=== PATIENT | female | born 1935 | race Caucasian/White ===

== ENCOUNTER → 2018-01-05 14:45 | Outpatient (CLI) | payer MEDICARE, BC, SELFPAY ==
--- NOTE | 2018-01-05 | DI.MG.S_ITS ---
BILATERAL DIGITAL SCREENING MAMMOGRAM 3D/2D WITH CAD: 01/05/2018 CLINICAL: Routine screening. Comparison is made to exams dated: 11/16/2016 mammogram, 11/12/2015 mammogram, and 11/05/2014 mammogram - [facility]. The tissue of both breasts is heterogeneously dense. This may lower the sensitivity of mammography. Current study was also evaluated with a Computer Aided Detection (CAD) system. There are benign vascular calcifications in both breasts. No significant masses, calcifications, or other findings are seen in either breast. There has been no significant interval change. IMPRESSION: There is no mammographic evidence of malignancy. A 1 year screening mammogram is recommended. This exam was interpreted at Station ID: [id number]. NOTE: For mammograms, a report in lay terms will be sent to the patient. Approximately 15% of breast malignancies will not be visualized mammographically. In the management of a palpable breast mass, a negative mammogram must not discourage biopsy of a clinically suspicious lesion. Electronically Signed By: Isha guerra/maggy:01/05/2018 15:34:53 letter sent: Normal Exam ACR BI-RADS Category 2: Benign Finding(s) 3342F
== END ==
PROVIDERS: PCP Family Medicine; Visit Provider Family Medicine
DX: Z12.31 Encounter for screening mammogram for malignant neoplasm of breast (principal)
CPT/HCPCS: 77063; 77067

== ENCOUNTER → 2018-04-05 09:32 | Outpatient (CLI) | payer MEDICARE, BC, SELFPAY ==
[2018-04-05 10:16] LABS: Add Manual Diff / Slide Review NO; Basophils Absolute Auto 100 /uL (0-100); Eosinophils Absolute Auto 200 /uL (0-450); Hematocrit 43.5 % (36-46); Hemoglobin 14.1 g/dL (12.0-16.0); Lymphocytes Absolute Auto 1100 /uL (1100-4500); Lymphocytes Percent Auto 20.4 % (25-40); Mean Corpuscular HGB Conc 32.5 % (30-36); Mean Corpuscular Hemoglobin 30.4 PG (26-34); Mean Corpuscular Volume 93.8 fL (80-100); Monocytes Absolute Auto 400 /uL (0-900); Monocytes Percent Auto 7.6 % (3-14); Neutrophils Absolute Auto 3700 /uL (1500-7000); Platelet Count 137 X10^3/uL (150-400); Red Blood Cell Count 4.64 X10^6/uL (4.0-5.2); Red Cell Distribution Width 14.1 % (11.6-14.8); White Blood Cell Count 5.4 X10^3/uL (4.5-11.0)
[2018-04-05 11:11] LABS: Alanine Aminotransferase 33 IU/L (9-52); Albumin 4.2 g/dL (3.5-5.0); Albumin Globulin Ratio 1.4 (1.0-2.8); Alkaline Phosphatase 73 U/L (38-126); Aspartate Aminotransferase 35 IU/L (14-36); Bilirubin Total 0.7 mg/dL (0.2-1.3); Blood Urea Nitrogen 25 mg/dL (7-17); Calcium 10.1 mg/dL (8.4-10.2); Carbon Dioxide 30 mmol/L (22-32); Chloride 102 mmol/L (98-107); Cholesterol 187 mg/dL (140-199); Estimated Glomerular Filt Rate 53.1 mL/min (>60); Glucose 90 mg/dL (80-110); HDL Cholesterol 87 mg/dL (40-60); HEMOLYSIS < 15 (0-50); LDL Cholesterol Calculated 90 mg/dL (<100); Potassium 4.3 mmol/L (3.4-5.1); Sodium 141 mmol/L (137-145); Total Protein 7.2 g/dL (6.3-8.2); Triglycerides 51 mg/dL (35-150)
[2018-04-05 11:40] LABS: Thyroid Stimulating Hormone 2.24 uIU/mL (0.47-4.68)
== END ==
PROVIDERS: PCP Family Medicine; Visit Provider Family Medicine
DX: E78.2 Mixed hyperlipidemia (principal); I10 Essential (primary) hypertension
CPT/HCPCS: 36415; 80053; 80061; 84443; 85025

== ENCOUNTER → 2018-08-27 14:27 | Outpatient (CLI) | payer MEDICARE, BC, SELFPAY ==
--- NOTE | 2018-09-14 15:53 | P.HOLT.S_ITS ---
[employer] Report Referral & Results Date Patient Seen: 08/27/18 Requesting provider: Geo Calzada Indication: Syncope Duration of monitoring (days): 14 Diary information: There were 2 patient diary entries associated with sinus rhythm There were 2 patient triggered events also associated with sinus rhythm Data: Minimum heart rate was 46 beats per minute at 05:42 on 09/04/2018 Maximum sinus heart rate was 84 beats per minute at 10:55 on 09/10/2018 Patient's maximum overall heart rate was 120 beats per minute during a 5 beat run of accelerated supraventricular rhythm at 13:05 on 09/06/2018 Patient had another run of accelerated supraventricular rhythm that was 7 beats in duration with a rate of 118 beats per minute the computer identified as ventricular tachycardia but appears to be supraventricular in origin Less than 1% of identified beats rather ventricular supraventricular in origin Overall heart rate is relatively bradycardic with maximum sinus heart rate being only in the 80s as above Impression: No clear etiology for syncope identified on this study Somewhat bradycardic Patient's reported symptoms not correlated with any specific dysrhythmia Clinical correlation suggested
== END ==
PROVIDERS: PCP Family Medicine; Visit Provider Family Medicine
DX: R55 Syncope and collapse (principal)
CPT/HCPCS: 0296T; 0298T

== ENCOUNTER → 2018-09-25 15:46 | Outpatient (CLI) | payer MEDICARE, BC, SELFPAY ==
[2018-09-25 16:26] LABS: Add Manual Diff / Slide Review NO; Basophils Absolute Auto 100 /uL (0-100); Basophils Percent Auto 0.9 % (0-2); Eosinophils Absolute Auto 300 /uL (0-450); Eosinophils Percent Auto 4.3 % (2-4); Hematocrit 44.2 % (36-46); Hemoglobin 14.6 g/dL (12.0-16.0); Lymphocytes Absolute Auto 1400 /uL (1100-4500); Lymphocytes Percent Auto 21.6 % (25-40); Mean Corpuscular Hemoglobin 30.7 PG (26-34); Mean Corpuscular Volume 93.1 fL (80-100); Monocytes Absolute Auto 500 /uL (0-900); Monocytes Percent Auto 7.1 % (3-14); Neutrophils Absolute Auto 4300 /uL (1500-7000); Neutrophils Percent Auto 66.1 % (50-75); Platelet Count 151 X10^3/uL (150-400); Red Blood Cell Count 4.75 X10^6/uL (4.0-5.2); Red Cell Distribution Width 13.9 % (11.6-14.8); White Blood Cell Count 6.5 X10^3/uL (4.5-11.0)
[2018-09-25 17:29] LABS: Alanine Aminotransferase 20 IU/L (9-52); Albumin 4.4 g/dL (3.5-5.0); Albumin Globulin Ratio 1.5 (1.0-2.8); Alkaline Phosphatase 75 U/L (38-126); Aspartate Aminotransferase 38 IU/L (14-36); BUN Creatinine Ratio 27.5 (6-22); Bilirubin Total 0.6 mg/dL (0.2-1.3); Blood Urea Nitrogen 22 mg/dL (7-17); Calcium 10.8 mg/dL (8.4-10.2); Carbon Dioxide 30 mmol/L (22-32); Chloride 99 mmol/L (98-107); Estimated Glomerular Filt Rate > 60.0 mL/min (>60); Globulin 2.9 g/dL (1.7-4.1); Glucose 127 mg/dL (80-110); HEMOLYSIS 28 (0-50); Potassium 3.8 mmol/L (3.4-5.1); Sodium 138 mmol/L (137-145); Total Protein 7.3 g/dL (6.3-8.2)
[2018-09-25 17:43] LABS: Vitamin D 25 Hydroxy (D3) 55.1 ng/mL (30.0-100.0)
== END ==
PROVIDERS: PCP Family Medicine; Visit Provider Family Medicine
DX: I10 Essential (primary) hypertension (principal)
CPT/HCPCS: 36415; 80053; 82306; 85025

== ENCOUNTER → 2018-10-25 10:02 | Outpatient (CLI) | payer MEDICARE, BC, SELFPAY ==
--- NOTE | 2018-10-25 10:10 | DI.US.S_ITS ---
PROCEDURE: US RENAL COMPLETE INDICATIONS: UPJ OBSTRUCTION TECHNIQUE: Real-time scanning was performed of the kidneys and bladder, with image documentation. COMPARISON: [facility], CT, IVP (ABD & PEL WWO CONTRAST), 05/05/2017, 15:30. FINDINGS: Kidneys: Kidneys are normal in size. Right kidney measures 9.9 cm long; left kidney measures 9.7 cm long. Right renal cortical thickness is 0.9 cm; left renal cortical thickness is 1.7 cm. Renal cortical echotexture is increased bilaterally. There is moderate right hydronephrosis and significant dilatation of the right renal pelvis which appears decreased compared to prior CT scan now measuring up to 6.1 cm compared to 9.[address] scan. Right ureter is not well-visualized. No hydronephrosis of the left kidney. Bladder: Pre-void bladder volume is 117 mL. Post-void residual is 31 mL. Pre-void images demonstrate no intraluminal masses or stones. On pre-void images, both of the ureteral jets are noted with color Doppler interrogation. (Of note, ureteral jets may not be detectable in up to 25% of cases due to insufficient differences in specific gravity between ureteral and bladder urine). Miscellaneous: No free pelvic fluid. IMPRESSION: 1. Moderate right hydronephrosis and significant dilatation of the right renal pelvis which has decreased in size compared to prior CT scan in this patient with history of right UPJ obstruction/stenosis. 2. Slight increase in echogenicity of the renal cortices bilaterally and right renal cortical thinning consistent with medical renal disease. Dictated by: Murali Guevara [facility] Interpreted: Anthony Lockhart MD on 10/25/2018 at 11:06 Approved by: Anthony Lockhart M.D. on 10/25/2018 at 14:53
== END ==
PROVIDERS: PCP Family Medicine; Visit Provider Family Medicine
DX: N13.0 Hydronephrosis with ureteropelvic junction obstruction (principal); N13.5 Crossing vessel and stricture of ureter without hydronephrosis; N13.30 Unspecified hydronephrosis; N28.9 Disorder of kidney and ureter, unspecified
CPT/HCPCS: 76770

== ENCOUNTER → 2019-02-07 11:06 | Outpatient (CLI) | payer MEDICARE, BC, SELFPAY ==
--- NOTE | 2019-02-07 | DI.MG.S_ITS ---
BILATERAL DIGITAL SCREENING MAMMOGRAM 3D/2D WITH CAD: 02/07/2019 CLINICAL: Routine screening. Comparison is made to exams dated: 01/05/2018 mammogram, 11/16/2016 mammogram, 11/12/2015 mammogram, 11/05/2014 mammogram, and 08/20/2013 mammogram - [facility]. The tissue of both breasts is heterogeneously dense. This may lower the sensitivity of mammography. Current study was also evaluated with a Computer Aided Detection (CAD) system. There are benign vascular calcifications in both breasts. No significant masses, calcifications, or other findings are seen in either breast. There has been no significant interval change. IMPRESSION: There is no mammographic evidence of malignancy. A 1 year screening mammogram is recommended. This exam was interpreted at Station ID: [id number]. NOTE: For mammograms, a report in lay terms will be sent to the patient. Approximately 15% of breast malignancies will not be visualized mammographically. In the management of a palpable breast mass, a negative mammogram must not discourage biopsy of a clinically suspicious lesion. Electronically Signed By: Manish rosa/maggy:02/07/2019 16:52:20 letter sent: Normal Exam ACR BI-RADS Category 2: Benign Finding(s) 3342F
== END ==
PROVIDERS: PCP Family Medicine; Visit Provider Family Medicine
DX: Z12.31 Encounter for screening mammogram for malignant neoplasm of breast (principal)
CPT/HCPCS: 77063; 77067

== ENCOUNTER → 2019-05-22 09:54 | Outpatient (CLI) | payer MEDICARE, BC, SELFPAY ==
[2019-05-22 10:47] LABS: Add Manual Diff / Slide Review NO; Basophils Absolute Auto 0 /uL (0-100); Basophils Percent Auto 0.7 % (0-2); Eosinophils Absolute Auto 200 /uL (0-450); Hematocrit 41.3 % (36-46); Hemoglobin 14.1 g/dL (12.0-16.0); Lymphocytes Absolute Auto 1300 /uL (1100-4500); Lymphocytes Percent Auto 26.4 % (25-40); Mean Corpuscular HGB Conc 34.2 % (30-36); Mean Corpuscular Hemoglobin 31.5 PG (26-34); Mean Corpuscular Volume 92.1 fL (80-100); Monocytes Absolute Auto 400 /uL (0-900); Monocytes Percent Auto 7.8 % (3-14); Neutrophils Absolute Auto 3100 /uL (1500-7000); Neutrophils Percent Auto 62.1 % (50-75); Platelet Count 142 X10^3/uL (150-400); Red Blood Cell Count 4.49 X10^6/uL (4.0-5.2); Red Cell Distribution Width 13.7 % (11.6-14.8); White Blood Cell Count 5.1 X10^3/uL (4.5-11.0)
[2019-05-22 11:25] LABS: Alanine Aminotransferase 23 IU/L (<35); Albumin 4.4 g/dL (3.5-5.0); Albumin Globulin Ratio 1.5 (1.0-2.8); Alkaline Phosphatase 61 U/L (38-126); Aspartate Aminotransferase 39 IU/L (14-36); BUN Creatinine Ratio 25.6 (6-22); Bilirubin Total 0.8 mg/dL (0.2-1.3); Blood Urea Nitrogen 23 mg/dL (7-17); Calcium 10.8 mg/dL (8.4-10.2); Carbon Dioxide 34 mmol/L (22-32); Chloride 97 mmol/L (98-107); Cholesterol 193 mg/dL (140-199); Estimated Glomerular Filt Rate 59.8 mL/min (>60); Globulin 2.9 g/dL (1.7-4.1); Glucose 93 mg/dL (80-110); HDL Cholesterol 80 mg/dL (40-60); HEMOLYSIS < 15 (0-50); LDL Cholesterol Calculated 102 mg/dL (<100); Potassium 4.1 mmol/L (3.4-5.1); Sodium 138 mmol/L (137-145); Total Protein 7.3 g/dL (6.3-8.2); Triglycerides 55 mg/dL (35-150)
[2019-05-22 11:48] LABS: Thyroid Stimulating Hormone 1.81 uIU/mL (0.47-4.68)
== END ==
PROVIDERS: PCP Family Medicine; Referring Provider Family Medicine; Visit Provider Family Medicine
DX: E78.5 Hyperlipidemia, unspecified (principal); E78.2 Mixed hyperlipidemia; I10 Essential (primary) hypertension
CPT/HCPCS: 36415; 80053; 80061; 84443; 85025

== ENCOUNTER → 2020-04-09 09:39 | Outpatient (CLI) | payer MEDICARE, BC, SELFPAY ==
[2020-04-09 10:26] LABS: Add Manual Diff / Slide Review NO; Basophils Absolute Auto 100 /uL (0-100); Basophils Percent Auto 0.9 % (0-2); Eosinophils Absolute Auto 200 /uL (0-450); Eosinophils Percent Auto 3.2 % (2-4); Hematocrit 37.1 % (36-46); Hemoglobin 12.3 g/dL (12.0-16.0); Lymphocytes Absolute Auto 1300 /uL (1100-4500); Lymphocytes Percent Auto 20.4 % (25-40); Mean Corpuscular HGB Conc 33.3 % (30-36); Mean Corpuscular Hemoglobin 31.9 PG (26-34); Mean Corpuscular Volume 95.9 fL (80-100); Monocytes Absolute Auto 500 /uL (0-900); Neutrophils Absolute Auto 4500 /uL (1500-7000); Neutrophils Percent Auto 68.5 % (50-75); Platelet Count 189 X10^3/uL (150-400); Red Blood Cell Count 3.87 X10^6/uL (4.0-5.2); Red Cell Distribution Width 14.9 % (11.6-14.8); White Blood Cell Count 6.6 X10^3/uL (4.5-11.0)
[2020-04-09 10:35] LABS: Hemoglobin A1C% w Est Avg Glu 5.1 % (4.0-6.0)
[2020-04-09 10:39] LABS: Alanine Aminotransferase 19 IU/L (<35); Albumin 4.6 g/dL (3.5-5.0); Albumin Globulin Ratio 1.6 (1.0-2.8); Alkaline Phosphatase 68 U/L (38-126); Aspartate Aminotransferase 43 IU/L (14-36); BUN Creatinine Ratio 26.3 (6-22); Blood Urea Nitrogen 20 mg/dL (7-17); Calcium 10.2 mg/dL (8.4-10.2); Carbon Dioxide 33 mmol/L (22-32); Chloride 96 mmol/L (98-107); Cholesterol 194 mg/dL (140-199); Estimated Glomerular Filt Rate > 60.0 mL/min (>60); Globulin 2.8 g/dL (1.7-4.1); Glucose 105 mg/dL (80-110); HDL Cholesterol 81 mg/dL (40-60); HEMOLYSIS < 15 (0-50); LDL Cholesterol Calculated 100 mg/dL (<100); Potassium 3.6 mmol/L (3.4-5.1); Sodium 134 mmol/L (137-145); Total Protein 7.4 g/dL (6.3-8.2); Triglycerides 63 mg/dL (35-150)
== END ==
PROVIDERS: PCP Family Medicine; Referring Provider Family Medicine; Visit Provider Family Medicine
DX: E78.2 Mixed hyperlipidemia (principal); R73.01 Impaired fasting glucose; I10 Essential (primary) hypertension; N13.30 Unspecified hydronephrosis
CPT/HCPCS: 36415; 80053; 80061; 83036; 85025

== ENCOUNTER → 2020-06-24 10:22 | Outpatient (CLI) | payer MEDICARE, BC, SELFPAY ==
--- NOTE | 2020-06-24 10:24 | DI.MG.S_ITS ---
BILATERAL DIGITAL SCREENING MAMMOGRAM 3D/2D WITH CAD: 06/24/2020 CLINICAL: Routine screening. Comparison is made to exams dated: 02/07/2019 mammogram, 01/05/2018 mammogram, and 11/16/2016 mammogram - [facility]. The tissue of both breasts is heterogeneously dense. This may lower the sensitivity of mammography. Current study was also evaluated with a Computer Aided Detection (CAD) system. There are benign vascular calcifications in both breasts. No significant masses, calcifications, or other findings are seen in either breast. There has been no significant interval change. IMPRESSION: BENIGN There is no mammographic evidence of malignancy. A 1 year screening mammogram is recommended. This exam was interpreted at Station ID: [id number]. NOTE: For mammograms, a report in lay terms will be sent to the patient. Approximately 15% of breast malignancies will not be visualized mammographically. In the management of a palpable breast mass, a negative mammogram must not discourage biopsy of a clinically suspicious lesion. Electronically Signed By: Jv summers/maggy:06/24/2020 12:05:05 letter sent: Normal Exam ACR BI-RADS Category 2: Benign Finding(s) 3342F
== END ==
PROVIDERS: PCP Family Medicine; Referring Provider Family Medicine; Visit Provider Family Medicine
DX: Z12.31 Encounter for screening mammogram for malignant neoplasm of breast (principal)
CPT/HCPCS: 77063; 77067

== ENCOUNTER → 2020-07-16 09:42 | Outpatient (CLI) | payer MEDICARE, BC, SELFPAY ==
--- NOTE | 2020-07-16 | DI.NM.S_ITS ---
PROCEDURE: NM RENAL FUNCTION W LASIX RADIOPHARMACEUTICAL: 9.6 mCi Tc-99m MAG3 IV and 40 mg furosemide IV. INDICATIONS: Crossing Vessel and stricture of ureter TECHNIQUE: The patient was hydrated orally before the examination was begun. After intravenous administration of Tc-99m MAG3, posterior abdominal radionuclide angiogram and sequential (1 minute each frame) renal images were obtained. A time-activity curve for each kidney was generated and analyzed. To evaluate for obstruction, the patient was given 40 mg furosemide via slow intravenous injection after the start of the examination. Sequential images were obtained for up to an additional 20 minutes. COMPARISON: [facility], CT, IVP (ABD & PEL WWO CONTRAST), 05/05/2017, 15:30. [facility], CT, CT HEAD WITHOUT CONTRAST, 06/30/2020, 14:46. [facility], CT, ABDOMEN/PELVIS WITH CONTRAST, 11/18/2007, 12:17. [facility], CT, ABDOMEN/PELVIS WITHOUT CONTRAST, 11/11/2007, 16:01. [place], [place], RENAL IMAGING WITH LASIX, 05/17/2017, 10:02. [facility], US RENAL COMPLETE, 10/25/2018, 10:22. FINDINGS: Perfusion: There is normal vascular flow to both kidneys. Morphology: Left kidney is inferiorly ptotic and decreased in size compared to the left kidney. Both kidneys are normal in size and shape. There is markedly dilated right renal collecting system. The left ureter and bladder fill with tracer, and appear normal. The right ureter is poorly visualized. Function: Both kidneys demonstrate normal cortical tracer uptake, with pjtu-lu-oida activity ranging from 3 to 5 minutes. The right kidney contributes 37.7 % of total renal function. The left kidney contributes 62.3% of total renal function (previously, right kidney 33.8% and left kidney 66.2% on 05/17/2017). Lasix stimulation: After diuretic administration, there is prompt clearance of tracer activity from the renal collecting systems in both kidneys. The half-time of emptying of tracer activity from the right pelvicaliceal system is 11.2 minutes. The half-time of emptying from the left pelvicaliceal system is 8.9 minutes. Normal emptying half-times are less than 10 minutes; borderline ranges are from 10 to 20 minutes. IMPRESSION: 1. Right kidney is decreased in size and function. The left renal pelvis is markedly dilated. The T1/2 for the right kidney is borderline increased consistent with a degree of right UPJ obstruction. 2. Normal left renal function. 3. The right kidney contributes 37.7% of total renal function; the left the contributed 62.3% of total renal function. Split renal function is stable since 2018. Dictated by: Kulwant Dominguez M.D. on 07/16/2020 at 13:12 Approved by: Kulwant Dominguez M.D. on 07/16/2020 at 13:26
== END ==
PROVIDERS: PCP Family Medicine; Referring Provider Physician Assistant Medical; Visit Provider Physician Assistant Medical
DX: N13.5 Crossing vessel and stricture of ureter without hydronephrosis (principal)
CPT/HCPCS: 78708; A9562

== ENCOUNTER → 2020-08-27 15:50 | Outpatient (CLI) | payer MEDICARE, BC, SELFPAY ==
--- NOTE | 2020-08-27 15:53 | DI.MRI.S_ITS ---
PROCEDURE: MR THORACIC SPINE WO CON INDICATIONS: extensive scoliosis and stenosis CTL spine and chronic pain TECHNIQUE: Noncontrast sagittal T1 spine echo and T2 fast spin echo, sagittal STIR, axial T1 and T2 fast spin echo through the thoracic spine. COMPARISON: [facility], MR, MR LUMBAR SPINE WO CON, 08/27/2020, 17:35. [facility], MR, MR CERVICAL SPINE WO CON, 08/27/2020, 16:47. FINDINGS: Image quality: Excellent. Alignment and Curvature: Accentuated thoracic kyphosis is seen. Qyum-bn-zdlhljeu dextroconvex thoracic scoliotic curvature is seen. Bone Marrow: Marrow is of normal overall signal. No acute vertebral body compression fractures. There is a remote appearing T10 anterior wedge deformity, with approximately 30% loss of height anteriorly. Spinal Cord: Visualized spinal cord is normal in size and signal. Paraspinous Soft Tissues: No paravertebral masses. Miscellaneous: At T7-T8, there is a broad-based disc bulge seen. Macrocytic ont At T9-T10, there is mild generalized disc bulge seen, with hypertrophy of the posterior elements. Mild central canal narrowing is seen, as on series 8, image 9. Moderate bilateral neural foraminal narrowing is seen. At T10-T11, there is mild generalized disc bulge seen, with a protrude few of the posterior elements. Minimal to mild central canal narrowing is seen. There is moderate left-sided and no significant right-sided neural foraminal narrowing seen. At T11-T12, there is moderate loss of disc height seen. At least moderate disc bulge is seen. Moderate facet hypertrophy is seen. Minimal to mild central canal narrowing is seen. There is at least moderate right-sided and no significant left-sided neural foraminal narrowing seen. IMPRESSION: Accentuated thoracic kyphosis and welp-jk-ouxpeaus dextroconvex thoracic scoliosis is seen. Remote T10 anterior wedge deformity. Age-appropriate lower thoracic spine degenerative changes are seen. Dictated by: Miah Vasquez M.D. on 08/28/2020 at 11:28 Approved by: Miah Vasquez M.D. on 08/28/2020 at 11:32
--- NOTE | 2020-08-27 15:53 | DI.MRI.S_ITS ---
PROCEDURE: MR CERVICAL SPINE WO CON INDICATIONS: extensive scoliosis and stenosis CTL spine and chronic pain TECHNIQUE: Noncontrast sagittal T1 spin echo and T2 fast spin echo, sagittal STIR, foraminal oblique sagittal T2 fast spin echo, and axial gradient echo or T2 fast spin echo through the cervical spine. COMPARISON: [facility], MR, C-SPINE WITHOUT CONTRAST, 03/28/2007, 10:24. [facility], MR, MR THORACIC SPINE WO CON, 08/27/2020, 17:09. [facility], MR, MR LUMBAR SPINE WO CON, 08/27/2020, 17:35. [facility], MR, C-SPINE WITHOUT CONTRAST, 02/07/2011, 14:10. FINDINGS: Image quality: Diagnostic, with note made of motion artifact. Alignment and Curvature: Mild anterolisthesis is seen at the C3-C4 level. Minimal retrolisthesis is seen at C4-C5 and C5-C6. Bone Marrow: Marrow demonstrates normal overall signal. Spinal Cord: Visualized spinal cord has normal size and signal. No cerebellar tonsillar herniation. Paraspinous Soft Tissues: No paravertebral masses. Prevertebral soft tissues are normal in thickness. C2-C3: Normal appearance. C3-C4: Moderate loss of disc height is seen. Loss of disc signal is seen. Mild to moderate disc osteophyte complex is seen. There is at least moderate facet hypertrophy is seen. Moderate bilateral neural foraminal narrowing is seen. Mild to moderate central canal narrowing is seen. These imaging findings have progressed compared to the prior study. C4-C5: At least moderate loss of disc height and disc signal can be seen. Moderate generalized disc osteophyte complex is seen. There is moderate right-sided and moderate to prominent left-sided facet hypertrophy seen. There is moderate to severe left-sided and moderate right-sided neural foraminal narrowing seen. Mild to moderate central canal narrowing is seen at this level. When comparison is made with the prior images, these findings are similar. C5-C6: At least moderate loss of disc height and disc signal can be seen. Mild to moderate disc osteophyte complex is seen. There is at least moderate facet hypertrophy seen. There is moderate to severe left-sided and moderate right-sided neural foraminal narrowing seen. Moderate central canal narrowing is seen. There is associated mass effect upon the ventral spinal cord. There is slight progression compared to 2011. C6-C7: Moderate loss of disc height is seen. Loss of disc signal is seen. Moderate generalized disc osteophyte complex is seen. There is zjuk-dl-bsozdgvw right-sided and at least moderate left-sided facet hypertrophy seen. There is mzee-jb-cexgxild bilateral neural foraminal narrowing seen. Mild central canal narrowing is seen. When comparison is made with the prior images, these findings are similar. C7-T1: No significant abnormality is seen. IMPRESSION: Multiple levels of cervical spine degenerative change are seen, which are overall mildly progressed compared to 2011. Dictated by: Miah Vasquez M.D. on 08/28/2020 at 11:21 Approved by: Miah Vasquez M.D. on 08/28/2020 at 11:27
--- NOTE | 2020-08-27 15:53 | DI.MRI.S_ITS ---
PROCEDURE: MR PELVIS WO CON INDICATIONS: extensive scoliosos and stenosis CTL spine and chronic pain TECHNIQUE: Noncontrast axial and coronal T1 spin echo and STIR through the lumbosacral plexus region. Optional contrast may be given, followed by axial and coronal T1 spin echo with fat saturation through the sacral plexus. COMPARISON: [facility], CT, IVP (ABD & PEL WWO CONTRAST), 05/05/2017, 15:30. FINDINGS: Image quality: Significantly reduced by patient motion and metal artifact related to left total hip arthroplasty.. Lumbosacral plexus: Quality of visualization is limited by patient motion and metal artifact on the left. Within the constraints of this superior to the piriformis muscles, the pre-plexal structures appear normal, including the lumbosacral trunk and S1 root. Just anterior to the piriformis muscles, the sacral plexus proper demonstrates normal morphology (lumbosacral trunk, S1 to S3 nerve roots). Inferior to the piriformis muscle on the right, the sciatic nerves appear normal. Soft tissues: The piriformis muscle on the right appears normal but is poorly seen on the left due to extensive metal artifact.. No presacral masses. Rectum appears normal in caliber and wall thickness where well seen. Pessary is in place at the midline No pathologic free pelvic fluid. No visualized adenopathy by size criteria. Bones: Marrow is normal in overall signal. IMPRESSION: Source of chronic pain is not found. Please note that there is patient motion artifact which reduces quality of the examination overall and extensive metal artifact on the left from a total hip arthroplasty which further degrades quality of visualization predominantly on the left. Overall it may be warranted to obtain contrast-enhanced CT scanning for further assessment of chronic pain in this patient with relatively poor quality visualization through MR scanning. Dictated by: Hernando Patiño M.D. on 08/28/2020 at 10:00 Approved by: Hernando Patiño M.D. on 08/28/2020 at 10:05
--- NOTE | 2020-08-27 15:53 | DI.MRI.S_ITS ---
PROCEDURE: MR LUMBAR SPINE WO CON INDICATIONS: extensive scoliosos and stenosis CTL spine and chronic pain TECHNIQUE: Noncontrast sagittal T1 spin echo and T2 fast echo, sagittal STIR, axial T1 and T2 fast spin echo through the lumbar spine. In cases with scoliosis, additional coronal T2 fast spin echo may be performed. COMPARISON: [facility], MR, MR THORACIC SPINE WO CON, 08/27/2020, 17:09. [facility], CT, IVP (ABD & PEL WWO CONTRAST), 05/05/2017, 15:30. [facility], MR, L-SPINE WITHOUT CONTRAST, 12/20/2016, 14:13. [facility], CR, SPINE LUMB 6+VW, 12/12/2016, 12:10. FINDINGS: Image quality: Excellent. Alignment and Curvature: 5 lumbar type vertebral bodies are present by plain film. There is moderate leftward is present, as before. Mild grade 1 retrolisthesis T11 on T12, T12 on L1, and L1 on L2 is present. Bone Marrow: Marrow is of normal overall signal. Left L4-L5 and L5-S1 pars interarticularis defects. There is moderate reactive signal within the endplates adjacent to the 2 T11-T12, L4-L5, and L5-S1 intervertebral discs. Mild reactive signal within the endplates adjacent to the T12-L1, L1-L2, L2-L3, and L3-L4 intervertebral discs. There is mild wedging of the T10 vertebral body, which demonstrates linear low T1/T2 signal intensity within its superior endplate, as well as mild surrounding ill-defined STIR signal. Spinal Cord: Conus medullaris terminates at the L2 level. Visualized cord demonstrates normal signal and size. Paraspinous Soft Tissues: No paravertebral masses. Right renal cyst is present, as before, incompletely visualized. There is severe right hydronephrosis and renal pelvic dilatation, as before. T12-L1: Moderate disc desiccation. Mild diffuse disc bulge. Mild facet and ligamentum flavum hypertrophy. Mild canal stenosis. No foraminal stenosis. No significant change. L1-L2: Moderate disc height loss and desiccation. Mild diffuse disc bulge. Mild facet and ligamentum flavum hypertrophy. Mild canal stenosis. Mild right greater than left foraminal stenosis. No significant change. L2-L3: Moderate disc desiccation. Mild diffuse disc bulge. Mild facet and ligamentum flavum hypertrophy. Mild canal stenosis. Mild bilateral foraminal stenosis. No significant change. L3-L4: Moderate disc height loss and desiccation. Mild diffuse disc bulge. Mild facet and uncovertebral hypertrophy. Moderate canal stenosis. Mild right greater than left foraminal stenosis. No significant change. L4-L5: Severe disc height loss and desiccation. Mild diffuse disc bulge. Moderate facet and ligamentum flavum hypertrophy. Increased, severe canal stenosis. No change in moderate right and severe left foraminal stenosis. Left L4 nerve root compression. No significant change. L5-S1: Severe disc height loss and desiccation. Mild diffuse disc bulge. Mild facet and ligamentum flavum hypertrophy. Moderate canal stenosis. Severe left greater than right foraminal stenosis. Left greater than right L5 nerve root compression. No significant change. IMPRESSION: 1. Multilevel degenerative disc and facet disease, as well as ligamentum flavum hypertrophy and epidural lipomatosis. 2. Multilevel canal stenoses, worst at L4-L5 where there is increased, severe canal stenosis. 3. Mild subacute T10 compression fracture. 4. Grade I isthmic spondylolisthesis at L4-L5 and L5-S1. 5. Multilevel foraminal stenoses, worst at L4-L5 and L5-S1 where there is associated intraforaminal nerve root compression. Recommend correlation with clinical symptoms to ascertain relevance of this finding. 6. No significant change in severe right hydronephrosis. Dictated by: Tyrone Lal M.D. on 08/28/2020 at 8:54 Approved by: Tyrone Lal M.D. on 08/28/2020 at 9:10
[2020-08-28 13:40] LABS: Fecal Immunochemical Test Negative (Negative)
== END ==
PROVIDERS: PCP Family Medicine; Referring Provider Family Medicine; Visit Provider Family Medicine
DX: M41.9 Scoliosis, unspecified (principal); M41.84 Other forms of scoliosis, thoracic region; M48.061 Spinal stenosis, lumbar region without neurogenic claudication; M48.07 Spinal stenosis, lumbosacral region; M51.36 Other intervertebral disc degeneration, lumbar region; M48.54XA Collapsed vertebra, not elsewhere classified, thoracic region, initial encounter for fracture; M48.04 Spinal stenosis, thoracic region; M47.814 Spondylosis without myelopathy or radiculopathy, thoracic region; M48.02 Spinal stenosis, cervical region; M47.812 Spondylosis without myelopathy or radiculopathy, cervical region; M43.16 Spondylolisthesis, lumbar region; M43.17 Spondylolisthesis, lumbosacral region; M19.91 Primary osteoarthritis, unspecified site; M25.552 Pain in left hip; M54.5 Low back pain; G89.29 Other chronic pain; Z12.11 Encounter for screening for malignant neoplasm of colon; Z96.642 Presence of left artificial hip joint
CPT/HCPCS: 72141; 72146; 72148; 72195; 82274

== ENCOUNTER → 2020-10-12 15:19 | Outpatient (CLI) | payer MEDICARE, BC, SELFPAY ==
--- NOTE | 2020-10-12 15:22 | DI.RAD.S_ITS ---
PROCEDURE: XR LUMBAR SPINE 2-3V INDICATIONS: Pain TECHNIQUE: 3 views of the lumbar spine were acquired. COMPARISON: [facility], MR, MR LUMBAR SPINE WO CON, 08/27/2020, 17:35. FINDINGS: Bones: 5 uiq-gkh-qhyangw vertebrae are present. Mild levocurvature centered at the L3 level. Grade 1 spondylolisthesis L4-L5 and L5-S1. Multilevel disc degeneration, severe at the L4-L5 and L5-S1 levels where there is moderate facet joint arthropathy. Left hip arthroplasty incompletely visualized.. No acute vertebral body compression fractures. No suspicious bony lesions. Bones are osteopenic. Soft tissues: Overlying bowel gas pattern is normal. No suspicious soft tissue calcifications. Vascular calcifications indicate atherosclerosis. IMPRESSION: Multilevel spondylosis. Dictated by: Murali LUND Interpreted: Guy Perkins MD on 10/12/2020 at 16:06 Transcribed by: KYLER on 10/12/2020 at 16:07 Approved by: Guy Perkins M.D. on 10/12/2020 at 16:54
--- NOTE | 2020-10-12 15:22 | DI.RAD.S_ITS ---
PROCEDURE: XR THORACIC SPINE 2V INDICATIONS: Pain TECHNIQUE: 3 views of the thoracic spine were acquired. COMPARISON: [facility], MR, MR THORACIC SPINE WO CON, 08/27/2020, 17:09. FINDINGS: Bones: No acute fractures or dislocations. No change in remote T10 anterior wedge deformity. No suspicious bony lesions. 12 pairs of ribs are noted, and appear intact where visualized. Mild S-shaped scoliosis. Moderate multilevel mid and lower thoracic spine disc degeneration. Soft tissues: No paravertebral stripe thickening. Vascular calcifications indicate atherosclerosis. IMPRESSION: 1. Chronic T10 compression fracture no acute compression fracture seen. 2. Multilevel spondylosis. Dictated by: Murali ROBLES Interpreted: Guy Perkins MD on 10/12/2020 at 16:08 Transcribed by: KYLER on 10/12/2020 at 16:09 Approved by: Guy Perkins M.D. on 10/12/2020 at 16:55
--- NOTE | 2020-10-12 15:22 | DI.RAD.S_ITS ---
PROCEDURE: XR HIP W PEL IF DONE LT MIN 4V INDICATIONS: Pain TECHNIQUE: AP pelvis and lateral view of the bilateral hip acquired. COMPARISON: [facility], CR, ABDOMEN ACUTE SERIES, 11/18/2007, 8:00. [facility], CR, XR LUMBAR SPINE WITH OLBIQUES PLUS FLEXION EXTENSION, 10/16/2018, 13:53. FINDINGS: Bones: Patient is status post left hip arthroplasty, with hardware components in expected positions. The hip joint appears congruent. The visualized bony structures appear intact. Mild right hip joint narrowing with periarticular osteophyte formation. Soft tissues: Overlying postoperative changes are noted. No suspicious soft tissue densities. IMPRESSION: Stable appearance of left hip arthroplasty. Mild right hip joint degeneration. Dictated by: Murali Guevara [facility] Interpreted: Guy Perkins MD on 10/12/2020 at 16:05 Transcribed by: KYLER on 10/12/2020 at 16:06 Approved by: Guy Perkins M.D. on 10/12/2020 at 16:53
== END ==
PROVIDERS: PCP Family Medicine; Referring Provider Family Medicine; Visit Provider Family Medicine
DX: M25.552 Pain in left hip (principal); M54.6 Pain in thoracic spine; M16.11 Unilateral primary osteoarthritis, right hip; M54.5 Low back pain; G89.29 Other chronic pain; M47.814 Spondylosis without myelopathy or radiculopathy, thoracic region; M47.816 Spondylosis without myelopathy or radiculopathy, lumbar region; M47.817 Spondylosis without myelopathy or radiculopathy, lumbosacral region; M48.54XS Collapsed vertebra, not elsewhere classified, thoracic region, sequela of fracture; Z96.642 Presence of left artificial hip joint
CPT/HCPCS: 72070; 72100; 73522

== ENCOUNTER → 2020-12-19 08:30 | Outpatient (CLI) | payer MEDICARE, BC, SELFPAY ==
[2020-12-19 09:17] LABS: Add Manual Diff / Slide Review NO; Basophils Absolute Auto 0 /uL (0-100); Basophils Percent Auto 0.7 % (0-2); Eosinophils Absolute Auto 200 /uL (0-450); Eosinophils Percent Auto 2.9 % (2-4); Hematocrit 44.4 % (36-46); Hemoglobin 14.7 g/dL (12.0-16.0); Lymphocytes Absolute Auto 1400 /uL (1100-4500); Lymphocytes Percent Auto 20.4 % (25-40); Mean Corpuscular HGB Conc 33.2 % (30-36); Mean Corpuscular Volume 93.4 fL (80-100); Monocytes Absolute Auto 600 /uL (0-900); Monocytes Percent Auto 9.3 % (3-14); Neutrophils Absolute Auto 4500 /uL (1500-7000); Neutrophils Percent Auto 66.7 % (50-75); Platelet Count 150 X10^3/uL (150-400); Red Blood Cell Count 4.75 X10^6/uL (4.0-5.2); Red Cell Distribution Width 13.8 % (11.6-14.8); White Blood Cell Count 6.7 X10^3/uL (4.5-11.0)
[2020-12-19 09:37] LABS: Alanine Aminotransferase 30 IU/L (<35); Albumin 4.4 g/dL (3.5-5.0); Albumin Globulin Ratio 1.6 (1.0-2.8); Alkaline Phosphatase 72 U/L (38-126); Aspartate Aminotransferase 40 IU/L (14-36); BUN Creatinine Ratio 24.7 (6-22); Bilirubin Total 0.7 mg/dL (0.2-1.3); Blood Urea Nitrogen 19 mg/dL (7-17); Calcium 10.5 mg/dL (8.4-10.2); Carbon Dioxide 34 mmol/L (22-32); Chloride 96 mmol/L (98-107); Cholesterol 209 mg/dL (140-199); Estimated Glomerular Filt Rate > 60.0 mL/min (>60); Globulin 2.8 g/dL (1.7-4.1); Glucose 99 mg/dL (80-110); HDL Cholesterol 94 mg/dL (40-60); HEMOLYSIS < 15 (0-50); LDL Cholesterol Calculated 101 mg/dL (<100); Potassium 3.9 mmol/L (3.4-5.1); Sodium 137 mmol/L (137-145); Total Protein 7.2 g/dL (6.3-8.2); Triglycerides 69 mg/dL (35-150)
== END ==
PROVIDERS: PCP Family Medicine; Referring Provider Family Medicine; Visit Provider Family Medicine
DX: E78.2 Mixed hyperlipidemia (principal); R42 Dizziness and giddiness; N13.30 Unspecified hydronephrosis
CPT/HCPCS: 36415; 80053; 80061; 85025

== ENCOUNTER 2021-06-24 15:15 | Outpatient (RCR) | payer MEDICARE, BC, SELFPAY ==
--- NOTE | 2021-05-11 17:20 | PT.OIE ---
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) Pain in thoracic spine (05/11/21) Unsteadiness on feet (05/11/21) Past Medical History (Last Updated 04/22/21 @ 08:59 by Tremaine Banuelos DO) Acute pain of right knee Anemia (2007) Anxiety as acute reaction to exceptional stress Atrial fibrillation (2007) BCC (basal cell carcinoma of skin) (2003) Harrison's palsy (2007) Cataract (2001) Cervical spine disease Change in stool Chicken pox (~1939) Chronic thoracic back pain Closed T10 fracture Colon polyps (1997) Constipation by outlet dysfunction Elevated fasting blood sugar Fecal incontinence (1997) Feeling of incomplete bladder emptying GERD (gastroesophageal reflux disease) (1989) Hearing loss (2012) Hemorrhoids (1989) Herpes (2009) History of basal cell carcinoma excision (~2003) History of resection of rectum (1997) Hypertension (~1979) Kidney disease (2007) Lower extremity edema Lumbar spine pain (2003) Measles (1942) Mumps (1946) Nocturia Obstruction of right ureteropelvic junction (UPJ) Osteoarthritis (~1999) Plantar warts (~1970) Psoriasis (2011) Rubella (194) Spondylolisthesis at L4-L5 level Spondylolisthesis at L5-S1 level Status post blepharoplasty of both eyes (2013) Tinnitus (2005) Urinary hesitancy Urinary incontinence (2010) Villous adenoma of colon Past Surgical History (Last Reviewed 02/23/21 @ 14:58 by Tiago Jordan MD) Anesthesia History of basal cell carcinoma excision (~2003) History of cataract removal with insertion of prosthetic lens (2010) History of hip replacement (03/2008) History of resection of rectum (1997) Status post blepharoplasty of both eyes (2013) Status post dilation and curettage (1981) Status post tonsillectomy and adenoidectomy (1941) Visit Care Team Role Provider Type Tremaine Banuelos DO Attending Provider Physician Family Provider Primary Care Provider Referring Provider Specialty: Family Practice Address: [address] [place] [address], [id number] Email: Physical Therapy Initial Evaluation PT-OP-A Visit Information Start: 05/07/21 16:43 Freq: Status: Active Protocol: Document 05/11/21 13:50 LRN (Rec: 05/11/21 17:15 LRN [id number]) Out-Patient Physical Therapy Visit Information Visit Information Visit Type Initial Evaluation Visit Start Time 13:50 Visit Stop Time 14:36 Total Visit Minutes 46 Visit Number 1 Evaluation Information Evaluation Date 05/11/21 Precautions Precautions Scoliosis, L [id number], shoe insert in R shoe, Blood clots in spleen in 2007, depression controlled by meds, A. Fib, hydronephritis, neck pain, L leg neuropathy, 1997 rectal resection PT-OP-B Current Condition Start: 05/07/21 16:43 Freq: Status: Active Protocol: Document 05/11/21 13:50 LRN (Rec: 05/11/21 17:15 LRN [id number]) Current Condition History of Current Condition Onset Date Thoracic back pain 6 months ago, R knee pain 09/20/20. Current Complaints R knee, neck, mid thoracic, and low back pain. History of Current Condition R knee pain 09/20/20 was having to go up/down stairs several times a day, then started to develop R knee pain. Started as twinge in the medial knee ( medial fat pad), sometimes (> 4 blocks) it acts like it isn' t going to hold her up. No pain unless after doing lots of walking or walking inclines , or stairs. Low back pain in 2003, from lifting a weight on a wgt machine. Pain in mid thoracic (~T7) 6 months ago of insidious onset. Llow back ~T12-L1 level and in neck C7-T1 level. Neck pain onset 1 yr ago of insdious onset. Prior Treatments and Tests X-rays. PT for L leg 2018. Developmental History Developmental History In 2018, the L leg went out, therefore any walking was with a walker or cane. Treatment Goals Patient/Caregiver Goals Pt goals: - Learning what she can do to prevent worsening of condition . - Learn ex's to help prevent thoracic back pain. Prior Functional Status Baseline Function- ADL's Independent Baseline Function- Mobility Independent Baseline Function- Gait Walked in grocery store with a cart. L leg has 1/2 sensation. Baseline Function- Recreation/Hobbies Was not doing stairs ambulation (hasn't ambulated stairs since 2007). Current Functional Impairments (Reported) Functional Limitations- ADL's No pain with walking, doing inclines, or stairs prior to . Occasionally get up on stool to reach bowls. Uses a counter in front, wall on an end. Hasn't vacuumed in 2 yrs and has started vacuuming 1x every 2 weeks for 45'. Functional Limitations- Mobility/Gait Ambs with SPC with pain in R knee and weakness in L knee. Personal Factors Other Personal Factors That May Effect Lives home alone. Therapy/Recovery L leg weakness and neuropathy. PT-OP-C Subjective Start: 05/07/21 16:43 Freq: Status: Active Protocol: Document 05/11/21 13:50 LRN (Rec: 05/11/21 17:15 LRN [id number]) OP-PT Subjective Patient Comments Patient Comments Decreased sensation of the L leg from lower thigh to ankle anterior, medial and lateral leg. Patient Questionnaires Lower Extremity Functional Scale LEFS Score 28 LEFS Impairment 60 to 79% Impaired (Score 17- 31) Oswestry Low Back Index Oswestry Score 42 Oswestry Impairment 40 to 59% Impaired (Score 40- 59) OP-PT Pain Assessment Pain Assessment Grid Paper Pain Assessment Grid Completed Yes Location Thoracic region Pain Location Details Mid back pain Intensity 5 Scale Used Numeric (0 - 10) Frequency Intermittent Pain Aggravating Factors Walking R knee Pain Location Details R medial knee pain (medial fat pad) Intensity 3 Scale Used Numeric (0 - 10) Frequency Intermittent PT-OP-G Mobility & Gait Start: 05/07/21 16:43 Freq: Status: Active Protocol: Document 05/11/21 13:50 LRN (Rec: 05/11/21 17:15 LRN [id number]) OP Gait Assessment Gait Gait Assistance Required: Independent Distance (Feet) 100 Able to Maintain Weight Bearing Status Yes During Gait Assistive Devices Assistive Device Straight Cane Gait Deviations General Gait Pattern Ataxic,Lateral Trunk Lean Factors Limiting Gait Function Factors Limiting Gait Function Decreased Strength, Incoordination,Pain Comments Gait Comments Pt using SPC on same side as pain due to weakness of LLE. PT-OP-H Neuro Start: 05/07/21 16:43 Freq: Status: Active Protocol: Document 05/11/21 13:50 LRN (Rec: 05/11/21 17:15 LRN [id number]) Sensation Evaluation Comments Summary Comments Decreased sensation to soft touch in the L anterior, lateral and medial lower thigh and lower leg. PT-OP-J Posture/Palpation/Skin Start: 05/07/21 16:43 Freq: Status: Active Protocol: Document 05/11/21 13:50 LRN (Rec: 05/11/21 17:15 LRN [id number]) Posture Evaluation Position Standing Head/C-Spine Posture Forward Head T-Spine Posture Rotation Right,Increased Kyphosis L-Spine Posture Flattened,Shifted Left Shoulder Posture Neutral Scapula Posture (R) Depressed Weight Distribution Weight Shifted Left Comments Posture Comments Scoliosis curvature: [place] on R in upper T/S and on L in lower T/s and lumbar spine. Palpation Assessment Location Thoracic region Palpation Location T6-T7 spinous and transverse process. Palpation Details Tender on L Transverse process of T6-T7 (where switch in curvature begins). R knee Palpation Location Around R knee joint Palpation Details No pain on palpation PT-OP-L Special Tests Start: 05/07/21 16:43 Freq: Status: Active Protocol: Document 05/11/21 13:50 LRN (Rec: 05/11/21 17:15 LRN [id number]) Special Tests Knee Special Tests Radha's Test Results R knee negative Anterior Draw Test Results R knee negative Valgus- 25 Degrees Test Results R knee negative Varus- 25 Degrees Test Results R knee positive Comments Pain with Varus stress. PT-OP-M Strength Start: 05/07/21 16:43 Freq: Status: Active Protocol: Document 05/11/21 13:50 LRN (Rec: 05/11/21 17:15 LRN [id number]) Knee Strength Knee Manual Muscle Testing Right Flexion (S2) 4+ Good+ Extension (L3) 5 Normal Left Flexion (S2) 4- Good- Extension (L3) 5 Normal PT-OP-Q Treatments Start: 05/07/21 16:43 Freq: Status: Active Protocol: Document 05/11/21 13:50 LRN (Rec: 05/11/21 17:15 LRN [id number]) Self-Care/Home Management Treatment Education Caregiver Education Discussed results of evaluation, goals, and plan of care (POC). Pt agreeable to goals and POC. Other Education I/S pt to improve sit posture with extension of the upper back in sitting. PT-OP-T Assessment and Plan Start: 02/18/22 16:43 Freq: Status: Active Protocol: Document 05/11/21 13:50 LRN (Rec: 05/11/21 17:15 LRN [id number]) Physical Therapy Assessment Rehab Potential Rehabilitation Potential Good Evaluation Complexity Number of Personal Factors/Comorbidities 1-2 Number of Body Systems Impaired 4 or More Clinical Presentation at Evaluation Evolving Impairments Impairments Activity Tolerance,Edema,Gait, Pain,Posture,ROM,Soft Tissue Mobility,Strength Goals Two Impairment R knee pain rated 3/10 Short Term Goal (STG) Pt will be educated in self care edema and pain management (RICE). STG Duration 05/18/21 Nursing Home Goal (LTG) Decrease R knee pain to 0/10 with modification of gait as needed (use of walker to deweight R knee for pain relief). LTG Duration 08/09/21 One Impairment Pt lacks appropriate self care HEP. Short Term Goal (STG) Pt will be educated in self care thoracic extension and scolios strengthening (apex on R) and mobility exercises to help prevent thoracic back pain. STG Duration 05/25/21 Surveillance Technician Goal (LTG) Pt will be educated and demonstrate knowledge of a self care HEP of R>L knee strengthening to prevent worsening of her R knee condition. LTG Duration 06/01/21 Assessment Summary Assessment Pt presents with mechanical ( arthritis, varus at the R knee , gait compensation for R knee pain) and soft tissue dysfunction due to the mechanical varus stress at the R knee. She doesn't at this time appear to have internal derangement of the R knee. Her thoracic pain appears mechanical in nature due to her scoliosis and poor posturing. The pt ambulates into physical therapy with a SPC held on her R side, opposite of what she should with R knee pain, but uses it on the right due to weakness of the L LE. The pt notes she uses a walker at home and has been asked to use her walker in/out of therapy for safety since she reports her R leg feels sometimes like giving out. She does not show signs of internal derangement of the R knee. The pt primarily wants a home exercise program to prevent worsening of her pain, but is agreeable to therapy to reduce her R knee pain to her prior level of function (pain rated 0/10). The pt will benefit from skilled physical therapy to achieve the above stated goals . Physical Therapy Plan Frequency and Duration Frequency of Treatment 2x/Week Plan of Care Start Date 05/11/21 Plan of Care End Date 08/09/21 Therapeutic Interventions Therapeutic Interventions Aquatic Therapy,Home Exercise Program,Manual Therapy, Neuromuscular Re-education, Patient/Caregiver Education, Self-Care/Home Management,Soft Tissue Mobilization, Therapeutic Activities, Therapeutic Exercises Modalities Cold Pack/Ice Massage,Hot Packs,Ultrasound Next Visit Focus/Plan Next Note Type Treatment Note Next Visit Plan Assess R knee meniscus and ankle strength. Educate pt on self care for edema management (RICE). Body mechanics training ( vacuuming) Gait training with walker to deweight R knee for pain relief. HEP and treatment: R knee ROM and strengthening (ROM measurement) HEP: Scoliosis strengthening and mobility ex's. End modalities: US
--- NOTE | 2021-05-11 17:21 | PT.OPPOC ---
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) Pain in thoracic spine (05/11/21) Unsteadiness on feet (05/11/21) Visit Care Team Role Provider Type Tremaine Banuelos DO Attending Provider Physician Family Provider Primary Care Provider Referring Provider Specialty: Family Practice Address: [address] [place] [address], [facility] Email: Plan Of Care PT-OP-T Assessment and Plan Start: 05/07/21 16:43 Freq: Status: Active Protocol: Document 05/11/21 13:50 LRN (Rec: 05/11/21 17:15 LRN [id number]) Physical Therapy Assessment Rehab Potential Rehabilitation Potential Good Evaluation Complexity Number of Personal Factors/Comorbidities 1-2 Number of Body Systems Impaired 4 or More Clinical Presentation at Evaluation Evolving Impairments Impairments Activity Tolerance,Edema,Gait, Pain,Posture,ROM,Soft Tissue Mobility,Strength Goals Two Impairment R knee pain rated 3/10 Short Term Goal (STG) Pt will be educated in self care edema and pain management (RICE). STG Duration 05/18/21 Usp Goal (LTG) Decrease R knee pain to 0/10 with modification of gait as needed (use of walker to deweight R knee for pain relief). LTG Duration 08/09/21 One Impairment Pt lacks appropriate self care HEP. Short Term Goal (STG) Pt will be educated in self care thoracic extension and scolios strengthening (apex on R) and mobility exercises to help prevent thoracic back pain. STG Duration 05/25/21 Boots And Shoes Supervisor Goal (LTG) Pt will be educated and demonstrate knowledge of a self care HEP of R>L knee strengthening to prevent worsening of her R knee condition. LTG Duration 06/01/21 Assessment Summary Assessment Pt presents with mechanical ( arthritis, varus at the R knee , gait compensation for R knee pain) and soft tissue dysfunction due to the mechanical varus stress at the R knee. She doesn't at this time appear to have internal derangement of the R knee. Her thoracic pain appears mechanical in nature due to her scoliosis and poor posturing. The pt ambulates into physical therapy with a SPC held on her R side, opposite of what she should with R knee pain, but uses it on the right due to weakness of the L LE. The pt notes she uses a walker at home and has been asked to use her walker in/out of therapy for safety since she reports her R leg feels sometimes like giving out. She does not show signs of internal derangement of the R knee. The pt primarily wants a home exercise program to prevent worsening of her pain, but is agreeable to therapy to reduce her R knee pain to her prior level of function (pain rated 0/10). The pt will benefit from skilled physical therapy to achieve the above stated goals . Physical Therapy Plan Frequency and Duration Frequency of Treatment 2x/Week Plan of Care Start Date 05/11/21 Plan of Care End Date 08/09/21 Therapeutic Interventions Therapeutic Interventions Aquatic Therapy,Home Exercise Program,Manual Therapy, Neuromuscular Re-education, Patient/Caregiver Education, Self-Care/Home Management,Soft Tissue Mobilization, Therapeutic Activities, Therapeutic Exercises Modalities Cold Pack/Ice Massage,Hot Packs,Ultrasound Next Visit Focus/Plan Next Note Type Treatment Note Next Visit Plan Assess R knee meniscus and ankle strength. Educate pt on self care for edema management (RICE). Body mechanics training ( vacuuming) Gait training with walker to deweight R knee for pain relief. HEP and treatment: R knee ROM and strengthening (ROM measurement) HEP: Scoliosis strengthening and mobility ex's. End modalities: US Plan of Care Dates Plan of Care Start Date 05/11/21 Plan of Care End Date 08/09/21 Electronically Signed by: Isha Thomson, PT 05/11/21 [id number] Please Sign and Return: I have reviewed this Plan of Care and certify that the skilled therapy services above are required to meet the patient?s needs. Physician Signature Date Printed Name and Credentials Clinical Instructor Signature Printed Name and Credentials
--- NOTE | 2021-05-14 14:00 | PT.OIE ---
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) Pain in thoracic spine (05/14/21) Unsteadiness on feet (05/14/21) Past Medical History (Last Updated 04/22/21 @ 08:59 by Tremaine Banuelos DO) Acute pain of right knee Anemia (2007) Anxiety as acute reaction to exceptional stress Atrial fibrillation (2007) BCC (basal cell carcinoma of skin) (2003) Harrison's palsy (2007) Cataract (2001) Cervical spine disease Change in stool Chicken pox (~1939) Chronic thoracic back pain Closed T10 fracture Colon polyps (1997) Constipation by outlet dysfunction Elevated fasting blood sugar Fecal incontinence (1997) Feeling of incomplete bladder emptying GERD (gastroesophageal reflux disease) (1989) Hearing loss (2012) Hemorrhoids (1989) Herpes (2009) History of basal cell carcinoma excision (~2003) History of resection of rectum (1997) Hypertension (~1979) Kidney disease (2007) Lower extremity edema Lumbar spine pain (2003) Measles (1942) Mumps (1946) Nocturia Obstruction of right ureteropelvic junction (UPJ) Osteoarthritis (~1999) Plantar warts (~1970) Psoriasis (2011) Rubella (194) Spondylolisthesis at L4-L5 level Spondylolisthesis at L5-S1 level Status post blepharoplasty of both eyes (2013) Tinnitus (2005) Urinary hesitancy Urinary incontinence (2010) Villous adenoma of colon Past Surgical History (Last Reviewed 02/23/21 @ 14:58 by Tiago Jordan MD) Anesthesia History of basal cell carcinoma excision (~2003) History of cataract removal with insertion of prosthetic lens (2010) History of hip replacement (03/2008) History of resection of rectum (1997) Status post blepharoplasty of both eyes (2013) Status post dilation and curettage (1981) Status post tonsillectomy and adenoidectomy (1941) Visit Care Team Role Provider Type Tremaine Banuelos DO Attending Provider Physician Family Provider Primary Care Provider Referring Provider Specialty: Family Practice Address: [address] [place] [address], [id number] Email: Physical Therapy Initial Evaluation PT-OP-A Visit Information Start: 05/07/21 16:43 Freq: Status: Active Protocol: Document 05/14/21 13:01 LRN (Rec: 05/14/21 13:59 LRN [id number]) Out-Patient Physical Therapy Visit Information Visit Information Visit Type Treatment Note Visit Start Time 13:01 Visit Stop Time 13:48 Total Visit Minutes 47 Visit Number 2 Evaluation Information Evaluation Date 05/11/21 Precautions Precautions Scoliosis, L TOMASZ-2008, shoe insert in R shoe, Blood clots in spleen in 2007, depression controlled by meds, A. Fib, hydronephritis, neck pain, L leg neuropathy, 1997 rectal resection PT-OP-B Current Condition Start: 05/07/21 16:43 Freq: Status: Active Protocol: Document 05/11/21 13:50 LRN (Rec: 05/11/21 17:15 LRN [id number]) Current Condition History of Current Condition Onset Date Thoracic back pain 6 months ago, R knee pain 09/20/20. Current Complaints R knee, neck, mid thoracic, and low back pain. History of Current Condition R knee pain 09/20/20 was having to go up/down stairs several times a day, then started to develop R knee pain. Started as twinge in the medial knee ( medial fat pad), sometimes (> 4 blocks) it acts like it isn' t going to hold her up. No pain unless after doing lots of walking or walking inclines , or stairs. Low back pain in 2003, from lifting a weight on a wgt machine. Pain in mid thoracic (~T7) 6 months ago of insidious onset. Llow back ~T12-L1 level and in neck C7-T1 level. Neck pain onset 1 yr ago of insdious onset. Prior Treatments and Tests X-rays. PT for L leg 2018. Developmental History Developmental History In 2018, the L leg went out, therefore any walking was with a walker or cane. Treatment Goals Patient/Caregiver Goals Pt goals: - Learning what she can do to prevent worsening of condition . - Learn ex's to help prevent thoracic back pain. Prior Functional Status Baseline Function- ADL's Independent Baseline Function- Mobility Independent Baseline Function- Gait Walked in grocery store with a cart. L leg has 1/2 sensation. Baseline Function- Recreation/Hobbies Was not doing stairs ambulation (hasn't ambulated stairs since 2007). Current Functional Impairments (Reported) Functional Limitations- ADL's No pain with walking, doing inclines, or stairs prior to . Occasionally get up on stool to reach bowls. Uses a counter in front, wall on an end. Hasn't vacuumed in 2 yrs and has started vacuuming 1x every 2 weeks for 45'. Functional Limitations- Mobility/Gait Ambs with SPC with pain in R knee and weakness in L knee. Personal Factors Other Personal Factors That May Effect Lives home alone. Therapy/Recovery L leg weakness and neuropathy. PT-OP-C Subjective Start: 05/07/21 16:43 Freq: Status: Active Protocol: Document 05/14/21 13:01 LRN (Rec: 05/14/21 13:59 LRN [id number]) OP-PT Subjective Patient Comments Patient Comments No change. Hasn't been walking. Using SPC to come in /out clinic because no room in car for walker. Pain in R knee to start was 2/10, after US was 0/10 when walking. PT-OP-G Mobility & Gait Start: 05/07/21 16:43 Freq: Status: Active Protocol: Document 05/11/21 13:50 LRN (Rec: 05/11/21 17:15 LRN [id number]) OP Gait Assessment Gait Gait Assistance Required: Independent Distance (Feet) 100 Able to Maintain Weight Bearing Status Yes During Gait Assistive Devices Assistive Device Straight Cane Gait Deviations General Gait Pattern Ataxic,Lateral Trunk Lean Factors Limiting Gait Function Factors Limiting Gait Function Decreased Strength, Incoordination,Pain Comments Gait Comments Pt using SPC on same side as pain due to weakness of LLE. PT-OP-H Neuro Start: 05/07/21 16:43 Freq: Status: Active Protocol: Document 05/11/21 13:50 LRN (Rec: 05/11/21 17:15 LRN [id number]) Sensation Evaluation Comments Summary Comments Decreased sensation to soft touch in the L anterior, lateral and medial lower thigh and lower leg. PT-OP-J Posture/Palpation/Skin Start: 05/07/21 16:43 Freq: Status: Active Protocol: Document 05/11/21 13:50 LRN (Rec: 05/11/21 17:15 LRN [id number]) Posture Evaluation Position Standing Head/C-Spine Posture Forward Head T-Spine Posture Rotation Right,Increased Kyphosis L-Spine Posture Flattened,Shifted Left Shoulder Posture Neutral Scapula Posture (R) Depressed Weight Distribution Weight Shifted Left Comments Posture Comments Scoliosis curvature: Grand Chain on R in upper T/S and on L in lower T/s and lumbar spine. Palpation Assessment Location Thoracic region Palpation Location T6-T7 spinous and transverse process. Palpation Details Tender on L Transverse process of T6-T7 (where switch in curvature begins). R knee Palpation Location Around R knee joint Palpation Details No pain on palpation PT-OP-L Special Tests Start: 05/07/21 16:43 Freq: Status: Active Protocol: Document 05/14/21 13:01 LRN (Rec: 05/14/21 13:59 LRN [id number]) Special Tests Knee Special Tests Jason Test Test Results R knee negative Comments Meniscus test PT-OP-M Strength Start: 05/07/21 16:43 Freq: Status: Active Protocol: Document 05/11/21 13:50 LRN (Rec: 05/11/21 17:15 LRN [id number]) Knee Strength Knee Manual Muscle Testing Right Flexion (S2) 4+ Good+ Extension (L3) 5 Normal Left Flexion (S2) 4- Good- Extension (L3) 5 Normal PT-OP-Q Treatments Start: 05/07/21 16:43 Freq: Status: Active Protocol: Document 05/14/21 13:01 LRN (Rec: 05/14/21 13:59 LRN [id number]) Therapeutic Exercises Supine Exercises Heel slides Supine Exercise Name Heel slide w/table and shoe as resistance Side right Reps/Minutes 10x SAQ Supine Exercise Name SAQ Side right Reps/Minutes 5 H x 10 SLR Supine Exercise Name SLR Side right Reps/Minutes 10x QS Supine Exercise Name QS Side right Reps/Minutes 2' for 10 holds with rests Ankle EV/IV Supine Exercise Name Ankle IV/EV Side bilateral Reps/Minutes 30x Comments MMT taken Ankle pumps Supine Exercise Name PF/DF Side bilateral Reps/Minutes 30x Comments MMT taken Self-Care/Home Management Treatment Education Patient Education Home Exercise Program Other Education Educated pt RICE for edema management. Activities Self-Care/Home Management Activities Issued & reviewed HEP: Heel slide, QS, SLR, SAQ, LAQ. Issued & reviewed self care for edema management. PT-OP-T Assessment and Plan Start: 05/07/21 16:43 Freq: Status: Active Protocol: Document 05/14/21 13:01 LRN (Rec: 05/14/21 13:59 LRN [id number]) Physical Therapy Assessment Goals Two Impairment R knee pain rated 3/10 Short Term Goal (STG) Pt will be educated in self care edema and pain management (RICE). STG Duration 05/18/21 (05/14/21: MET GOAL) Correction Goal (LTG) Decrease R knee pain to 0/10 with modification of gait as needed (use of walker to deweight R knee for pain relief). LTG Duration 08/09/21 One Impairment Pt lacks appropriate self care HEP. Short Term Goal (STG) Pt will be educated in self care thoracic extension and scolios strengthening (apex on R) and mobility exercises to help prevent thoracic back pain. STG Duration 05/25/21 Insole Beveler Goal (LTG) Pt will be educated and demonstrate knowledge of a self care HEP of R>L knee strengthening to prevent worsening of her R knee condition. (05/14/21: HEP: QS, SLR, SAQ, LAQ, heel slides). LTG Duration 06/01/21 (05/14/21: Progressed) Progress Towards Goals Progress Comments Progressed HEP. Education of edema management. Assessment Summary Assessment Pavan ankle strength is good. Jason test was negative at R knee; therefore no sign of menicus involvement. + response to US with pain reduction with gait from 2/10 to 0/10. Pt used SPC into therapy, but plans on bringing walker next visit for safety with gait. Physical Therapy Plan Frequency and Duration Frequency of Treatment 2x/Week Plan of Care Start Date 05/11/21 Plan of Care End Date 08/09/21 Next Visit Focus/Plan Next Note Type Treatment Note Next Visit Plan Asess TUG. Assess response to self care for edema management (RICE) and train on knee wrapping if pt brings in her RAMILA wrap. Body mechanics training ( vacuuming) Gait training with walker to deweight R knee for pain relief. Review: R knee ROM and strengthening (ROM measurement ) HEP: Scoliosis strengthening and mobility ex's. Modalities: US
--- NOTE | 2021-05-18 14:30 | PT.OTN ---
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 Fib, hydronephritis, neck pain, L leg neuropathy, 1997 rectal resection PT-OP-B Current Condition Start: 05/07/21 16:43 Freq: Status: Active Protocol: Document 05/11/21 13:50 LRN (Rec: 05/11/21 17:15 LRN [id number]) Current Condition History of Current Condition Onset Date Thoracic back pain 6 months ago, R knee pain 09/20/20. Current Complaints R knee, neck, mid thoracic, and low back pain. History of Current Condition R knee pain 09/20/20 was having to go up/down stairs several times a day, then started to develop R knee pain. Started as twinge in the medial knee ( medial fat pad), sometimes (> 4 blocks) it acts like it isn' t going to hold her up. No pain unless after doing lots of walking or walking inclines , or stairs. Low back pain in 2004, from lifting a weight on a wgt machine. Pain in mid thoracic (~T7) 6 months ago of insidious onset. Llow back ~T12-L1 level and in neck C7-T1 level. Neck pain onset 1 yr ago of insdious onset. Prior Treatments and Tests X-rays. PT for L leg 2018. Developmental History Developmental History In 2018, the L leg went out, therefore any walking was with a walker or cane. Treatment Goals Patient/Caregiver Goals Pt goals: - Learning what she can do to prevent worsening of condition . - Learn ex's to help prevent thoracic back pain. Prior Functional Status Baseline Function- ADL's Independent Baseline Function- Mobility Independent Baseline Function- Gait Walked in grocery store with a cart. L leg has 1/2 sensation. Baseline Function- Recreation/Hobbies Was not doing stairs ambulation (hasn't ambulated stairs since 2007). Current Functional Impairments (Reported) Functional Limitations- ADL's No pain with walking, doing inclines, or stairs prior to . Occasionally get up on stool to reach bowls. Uses a counter in front, wall on an end. Hasn't vacuumed in 2 yrs and has started vacuuming 1x every 2 weeks for 45'. Functional Limitations- Mobility/Gait Ambs with SPC with pain in R knee and weakness in L knee. Personal Factors Other Personal Factors That May Effect Lives home alone. Therapy/Recovery L leg weakness and neuropathy. PT-OP-C Subjective Start: 05/07/21 16:43 Freq: Status: Active Protocol: Document 05/18/21 13:52 SP (Rec: 05/18/21 14:32 SP [id number]) OP-PT Subjective Patient Comments Patient Comments Pt stated feeling good. Sore after last tx but pretty good since then, no adverse affects to HEP at home. Feel the exercises started with last tx are helpful. Pt stated the RICE has been helpful and using cold pack for inflammation with good feedback results. PT-OP-G Mobility & Gait Start: 05/07/21 16:43 Freq: Status: Active Protocol: Document 05/11/21 13:50 LRN (Rec: 05/11/21 17:15 LRN [id number]) OP Gait Assessment Gait Gait Assistance Required: Independent Distance (Feet) 100 Able to Maintain Weight Bearing Status Yes During Gait Assistive Devices Assistive Device Straight Cane Gait Deviations General Gait Pattern Ataxic,Lateral Trunk Lean Factors Limiting Gait Function Factors Limiting Gait Function Decreased Strength, Incoordination,Pain Comments Gait Comments Pt using SPC on same side as pain due to weakness of LLE. PT-OP-H Neuro Start: 05/07/21 16:43 Freq: Status: Active Protocol: Document 05/11/21 13:50 LRN (Rec: 05/11/21 17:15 LRN [id number]) Sensation Evaluation Comments Summary Comments Decreased sensation to soft touch in the L anterior, lateral and medial lower thigh and lower leg. PT-OP-J Posture/Palpation/Skin Start: 05/07/21 16:43 Freq: Status: Active Protocol: Document 05/11/21 13:50 LRN (Rec: 05/11/21 17:15 LRN [id number]) Posture Evaluation Position Standing Head/C-Spine Posture Forward Head T-Spine Posture Rotation Right,Increased Kyphosis L-Spine Posture Flattened,Shifted Left Shoulder Posture Neutral Scapula Posture (R) Depressed Weight Distribution Weight Shifted Left Comments Posture Comments Scoliosis curvature: Ivel on R in upper T/S and on L in lower T/s and lumbar spine. Palpation Assessment Location Thoracic region Palpation Location T6-T7 spinous and transverse process. Palpation Details Tender on L Transverse process of T6-T7 (where switch in curvature begins). R knee Palpation Location Around R knee joint Palpation Details No pain on palpation PT-OP-L Special Tests Start: 05/07/21 16:43 Freq: Status: Active Protocol: Document 05/14/21 13:01 LRN (Rec: 05/14/21 13:59 LRN [id number]) Special Tests Knee Special Tests Jason Test Test Results R knee negative Comments Meniscus test PT-OP-M Strength Start: 05/07/21 16:43 Freq: Status: Active Protocol: Document 05/11/21 13:50 LRN (Rec: 05/11/21 17:15 LRN [id number]) Knee Strength Knee Manual Muscle Testing Right Flexion (S2) 4+ Good+ Extension (L3) 5 Normal Left Flexion (S2) 4- Good- Extension (L3) 5 Normal PT-OP-Q Treatments Start: 05/07/21 16:43 Freq: Status: Active Protocol: Document 05/18/21 13:52 SP (Rec: 05/18/21 14:32 SP [id number]) Therapeutic Exercises Supine Exercises Heel slides Supine Exercise Name Heel slide w/table and shoe as resistance- reviewed HEP Side right Reps/Minutes 10x Comments good form, painfree SAQ Supine Exercise Name SAQ-reviewed HEP Side right Equipment Used blue foam roll (suggested roll paper towels and towel) Reps/Minutes 5 H x 10 Comments good form, painfree SLR Supine Exercise Name SLR Side right Reps/Minutes 10x Comments cued TA and lift no higher than opposite bent knee QS Supine Exercise Name QS- reviewed HEP Side right Reps/Minutes 2' for 10 holds with rests Comments good form Sitting Exercises LAQ Sitting Exercise Name reviewed HEP Side right Resistance AROM Reps/Minutes 5 s hold x10 Comments good form, painfree Neuro Re-Education Treatment Balance Activities TUG Details 23s no AD CGA, 15s x2 w/ SPC Surface firm Equipment no AD- CGA Reps/Duration uses R UE to stand, slow descent to sit Comments cued wider JANNET no AD unsteady. Stable w/ SPC. Cued back up fully BLE with slow descent. PT-OP-T Assessment and Plan Start: 05/07/21 16:43 Freq: Status: Active Protocol: Document 05/18/21 13:52 SP (Rec: 05/18/21 14:32 SP [id number]) Physical Therapy Assessment Goals Two Impairment R knee pain rated 3/10 Short Term Goal (STG) Pt will be educated in self care edema and pain management (RICE). STG Duration 05/18/21 (05/14/21: MET GOAL) Residential Goal (LTG) Decrease R knee pain to 0/10 with modification of gait as needed (use of walker to deweight R knee for pain relief). LTG Duration 08/09/21 One Impairment Pt lacks appropriate self care HEP. Short Term Goal (STG) Pt will be educated in self care thoracic extension and scolios strengthening (apex on R) and mobility exercises to help prevent thoracic back pain. STG Duration 05/25/21 Sales/Marketing Goal (LTG) Pt will be educated and demonstrate knowledge of a self care HEP of R>L knee strengthening to prevent worsening of her R knee condition. (05/14/21: HEP: QS, SLR, SAQ, LAQ, heel slides). LTG Duration 06/01/21 (05/14/21: Progressed) Assessment Summary Assessment Pt responded well to HEP review, painfree and good muscle tiring. Stated to perform BLE at home for equal strengthening. Physical Therapy Plan Frequency and Duration Frequency of Treatment 2x/Week Plan of Care Start Date 05/11/21 Plan of Care End Date 08/09/21 Therapeutic Interventions Therapeutic Interventions Aquatic Therapy,Home Exercise Program,Manual Therapy, Neuromuscular Re-education, Patient/Caregiver Education, Self-Care/Home Management,Soft Tissue Mobilization, Therapeutic Activities, Therapeutic Exercises Modalities Cold Pack/Ice Massage,Hot Packs,Ultrasound Next Visit Focus/Plan Next Note Type Treatment Note Next Visit Plan Next tx Body mechanics training ( vacuuming), add posture and TS ext. POC: Gait training with walker to deweight R knee for pain relief. Review: R knee ROM and strengthening (ROM measurement ) HEP: Scoliosis strengthening and mobility ex's. Modalities: US
--- NOTE | 2021-05-21 17:13 | PT.OTN ---
Current Diagnoses Other chronic pain (05/21/21) Pain in right knee (05/21/21) Postural kyphosis, thoracic region (05/21/21) Pain in thoracic spine (05/21/21) Unsteadiness on feet (05/21/21) Physical Therapy Treatment Note PT-OP-A Visit Information Start: 05/07/21 16:43 Freq: Status: Active Protocol: Document 05/21/21 13:37 MA (Rec: 05/21/21 14:33 MA [id number]) Out-Patient Physical Therapy Visit Information Visit Information Visit Type Treatment Note Visit Start Time 13:45 Visit Stop Time 14:25 Total Visit Minutes 40 Visit Number 4 Number of [employer]ENT Visits 2 Precautions Precautions Scoliosis, L TOMASZ-2008, shoe insert in R shoe, Blood clots in spleen in 2007, depression controlled by meds, A. Fib, hydronephritis, neck pain, L leg neuropathy, 1997 rectal resection PT-OP-B Current Condition Start: 05/07/21 16:43 Freq: Status: Active Protocol: Document 05/11/21 13:50 LRN (Rec: 05/11/21 17:15 LRN [id number]) Current Condition History of Current Condition Onset Date Thoracic back pain 6 months ago, R knee pain 09/20/20. Current Complaints R knee, neck, mid thoracic, and low back pain. History of Current Condition R knee pain 09/20/20 was having to go up/down stairs several times a day, then started to develop R knee pain. Started as twinge in the medial knee ( medial fat pad), sometimes (> 4 blocks) it acts like it isn' t going to hold her up. No pain unless after doing lots of walking or walking inclines , or stairs. Low back pain in 2004, from lifting a weight on a wgt machine. Pain in mid thoracic (~T7) 6 months ago of insidious onset. Llow back ~T12-L1 level and in neck C7-T1 level. Neck pain onset 1 yr ago of insdious onset. Prior Treatments and Tests X-rays. PT for L leg 2018. Developmental History Developmental History In 2018, the L leg went out, therefore any walking was with a walker or cane. Treatment Goals Patient/Caregiver Goals Pt goals: - Learning what she can do to prevent worsening of condition . - Learn ex's to help prevent thoracic back pain. Prior Functional Status Baseline Function- ADL's Independent Baseline Function- Mobility Independent Baseline Function- Gait Walked in grocery store with a cart. L leg has 1/2 sensation. Baseline Function- Recreation/Hobbies Was not doing stairs ambulation (hasn't ambulated stairs since 2007). Current Functional Impairments (Reported) Functional Limitations- ADL's No pain with walking, doing inclines, or stairs prior to . Occasionally get up on stool to reach bowls. Uses a counter in front, wall on an end. Hasn't vacuumed in 2 yrs and has started vacuuming 1x every 2 weeks for 45'. Functional Limitations- Mobility/Gait Ambs with SPC with pain in R knee and weakness in L knee. Personal Factors Other Personal Factors That May Effect Lives home alone. Therapy/Recovery L leg weakness and neuropathy. PT-OP-C Subjective Start: 05/07/21 16:43 Freq: Status: Active Protocol: Document 05/21/21 13:37 MA (Rec: 05/21/21 14:33 MA [id number]) OP-PT Subjective Patient Comments Patient Comments Pt arrives with [employer] poles her daughter bought her over the weekend. She would like to learn how to use them today. PT-OP-G Mobility & Gait Start: 05/07/21 16:43 Freq: Status: Active Protocol: Document 05/11/21 13:50 LRN (Rec: 05/11/21 17:15 LRN [id number]) OP Gait Assessment Gait Gait Assistance Required: Independent Distance (Feet) 100 Able to Maintain Weight Bearing Status Yes During Gait Assistive Devices Assistive Device Straight Cane Gait Deviations General Gait Pattern Ataxic,Lateral Trunk Lean Factors Limiting Gait Function Factors Limiting Gait Function Decreased Strength, Incoordination,Pain Comments Gait Comments Pt using SPC on same side as pain due to weakness of LLE. PT-OP-H Neuro Start: 05/07/21 16:43 Freq: Status: Active Protocol: Document 05/11/21 13:50 LRN (Rec: 05/11/21 17:15 LRN [id number]) Sensation Evaluation Comments Summary Comments Decreased sensation to soft touch in the L anterior, lateral and medial lower thigh and lower leg. PT-OP-J Posture/Palpation/Skin Start: 05/07/21 16:43 Freq: Status: Active Protocol: Document 05/11/21 13:50 LRN (Rec: 05/11/21 17:15 LRN [id number]) Posture Evaluation Position Standing Head/C-Spine Posture Forward Head T-Spine Posture Rotation Right,Increased Kyphosis L-Spine Posture Flattened,Shifted Left Shoulder Posture Neutral Scapula Posture (R) Depressed Weight Distribution Weight Shifted Left Comments Posture Comments Scoliosis curvature: [place] on R in upper T/S and on L in lower T/s and lumbar spine. Palpation Assessment Location Thoracic region Palpation Location T6-T7 spinous and transverse process. Palpation Details Tender on L Transverse process of T6-T7 (where switch in curvature begins). R knee Palpation Location Around R knee joint Palpation Details No pain on palpation PT-OP-L Special Tests Start: 05/07/21 16:43 Freq: Status: Active Protocol: Document 05/14/21 13:01 LRN (Rec: 05/14/21 13:59 LRN [id number]) Special Tests Knee Special Tests Jason Test Test Results R knee negative Comments Meniscus test PT-OP-M Strength Start: 05/07/21 16:43 Freq: Status: Active Protocol: Document 05/11/21 13:50 LRN (Rec: 05/11/21 17:15 LRN [id number]) Knee Strength Knee Manual Muscle Testing Right Flexion (S2) 4+ Good+ Extension (L3) 5 Normal Left Flexion (S2) 4- Good- Extension (L3) 5 Normal PT-OP-Q Treatments Start: 05/07/21 16:43 Freq: Status: Active Protocol: Document 05/21/21 13:37 MA (Rec: 05/21/21 14:33 MA [id number]) Therapeutic Exercises Supine Exercises Heel slides Supine Exercise Name Heel slide w/table and shoe as resistance- reviewed HEP Side bilateral Reps/Minutes 10x Comments good form, painfree SAQ Supine Exercise Name SAQ-reviewed HEP Side bilateral Equipment Used blue foam roll (suggested roll paper towels and towel) Reps/Minutes 5 H x 10 Comments good form, painfree SLR Supine Exercise Name SLR Side bilateral Reps/Minutes 10x Comments cued TA and lift no higher than opposite bent knee Sitting Exercises Rows Sitting Exercise Name scap retraction Equipment Used lvl 1 TB Reps/Minutes x10 Comments added to HEP Thoracic Ext Equipment Used chair Reps/Minutes 3x 10 SH Comments hands behind head, extending back- added to HEP Standing Exercises Child's Pose Standing Exercise Name modified in standing Reps/Minutes 2x30 Comments added to HEP Cat/cow Standing Exercise Name modified using elevated surface Reps/Minutes 10x Comments heavy cues requires-did not add to HEP Gait Training Gait Activity Trekking Poles Device Used guerda trekking poles Level of Assistance CGA Surface firm, gravel Distance/Duration 2x50 ft Treatment Focus Learning AD Comments first round on floor, second round outside on gravel pathway Self-Care/Home Management Treatment Education Patient Education Home Exercise Program,Posture Other Education Added to HEP: seated thoracic ext, seated rows, modified child's pose in standing. Discussed seated and standing posture with pt requiring heavy cues for scap retraction and thoracic extension due to kyphosis. Educated pt on how to properly adjust trekking poles to her height when at home. PT-OP-T Assessment and Plan Start: 05/07/21 16:43 Freq: Status: Active Protocol: Document 05/21/21 13:37 MA (Rec: 05/21/21 14:33 MA [id number]) Physical Therapy Assessment Goals Two Impairment R knee pain rated 3/10 Short Term Goal (STG) Pt will be educated in self care edema and pain management (RICE). STG Duration 05/18/21 (05/14/21: MET GOAL) Political Reporter Goal (LTG) Decrease R knee pain to 0/10 with modification of gait as needed (use of walker to deweight R knee for pain relief). LTG Duration 08/09/21 One Impairment Pt lacks appropriate self care HEP. Short Term Goal (STG) Pt will be educated in self care thoracic extension and scolios strengthening (apex on R) and mobility exercises to help prevent thoracic back pain. STG Duration 05/25/21 Political Reporter Goal (LTG) Pt will be educated and demonstrate knowledge of a self care HEP of R>L knee strengthening to prevent worsening of her R knee condition. (05/14/21: HEP: QS, SLR, SAQ, LAQ, heel slides). LTG Duration 06/01/21 (05/14/21: Progressed) Assessment Summary Assessment Pt is able to demonstrate good form on all LE HEP exercises. SHe arrived to PT with new trekking poles. Worked on gait training with poles and challenged pt's balance by walking outside on gravel path with poles. Pt occassionally requires min A for balance when turning with poles. After further practice, pt states she feels more stable with bilateral poles than with SPC. Educated pt on how to adjust pole length at home. Added seated thoracic ext, rows, and modified child's pose to HEP for improving thoracic mobility and decreasing back pain. Attempted modified cat/ cow in standing with pt requring heavy cues to move through thoracic and lumbar spine. Did not add exercise to HEP due to heavy assistance required for proper form. Physical Therapy Plan Frequency and Duration Frequency of Treatment 2x/Week Plan of Care Start Date 05/11/21 Plan of Care End Date 08/09/21 Therapeutic Interventions Therapeutic Interventions Aquatic Therapy,Home Exercise Program,Manual Therapy, Neuromuscular Re-education, Patient/Caregiver Education, Self-Care/Home Management,Soft Tissue Mobilization, Therapeutic Activities, Therapeutic Exercises Modalities Cold Pack/Ice Massage,Hot Packs,Ultrasound Next Visit Focus/Plan Next Note Type Treatment Note Next Visit Plan Next tx: review new HEP- thoracic ext, modified child's pose, and seated rows Body mechanics training ( vacuuming), add posture and TS ext. POC: Gait training with walker to deweight R knee for pain relief. Review: R knee ROM and strengthening (ROM measurement ) HEP: Scoliosis strengthening and mobility ex's. Modalities: US
--- NOTE | 2021-05-25 17:53 | PT.OTN ---
Current Diagnoses Other chronic pain (05/25/21) Pain in right knee (05/25/21) Postural kyphosis, thoracic region (05/25/21) Pain in thoracic spine (05/25/21) Unsteadiness on feet (05/25/21) Physical Therapy Treatment Note PT-OP-A Visit Information Start: 05/07/21 16:43 Freq: Status: Active Protocol: Document 05/25/21 08:15 LRN (Rec: 05/25/21 09:03 LRN [id number]) Out-Patient Physical Therapy Visit Information Visit Information Visit Type Treatment Note Visit Start Time 08:16 Visit Stop Time 08:59 Total Visit Minutes 43 Visit Number 5 Evaluation Information Evaluation Date 05/11/21 Precautions Precautions Scoliosis, L TOMASZ-2008, shoe insert in R shoe, Blood clots in spleen in 2007, depression controlled by meds, A. Fib, hydronephritis, neck pain, L leg neuropathy, 1997 rectal resection PT-OP-B Current Condition Start: 05/07/21 16:43 Freq: Status: Active Protocol: Document 05/11/21 13:50 LRN (Rec: 05/11/21 17:15 LRN [id number]) Current Condition History of Current Condition Onset Date Thoracic back pain 6 months ago, R knee pain 09/20/20. Current Complaints R knee, neck, mid thoracic, and low back pain. History of Current Condition R knee pain 09/20/20 was having to go up/down stairs several times a day, then started to develop R knee pain. Started as twinge in the medial knee ( medial fat pad), sometimes (> 4 blocks) it acts like it isn' t going to hold her up. No pain unless after doing lots of walking or walking inclines , or stairs. Low back pain in 2004, from lifting a weight on a wgt machine. Pain in mid thoracic (~T7) 6 months ago of insidious onset. Llow back ~T12-L1 level and in neck C7-T1 level. Neck pain onset 1 yr ago of insdious onset. Prior Treatments and Tests X-rays. PT for L leg 2018. Developmental History Developmental History In 2018, the L leg went out, therefore any walking was with a walker or cane. Treatment Goals Patient/Caregiver Goals Pt goals: - Learning what she can do to prevent worsening of condition . - Learn ex's to help prevent thoracic back pain. Prior Functional Status Baseline Function- ADL's Independent Baseline Function- Mobility Independent Baseline Function- Gait Walked in grocery store with a cart. L leg has 1/2 sensation. Baseline Function- Recreation/Hobbies Was not doing stairs ambulation (hasn't ambulated stairs since 2007). Current Functional Impairments (Reported) Functional Limitations- ADL's No pain with walking, doing inclines, or stairs prior to . Occasionally get up on stool to reach bowls. Uses a counter in front, wall on an end. Hasn't vacuumed in 2 yrs and has started vacuuming 1x every 2 weeks for 45'. Functional Limitations- Mobility/Gait Ambs with SPC with pain in R knee and weakness in L knee. Personal Factors Other Personal Factors That May Effect Lives home alone. Therapy/Recovery L leg weakness and neuropathy. PT-OP-C Subjective Start: 05/07/21 16:43 Freq: Status: Active Protocol: Document 05/25/21 08:15 LRN (Rec: 05/25/21 09:03 LRN [id number]) OP-PT Subjective Patient Comments Patient Comments States R knee is doing better. Walking feels her R knee sometimes. States she doesn't like the trekking poles. States she generally walks with a cane without pain. She has also been more aware of standing up straighter. PT-OP-G Mobility & Gait Start: 05/07/21 16:43 Freq: Status: Active Protocol: Document 05/11/21 13:50 LRN (Rec: 05/11/21 17:15 LRN [id number]) OP Gait Assessment Gait Gait Assistance Required: Independent Distance (Feet) 100 Able to Maintain Weight Bearing Status Yes During Gait Assistive Devices Assistive Device Straight Cane Gait Deviations General Gait Pattern Ataxic,Lateral Trunk Lean Factors Limiting Gait Function Factors Limiting Gait Function Decreased Strength, Incoordination,Pain Comments Gait Comments Pt using SPC on same side as pain due to weakness of LLE. PT-OP-H Neuro Start: 05/07/21 16:43 Freq: Status: Active Protocol: Document 05/11/21 13:50 LRN (Rec: 05/11/21 17:15 LRN [id number]) Sensation Evaluation Comments Summary Comments Decreased sensation to soft touch in the L anterior, lateral and medial lower thigh and lower leg. PT-OP-J Posture/Palpation/Skin Start: 05/07/21 16:43 Freq: Status: Active Protocol: Document 05/11/21 13:50 LRN (Rec: 05/11/21 17:15 LRN [id number]) Posture Evaluation Position Standing Head/C-Spine Posture Forward Head T-Spine Posture Rotation Right,Increased Kyphosis L-Spine Posture Flattened,Shifted Left Shoulder Posture Neutral Scapula Posture (R) Depressed Weight Distribution Weight Shifted Left Comments Posture Comments Scoliosis curvature: [place] on R in upper T/S and on L in lower T/s and lumbar spine. Palpation Assessment Location Thoracic region Palpation Location T6-T7 spinous and transverse process. Palpation Details [place] on L Transverse process of T6-T7 (where switch in curvature begins). R knee Palpation Location Around R knee joint Palpation Details No pain on palpation PT-OP-L Special Tests Start: 05/07/21 16:43 Freq: Status: Active Protocol: Document 05/14/21 13:01 LRN (Rec: 05/14/21 13:59 LRN [id number]) Special Tests Knee Special Tests Jason Test Test Results R knee negative Comments Meniscus test PT-OP-M Strength Start: 05/07/21 16:43 Freq: Status: Active Protocol: Document 05/11/21 13:50 LRN (Rec: 05/11/21 17:15 LRN [id number]) Knee Strength Knee Manual Muscle Testing Right Flexion (S2) 4+ Good+ Extension (L3) 5 Normal Left Flexion (S2) 4- Good- Extension (L3) 5 Normal PT-OP-Q Treatments Start: 05/07/21 16:43 Freq: Status: Active Protocol: Document 05/25/21 08:15 LRN (Rec: 05/25/21 09:03 LRN [id number]) Therapeutic Exercises Sitting Exercises Rows Sitting Exercise Name scap retraction Equipment Used lvl 1 TB Reps/Minutes 10x 4 Thoracic Ext Sitting Exercise Name Arms folded and thoracic ext Reps/Minutes 5 x 10 Comments Much phys cuing to arch at T/S , lift chest up and fwd LAQ Sitting Exercise Name reviewed HEP Side right Resistance AROM Reps/Minutes 3 s hold x15 Comments good form, painfree Standing Exercises Knee flex strengthening Standing Exercise Name Knee flexion Side bilateral Reps/Minutes 4' Self-Care/Home Management Treatment Education Patient Education Home Exercise Program Activities Self-Care/Home Management Activities Issued & reviewed HEP: Knee flexion (sit & standing); Postural exs: Supine stretch of lying with arms ER/BKFO, and sitting thoracic ext ex with TBand (scap retract). PT-OP-T Assessment and Plan Start: 05/07/21 16:43 Freq: Status: Active Protocol: Document 05/25/21 08:15 LRN (Rec: 05/25/21 09:03 LRN [id number]) Physical Therapy Assessment Goals Two Impairment R knee pain rated 3/10 Short Term Goal (STG) Pt will be educated in self care edema and pain management (RICE). STG Duration 05/18/21 (05/14/21: MET GOAL) Switchboard Clerk Goal (LTG) Decrease R knee pain to 0/10 with modification of gait as needed (use of walker to deweight R knee for pain relief). LTG Duration 08/09/21 (: Improving) One Impairment Pt lacks appropriate self care HEP. Short Term Goal (STG) Pt will be educated in self care thoracic extension and scolios strengthening (apex on R) and mobility exercises to help prevent thoracic back pain. (05/25/21 Added last session: eated thoracic ext, seated rows, modified child's pose in standing. Added today: Supine stretch of lying with arms ER/BKFO, and sitting thoracic ext ex with TBand ( scap retract). STG Duration 05/25/21 (05/25/21: Progressed) Correction Goal (LTG) Pt will be educated and demonstrate knowledge of a self care HEP of R>L knee strengthening to prevent worsening of her R knee condition. (05/14/21: HEP: QS, SLR, SAQ, LAQ, heel slides). (05/25/21: HEP: knee flex strengthening sit and stand). LTG Duration 06/01/21 (05/25/21: Progressed) Progress Towards Goals Progress Comments Progressed HEP> Assessment Summary Assessment Pt has good understanding of HEP with handouts. Pt needs phys cuing to get thoracic ext ; therefore further training is needed. Pt using FWW with good posture and weightbearing relief, as noted with pt's subjective report of no pain with gait when using the walker. Physical Therapy Plan Frequency and Duration Frequency of Treatment 2x/Week Plan of Care Start Date 05/11/21 Plan of Care End Date 08/09/21 Next Visit Focus/Plan Next Note Type Treatment Note Next Visit Plan Next tx: review new HEP- thoracic ext, modified child's pose. Add HEP: Thoracic rot stretch . Body mechanics training ( vacuuming), add posture and TS ext. POC: Review: R knee ROM and strengthening (ROM measurement ) HEP: Scoliosis strengthening and mobility ex's.
--- NOTE | 2021-05-25 17:56 | PT.OTN ---
Current Diagnoses Other chronic pain (05/25/21) Pain in right knee (05/25/21) Postural kyphosis, thoracic region (05/25/21) Pain in thoracic spine (05/25/21) Unsteadiness on feet (05/25/21) Physical Therapy Treatment Note PT-OP-A Visit Information Start: 05/07/21 16:43 Freq: Status: Active Protocol: Document 05/25/21 08:15 LRN (Rec: 05/25/21 09:03 LRN [id number]) Out-Patient Physical Therapy Visit Information Visit Information Visit Type Treatment Note Visit Start Time 08:16 Visit Stop Time 08:59 Total Visit Minutes 43 Visit Number 5 Evaluation Information Evaluation Date 05/11/21 Precautions Precautions Scoliosis, L TOMASZ-2008, shoe insert in R shoe, Blood clots in spleen in 2007, depression controlled by meds, A. Fib, hydronephritis, neck pain, L leg neuropathy, 1997 rectal resection PT-OP-B Current Condition Start: 05/07/21 16:43 Freq: Status: Active Protocol: Document 05/11/21 13:50 LRN (Rec: 05/11/21 17:15 LRN [id number]) Current Condition History of Current Condition Onset Date Thoracic back pain 6 months ago, R knee pain 09/20/20. Current Complaints R knee, neck, mid thoracic, and low back pain. History of Current Condition R knee pain 09/20/20 was having to go up/down stairs several times a day, then started to develop R knee pain. Started as twinge in the medial knee ( medial fat pad), sometimes (> 4 blocks) it acts like it isn' t going to hold her up. No pain unless after doing lots of walking or walking inclines , or stairs. Low back pain in 2004, from lifting a weight on a wgt machine. Pain in mid thoracic (~T7) 6 months ago of insidious onset. Llow back ~T12-L1 level and in neck C7-T1 level. Neck pain onset 1 yr ago of insdious onset. Prior Treatments and Tests X-rays. PT for L leg 2018. Developmental History Developmental History In 2018, the L leg went out, therefore any walking was with a walker or cane. Treatment Goals Patient/Caregiver Goals Pt goals: - Learning what she can do to prevent worsening of condition . - Learn ex's to help prevent thoracic back pain. Prior Functional Status Baseline Function- ADL's Independent Baseline Function- Mobility Independent Baseline Function- Gait Walked in grocery store with a cart. L leg has 1/2 sensation. Baseline Function- Recreation/Hobbies Was not doing stairs ambulation (hasn't ambulated stairs since 2007). Current Functional Impairments (Reported) Functional Limitations- ADL's No pain with walking, doing inclines, or stairs prior to . Occasionally get up on stool to reach bowls. Uses a counter in front, wall on an end. Hasn't vacuumed in 2 yrs and has started vacuuming 1x every 2 weeks for 45'. Functional Limitations- Mobility/Gait Ambs with SPC with pain in R knee and weakness in L knee. Personal Factors Other Personal Factors That May Effect Lives home alone. Therapy/Recovery L leg weakness and neuropathy. PT-OP-C Subjective Start: 05/07/21 16:43 Freq: Status: Active Protocol: Document 05/25/21 08:15 LRN (Rec: 05/25/21 09:03 LRN [id number]) OP-PT Subjective Patient Comments Patient Comments States R knee is doing better. Walking feels her R knee sometimes. States she doesn't like the trekking poles. States she generally walks with a cane without pain. She has also been more aware of standing up straighter. PT-OP-G Mobility & Gait Start: 05/07/21 16:43 Freq: Status: Active Protocol: Document 05/11/21 13:50 LRN (Rec: 05/11/21 17:15 LRN [id number]) OP Gait Assessment Gait Gait Assistance Required: Independent Distance (Feet) 100 Able to Maintain Weight Bearing Status Yes During Gait Assistive Devices Assistive Device Straight Cane Gait Deviations General Gait Pattern Ataxic,Lateral Trunk Lean Factors Limiting Gait Function Factors Limiting Gait Function Decreased Strength, Incoordination,Pain Comments Gait Comments Pt using SPC on same side as pain due to weakness of LLE. PT-OP-H Neuro Start: 05/07/21 16:43 Freq: Status: Active Protocol: Document 05/11/21 13:50 LRN (Rec: 05/11/21 17:15 LRN [id number]) Sensation Evaluation Comments Summary Comments Decreased sensation to soft touch in the L anterior, lateral and medial lower thigh and lower leg. PT-OP-J Posture/Palpation/Skin Start: 05/07/21 16:43 Freq: Status: Active Protocol: Document 05/11/21 13:50 LRN (Rec: 05/11/21 17:15 LRN [id number]) Posture Evaluation Position Standing Head/C-Spine Posture Forward Head T-Spine Posture Rotation Right,Increased Kyphosis L-Spine Posture Flattened,Shifted Left Shoulder Posture Neutral Scapula Posture (R) Depressed Weight Distribution Weight Shifted Left Comments Posture Comments Scoliosis curvature: [place] on R in upper T/S and on L in lower T/s and lumbar spine. Palpation Assessment Location Thoracic region Palpation Location T6-T7 spinous and transverse process. Palpation Details Tender on L Transverse process of T6-T7 (where switch in curvature begins). R knee Palpation Location Around R knee joint Palpation Details No pain on palpation PT-OP-L Special Tests Start: 05/07/21 16:43 Freq: Status: Active Protocol: Document 05/14/21 13:01 LRN (Rec: 05/14/21 13:59 LRN [id number]) Special Tests Knee Special Tests Jason Test Test Results R knee negative Comments Meniscus test PT-OP-M Strength Start: 05/07/21 16:43 Freq: Status: Active Protocol: Document 05/11/21 13:50 LRN (Rec: 05/11/21 17:15 LRN [id number]) Knee Strength Knee Manual Muscle Testing Right Flexion (S2) 4+ Good+ Extension (L3) 5 Normal Left Flexion (S2) 4- Good- Extension (L3) 5 Normal PT-OP-Q Treatments Start: 05/07/21 16:43 Freq: Status: Active Protocol: Document 05/25/21 08:15 LRN (Rec: 05/25/21 09:03 LRN [id number]) Therapeutic Exercises Sitting Exercises Rows Sitting Exercise Name scap retraction Equipment Used lvl 1 TB Reps/Minutes 10x 4 Thoracic Ext Sitting Exercise Name Arms folded and thoracic ext Reps/Minutes 5 x 10 Comments Much phys cuing to arch at T/S , lift chest up and fwd LAQ Sitting Exercise Name reviewed HEP Side right Resistance AROM Reps/Minutes 3 s hold x15 Comments good form, painfree Standing Exercises Knee flex strengthening Standing Exercise Name Knee flexion Side bilateral Reps/Minutes 4' Self-Care/Home Management Treatment Education Patient Education Home Exercise Program Activities Self-Care/Home Management Activities Issued & reviewed HEP: Knee flexion (sit & standing); Postural exs: Supine stretch of lying with arms ER/BKFO, and sitting thoracic ext ex with TBand (scap retract). PT-OP-T Assessment and Plan Start: 05/07/21 16:43 Freq: Status: Active Protocol: Document 05/25/21 08:15 LRN (Rec: 05/25/21 09:03 LRN [id number]) Physical Therapy Assessment Goals Two Impairment R knee pain rated 3/10 Short Term Goal (STG) Pt will be educated in self care edema and pain management (RICE). STG Duration 05/18/21 (05/14/21: MET GOAL) Super[employer] Goal (LTG) Decrease R knee pain to 0/10 with modification of gait as needed (use of walker to deweight R knee for pain relief). LTG Duration 08/09/21 (: Improving) One Impairment Pt lacks appropriate self care HEP. Short Term Goal (STG) Pt will be educated in self care thoracic extension and scolios strengthening (apex on R) and mobility exercises to help prevent thoracic back pain. (05/25/21 Added last session: eated thoracic ext, seated rows, modified child's pose in standing. Added today: Supine stretch of lying with arms ER/BKFO, and sitting thoracic ext ex with TBand ( scap retract). STG Duration 05/25/21 (05/25/21: Progressed) Nursing Home Goal (LTG) Pt will be educated and demonstrate knowledge of a self care HEP of R>L knee strengthening to prevent worsening of her R knee condition. (05/14/21: HEP: QS, SLR, SAQ, LAQ, heel slides). (05/25/21: HEP: knee flex strengthening sit and stand). LTG Duration 06/01/21 (05/25/21: Progressed) Progress Towards Goals Progress Comments Progressed HEP> Assessment Summary Assessment Pt has good understanding of HEP with handouts. Pt needs phys cuing to get thoracic ext ; therefore further training is needed. Pt using FWW with good posture and weightbearing relief, as noted with pt's subjective report of no pain with gait when using the walker. Physical Therapy Plan Frequency and Duration Frequency of Treatment 2x/Week Plan of Care Start Date 05/11/21 Plan of Care End Date 08/09/21 Next Visit Focus/Plan Next Note Type Treatment Note Next Visit Plan Next tx: review new HEP- thoracic ext, modified child's pose. Add HEP: Thoracic rot stretch . Body mechanics training ( vacuuming), add posture and TS ext. POC: Review: R knee ROM and strengthening (ROM measurement ) HEP: Scoliosis strengthening and mobility ex's.
--- NOTE | 2021-05-28 15:20 | PT.OTN ---
Current Diagnoses Other chronic pain (05/28/21) Pain in right knee (05/28/21) Postural kyphosis, thoracic region (05/28/21) Pain in thoracic spine (05/28/21) Unsteadiness on feet (05/28/21) Physical Therapy Treatment Note PT-OP-A Visit Information Start: 05/07/21 16:43 Freq: Status: Active Protocol: Document 05/28/21 14:32 SP (Rec: 05/28/21 15:57 SP [id number]) Out-Patient Physical Therapy Visit Information Visit Information Visit Type Treatment Note Visit Start Time 14:32 Visit Stop Time 15:20 Total Visit Minutes 48 Visit Number 6 Number of RENDERING EQUIPMENT TENDER Visits 1 Evaluation Information Evaluation Date 05/11/21 Precautions Precautions Scoliosis, L TOMASZ-2008, shoe insert in R shoe, Blood clots in spleen in 2007, depression controlled by meds, A. Fib, hydronephritis, neck pain, L leg neuropathy, 1997 rectal resection PT-OP-B Current Condition Start: 05/07/21 16:43 Freq: Status: Active Protocol: Document 05/11/21 13:50 LRN (Rec: 05/11/21 17:15 LRN [id number]) Current Condition History of Current Condition Onset Date Thoracic back pain 6 months ago, R knee pain 09/20/20. Current Complaints R knee, neck, mid thoracic, and low back pain. History of Current Condition R knee pain 09/20/20 was having to go up/down stairs several times a day, then started to develop R knee pain. Started as twinge in the medial knee ( medial fat pad), sometimes (> 4 blocks) it acts like it isn' t going to hold her up. No pain unless after doing lots of walking or walking inclines , or stairs. Low back pain in 2004, from lifting a weight on a wgt machine. Pain in mid thoracic (~T7) 6 months ago of insidious onset. Llow back ~T12-L1 level and in neck C7-T1 level. Neck pain onset 1 yr ago of insdious onset. Prior Treatments and Tests X-rays. PT for L leg 2018. Developmental History Developmental History In 2018, the L leg went out, therefore any walking was with a walker or cane. Treatment Goals Patient/Caregiver Goals Pt goals: - Learning what she can do to prevent worsening of condition . - Learn ex's to help prevent thoracic back pain. Prior Functional Status Baseline Function- ADL's Independent Baseline Function- Mobility Independent Baseline Function- Gait Walked in grocery store with a cart. L leg has 1/2 sensation. Baseline Function- Recreation/Hobbies Was not doing stairs ambulation (hasn't ambulated stairs since 2007). Current Functional Impairments (Reported) Functional Limitations- ADL's No pain with walking, doing inclines, or stairs prior to . Occasionally get up on stool to reach bowls. Uses a counter in front, wall on an end. Hasn't vacuumed in 2 yrs and has started vacuuming 1x every 2 weeks for 45'. Functional Limitations- Mobility/Gait Ambs with SPC with pain in R knee and weakness in L knee. Personal Factors Other Personal Factors That May Effect Lives home alone. Therapy/Recovery L leg weakness and neuropathy. PT-OP-C Subjective Start: 05/07/21 16:43 Freq: Status: Active Protocol: Document 05/28/21 14:32 SP (Rec: 05/28/21 15:57 SP [id number]) OP-PT Subjective Patient Comments Patient Comments Pt stated feeling good today. Yesterday walked little to much, 8 blocks down town for lunch, R knee little irritated . No pain when woke up and doing well today. Pt states over all so pleased with recovery and almost equal BLE. Performed exercises on L ( LAQ) and found it is at times weaker so doing both LEs now at home. PT-OP-G Mobility & Gait Start: 05/07/21 16:43 Freq: Status: Active Protocol: Document 05/11/21 13:50 LRN (Rec: 05/11/21 17:15 LRN [id number]) OP Gait Assessment Gait Gait Assistance Required: Independent Distance (Feet) 100 Able to Maintain Weight Bearing Status Yes During Gait Assistive Devices Assistive Device Straight Cane Gait Deviations General Gait Pattern Ataxic,Lateral Trunk Lean Factors Limiting Gait Function Factors Limiting Gait Function Decreased Strength, Incoordination,Pain Comments Gait Comments Pt using SPC on same side as pain due to weakness of LLE. PT-OP-H Neuro Start: 05/07/21 16:43 Freq: Status: Active Protocol: Document 05/11/21 13:50 LRN (Rec: 05/11/21 17:15 LRN [id number]) Sensation Evaluation Comments Summary Comments Decreased sensation to soft touch in the L anterior, lateral and medial lower thigh and lower leg. PT-OP-J Posture/Palpation/Skin Start: 05/07/21 16:43 Freq: Status: Active Protocol: Document 05/11/21 13:50 LRN (Rec: 05/11/21 17:15 LRN [id number]) Posture Evaluation Position Standing Head/C-Spine Posture Forward Head T-Spine Posture Rotation Right,Increased Kyphosis L-Spine Posture Flattened,Shifted Left Shoulder Posture Neutral Scapula Posture (R) Depressed Weight Distribution Weight Shifted Left Comments Posture Comments Scoliosis curvature: [place] on R in upper T/S and on L in lower T/s and lumbar spine. Palpation Assessment Location Thoracic region Palpation Location T6-T7 spinous and transverse process. Palpation Details Tender on L Transverse process of T6-T7 (where switch in curvature begins). R knee Palpation Location Around R knee joint Palpation Details No pain on palpation PT-OP-L Special Tests Start: 05/07/21 16:43 Freq: Status: Active Protocol: Document 05/14/21 13:01 LRN (Rec: 05/14/21 13:59 LRN [id number]) Special Tests Knee Special Tests Jason Test Test Results R knee negative Comments Meniscus test PT-OP-M Strength Start: 05/07/21 16:43 Freq: Status: Active Protocol: Document 05/11/21 13:50 LRN (Rec: 05/11/21 17:15 LRN [id number]) Knee Strength Knee Manual Muscle Testing Right Flexion (S2) 4+ Good+ Extension (L3) 5 Normal Left Flexion (S2) 4- Good- Extension (L3) 5 Normal PT-OP-Q Treatments Start: 05/07/21 16:43 Freq: Status: Active Protocol: Document 05/28/21 14:32 SP (Rec: 05/28/21 15:57 SP [id number]) Therapeutic Exercises Sitting Exercises HS curl Sitting Exercise Name in PT only Side right Resistance TB #1 Equipment Used seated mesh chair Reps/Minutes 2x10 Comments initially felt quad fac then ed engage HS and able recruit Rows Sitting Exercise Name scap retraction Resistance lvl 1 TB Equipment Used seated front chair- therapist hold (anchored leg heavy table home) Reps/Minutes 10x 4 Comments cued for tall posture con/ eccentric Thoracic Ext Sitting Exercise Name Arms folded across chest and thoracic ext Resistance good response mid back stretch Equipment Used stated sit front chair Reps/Minutes 5 x 10 Comments min cues for arch at T/S, lift chest up w/ head fwd LAQ Sitting Exercise Name reviewed HEP Side bilateral Resistance AROM Reps/Minutes 3 s hold x15 Comments good form, painfree Standing Exercises Knee flex strengthening Standing Exercise Name Knee flexion Side bilateral Resistance AROM Equipment Used contact locked 4WW Reps/Minutes x20 Comments cued awareness of quad fac stability stance LE Child's Pose Standing Exercise Name modified in standing Resistance -good stretcj Equipment Used hands on table Reps/Minutes 2x30 Comments cued wider stance Cat/cow Standing Exercise Name modified using elevated surface Equipment Used extra time for proper form Reps/Minutes 10x Comments cued tail bone toward ceiling for LS ext, no UT recruitment then round opp. Self-Care/Home Management Treatment Education Patient Education Home Exercise Program Other Education Reviewed HEP: TS ext, resisted rows, modified child's pose, LAQ and added resisted HS curls only in PT, no adverse affects but stated didn't want anyore new ones today. PT-OP-T Assessment and Plan Start: 05/07/21 16:43 Freq: Status: Active Protocol: Document 05/28/21 14:32 SP (Rec: 05/28/21 15:57 SP [id number]) Physical Therapy Assessment Goals Two Impairment R knee pain rated 3/10 Short Term Goal (STG) Pt will be educated in self care edema and pain management (RICE). STG Duration 05/18/21 (05/14/21: MET GOAL) Intermediate Goal (LTG) Decrease R knee pain to 0/10 with modification of gait as needed (use of walker to deweight R knee for pain relief). LTG Duration 08/09/21 (: Improving) One Impairment Pt lacks appropriate self care HEP. Short Term Goal (STG) Pt will be educated in self care thoracic extension and scolios strengthening (apex on R) and mobility exercises to help prevent thoracic back pain. (05/25/21 Added last session: eated thoracic ext, seated rows, modified child's pose in standing. Added today: Supine stretch of lying with arms ER/BKFO, and sitting thoracic ext ex with TBand ( scap retract). STG Duration 05/25/21 (05/25/21: Progressed) Architectural Examiner Goal (LTG) Pt will be educated and demonstrate knowledge of a self care HEP of R>L knee strengthening to prevent worsening of her R knee condition. (05/14/21: HEP: QS, SLR, SAQ, LAQ, heel slides). (05/25/21: HEP: knee flex strengthening sit and stand). LTG Duration 06/01/21 (05/25/21: Progressed) Assessment Summary Assessment Tx spent HEP review for posture and knee AROM and initiated strengthening in PT, required cues for set up and form, improved with hand outs on computer to look at, didn' remember them. Good feedback response end of tx, my back feels really good. RENDERING EQUIPMENT TENDER educated continue use HOs in front her at table for recall, verbalized understanding. Physical Therapy Plan Frequency and Duration Frequency of Treatment 2x/Week Plan of Care Start Date 05/11/21 Plan of Care End Date 08/09/21 Therapeutic Interventions Therapeutic Interventions Aquatic Therapy,Home Exercise Program,Manual Therapy, Neuromuscular Re-education, Patient/Caregiver Education, Self-Care/Home Management,Soft Tissue Mobilization, Therapeutic Activities, Therapeutic Exercises Modalities Cold Pack/Ice Massage,Hot Packs,Ultrasound Next Visit Focus/Plan Next Note Type Treatment Note Next Visit Plan Next tx: review new HEP- thoracic ext, modified child's pose, rows. Add HEP: Thoracic rot stretch . Body mechanics training ( vacuuming), add posture and TS ext. POC: Review: R knee ROM and strengthening (ROM measurement ) HEP: Scoliosis strengthening and mobility ex's.
--- NOTE | 2021-06-11 14:31 | PT.OTN ---
Current Diagnoses Other chronic pain (06/11/21) Pain in right knee (06/11/21) Postural kyphosis, thoracic region (06/11/21) Pain in thoracic spine (06/11/21) Unsteadiness on feet (06/11/21) Physical Therapy Treatment Note PT-OP-A Visit Information Start: 05/07/21 16:43 Freq: Status: Active Protocol: Document 06/11/21 13:52 SP (Rec: 06/11/21 14:33 SP [id number]) Out-Patient Physical Therapy Visit Information Visit Information Visit Type Treatment Note Visit Start Time 13:52 Visit Stop Time 14:31 Total Visit Minutes 39 Visit Number 7 Number of RECORDS OFFICER Visits 2 Evaluation Information Evaluation Date 05/11/21 Precautions Precautions Scoliosis, L TOMASZ-2008, shoe insert in R shoe, Blood clots in spleen in 2007, depression controlled by meds, A. Fib, hydronephritis, neck pain, L leg neuropathy, 1997 rectal resection PT-OP-B Current Condition Start: 05/07/21 16:43 Freq: Status: Active Protocol: Document 05/11/21 13:50 LRN (Rec: 05/11/21 17:15 LRN [id number]) Current Condition History of Current Condition Onset Date Thoracic back pain 6 months ago, R knee pain 09/20/20. Current Complaints R knee, neck, mid thoracic, and low back pain. History of Current Condition R knee pain 09/20/20 was having to go up/down stairs several times a day, then started to develop R knee pain. Started as twinge in the medial knee ( medial fat pad), sometimes (> 4 blocks) it acts like it isn' t going to hold her up. No pain unless after doing lots of walking or walking inclines , or stairs. Low back pain in 2004, from lifting a weight on a wgt machine. Pain in mid thoracic (~T7) 6 months ago of insidious onset. Llow back ~T12-L1 level and in neck C7-T1 level. Neck pain onset 1 yr ago of insdious onset. Prior Treatments and Tests X-rays. PT for L leg 2018. Developmental History Developmental History In 2018, the L leg went out, therefore any walking was with a walker or cane. Treatment Goals Patient/Caregiver Goals Pt goals: - Learning what she can do to prevent worsening of condition . - Learn ex's to help prevent thoracic back pain. Prior Functional Status Baseline Function- ADL's Independent Baseline Function- Mobility Independent Baseline Function- Gait Walked in grocery store with a cart. L leg has 1/2 sensation. Baseline Function- Recreation/Hobbies Was not doing stairs ambulation (hasn't ambulated stairs since 2007). Current Functional Impairments (Reported) Functional Limitations- ADL's No pain with walking, doing inclines, or stairs prior to . Occasionally get up on stool to reach bowls. Uses a counter in front, wall on an end. Hasn't vacuumed in 2 yrs and has started vacuuming 1x every 2 weeks for 45'. Functional Limitations- Mobility/Gait Ambs with SPC with pain in R knee and weakness in L knee. Personal Factors Other Personal Factors That May Effect Lives home alone. Therapy/Recovery L leg weakness and neuropathy. PT-OP-C Subjective Start: 05/07/21 16:43 Freq: Status: Active Protocol: Document 06/11/21 13:52 SP (Rec: 06/11/21 14:33 SP [id number]) OP-PT Subjective Patient Comments Patient Comments Pt stated hasn't been able to come due to daughter that transports is out of town and unable transport her. Has appts going forward. States more aware of posture with HEP . Pt sleeps better withwalking outside up to 4-6 blocks out and back 1-2x/wk with slight hills. Feels is 50% back to normal now. Pt states little pain in R knee after walking but very low level. PT-OP-G Mobility & Gait Start: 05/07/21 16:43 Freq: Status: Active Protocol: Document 05/11/21 13:50 LRN (Rec: 05/11/21 17:15 LRN [id number]) OP Gait Assessment Gait Gait Assistance Required: Independent Distance (Feet) 100 Able to Maintain Weight Bearing Status Yes During Gait Assistive Devices Assistive Device Straight Cane Gait Deviations General Gait Pattern Ataxic,Lateral Trunk Lean Factors Limiting Gait Function Factors Limiting Gait Function Decreased Strength, Incoordination,Pain Comments Gait Comments Pt using SPC on same side as pain due to weakness of LLE. PT-OP-H Neuro Start: 05/07/21 16:43 Freq: Status: Active Protocol: Document 05/11/21 13:50 LRN (Rec: 05/11/21 17:15 LRN [id number]) Sensation Evaluation Comments Summary Comments Decreased sensation to soft touch in the L anterior, lateral and medial lower thigh and lower leg. PT-OP-J Posture/Palpation/Skin Start: 05/07/21 16:43 Freq: Status: Active Protocol: Document 05/11/21 13:50 LRN (Rec: 05/11/21 17:15 LRN [id number]) Posture Evaluation Position Standing Head/C-Spine Posture Forward Head T-Spine Posture Rotation Right,Increased Kyphosis L-Spine Posture Flattened,Shifted Left Shoulder Posture Neutral Scapula Posture (R) Depressed Weight Distribution Weight Shifted Left Comments Posture Comments Scoliosis curvature: [place] on R in upper T/S and on L in lower T/s and lumbar spine. Palpation Assessment Location Thoracic region Palpation Location T6-T7 spinous and transverse process. Palpation Details Tender on L Transverse process of T6-T7 (where switch in curvature begins). R knee Palpation Location Around R knee joint Palpation Details No pain on palpation PT-OP-L Special Tests Start: 05/07/21 16:43 Freq: Status: Active Protocol: Document 05/14/21 13:01 LRN (Rec: 05/14/21 13:59 LRN [id number]) Special Tests Knee Special Tests Jason Test Test Results R knee negative Comments Meniscus test PT-OP-M Strength Start: 05/07/21 16:43 Freq: Status: Active Protocol: Document 05/11/21 13:50 LRN (Rec: 05/11/21 17:15 LRN [id number]) Knee Strength Knee Manual Muscle Testing Right Flexion (S2) 4+ Good+ Extension (L3) 5 Normal Left Flexion (S2) 4- Good- Extension (L3) 5 Normal PT-OP-Q Treatments Start: 05/07/21 16:43 Freq: Status: Active Protocol: Document 06/11/21 13:52 SP (Rec: 06/11/21 14:33 SP [id number]) Therapeutic Exercises Sitting Exercises Rows Sitting Exercise Name scap retraction Resistance lvl 2 TB Equipment Used seated front chair- therapist hold (anchored leg heavy table home) Reps/Minutes x20 Comments good posture upright and head back neutral Thoracic Ext Sitting Exercise Name Arms folded across chest and thoracic ext Resistance good response mid back stretch Equipment Used stated sit front chair Reps/Minutes 5 H 2x5 reps Comments min cues for arch at T/S, lift chest up good head position LAQ Sitting Exercise Name reviewed HEP Side bilateral Resistance AROM Reps/Minutes 3 s hold x15 Comments good form, painfree Standing Exercises Knee flex strengthening Standing Exercise Name Knee flexion Side bilateral Resistance AROM Equipment Used contact counter Reps/Minutes hold 3-5 sec x10 Comments cued awareness of quad fac stretch stability stance LE Child's Pose Standing Exercise Name modified in standing Resistance -good stretcj Equipment Used hands on table Reps/Minutes 2x30 Comments cued wider stance- chest toward floor Cat/cow Standing Exercise Name to difficult to DC Equipment Used extra time for proper form Reps/Minutes 10x Comments cued tail bone toward ceiling for LS ext, no UT recruitment then round opp. Neuro Re-Education Treatment Balance Activities balance with use of SPC Surface firm Equipment SPC, GB CGA Comments assessment balance wt shift, education on patternign SPC in RUE (natural comfort) with LLE, RLE acceptance for safety use 1st thing in am gait to bathroom. Cued feet wider JANNET and smaller stride with improvement in stability short distances, improves with distance. PT-OP-T Assessment and Plan Start: 05/07/21 16:43 Freq: Status: Active Protocol: Document 06/11/21 13:52 SP (Rec: 06/11/21 14:33 SP [id number]) Physical Therapy Assessment Goals Two Impairment R knee pain rated 3/10 Short Term Goal (STG) Pt will be educated in self care edema and pain management (MCKENZIE). STG Duration 05/18/21 (05/14/21: MET GOAL) Book Jogger Goal (LTG) Decrease R knee pain to 0/10 with modification of gait as needed (use of walker to deweight R knee for pain relief). 06/11/21: pt stated as walks longer and up/down hills WB through 4WW but states 50% better. LTG Duration 08/09/21 (06/11/21: Improving ) One Impairment Pt lacks appropriate self care HEP. Short Term Goal (STG) Pt will be educated in self care thoracic extension and scolios strengthening (apex on R) and mobility exercises to help prevent thoracic back pain. (05/25/21 Added last session: eated thoracic ext, seated rows, modified child's pose in standing. Added today: Supine stretch of lying with arms ER/BKFO, and sitting thoracic ext ex with TBand ( scap retract). 06/11/21: min cues for set up/ form reviewed TS ext, resisted rows good ext alignment seated, child pose table standing. STG Duration 05/25/21 (06/11/21: Progressed ) Book Jogger Goal (LTG) Pt will be educated and demonstrate knowledge of a self care HEP of R>L knee strengthening to prevent worsening of her R knee condition. (05/14/21: HEP: QS, SLR, SAQ, LAQ, heel slides). (05/25/21: HEP: knee flex strengthening sit and stand). 06/11/21: min cues for set up/ form reviewed TS ext, resisted rows good ext alignment seated, child pose table standing. LTG Duration 06/01/21 (06/11/21: Progressed) Assessment Summary Assessment Pt required cues for set up child's pose, TS ext chest lift not arm raise with better performance and good TS/LS stretch. Pt improves with pain in R knee overall states progressing walks and little R knee discomfort toward end 5- 6 blocks out/ back. Balance stabiltiy with SPC CGA-5%A, improved with cues for wider JANNET, SPC scuffed floor x2 didn 't throw off balance though. Physical Therapy Plan Frequency and Duration Frequency of Treatment 2x/Week Plan of Care Start Date 05/11/21 Plan of Care End Date 08/09/21 Therapeutic Interventions Therapeutic Interventions Aquatic Therapy,Home Exercise Program,Manual Therapy, Neuromuscular Re-education, Patient/Caregiver Education, Self-Care/Home Management,Soft Tissue Mobilization, Therapeutic Activities, Therapeutic Exercises Modalities Cold Pack/Ice Massage,Hot Packs,Ultrasound Next Visit Focus/Plan Next Note Type Treatment Note Next Visit Plan Next tx: review new HEP- thoracic ext, modified child's pose, rows. Add HEP: Thoracic rot stretch next tx. Review again Body mechanics training (vacuuming). POC: Review: R knee ROM and strengthening (ROM measurement ) HEP: Scoliosis strengthening and mobility ex's.
--- NOTE | 2021-06-18 15:38 | PT.OTN ---
Current Diagnoses Other chronic pain (06/18/21) Pain in right knee (06/18/21) Postural kyphosis, thoracic region (06/18/21) Pain in thoracic spine (06/18/21) Unsteadiness on feet (06/18/21) Physical Therapy Treatment Note PT-OP-A Visit Information Start: 05/07/21 16:43 Freq: Status: Active Protocol: Document 06/18/21 14:31 LRN (Rec: 06/18/21 15:35 LRN [id number]) Out-Patient Physical Therapy Visit Information Visit Information Visit Type Treatment Note Visit Start Time 14:33 Visit Stop Time 14:15 Total Visit Minutes 42 Visit Number 8 Evaluation Information Evaluation Date 05/11/21 Precautions Precautions Scoliosis, L TOMASZ-2008, shoe insert in R shoe, Blood clots in spleen in 2007, depression controlled by meds, A. Fib, hydronephritis, neck pain, L leg neuropathy, 1997 rectal resection PT-OP-B Current Condition Start: 05/07/21 16:43 Freq: Status: Active Protocol: Document 05/11/21 13:50 LRN (Rec: 05/11/21 17:15 LRN [id number]) Current Condition History of Current Condition Onset Date Thoracic back pain 6 months ago, R knee pain 09/20/20. Current Complaints R knee, neck, mid thoracic, and low back pain. History of Current Condition R knee pain 09/20/20 was having to go up/down stairs several times a day, then started to develop R knee pain. Started as twinge in the medial knee ( medial fat pad), sometimes (> 4 blocks) it acts like it isn' t going to hold her up. No pain unless after doing lots of walking or walking inclines , or stairs. Low back pain in 2004, from lifting a weight on a wgt machine. Pain in mid thoracic (~T7) 6 months ago of insidious onset. Llow back ~T12-L1 level and in neck C7-T1 level. Neck pain onset 1 yr ago of insdious onset. Prior Treatments and Tests X-rays. PT for L leg 2018. Developmental History Developmental History In 2018, the L leg went out, therefore any walking was with a walker or cane. Treatment Goals Patient/Caregiver Goals Pt goals: - Learning what she can do to prevent worsening of condition . - Learn ex's to help prevent thoracic back pain. Prior Functional Status Baseline Function- ADL's Independent Baseline Function- Mobility Independent Baseline Function- Gait Walked in grocery store with a cart. L leg has 1/2 sensation. Baseline Function- Recreation/Hobbies Was not doing stairs ambulation (hasn't ambulated stairs since 2007). Current Functional Impairments (Reported) Functional Limitations- ADL's No pain with walking, doing inclines, or stairs prior to . Occasionally get up on stool to reach bowls. Uses a counter in front, wall on an end. Hasn't vacuumed in 2 yrs and has started vacuuming 1x every 2 weeks for 45'. Functional Limitations- Mobility/Gait Ambs with SPC with pain in R knee and weakness in L knee. Personal Factors Other Personal Factors That May Effect Lives home alone. Therapy/Recovery L leg weakness and neuropathy. PT-OP-C Subjective Start: 05/07/21 16:43 Freq: Status: Active Protocol: Document 06/18/21 14:31 LRN (Rec: 06/18/21 15:35 LRN [id number]) OP-PT Subjective Patient Comments Patient Comments R knee hasn't been bothering her, it is her L hip. Walking around the house her L hip hurts when walking without anything. Can walk without R knee pain using walker. PT-OP-G Mobility & Gait Start: 05/07/21 16:43 Freq: Status: Active Protocol: Document 05/11/21 13:50 LRN (Rec: 05/11/21 17:15 LRN [id number]) OP Gait Assessment Gait Gait Assistance Required: Independent Distance (Feet) 100 Able to Maintain Weight Bearing Status Yes During Gait Assistive Devices Assistive Device Straight Cane Gait Deviations General Gait Pattern Ataxic,Lateral Trunk Lean Factors Limiting Gait Function Factors Limiting Gait Function Decreased Strength, Incoordination,Pain Comments Gait Comments Pt using SPC on same side as pain due to weakness of LLE. PT-OP-H Neuro Start: 05/07/21 16:43 Freq: Status: Active Protocol: Document 05/11/21 13:50 LRN (Rec: 05/11/21 17:15 LRN [id number]) Sensation Evaluation Comments Summary Comments Decreased sensation to soft touch in the L anterior, lateral and medial lower thigh and lower leg. PT-OP-J Posture/Palpation/Skin Start: 05/07/21 16:43 Freq: Status: Active Protocol: Document 05/11/21 13:50 LRN (Rec: 05/11/21 17:15 LRN [id number]) Posture Evaluation Position Standing Head/C-Spine Posture Forward Head T-Spine Posture Rotation Right,Increased Kyphosis L-Spine Posture Flattened,Shifted Left Shoulder Posture Neutral Scapula Posture (R) Depressed Weight Distribution Weight Shifted Left Comments Posture Comments Scoliosis curvature: [place] on R in upper T/S and on L in lower T/s and lumbar spine. Palpation Assessment Location Thoracic region Palpation Location T6-T7 spinous and transverse process. Palpation Details Tender on L Transverse process of T6-T7 (where switch in curvature begins). R knee Palpation Location Around R knee joint Palpation Details No pain on palpation PT-OP-L Special Tests Start: 05/07/21 16:43 Freq: Status: Active Protocol: Document 05/14/21 13:01 LRN (Rec: 05/14/21 13:59 LRN [id number]) Special Tests Knee Special Tests Jason Test Test Results R knee negative Comments Meniscus test PT-OP-M Strength Start: 05/07/21 16:43 Freq: Status: Active Protocol: Document 05/11/21 13:50 LRN (Rec: 05/11/21 17:15 LRN [id number]) Knee Strength Knee Manual Muscle Testing Right Flexion (S2) 4+ Good+ Extension (L3) 5 Normal Left Flexion (S2) 4- Good- Extension (L3) 5 Normal PT-OP-Q Treatments Start: 05/07/21 16:43 Freq: Status: Active Protocol: Document 06/18/21 14:31 LRN (Rec: 06/18/21 15:35 LRN [id number]) Therapeutic Exercises Supine Exercises Thoracic Ext Supine Exercise Name Arching upper back Reps/Minutes 15x Comments v cuing to lift chest to ceiling Heel slides Supine Exercise Name Heel slide w/table and shoe as resistance- reviewed HEP Side bilateral Reps/Minutes 5x 2 Comments good form, painfree SAQ Supine Exercise Name SAQ-reviewed HEP Side bilateral Equipment Used blue foam roll (suggested roll paper towels and towel) Reps/Minutes 5 H, 15x 2 Comments good form, painfree SLR Supine Exercise Name SLR Side bilateral Reps/Minutes 5x 2 Comments cued TA and lift no higher than opposite bent knee Sitting Exercises Scap retract Sitting Exercise Name W-posture of arm for scap retract Equipment Used Lev 2 TBand Reps/Minutes 10x Rows Sitting Exercise Name scap retraction Resistance lvl 2 TB Equipment Used seated front chair- therapist hold (anchored leg heavy table home) Reps/Minutes x20 Comments good posture upright and head back neutral Thoracic Ext Sitting Exercise Name Arms folded across chest and thoracic ext Resistance good response mid back stretch Equipment Used sitting on plinth Reps/Minutes 5 H 2x5 reps Comments cues for arch at T/S, lift chest up good head position LAQ Side bilateral Resistance AROM Reps/Minutes 15x 2 each Comments good form, painfree Standing Exercises Knee flex strengthening Standing Exercise Name Knee flexion Side bilateral Resistance AROM Equipment Used contact counter Reps/Minutes hold 3-5 sec x10 Comments cued awareness of quad fac stretch stability stance LE Child's Pose Standing Exercise Name modified in standing Resistance -good stretcj Equipment Used hands on table Reps/Minutes 2x30 Comments cued wider stance- chest toward floor Gait Training Gait Activity Gait w/walker Description Posture training w/walker Device Used Walker Surface Level, firm Distance/Duration 10'x 2 Treatment Focus Core stab Comments Anterior tilt of pelvis with abdominal tightening for decrease in L posterior hip and L medial knee discomfort. Gait w/o AD Description Change in step length to decrease L posterior hip pain Level of Assistance SBA Surface Level, firm Distance/Duration 20' x 2 Treatment Focus Gait to decrease L posterior hip pain. Comments Pt had no R medial knee pain. R medial knee and L posterior hip pain could be elicitied with lumbar ext or anterior pelvic tilt with gait. PT-OP-T Assessment and Plan Start: 05/07/21 16:43 Freq: Status: Active Protocol: Document 06/18/21 14:31 LRN (Rec: 06/18/21 15:35 LRN [id number]) Physical Therapy Assessment Goals Two Impairment R knee pain rated 3/10 Short Term Goal (STG) Pt will be educated in self care edema and pain management (RICE). STG Duration 05/18/21 (05/14/21: MET GOAL) Longterm Goal (LTG) Decrease R knee pain to 0/10 with modification of gait as needed (use of walker to deweight R knee for pain relief). (06/18/21: Big stride walking creates discomfort in R medial knee and L lateral hip). 06/11/21: pt stated as walks longer and up/down hills WB through 4WW but states 50% better. LTG Duration 08/09/21 (06/18/21: MET GOAL) One Impairment Pt lacks appropriate self care HEP. Short Term Goal (STG) Pt will be educated in self care thoracic extension and scolios strengthening (apex on R) and mobility exercises to help prevent thoracic back pain. (05/25/21 Added last session: seated thoracic ext, seated rows, modified child's pose in standing. Added today: Supine stretch of lying with arms ER/BKFO, and sitting thoracic ext ex with TBand ( scap retract). 06/11/21: min cues for set up/ form reviewed TS ext, resisted rows good ext alignment seated, child pose table standing. STG Duration 05/25/21 (06/11/21: Progressed ) Longterm Goal (LTG) Pt will be educated and demonstrate knowledge of a self care HEP of R>L knee strengthening to prevent worsening of her R knee condition. (05/14/21: HEP: QS, SLR, SAQ, LAQ, heel slides). (05/25/21: HEP: knee flex strengthening sit and stand). 06/11/21: min cues for set up/ form reviewed TS ext, resisted rows good ext alignment seated, child pose table standing. LTG Duration 06/01/21 (06/11/21: Progressed) Assessment Summary Assessment Fair recall of new ex's ( thoracic ext, modified child's pose, rows), good recall of old ex's with use of handouts. Pt has L posterior hip pain and R medial knee pain with extension of L/S or anterior pelvic tilt with gait; therefore pain may be L/S mechancial dysfunction due to scoliosis. Physical Therapy Plan Frequency and Duration Frequency of Treatment 2x/Week Plan of Care Start Date 05/11/21 Plan of Care End Date 08/09/21 Next Visit Focus/Plan Next Note Type Treatment Note Next Visit Plan Add HEP: Thoracic rot stretch next tx. Review again Body mechanics training (vacuuming). POC: Assess: R knee ROM and strengthening (ROM measurement ) HEP: Scoliosis strengthening and mobility ex's.
--- NOTE | 2021-06-21 16:23 | PT.OTN ---
Current Diagnoses Other chronic pain (06/21/21) Pain in right knee (06/21/21) Postural kyphosis, thoracic region (06/21/21) Pain in thoracic spine (06/21/21) Unsteadiness on feet (06/21/21) Physical Therapy Treatment Note PT-OP-A Visit Information Start: 05/07/21 16:43 Freq: Status: Active Protocol: Document 06/21/21 15:16 LRN (Rec: 06/21/21 16:22 LRN [id number]) Out-Patient Physical Therapy Visit Information Visit Information Visit Type Treatment Note Visit Start Time 15:17 Visit Stop Time 15:57 Total Visit Minutes 40 Evaluation Information Evaluation Date 05/11/21 Precautions Precautions Scoliosis, L TOMASZ-2008, shoe insert in R shoe, Blood clots in spleen in 2007, depression controlled by meds, A. Fib, hydronephritis, neck pain, L leg neuropathy, 1997 rectal resection PT-OP-B Current Condition Start: 05/07/21 16:43 Freq: Status: Active Protocol: Document 05/11/21 13:50 LRN (Rec: 05/11/21 17:15 LRN [id number]) Current Condition History of Current Condition Onset Date Thoracic back pain 6 months ago, R knee pain 09/20/20. Current Complaints R knee, neck, mid thoracic, and low back pain. History of Current Condition R knee pain 09/20/20 was having to go up/down stairs several times a day, then started to develop R knee pain. Started as twinge in the medial knee ( medial fat pad), sometimes (> 4 blocks) it acts like it isn' t going to hold her up. No pain unless after doing lots of walking or walking inclines , or stairs. Low back pain in 2004, from lifting a weight on a wgt machine. Pain in mid thoracic (~T7) 6 months ago of insidious onset. Llow back ~T12-L1 level and in neck C7-T1 level. Neck pain onset 1 yr ago of insdious onset. Prior Treatments and Tests X-rays. PT for L leg 2018. Developmental History Developmental History In 2018, the L leg went out, therefore any walking was with a walker or cane. Treatment Goals Patient/Caregiver Goals Pt goals: - Learning what she can do to prevent worsening of condition . - Learn ex's to help prevent thoracic back pain. Prior Functional Status Baseline Function- ADL's Independent Baseline Function- Mobility Independent Baseline Function- Gait Walked in grocery store with a cart. L leg has 1/2 sensation. Baseline Function- Recreation/Hobbies Was not doing stairs ambulation (hasn't ambulated stairs since 2007). Current Functional Impairments (Reported) Functional Limitations- ADL's No pain with walking, doing inclines, or stairs prior to . Occasionally get up on stool to reach bowls. Uses a counter in front, wall on an end. Hasn't vacuumed in 2 yrs and has started vacuuming 1x every 2 weeks for 45'. Functional Limitations- Mobility/Gait Ambs with SPC with pain in R knee and weakness in L knee. Personal Factors Other Personal Factors That May Effect Lives home alone. Therapy/Recovery L leg weakness and neuropathy. PT-OP-C Subjective Start: 05/07/21 16:43 Freq: Status: Active Protocol: Document 06/21/21 15:16 LRN (Rec: 06/21/21 16:22 LRN [id number]) OP-PT Subjective Patient Comments Patient Comments States the standing child pose ex causes temporary back pain . PT-OP-G Mobility & Gait Start: 05/07/21 16:43 Freq: Status: Active Protocol: Document 05/11/21 13:50 LRN (Rec: 05/11/21 17:15 LRN [id number]) OP Gait Assessment Gait Gait Assistance Required: Independent Distance (Feet) 100 Able to Maintain Weight Bearing Status Yes During Gait Assistive Devices Assistive Device Straight Cane Gait Deviations General Gait Pattern Ataxic,Lateral Trunk Lean Factors Limiting Gait Function Factors Limiting Gait Function Decreased Strength, Incoordination,Pain Comments Gait Comments Pt using SPC on same side as pain due to weakness of LLE. PT-OP-H Neuro Start: 05/07/21 16:43 Freq: Status: Active Protocol: Document 05/11/21 13:50 LRN (Rec: 05/11/21 17:15 LRN [id number]) Sensation Evaluation Comments Summary Comments Decreased sensation to soft touch in the L anterior, lateral and medial lower thigh and lower leg. PT-OP-J Posture/Palpation/Skin Start: 05/07/21 16:43 Freq: Status: Active Protocol: Document 05/11/21 13:50 LRN (Rec: 05/11/21 17:15 LRN [id number]) Posture Evaluation Position Standing Head/C-Spine Posture Forward Head T-Spine Posture Rotation Right,Increased Kyphosis L-Spine Posture Flattened,Shifted Left Shoulder Posture Neutral Scapula Posture (R) Depressed Weight Distribution Weight Shifted Left Comments Posture Comments Scoliosis curvature: [place] on R in upper T/S and on L in lower T/s and lumbar spine. Palpation Assessment Location Thoracic region Palpation Location T6-T7 spinous and transverse process. Palpation Details Tender on L Transverse process of T6-T7 (where switch in curvature begins). R knee Palpation Location Around R knee joint Palpation Details No pain on palpation PT-OP-K Range of Motion Start: 05/07/21 16:43 Freq: Status: Active Protocol: Document 06/21/21 15:16 LRN (Rec: 06/21/21 16:22 LRN [id number]) Knee Goniometric Range of Motion Knee Right Knee ROM WFL No Patient Position Supine Flexion Active (degrees) 135 Left Knee ROM WFL Yes Patient Position Supine Flexion Active (degrees) 140 PT-OP-L Special Tests Start: 05/07/21 16:43 Freq: Status: Active Protocol: Document 05/14/21 13:01 LRN (Rec: 05/14/21 13:59 LRN [id number]) Special Tests Knee Special Tests Jason Test Test Results R knee negative Comments Meniscus test PT-OP-M Strength Start: 05/07/21 16:43 Freq: Status: Active Protocol: Document 06/21/21 15:16 LRN (Rec: 06/21/21 16:22 LRN [id number]) Knee Strength Knee Manual Muscle Testing Right Flexion (S2) 5 Normal Extension (L3) 5 Normal Left Flexion (S2) 5 Normal Extension (L3) 5 Normal PT-OP-Q Treatments Start: 05/07/21 16:43 Freq: Status: Active Protocol: Document 06/21/21 15:16 LRN (Rec: 06/21/21 16:22 LRN [id number]) Therapeutic Exercises Supine Exercises Thoracic Ext Supine Exercise Name Arching upper back Reps/Minutes 10 Hold, 15x Comments v cuing to lift chest to ceiling Heel slides Supine Exercise Name Heel slide w/table and shoe as resistance- reviewed HEP Side bilateral Reps/Minutes 5x 2 Comments good form, painfree Sitting Exercises R arm lifts Sitting Exercise Name Arm lifts Side right Reps/Minutes 15x Scap retract Sitting Exercise Name W-posture of arm for scap retract Side bilateral Equipment Used Lev 2 TBand Reps/Minutes 15x Comments Cuing to keep elbows tucked in ,arch at back & squeeze shldr blades together Rows Sitting Exercise Name scap retraction Resistance lvl 2 TB Equipment Used seated front chair- therapist hold (anchored leg of heavy table @ home) Reps/Minutes 30x Comments good posture upright and head back neutral Thoracic Ext Sitting Exercise Name Arms folded across chest and thoracic ext with rotation Side bilateral Resistance good response mid back stretch Equipment Used sitting on plinth Reps/Minutes 5 H 2x5 reps Comments cues for arch at T/S, lift chest up good head position LAQ Sitting Exercise Name LAQ Side bilateral Resistance AROM Equipment Used 1# Reps/Minutes 2 H, 10x 3 each Comments good form, painfree Standing Exercises L hip AB Standing Exercise Name L Hip AB Side right Equipment Used Hands on Walker Reps/Minutes 5-10 H x 10 L SB Standing Exercise Name L SB to stretch R lateral lower trunk Equipment Used Hands on Walker Reps/Minutes 20 H x 6 Knee flex strengthening Standing Exercise Name Knee flexion Side bilateral Resistance AROM Equipment Used contact walker Reps/Minutes 5x 2 sets of each leg Comments cued awareness of quad fac stretch stability stance LE Child's Pose Standing Exercise Name modified in standing Resistance Stretch to hamstrings Equipment Used hands on table Reps/Minutes 2x30 Comments cued wider stance- chest/belly toward floor Self-Care/Home Management Treatment Education Patient Education Home Exercise Program Other Education Reviewed again Body mechanics training (vacuuming), and standing posture. Activities Self-Care/Home Management Activities Issued & reviewed HEP: Trunk L SB & L hip AB. PT-OP-T Assessment and Plan Start: 05/07/21 16:43 Freq: Status: Active Protocol: Document 06/21/21 15:16 LRN (Rec: 06/21/21 16:22 LRN [id number]) Physical Therapy Assessment Goals Two Impairment R knee pain rated 3/10 Short Term Goal (STG) Pt will be educated in self care edema and pain management (RICE). STG Duration 05/18/21 (05/14/21: MET GOAL) Fdc Goal (LTG) Decrease R knee pain to 0/10 with modification of gait as needed (use of walker to deweight R knee for pain relief). (06/18/21: Big stride walking creates discomfort in R medial knee and L lateral hip). 06/11/21: pt stated as walks longer and up/down hills WB through 4WW but states 50% better. LTG Duration 08/09/21 (06/18/21: MET GOAL) One Impairment Pt lacks appropriate self care HEP. Short Term Goal (STG) Pt will be educated in self care thoracic extension and scolios strengthening (apex on R) and mobility exercises to help prevent thoracic back pain. (05/25/21 Added last session: seated thoracic ext, seated rows, modified child's pose in standing. Added today: Supine stretch of lying with arms ER/BKFO, and sitting thoracic ext ex with TBand ( scap retract). 06/11/21: min cues for set up/ form reviewed TS ext, resisted rows good ext alignment seated, child pose table standing. (06/21/21: Added scoliosis ex of L hip AB & stretch to R lateral trunk-L SB) STG Duration 05/25/21 (06/21/21: Progressed) Fdc Goal (LTG) Pt will be educated and demonstrate knowledge of a self care HEP of R>L knee strengthening to prevent worsening of her R knee condition. (05/14/21: HEP: QS, SLR, SAQ, LAQ, heel slides). (05/25/21: HEP: knee flex strengthening sit and stand). 06/11/21: min cues for set up/ form reviewed TS ext, resisted rows good ext alignment seated, child pose table standing. LTG Duration 06/01/21 (06/11/21: Progressed) Assessment Summary Assessment R knee is good, AROM is 135 deg's (L is 140 deg's), and her R knee strength is normal. Pt scoliosis appears to have changed to a C-curve with apex on the L; therefore initiated strengthening or L paraspinals and stretch to R paraspinals. L lower trunk strengthening is limited by R knee pain in standing. Pt may tolerated R sidelie L hip AB better than standing L hip AB. Physical Therapy Plan Frequency and Duration Frequency of Treatment 2x/Week Plan of Care Start Date 05/11/21 Plan of Care End Date 08/09/21 Next Visit Focus/Plan Next Note Type Treatment Note Next Visit Plan Issue HEP: Thoracic rot stretch next tx. Review previouisly issued HEP. POC: Progress scoliosis strengthening and mobility ex' s. HEP: Scoliosis strengthening and mobility ex's as appropriate.
--- NOTE | 2021-06-24 16:26 | PT.OTN ---
Current Diagnoses Other chronic pain (06/24/21) Pain in right knee (06/24/21) Postural kyphosis, thoracic region (06/24/21) Pain in thoracic spine (06/24/21) Unsteadiness on feet (06/24/21) Physical Therapy Treatment Note PT-OP-A Visit Information Start: 05/07/21 16:43 Freq: Status: Active Protocol: Document 06/24/21 15:21 LRN (Rec: 06/24/21 16:23 LRN [id number]) Out-Patient Physical Therapy Visit Information Visit Information Visit Type Treatment Note Visit Start Time 15:21 Visit Stop Time 13:01 Total Visit Minutes 40 Visit Number 10 Evaluation Information Evaluation Date 05/11/21 Precautions Precautions Scoliosis, L TOMASZ-2008, shoe insert in R shoe, Blood clots in spleen in 2007, depression controlled by meds, A. Fib, hydronephritis, neck pain, L leg neuropathy, 1997 rectal resection PT-OP-B Current Condition Start: 05/07/21 16:43 Freq: Status: Active Protocol: Document 05/11/21 13:50 LRN (Rec: 05/11/21 17:15 LRN [id number]) Current Condition History of Current Condition Onset Date Thoracic back pain 6 months ago, R knee pain 09/20/20. Current Complaints R knee, neck, mid thoracic, and low back pain. History of Current Condition R knee pain 09/20/20 was having to go up/down stairs several times a day, then started to develop R knee pain. Started as twinge in the medial knee ( medial fat pad), sometimes (> 4 blocks) it acts like it isn' t going to hold her up. No pain unless after doing lots of walking or walking inclines , or stairs. Low back pain in 2004, from lifting a weight on a wgt machine. Pain in mid thoracic (~T7) 6 months ago of insidious onset. Llow back ~T12-L1 level and in neck C7-T1 level. Neck pain onset 1 yr ago of insdious onset. Prior Treatments and Tests X-rays. PT for L leg 2018. Developmental History Developmental History In 2018, the L leg went out, therefore any walking was with a walker or cane. Treatment Goals Patient/Caregiver Goals Pt goals: - Learning what she can do to prevent worsening of condition . - Learn ex's to help prevent thoracic back pain. Prior Functional Status Baseline Function- ADL's Independent Baseline Function- Mobility Independent Baseline Function- Gait Walked in grocery store with a cart. L leg has 1/2 sensation. Baseline Function- Recreation/Hobbies Was not doing stairs ambulation (hasn't ambulated stairs since 2007). Current Functional Impairments (Reported) Functional Limitations- ADL's No pain with walking, doing inclines, or stairs prior to . Occasionally get up on stool to reach bowls. Uses a counter in front, wall on an end. Hasn't vacuumed in 2 yrs and has started vacuuming 1x every 2 weeks for 45'. Functional Limitations- Mobility/Gait Ambs with SPC with pain in R knee and weakness in L knee. Personal Factors Other Personal Factors That May Effect Lives home alone. Therapy/Recovery L leg weakness and neuropathy. PT-OP-C Subjective Start: 05/07/21 16:43 Freq: Status: Active Protocol: Document 06/24/21 15:21 LRN (Rec: 06/24/21 16:23 LRN [id number]) OP-PT Subjective Patient Comments Patient Comments Couple questions on exercises. Feels 3/4 way towards being ready for discharge. C/O R medial knee pain. Patient Questionnaires Oswestry Low Back Index Oswestry Score 17 Oswestry Impairment 1 to 19% Impaired (Score 1-19) OP-PT Pain Assessment Pain Assessment Grid Paper Pain Assessment Grid Completed Yes Location Thoracic region Pain Location Details Mid back pain Intensity 4 Scale Used Numeric (0 - 10) R knee Pain Location Details R knee Intensity 0 Scale Used Numeric (0 - 10) PT-OP-G Mobility & Gait Start: 05/07/21 16:43 Freq: Status: Active Protocol: Document 05/11/21 13:50 LRN (Rec: 05/11/21 17:15 LRN [id number]) OP Gait Assessment Gait Gait Assistance Required: Independent Distance (Feet) 100 Able to Maintain Weight Bearing Status Yes During Gait Assistive Devices Assistive Device Straight Cane Gait Deviations General Gait Pattern Ataxic,Lateral Trunk Lean Factors Limiting Gait Function Factors Limiting Gait Function Decreased Strength, Incoordination,Pain Comments Gait Comments Pt using SPC on same side as pain due to weakness of LLE. PT-OP-H Neuro Start: 05/07/21 16:43 Freq: Status: Active Protocol: Document 05/11/21 13:50 LRN (Rec: 05/11/21 17:15 LRN [id number]) Sensation Evaluation Comments Summary Comments Decreased sensation to soft touch in the L anterior, lateral and medial lower thigh and lower leg. PT-OP-J Posture/Palpation/Skin Start: 05/07/21 16:43 Freq: Status: Active Protocol: Document 06/24/21 15:21 LRN (Rec: 06/24/21 16:23 LRN [id number]) Posture Evaluation Position Standing Head/C-Spine Posture Neutral Position T-Spine Posture Rotation Left L-Spine Posture Flattened Shoulder Posture Neutral Scapula Posture (L) Winged Pelvis Posture Posterior Tilted,(L) Iliac Crest Superior Comments Posture Comments C-Curve of the lower thoracic and upper lumbar spine with apex on the Left. PT-OP-K Range of Motion Start: 05/07/21 16:43 Freq: Status: Active Protocol: Document 06/21/21 15:16 LRN (Rec: 06/21/21 16:22 LRN [id number]) Knee Goniometric Range of Motion Knee Right Knee ROM WFL No Patient Position Supine Flexion Active (degrees) 135 Left Knee ROM WFL Yes Patient Position Supine Flexion Active (degrees) 140 PT-OP-L Special Tests Start: 05/07/21 16:43 Freq: Status: Active Protocol: Document 05/14/21 13:01 LRN (Rec: 05/14/21 13:59 LRN [id number]) Special Tests Knee Special Tests Jason Test Test Results R knee negative Comments Meniscus test PT-OP-M Strength Start: 05/07/21 16:43 Freq: Status: Active Protocol: Document 06/21/21 15:16 LRN (Rec: 06/21/21 16:22 LRN [id number]) Knee Strength Knee Manual Muscle Testing Right Flexion (S2) 5 Normal Extension (L3) 5 Normal Left Flexion (S2) 5 Normal Extension (L3) 5 Normal PT-OP-Q Treatments Start: 05/07/21 16:43 Freq: Status: Active Protocol: Document 06/24/21 15:21 LRN (Rec: 06/24/21 16:23 LRN [id number]) Therapeutic Exercises Supine Exercises Lying in frog position stretch Supine Exercise Name Frog position with arms outstretched. Side bilateral Reps/Minutes 3' Thoracic Ext Supine Exercise Name Arching upper back Reps/Minutes 10 Hold, 15x Comments v cuing to lift chest to ceiling Sitting Exercises Trunk R Rot Sitting Exercise Name Trunk R Rot Side right Reps/Minutes 5 sec H, 10 Thoracic Ext Sitting Exercise Name Arms folded across chest and thoracic ext with rotation Side bilateral Resistance good response mid back stretch Equipment Used sitting on plinth Reps/Minutes 5 H 2x5 reps Comments cues for arch at T/S, lift chest up good head position Standing Exercises L hip AB Standing Exercise Name L Hip AB Side right Equipment Used Hands on Walker Reps/Minutes 5-10 H x 10 L SB Standing Exercise Name L SB to stretch R lateral lower trunk Equipment Used Hands on Walker Reps/Minutes 20 H x 6 Child's Pose Standing Exercise Name modified in standing Resistance Stretch to hamstrings Equipment Used hands on table Reps/Minutes 2x30 Comments cued wider stance- chest/belly toward floor Self-Care/Home Management Treatment Education Patient Education Home Exercise Program Other Education Reviewed her HEP for sitting thoracic ext, I/S for pt to lift at the chest; standing hip AB for keeping toes forwrd , Trunk SB with I/S to keep arms down rather than overhead ; Modified child's pose was okay'd standing as long as pt not stretching into randall; and supine frog stretch position. Activities Self-Care/Home Management Activities Issued & reviewed final scoliosis ex of trunk R rot. PT-OP-R Modalities Start: 05/07/21 16:43 Freq: Status: Active Protocol: Document 06/24/21 15:21 LRN (Rec: 06/24/21 16:23 [facility] [id number]) Ultrasound Therapy Treatment R medial knee Treatment Duration (minutes) 8 Patient Position Supine Coupling Medium Ultrasound Gel Applicator Size (cm2) 10 Frequency Setting (mHz) 1 Mode Setting Pulsed Duty Cycle 50% Intensity Setting (w/cm2) 1.0 PT-OP-T Assessment and Plan Start: 05/07/21 16:43 Freq: Status: Active Protocol: Document 06/24/21 15:21 LRN (Rec: 06/24/21 16:23 [facility] [id number]) Physical Therapy Assessment Goals Two Impairment R knee pain rated 3/10 Short Term Goal (STG) Pt will be educated in self care edema and pain management (MCKENZIE). STG Duration 05/18/21 (05/14/21: MET GOAL) Fci Goal (LTG) Decrease R knee pain to 0/10 with modification of gait as needed (use of walker to deweight R knee for pain relief). (06/18/21: Big stride walking creates discomfort in R medial knee and L lateral hip). 06/11/21: pt stated as walks longer and up/down hills WB through 4WW but states 50% better. LTG Duration 08/09/21 (06/18/21: MET GOAL) One Impairment Pt lacks appropriate self care HEP. Short Term Goal (STG) Pt will be educated in self care thoracic extension and scolios strengthening (apex on R) and mobility exercises to help prevent thoracic back pain. (05/25/21 Added last session: seated thoracic ext, seated rows, modified child's pose in standing. Added today: Supine stretch of lying with arms ER/BKFO, and sitting thoracic ext ex with TBand ( scap retract). 06/11/21: min cues for set up/ form reviewed TS ext, resisted rows good ext alignment seated, child pose table standing. (06/21/21: Added scoliosis ex of L hip AB & stretch to R lateral trunk-L SB) (06/24/21: Added scoliosis ex of trunk R rot, due to pt apex in lower thoracic and upper lumbar spine on the left). STG Duration 05/25/21 (06/24/21: MET GOAL) Fci Goal (LTG) Pt will be educated and demonstrate knowledge of a self care HEP of R>L knee strengthening to prevent worsening of her R knee condition. (05/14/21: HEP: QS, SLR, SAQ, LAQ, heel slides). (05/25/21: HEP: knee flex strengthening sit and stand). 06/11/21: min cues for set up/ form reviewed TS ext, resisted rows good ext alignment seated, child pose table standing. (06/24/21: Pt has no questions regarding knee ex's). LTG Duration 06/01/21 (06/24/21: MET GOAL) Assessment Summary Assessment The pt feels she is ready for discharge to a home exercise program and is satisfied with her R knee condition. She is using a FWW to walk without pain and her posture has improved greatly, helping to decrease her back pain. Functionally she is 1<19% impaired (per Oswestry Disabilty Index). The pt appears ready to be placed on her home program to continue strengthening independently. Physical Therapy Plan Frequency and Duration Plan of Care Start Date 05/11/21 Plan of Care End Date 08/09/21 Discharge Physical Therapy Discharge Reasons Goals Met Discharge Comments The pt will be returning to her daughter's house where she first started to have knee pain due to ambulating multiple stairs daily. The pt has been cautioned to minimize stairs and to use ice to help with pain if flare up occurs. If the pt is forced to ambulate the stairs she may need a refresher course in the future for R knee rehab. Thank you for your referral.
== END 2021-06-28 13:34 ==
LOC: PHYS 15:15
PROVIDERS: Family Provider Family Medicine; PCP Family Medicine; Referring Provider Family Medicine; Visit Provider Family Medicine
DX: M54.6 Pain in thoracic spine (principal); G89.29 Other chronic pain; M25.561 Pain in right knee; M40.04 Postural kyphosis, thoracic region; R26.81 Unsteadiness on feet
CPT/HCPCS: 97035; 97110; 97112; 97116; 97162; 97535

== ENCOUNTER → 2021-11-25 08:11 | Outpatient (CLI) | payer MEDICARE, BC, SELFPAY ==
[2021-11-25 09:17] LABS: Add Manual Diff / Slide Review NO; Basophils Absolute Auto 100 /uL (0-100); Basophils Percent Auto 1.2 % (0-2); Eosinophils Absolute Auto 200 /uL (0-450); Eosinophils Percent Auto 3.7 % (2-4); Hematocrit 41.1 % (36-46); Hemoglobin 13.7 g/dL (12.0-16.0); Lymphocytes Absolute Auto 1100 /uL (1100-4500); Lymphocytes Percent Auto 24.1 % (25-40); Mean Corpuscular HGB Conc 33.4 % (30-36); Mean Corpuscular Hemoglobin 31.3 PG (26-34); Mean Corpuscular Volume 93.7 fL (80-100); Monocytes Absolute Auto 400 /uL (0-900); Monocytes Percent Auto 9.3 % (3-14); Neutrophils Absolute Auto 2800 /uL (1500-7000); Neutrophils Percent Auto 61.7 % (50-75); Platelet Count 150 X10^3/uL (150-400); Red Blood Cell Count 4.38 X10^6/uL (4.0-5.2); Red Cell Distribution Width 13.7 % (11.6-14.8); White Blood Cell Count 4.6 X10^3/uL (4.5-11.0)
[2021-11-25 09:29] LABS: Alanine Aminotransferase 35 IU/L (<35); Albumin 4.1 g/dL (3.5-5.0); Albumin Globulin Ratio 1.5 (1.0-2.8); Alkaline Phosphatase 62 U/L (38-126); Aspartate Aminotransferase 39 IU/L (14-36); BUN Creatinine Ratio 23.5 (6-22); Bilirubin Total 0.7 mg/dL (0.2-1.3); Blood Urea Nitrogen 20 mg/dL (7-17); Calcium 10.1 mg/dL (8.4-10.2); Carbon Dioxide 34 mmol/L (22-32); Chloride 95 mmol/L (98-107); Cholesterol 188 mg/dL (140-199); Estimated Glomerular Filt Rate > 60 mL/min (>60); Globulin 2.8 g/dL (1.7-4.1); Glucose 100 mg/dL (80-110); HDL Cholesterol 85 mg/dL (40-60); HEMOLYSIS < 15 (0-50); LDL Cholesterol Calculated 92 mg/dL (<100); Potassium 3.8 mmol/L (3.4-5.1); Sodium 135 mmol/L (137-145); Total Protein 6.9 g/dL (6.3-8.2); Triglycerides 57 mg/dL (35-150)
== END ==
PROVIDERS: Family Provider Family Medicine; PCP Family Medicine; Referring Provider Family Medicine; Visit Provider Family Medicine
DX: I10 Essential (primary) hypertension (principal); E78.2 Mixed hyperlipidemia
CPT/HCPCS: 36415; 80053; 80061; 85025

== ENCOUNTER 2022-04-03 12:26 | Emergency (ER) | payer MEDICARE, BC, SELFPAY ==
[2022-04-03] VITALS (15 sets, daily range): BP systolic 188–215; BP diastolic 88–100; PULSE 50–65; RESP 16; TEMP 36.5–36.6; O2SAT 94–99; BMI 23.4
--- NOTE | 2022-04-03 13:46 | DI.RAD.S_ITS ---
PROCEDURE: XR HIP W PEL IF DONE LT 2V INDICATIONS: back and hip pain TECHNIQUE: AP pelvis with lateral view(s) of the left hip(s). COMPARISON: [facility], CR, XR LUMBAR SPINE 2-3V, 04/03/2022, 13:53. [facility], CR, XR HIP W PEL IF DONE ADIA 3TO4V, 10/12/2020, 15:26. FINDINGS: Bones: No fractures or dislocations. Pelvic ring appears intact. No suspicious bony lesions. Left hip arthroplasty hardware can be seen. No findings of hardware failure or hardware loosening are seen. Moderate degenerative change can be seen of the contralateral right hip and the lower lumbar spine. Soft tissues: The visualized bowel gas pattern is normal. No suspicious soft tissue calcifications. IMPRESSION: Left hip arthroplasty hardware, without an acute abnormality seen by plain film. Dictated by: Miah Vasquez M.D. on 04/03/2022 at 13:24 Approved by: Miah Vasquez M.D. on 04/03/2022 at 13:25
--- NOTE | 2022-04-03 13:48 | DI.RAD.S_ITS ---
PROCEDURE: XR LUMBAR SPINE 2-3V INDICATIONS: back and hip pain TECHNIQUE: 3 views of the lumbar spine were acquired. COMPARISON: [facility], MR, MR LUMBAR SPINE WO CON, 08/27/2020, 17:35. [facility], CT, IVP (ABD & PEL WWO CONTRAST), 05/05/2017, 15:30. [facility], CR, XR LUMBAR SPINE WITH OLBIQUES PLUS FLEXION EXTENSION, 10/16/2018, 13:53. [facility], CR, XR HIP W PEL IF DONE LT 2V, 04/03/2022, 13:53. [facility], CR, XR LUMBAR SPINE 2-3V, 10/12/2020, 15:26. FINDINGS: Bones: 5 [id number] vertebrae are present. Remote anterior wedge deformities are seen at T10 and T11. No acute vertebral body compression fractures. No suspicious bony lesions. Mild levoconvex scoliotic curvature is noted. Grade 1 anterolisthesis is seen at L4-L5 and at L5-S1. Moderate to severe disc space narrowing seen at T11-T12. There is mild disc space narrowing at T12-L1. Moderate disc space narrowing is seen at L1-L2, L2-L3, and L3-L4. Moderate to severe disc space narrowing is seen at L4-L5 and at L5-S1. Prominent lower lumbar spine facet arthropathy is seen. Left hip arthroplasty hardware is partially seen. Soft tissues: Overlying bowel gas pattern is normal. No suspicious soft tissue calcifications. Atherosclerotic calcification is noted. IMPRESSION: Lumbar spine degenerative changes are seen, which are worst inferiorly. Remote appearing anterior wedge deformities are seen at T10 and T11. No acute plain film abnormality is identified. Dictated by: Miah Vasquez M.D. on 04/03/2022 at 13:25 Approved by: Miah Vasquez M.D. on 04/03/2022 at 13:31
--- NOTE | 2022-04-03 15:12 | ED_ITS ---
HPI - Extremity Injury (Lower) General Chief Complaint: Extremity Injury, Lower Stated Complaint: R leg pain, numbness in thigh, can't walk Time Seen by Provider: 04/03/22 15:12 History of Present Illness HPI Narrative: 86-year-old female former smoker with history chronic hip pain, degenerative joint disease presents with family in the chief complaint of severe pain in her left lower back with radiation down her left leg. She denies any trauma or injury. She is had no fever or chills. She does not take blood thinners. She denies loss of control of bowel or bladder. She denies any weakness of her leg or footdrop. She does have some numbness down my her knee and anterior kumari but denies any numbness in her groin. Her pain is worse when moves and improves with rest. She denies any headache or blurred vision. She has no neck pain, chest pain or shortness of breath. Related Data Home Medications Medication Instructions Recorded Confirmed coenzyme Q10 300 mg capsule (Co 300 mg PO DAILY 12/18/19 12/01/21 Q-10) naproxen sodium 220 mg tablet 220 mg PO BID 12/18/19 12/01/21 (Aleve) ofloxacin 0.3 % eye drops 1 drp EYE-BOTH .prn PRN #0 mL 12/18/19 12/01/21 aspirin 81 mg tablet,delayed 81 mg PO DAILY 11/30/20 12/01/21 release (Adult Low Dose Aspirin) docusate sodium 100 mg capsule 100 mg PO BID PRN 11/30/20 12/01/21 (Colace) ipratropium bromide 42 mcg (0.06 2 spray intranasal BID 11/30/20 12/01/21 %) nasal spray nzfwkxzh-iff-ioqou acid 0.4 1 tab PO DAILY 11/30/20 12/01/21 mg-lycopene 300 mcg-lutein 250 mcg tablet (Centrum Silver) omega 5-ape-fps-fish oil-krill 1 cap PO DAILY 11/30/20 12/01/21 Previous Rx's Medication Instructions Recorded miscellaneous medical supply #1 ea 08/21/18 metoprolol tartrate 100 mg tablet See Rx Instructions .Route 06/18/21 .COMPLEX #180 tabs trazodone 50 mg tablet 25 mg PO TID PRN anxiety #45 tabs 07/07/21 diltiazem HCl 180 mg See Rx Instructions .Route 10/26/21 tablet,extended release 24 hr .COMPLEX #90 tabs acyclovir 400 mg tablet See Rx Instructions .Route 11/18/21 .COMPLEX #90 tabs hydrochlorothiazide 12.5 mg capsule See Rx Instructions .Route 11/25/21 .COMPLEX #180 caps candesartan 16 mg tablet See Rx Instructions .Route 12/06/21 .COMPLEX #90 tabs nirmatrelvir 300 mg (150 mg See Rx Instructions PO .COMPLEX 02/26/22 x2)-ritonavir 100 mg tablet,dose #30 tabs pack(EUA) (Paxlovid) atorvastatin 10 mg tablet See Rx Instructions .Route 03/15/22 .COMPLEX #90 tabs cyclobenzaprine 10 mg tablet 10 mg PO TID PRN muscle spasm #14 04/03/22 tabs gabapentin 300 mg capsule 300 mg PO BEDTIME #14 caps 04/03/22 hydrocodone 5 mg-acetaminophen 325 1 tab PO Q4-6H PRN pain #10 tabs 04/03/22 mg tablet methylprednisolone 4 mg tablets in See Rx Instructions PO .COMPLEX 04/03/22 a dose pack (Medrol (Dusty)) #21 ea Allergies Allergy/AdvReac Type Severity Reaction Status Date / Time Sulfa (Sulfonamide Allergy Unknown Verified 09/16/21 16:04 Antibiotics) Review of Systems Review of Systems Narrative: GENERAL: Denies chills, fatigue, malaise, fever, sweats. HEENT: Denies sinus pain, ear pain, sore throat, difficulty swallowing, dizziness. RESPIRATORY: Denies dyspnea, cough, wheezing, hemoptysis, sputum. CARDIOVASCULAR: Denies chest pain, palpitations, orthopnea, edema, GASTROINTESTINAL: Denies nausea, vomiting, abdominal pain, diarrhea, constipation, melena. : Denies dysuria, frequency, incontinence, hematuria, urinary retention. MUSCULOSKELETAL: See HPI SKIN: Denies rash, skin lesions, or other NEUROLOGIC: See HPI PSYCHIATRIC: No concerning psychosocial issues. 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 Chronic thoracic back pain Closed T10 fracture Colon polyps (1997) Constipation by outlet dysfunction Elevated fasting blood sugar Fecal incontinence (1997) Feeling of incomplete bladder emptying GERD (gastroesophageal reflux disease) (1989) Hearing loss (2012) Hemorrhoids (1989) Herpes (2009) Hypertension (~1979) Kidney disease (2007) Lower extremity edema Lumbar spine pain (2003) Measles (1942) Mumps (1946) Nocturia Obstruction of right ureteropelvic junction (UPJ) Osteoarthritis (~1999) Plantar warts (~1970) Psoriasis (2011) Rubella (194) Spondylolisthesis at L4-L5 level Spondylolisthesis at L5-S1 level Tinnitus (2004) Urinary hesitancy Urinary incontinence (2010) Villous adenoma of colon Surgical History Anesthesia History of basal cell carcinoma excision (~2003) History of cataract removal with insertion of prosthetic lens (2010) History of hip replacement (03/2008) History of resection of rectum (1997) Status post blepharoplasty of both eyes (2013) Status post dilation and curettage (1981) Status post tonsillectomy and adenoidectomy (1941) Family History Brother Age: 67 Crohns disease Child Age: 61 Mental health problem Hepatitis C Child Age: 58 Graves disease Grandmother Heart disease Stroke [facility] (myocardial infarction) Mother Heart disease Hypertension Osteoporosis Cancer Congestive heart failure Grandfather Heart disease [place] (myocardial infarction) Grandmother Heart disease Sister Age: 81 HINDS (nonalcoholic steatohepatitis) Liver cancer Sister Age: 68 Obesity Carotid artery disease Stroke Father No problems noted. Grandfather No problems noted. Sister Lung cancer Sister Respiratory arrest Social History Smoking Status: Former smoker Smoking Status: Former smoker Exam Narrative Exam Narrative: GENERAL: [86] year old patient appears stated age. Well-developed patient, in mild distress. HEAD: Atraumatic. Normocephalic. EYES: Pupils equal round and reactive. Extraocular motions intact. No scleral icterus. No injection or drainage. ENT: Nose without bleeding, purulent drainage. Throat without erythema, tonsillar hypertrophy or exudate. Airway patent. NECK: Trachea midline. Non tender CARDIOVASCULAR: Regular rate and rhythm without murmurs, gallops, or rubs. RESPIRATORY: Clear to auscultation. Breath sounds equal bilaterally. No wheezes, rales, or rhonchi. GASTROINTESTINAL: Abdomen soft, non-tender, nondistended. EXTREMITIES: No edema or joint tenderness. BACK: rice cleaning machine tender but free of any obvious external abnormalities. Patient exam notes decreased range of motion and muscle spasm, but no CVA tenderness, or vertebral point tenderness. There are no symptoms of cauda equina such as saddle anesthesia, and decreased reflexes, decreased sensation or strength. NEURO: AOx3. SKIN: No rash or erythema of visible areas Initial Vital Signs Initial Vital Signs: Vital Signs Temperature 97.9 F 04/03/22 13:19 Pulse Rate 61 04/03/22 13:19 Respiratory Rate 16 04/03/22 13:19 Blood Pressure 209/92 H 04/03/22 13:19 Pulse Oximetry 98 04/03/22 13:19 Oxygen Delivery Method 04/03/22 13:19 Course Orders Ordered: Discontinued Medications Hydrocodone Bitart/Acetaminophen (Hydrocodone/Acet 5/325 Prepack) 1 bottle MISC SEEINSTR ONE Stop: 04/03/22 18:13 Last Admin: 04/03/22 18:27 Dose: 1 bottle Documented By: HILARIO Cyclobenzaprine HCl (Cyclobenzaprine 10 Mg Prepack) 1 bottle MISC SEEINSTR ONE Stop: 04/03/22 18:13 Last Admin: 04/03/22 18:27 Dose: 1 bottle Documented By: HILARIO Gabapentin (Gabapentin 300 Mg Capsule) 300 mg PO NOW ONE Stop: 04/03/22 15:41 Last Admin: 04/03/22 16:55 Dose: 300 mg Documented By: RB Prednisone (Prednisone 20 Mg Tablet) 40 mg PO NOW ONE Stop: 04/03/22 15:41 Last Admin: 04/03/22 16:55 Dose: 40 mg Documented By: RB Vital Signs Vital signs: Vital Signs - 8 hr 04/03/22 13:19 04/03/22 16:59 04/03/22 17:00 Temperature 97.9 F Pulse Rate 61 60 60 Respiratory Rate 16 Blood Pressure 209/92 H Pulse Oximetry 98 95 98 Oxygen Delivery Method Room Air 04/03/22 17:03 04/03/22 17:03 Temperature Pulse Rate 62 Respiratory Rate Blood Pressure 211/100 H Pulse Oximetry 94 Oxygen Delivery Method MDM - Extremity Injury (Lower) Lab Data Result diagrams: 04/03/22 17:44 04/03/22 17:44 Labs: Lab Results 04/03/22 04/03/22 Range/Units 17:44 17:44 WBC 8.5 (4.5-11.0) X10^3/uL RBC 4.15 (4.0-5.2) X10^6/uL Hgb 13.1 (12.0-16.0) g/dL Hct 38.8 (36-46) % MCV 93.5 (80-100) fL MCH 31.6 (26-34) PG MCHC 33.8 (30-36) % RDW 13.8 (11.6-14.8) % Plt Count 149 L (150-400) X10^3/uL Neut % (Auto) 68.2 (50-75) % Lymph % (Auto) 21.2 L (25-40) % Villalba % (Auto) 7.9 (3-14) % Eos % (Auto) 2.1 (2-4) % Baso % (Auto) 0.6 (0-2) % Neut # (Auto) 5800 (0777-1199) /uL Lymph # (Auto) 1800 (1819-7778) /uL Villalba # (Auto) 700 (0-900) /uL Eos # (Auto) 200 (0-450) /uL Baso # (Auto) 100 (0-100) /uL Sodium 134 L (137-145) mmol/L Potassium 3.4 (3.4-5.1) mmol/L Chloride 95 L (98-107) mmol/L Carbon Dioxide 30 (22-32) mmol/L BUN 26 H (7-17) mg/dL Creatinine 0.76 (0.52-1.04) mg/dL Estimated GFR > 60 (>60) mL/min BUN/Creatinine Ratio 34.2 H (6-22) Glucose 93 (80-110) mg/dL Calcium 10.2 (8.4-10.2) mg/dL Total Creatine Kinase 89 (30-135) U/L CK-MB (CK-2) TNP CK-MB (CK-2) Rel Index TNP Troponin I 0.014 (0.01-0.034) ng/mL MDM Narrative Medical decision making narrative: CC: Low back pain with radiation down left leg acute symptoms over the past few days in the absence of trauma, fever, use of anticoagulants or weakness Complicating co-morbidities: Age, hypertension, hyperlipidemia Data collected from: Patient and daughter Medical records reviewed: Including multiple prior primary care notes Differential considered, but not limited to: Lumbar radiculopathy, cauda equina, epidural abscess, hematoma versus other Exam documented above, pertinent findings include: Pain in left lower back, no saddle anesthesia, no measurable muscle weakness, reflexes intact. No abdominal pain Lab Test results independently reviewed as above. Pertinent findings: Imaging studies independently reviewed: No cauda equina, hematoma or epidural abscess. Incidental finding of acute diverticulitis, patient has no fever, elevated white blood cell count in is nontender, will not treat with antibiotics, watchful waiting only Treatments: Gabapentin, hydrocodone, Flexeril, prednisone Re-evaluations: Significant improvement in discomfort and mobility Discussion: Patient with left low back pain and radiation down her leg. Worse with motion and improves with rest. There is some numbness but no measured weakness, decreased reflexes or saddle anesthesia. Patient has not lost control of bowel or bladder, clinically she does not have cauda equina or other sugge stions of neurosurgical emergency, MRI obtained given level of pain. No critical findings noted. She has significant improvement in symptoms with above-stated therapies, daughter will go home with her tonight. There is a note of diverticulitis on MRI, however as noted above patient has no pain, fever, elevated white blood cell count, at this time there is no indication for antibiotics. Diagnosis: Disposition: see below, along with detailed discharge instructions that have been reviewed with patient as well as indications for ED re-evaluation and additional outpatient follow up Discharge Plan Departure Patient Disposition: Home Clinical Impression: Essential hypertension, Left lumbar radiculopathy Instructions: DI for Lumbar Radiculopathy Activity Restrictions/Additional Instructions: *You have been diagnosed with [left-sided lumbar radiculopathy] *What to do: *Please continue to take your regular medications as directed. [ x] New medication prescriptions sent to your pharmacy: [ [facility]] [ ] New medication written as a paper prescription [ ] No new medications given *Please follow up with your primary care provider in 2-3 days, call for an appointment. Let them know you were seen in the Emergency Department and that we ask that you be seen in follow up. We will electronically transmit a record of today's note *Return to Emergency Department if you should have any new, worsening or concerning symptoms, such as [fever greater than 101 F, shaking chills, worsening pain, persistent vomiting or other bothersome symptoms] You have been prescribed a short course of narcotic medications. These are potentially dangerous and addictive medications that should be used carefully. While on these medications you cannot drive or operate heavy machinery. Additionally, you cannot sign legal documents or perform any duties such as thi s. 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 Please understand that we cannot provide further refills of narcotics or controlled substances through the ED and your pain management will need to be through your Primary Care Provider Prescriptions: New cyclobenzaprine 10 mg tablet 10 mg PO TID PRN (Reason: muscle spasm) Qty: 14 0RF gabapentin 300 mg capsule 300 mg PO BEDTIME Qty: 14 0RF hydrocodone-acetaminophen 5-325 mg tablet 1 tab PO Q4-6H PRN (Reason: pain) Qty: 10 0RF methylprednisolone [Medrol (Dusty)] 4 mg tablets,dose pack See Rx Instructions .ROUTE .COMPLEX Qty: 21 0RF Rx Instructions: orally per package directions No Action ofloxacin 0.3 % drops 1 drp EYE-BOTH .prn PRNQty: 0 metoprolol tartrate 100 mg tablet See Rx Instructions .ROUTE .COMPLEX Qty: 180 3RF Dose Instruction: take 1 tablet by mouth twice a day Rx Instructions: take 1 tablet by mouth twice a day trazodone 50 mg tablet 25 mg PO TID PRN (Reason: anxiety) Qty: 45 5RF diltiazem HCl 180 mg tablet extended release 24 hr See Rx Instructions .ROUTE .COMPLEX Qty: 90 3RF Dose Instruction: take 1 tablet by mouth once daily Rx Instructions: take 1 tablet by mouth once daily acyclovir 400 mg tablet See Rx Instructions .ROUTE .COMPLEX Qty: 90 3RF Dose Instruction: take 1 tablet by mouth once daily for HERPES PROPHYLAXIS Rx Instructions: take 1 tablet by mouth once daily for HERPES PROPHYLAXIS hydrochlorothiazide 12.5 mg capsule See Rx Instructions .ROUTE .COMPLEX Qty: 180 3RF Dose Instruction: take 2 tablets by mouth once daily Rx Instructions: take 2 tablets by mouth once daily candesartan 16 mg tablet See Rx Instructions .ROUTE .COMPLEX Qty: 90 3RF Dose Instruction: take 1 tablet by mouth once daily Rx Instructions: take 1 tablet by mouth once daily Paxlovid (EUA) 300 mg (150 mg x 2)-100 mg tablets,dose pack See Rx Instructions PO .COMPLEX Qty: 30 0RF Rx Instructions: take TWO 150 mg tablets of nirmatrelvir with ONE 100 mg tablet of ritonavir twice daily for 5 days PO atorvastatin 10 mg tablet See Rx Instructions .ROUTE .COMPLEX Qty: 90 3RF Dose Instruction: take 1 tablet by mouth every other day at bedtime Rx Instructions: take 1 tablet by mouth every other day at bedtime (DME) miscellaneous medical supply [facility] [place] See Dose Instructions .ROUTE .MEDSUPPLY Qty: 1 0RF Dose Instruction: Disabled Parking Permit Rx Instructions: Disabled Parking Permit naproxen sodium [Aleve] 220 mg tablet 220 mg PO BID Co Q-10 300 mg capsule 300 mg PO DAILY docusate sodium [Colace] 100 mg capsule 100 mg PO BID PRN ipratropium bromide 42 mcg (0.06 %) spray,non-aerosol 2 spray intranasal BID aspirin [Adult Low Dose Aspirin] 81 mg tablet,delayed release (DR/EC) 81 mg PO DAILY Centrum Silver 0.4-300-250 mg-mcg-mcg tablet 1 tab PO DAILY omega 3-pxl-gev-fish oil-krill 1 cap PO DAILY Referrals: Rashawn Banuelos DO [Primary Care Provider] - Stand Alone Forms: Patient Portal/API
--- NOTE | 2022-04-03 16:23 | DI.MRI.S_ITS ---
PROCEDURE: MR LUMBAR SPINE WO CON INDICATIONS: severe lumbar pain, radicular symptoms TECHNIQUE: Noncontrast sagittal T1 spin echo and T2 fast echo, sagittal STIR, and T2 fast spin echo through the lumbar spine. In cases with scoliosis, additional coronal T2 fast spin echo may be performed. Additional images were obtained of the sacrum, including oblique axial and oblique coronal T1 weighted and STIR weighted images. COMPARISON: [facility], CT, IVP (ABD & PEL WWO CONTRAST), 05/05/2017, 15:30. [facility], MR, L-SPINE WITHOUT CONTRAST, 12/20/2016, 14:13. [facility], CR, XR LUMBAR SPINE 2-3V, 10/12/2020, 15:26. [facility], MR, MR LUMBAR SPINE WO CON, 08/27/2020, 17:35. [facility], CR, XR HIP W PEL IF DONE LT 2V, 04/03/2022, 13:53. [facility], CR, XR LUMBAR SPINE 2-3V, 04/03/2022, 13:53. FINDINGS: Image quality: This examination is limited by involuntary motion artifact. Alignment and Curvature: There is ukrq-ns-jgogthnd levoconvex thoracolumbar scoliosis. Grade 1 anterolisthesis is again seen at the L4-L5 and L5-S1 levels. Associated pars defects are not seen. Minimal retrolisthesis is seen at L1-L2. Bone Marrow: Marrow is of normal overall signal. No acute vertebral body compression fractures. Spinal Cord: Conus medullaris terminates at the L1 level. Visualized cord demonstrates normal signal and size. Paraspinous Soft Tissues: No paravertebral masses. Colonic diverticulosis is seen, without findings of active diverticulitis. T11-T12: At least moderate loss of disc height and disc signal can be seen. Reactive marrow endplate changes are seen which are hypointense on T1-weighted imaging and hyperintense on T2 weighted imaging, which is most consistent with edema (Modic type I changes). Moderate disc bulge is seen, which is eccentric to the right. There is moderate left-sided and moderate to severe right-sided neural foraminal narrowing. Moderate central canal narrowing is seen. These imaging findings have progressed compared to the prior study. T12-L1: The disc height is well-preserved. Loss of disc signal is seen at this level. Mild generalized disc bulge is seen. No neural foraminal narrowing or central canal narrowing can be seen. No significant change from the prior. L1-L2: Moderate loss of disc height is seen. Loss of disc signal is seen. Mild to moderate disc bulge is seen. Moderate facet joint hypertrophy is seen. There is at least moderate left-sided and moderate to severe right-sided neural foraminal narrowing. Macrophage kumari no significant central canal narrowing is seen. When comparison is made with the prior images, these findings are similar. L2-L3: The disc height is well-preserved. Loss of disc signal is seen at this level. Mild generalized disc bulge is seen. Moderate facet joint hypertrophy is seen. Mild bilateral neural foraminal narrowing is seen. No significant central canal narrowing is seen. When comparison is made with the prior images, these findings are similar. L3-L4: Moderate loss of disc height is seen. Loss of disc signal is seen. Moderate disc bulge is seen, which is eccentric to the right. At least moderate facet hypertrophy is seen. Associated hypertrophy of the ligamentum flavum can be seen. There is at least right-sided neural foraminal narrowing, with a degree of compression upon the exiting right L3 nerve root. Moderate left-sided neural foraminal narrowing is seen. At least moderate central canal narrowing is seen, as on series 6, image 22. There is slight progression compared to the prior images. L4-L5: Moderate to severe loss of disc height and disc signal can be seen. Reactive marrow endplate changes are seen, which demonstrate mixed T1 weighted and T2-weighted signal, and are attributed to a combination of edema and fatty metaplasia (Modic type I and Modic type II changes). At least moderate disc bulge is seen. Moderate to prominent facet hypertrophy can be seen. Moderate to severe bilateral neural foraminal narrowing can be seen, left worse than right. There is a degree of compression seen upon the exiting nerve roots. There is severe central canal narrowing, as on series 7, image 8. When comparison is made with the prior images, these findings are similar. L5-S1: Moderate to severe loss of disc height and disc signal can be seen. Reactive marrow endplate changes are seen, which demonstrate mixed T1 weighted and T2-weighted signal, and are attributed to a combination of edema and fatty metaplasia (Modic type I and Modic type II changes). At least moderate disc bulge is seen, with a central disc protrusion. Prominent facet hypertrophy is seen. There is moderate to severe bilateral neural foraminal narrowing seen, with an associated a degree of compression seen upon the exiting nerve roots. Moderate central canal narrowing is seen. When comparison is made with the prior images, these findings are similar. Sacrum: On the included images of the sacrum, no abnormal STIR signal is seen to suggest fracture. No significant abnormality of the sacral plexus ex can be seen. IMPRESSION: No acute abnormality is seen to explain the patient's acute presentation. No sacral abnormality is seen. Multiple levels of significant lumbar spine degenerative change are seen, which are worst inferiorly. There is slight interval progression of degenerative change at L3-L4. The degenerative changes otherwise appear similar. Additional findings: Diverticulosis, without active diverticulitis Dictated by: Miah Vasquez M.D. on 04/03/2022 at 16:17 Approved by: Miah Vasquez M.D. on 04/03/2022 at 16:25
[2022-04-03] MEDS: GABAPENTIN 300 MG CAPSULE PO (16:55)
[2022-04-03] MEDS: predniSONE 20 MG TABLET 40 MG PO (16:55)
[2022-04-03 17:53] LABS: Add Manual Diff / Slide Review NO; Basophils Absolute Auto 100 /uL (0-100); Basophils Percent Auto 0.6 % (0-2); Eosinophils Absolute Auto 200 /uL (0-450); Eosinophils Percent Auto 2.1 % (2-4); Hematocrit 38.8 % (36-46); Hemoglobin 13.1 g/dL (12.0-16.0); Lymphocytes Absolute Auto 1800 /uL (1100-4500); Lymphocytes Percent Auto 21.2 % (25-40); Mean Corpuscular HGB Conc 33.8 % (30-36); Mean Corpuscular Hemoglobin 31.6 PG (26-34); Mean Corpuscular Volume 93.5 fL (80-100); Monocytes Absolute Auto 700 /uL (0-900); Monocytes Percent Auto 7.9 % (3-14); Neutrophils Absolute Auto 5800 /uL (1500-7000); Neutrophils Percent Auto 68.2 % (50-75); Platelet Count 149 X10^3/uL (150-400); Red Blood Cell Count 4.15 X10^6/uL (4.0-5.2); Red Cell Distribution Width 13.8 % (11.6-14.8); White Blood Cell Count 8.5 X10^3/uL (4.5-11.0)
[2022-04-03 18:11] LABS: BUN Creatinine Ratio 34.2 (6-22); Blood Urea Nitrogen 26 mg/dL (7-17); Calcium 10.2 mg/dL (8.4-10.2); Carbon Dioxide 30 mmol/L (22-32); Chloride 95 mmol/L (98-107); Creatine Kinase 89 U/L (30-135); Estimated Glomerular Filt Rate > 60 mL/min (>60); Glucose 93 mg/dL (80-110); HEMOLYSIS 33 (0-50); Potassium 3.4 mmol/L (3.4-5.1); Sodium 134 mmol/L (137-145)
[2022-04-03 18:22] LABS: Troponin I 0.014 ng/mL (0.01-0.034)
[2022-04-03] MEDS: HYDROCODONE/ACET 5/325 PREPACK 1 BOTTLE MISC (18:27)
[2022-04-03] MEDS: CYCLOBENZAPRINE 10 MG PREPACK 1 BOTTLE MISC (18:27)
--- NOTE | 2022-04-03 19:07 | PC.NURSE ---
Informed Provider Dr. Rocha at 1715 of patient elevated blood pressures. Provider gave no new orders at that time.
== END 2022-04-03 20:23 | disposition home or self-care (01) ==
PROVIDERS: Emergency Provider Emergency Medicine; Family Provider Family Medicine; PCP Family Medicine
DX: M54.16 Radiculopathy, lumbar region (principal); I10 Essential (primary) hypertension; Z79.899 Other long term (current) drug therapy
CPT/HCPCS: 72100; 72148; 73502; 80048; 82550; 84484; 85025; 99283; 99284

== ENCOUNTER 2022-04-17 18:06 | Emergency (ER) | payer MEDICARE, BC, SELFPAY ==
[2022-04-17] VITALS (16 sets, daily range): BP systolic 172–211; BP diastolic 74–91; PULSE 67–87; RESP 14–27; TEMP 36.2; O2SAT 27–100
[2022-04-17 18:24] LABS: Add Manual Diff / Slide Review NO; Basophils Absolute Auto 0 /uL (0-100); Basophils Percent Auto 0.3 % (0-2); Eosinophils Absolute Auto 0 /uL (0-450); Eosinophils Percent Auto 0.2 % (2-4); Hematocrit 29.8 % (36-46); Hemoglobin 9.8 g/dL (12.0-16.0); Lymphocytes Absolute Auto 900 /uL (1100-4500); Lymphocytes Percent Auto 6.5 % (25-40); Mean Corpuscular HGB Conc 32.9 % (30-36); Mean Corpuscular Hemoglobin 31.3 PG (26-34); Monocytes Absolute Auto 700 /uL (0-900); Monocytes Percent Auto 5.2 % (3-14); Neutrophils Absolute Auto 11900 /uL (1500-7000); Neutrophils Percent Auto 87.8 % (50-75); Platelet Count 155 X10^3/uL (150-400); Red Blood Cell Count 3.14 X10^6/uL (4.0-5.2); Red Cell Distribution Width 14.5 % (11.6-14.8); White Blood Cell Count 13.6 X10^3/uL (4.5-11.0)
--- NOTE | 2022-04-17 18:26 | ED_ITS ---
HPI - Extremity Injury (Lower) General Chief Complaint: Extremity Injury, Lower Stated Complaint: hip pain numbness Time Seen by Provider: 04/17/22 18:07 Source: patient and EMS Mode of arrival: EMS History of Present Illness HPI Narrative: 86-year-old female former smoker with history recent myocardial infarction, hospitalization at [facility] with failed attempt at heart catheterization in her right groin given multivessel disease, chronic hip pain, degenerative joint disease presents with family in the chief complaint of severe pain in her left lower back with radiation down her left leg today that was sufficiently bad that made her 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 Her daughter was with her and noted the patient in pain and eased her back into a chair, she states that there is no chance of any injury as a consequence of her ?fall?. She had been seen and evaluated on multiple occasions for this low back pain and even had an MRI a few weeks ago without any significant or surgical findings. She denies any chest pain, SOB, fatigue or other. She is not dizzy nor weak or lightheaded. She has no fever or chills. Related Data Home Medications Medication Instructions Recorded Confirmed coenzyme Q10 300 mg capsule (Co 300 mg PO DAILY 12/18/19 04/07/22 Q-10) naproxen sodium 220 mg tablet 220 mg PO BID 12/18/19 04/07/22 (Aleve) ofloxacin 0.3 % eye drops 1 drp EYE-BOTH .prn PRN #0 mL 12/18/19 04/07/22 aspirin 81 mg tablet,delayed 81 mg PO DAILY 11/30/20 04/07/22 release (Adult Low Dose Aspirin) docusate sodium 100 mg capsule 100 mg PO BID PRN 11/30/20 04/07/22 (Colace) ipratropium bromide 42 mcg (0.06 2 spray intranasal BID 11/30/20 04/07/22 %) nasal spray etjzpxfs-wac-tfksd acid 0.4 1 tab PO DAILY 11/30/20 04/07/22 mg-lycopene 300 mcg-lutein 250 mcg tablet (Centrum Silver) omega 5-nhz-efi-fish oil-krill 1 cap PO DAILY 11/30/20 04/07/22 Previous Rx's Medication Instructions Recorded miscellaneous medical supply #1 ea 08/21/18 metoprolol tartrate 100 mg tablet See Rx Instructions .Route 06/18/21 .COMPLEX #180 tabs diltiazem HCl 180 mg See Rx Instructions .Route 10/26/21 tablet,extended release 24 hr .COMPLEX #90 tabs acyclovir 400 mg tablet See Rx Instructions .Route 11/18/21 .COMPLEX #90 tabs hydrochlorothiazide 12.5 mg capsule See Rx Instructions .Route 11/25/21 .COMPLEX #180 caps candesartan 16 mg tablet See Rx Instructions .Route 12/06/21 .COMPLEX #90 tabs atorvastatin 10 mg tablet See Rx Instructions .Route 03/15/22 .COMPLEX #90 tabs cyclobenzaprine 10 mg tablet 10 mg PO TID PRN muscle spasm #14 04/03/22 tabs hydrocodone 5 mg-acetaminophen 325 1 tab PO Q4-6H PRN pain #10 tabs 04/03/22 mg tablet methylprednisolone 4 mg tablets in See Rx Instructions PO .COMPLEX 04/03/22 a dose pack (Medrol (Dusty)) #21 ea gabapentin 300 mg capsule 300 mg PO BEDTIME #90 caps 04/07/22 trazodone 50 mg tablet 12.5 mg PO TID PRN anxiety #45 tabs 04/07/22 Allergies Allergy/AdvReac Type Severity Reaction Status Date / Time Sulfa (Sulfonamide Allergy Unknown Verified 04/07/22 13:21 Antibiotics) Review of Systems Review of Systems Narrative: GENERAL: See HPI HEENT: Denies sinus pain, ear pain, sore throat, difficulty swallowing, dizziness. RESPIRATORY: Denies dyspnea, cough, wheezing, hemoptysis, sputum. CARDIOVASCULAR: Denies chest pain, palpitations, orthopnea, edema, GASTROINTESTINAL: Denies nausea, vomiting, abdominal pain, diarrhea, constipation, melena. : Denies dysuria, frequency, incontinence, hematuria, urinary retention. MUSCULOSKELETAL: See HPI SKIN: Denies rash, skin lesions, or other NEUROLOGIC: See HPI PSYCHIATRIC: No concerning psychosocial issues. 12 point review of systems is negative except for those stated above Patient History Medical History (Updated 04/18/22 @ 00:02 by Luis F Rocha DO) Acute pain of right knee Anemia (2007) Anxiety as acute reaction to exceptional stress Atrial fibrillation (2007) BCC (basal cell carcinoma of skin) (2003) Harrison's palsy (2007) Bilateral thumb pain Body posture problem Cataract (2001) Cervical spine disease Change in stool Chicken pox (~1939) Chronic 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 Chronic thoracic back pain Closed T10 fracture Colon polyps (1997) Constipation by outlet dysfunction Elevated fasting blood sugar Fecal incontinence (1997) Feeling of incomplete bladder emptying GERD (gastroesophageal reflux disease) (1989) Hearing loss (2012) Hemorrhoids (1989) Herpes (2009) Hypertension (~1980) Kidney disease (2007) Lower extremity edema Lumbar region somatic dysfunction Lumbar spine pain (2003) Measles (1942) Mumps (1946) Nocturia Obstruction of right ureteropelvic junction (UPJ) Osteoarthritis (~1999) Plantar warts (~1970) Psoriasis (2011) Rubella (194) Spondylolisthesis at L4-L5 level Spondylolisthesis at L5-S1 level Tinnitus (2004) Urinary hesitancy Urinary incontinence (2010) Villous adenoma of colon Surgical History Anesthesia History of basal cell carcinoma excision (~2003) History of cataract removal with insertion of prosthetic lens (2010) History of hip replacement (03/2008) History of resection of rectum (1997) Status post blepharoplasty of both eyes (2013) Status post dilation and curettage (1981) Status post tonsillectomy and adenoidectomy (1941) Family History Brother Age: 67 Crohns disease Child Age: 61 Mental health problem Hepatitis C Child Age: 58 Graves disease Grandmother Heart disease Stroke IA (myocardial infarction) Mother Heart disease Hypertension Osteoporosis Cancer Congestive heart failure Grandfather Heart disease IA (myocardial infarction) Grandmother Heart disease Sister Age: 81 HINDS (nonalcoholic steatohepatitis) Liver cancer Sister Age: 68 Obesity Carotid artery disease Stroke Father No problems noted. Grandfather No problems noted. Sister Lung cancer Sister Respiratory arrest Social History Smoking Status: Former smoker Smoking Status: Former smoker Substance Use Type: does not use Exam Narrative Exam Narrative: GENERAL: [86] year old patient appears stated age. Well-developed patient, in mild distress. HEAD: Atraumatic. Normocephalic. EYES: Pupils equal round and reactive. Extraocular motions intact. No scleral icterus. No injection or drainage. No pale conjunctiva ENT: Nose without bleeding, purulent drainage. Throat without erythema, tonsillar hypertrophy or exudate. Airway patent. NECK: Trachea midline. Non tender CARDIOVASCULAR: Regular rate and rhythm without murmurs, gallops, or rubs. RESPIRATORY: Clear to auscultation. Breath sounds equal bilaterally. No wheezes, rales, or rhonchi. GASTROINTESTINAL: Abdomen soft, non-tender, nondistended. Right groin with evidence of recent catheterization, no palpable mass suggestive of pseudoaneurysm RECTAL: Heme NEG. Performed with patient's permission and female nursing clinic mgr at the bedside EXTREMITIES: Dark purple hematoma in left antecubital fossa, likely from recent hospitalization and IV starts. Hematoma left anterior knee, dark purple, had been present prior to recent hospitalization per patient and family. Sensation in left lower extremity intact, cap refill less than 2 seconds. BACK: Minimal left lower back pain to palpation, no obvious deformity, crepitance, swelling or midline tenderness NEURO: AOx3. SKIN: No rash or erythema of visible areas Initial Vital Signs Initial Vital Signs: Vital Signs Blood Pressure 211/91 H 04/17/22 18:09 Course Orders Ordered: ED Orders 04/17/22 18:00 C-Reactive Protein Quant Stat Complete Blood Count AUTO DIFF Stat Comprehensive Metabolic Panel Stat Lipase Stat Magnesium Stat NT-proBNP (BNP-Adult 18+) Stat Prothrombin Time INR Stat Troponin & CK Cardiac Panel Stat 04/17/22 18:16 EKG-12 Lead Stat 04/17/22 19:49 EKG-12 Lead Stat 04/17/22 20:10 Hemoglobin and Hematocrit Stat Troponin & CK Cardiac Panel Stat 04/17/22 21:11 CT angio abd aorta runoff Stat 04/17/22 23:02 Type and Screen Stat 04/17/22 23:50 HH [Hemoglobin and Hematocrit] Stat Troponin & CK Cardiac Panel Stat 04/18/22 00:05 COVID19 -Nasal RAPID/Pre-Proc Stat 04/18/22 01:19 Packed Cells Stat Vital Signs Vital signs: Vital Signs - 8 hr 04/17/22 18:14 04/17/22 18:09 04/17/22 18:10 Temperature 97.1 F L Pulse Rate 68 70 Respiratory Rate 18 Blood Pressure 211/91 H 211/91 H Pulse Oximetry 96 100 Oxygen Delivery Method Room Air 04/17/22 18:30 04/17/22 18:30 04/17/22 19:00 Temperature Pulse Rate 69 Respiratory Rate 14 Blood Pressure 201/88 H 188/81 H Pulse Oximetry 97 Oxygen Delivery Method 04/17/22 19:00 Temperature Pulse Rate 68 Respiratory Rate 14 Blood Pressure Pulse Oximetry 98 Oxygen Delivery Method Nasal Cannula MDM - Extremity Injury (Lower) Medical Records Attestation: I reviewed the patient's medical records. Medical records narrative: Chart reviewed from recent hospitalization noting admission for chest pain, patient taken to cath and found to have diffuse atherosclerotic disease and narrowing of coronaries. Stent was unable to be placed due to diffuse lesions. Patient would need arthrectomy for treatment. Patient was on heparin drip for 48 hours and antihypertensives started. Patient started taking Plavix 75 mg. Cardiology recommended against the use of to AV maribel blocking agents, diltiazem was discontinued and nifedipine was ordered. She was noted to have a decrease in her hemoglobin over the course of the visit but denied hematochezia and there is a known left lower extremity hematoma that is stable. Initial troponin was 1.840 and maxed out at 3.890 and down to 1.950 at time of discharge. Hgb down to 9.8 at time of DC but had been stable. Lab Data 04/17/22 18:00 04/17/22 18:00 Labs: Lab Results 04/17/22 04/17/22 04/17/22 Range/Units 18:00 18:00 18:00 WBC 13.6 H (4.5-11.0) X10^3/uL RBC 3.14 L (4.0-5.2) X10^6/uL Hgb 9.8 L (12.0-16.0) g/dL Hct 29.8 L (36-46) % MCV 95.0 (80-100) fL MCH 31.3 (26-34) PG MCHC 32.9 (30-36) % RDW 14.5 (11.6-14.8) % Plt Count 155 (150-400) X10^3/uL Neut % (Auto) 87.8 H (50-75) % Lymph % (Auto) 6.5 L (25-40) % Emmons % (Auto) 5.2 (3-14) % Eos % (Auto) 0.2 L (2-4) % Baso % (Auto) 0.3 (0-2) % Neut # (Auto) 30717 H (6528-2003) /uL Lymph # (Auto) 900 L (3573-3983) /uL Emmons # (Auto) 700 (0-900) /uL Eos # (Auto) 0 (0-450) /uL Baso # (Auto) 0 (0-100) /uL PT 11.8 (10.1-12.7) SECONDS INR 1.0 (0.9-1.3) Sodium (137-145) mmol/L Potassium (3.4-5.1) mmol/L Chloride (98-107) mmol/L Carbon Dioxide (22-32) mmol/L BUN (7-17) mg/dL Creatinine (0.52-1.04) mg/dL Estimated GFR (>60) mL/min BUN/Creatinine Ratio (6-22) Glucose (80-110) mg/dL Calcium (8.4-10.2) mg/dL Magnesium (1.6-2.3) mg/dL Total Bilirubin (0.2-1.3) mg/dL AST (14-36) IU/L ALT (<35) IU/L Alkaline Phosphatase (38-126) U/L Total Creatine Kinase (30-135) U/L CK-MB (CK-2) (<2.37) ng/mL CK-MB (CK-2) Rel Index (1.5-5.0) % Troponin I (0.01-0.034) ng/mL C-Reactive Protein 1.6 H (<1.0) mg/dL NT-Pro-B Natriuret Pep (<450) pg/mL Total Protein (6.3-8.2) g/dL Albumin (3.5-5.0) g/dL Globulin (1.7-4.1) g/dL Albumin/Globulin Ratio (1.0-2.8) Lipase (23-300) U/L SARS-CoV-2 (PCR) (Negative) Blood Type Antibody Screen Crossmatch 04/17/22 04/17/22 04/17/22 Range/Units 18:00 20:10 20:10 WBC (4.5-11.0) X10^3/uL RBC (4.0-5.2) X10^6/uL Hgb 8.9 L (12.0-16.0) g/dL Hct 27.0 L (36-46) % MCV (80-100) fL MCH (26-34) PG MCHC (30-36) % RDW (11.6-14.8) % Plt Count (150-400) X10^3/uL Neut % (Auto) (50-75) % Lymph % (Auto) (25-40) % Emmons % (Auto) (3-14) % Eos % (Auto) (2-4) % Baso % (Auto) (0-2) % Neut # (Auto) (2338-5354) /uL Lymph # (Auto) (1225-6130) /uL Emmons # (Auto) (0-900) /uL Eos # (Auto) (0-450) /uL Baso # (Auto) (0-100) /uL PT (10.1-12.7) SECONDS INR (0.9-1.3) Sodium 130 L (137-145) mmol/L Potassium 3.4 (3.4-5.1) mmol/L Chloride 93 L (98-107) mmol/L Carbon Dioxide 29 (22-32) mmol/L BUN 22 H (7-17) mg/dL Creatinine 0.64 (0.52-1.04) mg/dL Estimated GFR > 60 (>60) mL/min BUN/Creatinine Ratio 34.4 H (6-22) Glucose 129 H (80-110) mg/dL Calcium 9.6 (8.4-10.2) mg/dL Magnesium 1.8 (1.6-2.3) mg/dL Total Bilirubin 1.2 (0.2-1.3) mg/dL AST 57 H (14-36) IU/L ALT 27 (<35) IU/L Alkaline Phosphatase 68 (38-126) U/L Total Creatine Kinase 758 H 753 H (30-135) U/L CK-MB (CK-2) 3.37 H 3.07 H (<2.37) ng/mL CK-MB (CK-2) Rel Index 0.4 L 0.4 L (1.5-5.0) % Troponin I 1.250 H* 1.110 H* (0.01-0.034) ng/mL C-Reactive Protein (<1.0) mg/dL NT-Pro-B Natriuret Pep 4700 H (<450) pg/mL Total Protein 6.9 (6.3-8.2) g/dL Albumin 4.0 (3.5-5.0) g/dL Globulin 2.9 (1.7-4.1) g/dL Albumin/Globulin Ratio 1.4 (1.0-2.8) Lipase 61 (23-300) U/L SARS-CoV-2 (PCR) (Negative) Blood Type Antibody Screen Crossmatch 04/17/22 04/18/22 04/18/22 Range/Units 23:02 00:01 00:01 WBC (4.5-11.0) X10^3/uL RBC (4.0-5.2) X10^6/uL Hgb 8.6 L (12.0-16.0) g/dL Hct 26.2 L (36-46) % MCV (80-100) fL MCH (26-34) PG MCHC (30-36) % RDW (11.6-14.8) % Plt Count (150-400) X10^3/uL Neut % (Auto) (50-75) % Lymph % (Auto) (25-40) % Emmons % (Auto) (3-14) % Eos % (Auto) (2-4) % Baso % (Auto) (0-2) % Neut # (Auto) (3671-5937) /uL Lymph # (Auto) (9502-5397) /uL Emmons # (Auto) (0-900) /uL Eos # (Auto) (0-450) /uL Baso # (Auto) (0-100) /uL PT (10.1-12.7) SECONDS INR (0.9-1.3) Sodium (137-145) mmol/L Potassium (3.4-5.1) mmol/L Chloride (98-107) mmol/L Carbon Dioxide (22-32) mmol/L BUN (7-17) mg/dL Creatinine (0.52-1.04) mg/dL Estimated GFR (>60) mL/min BUN/Creatinine Ratio (6-22) Glucose (80-110) mg/dL Calcium (8.4-10.2) mg/dL Magnesium (1.6-2.3) mg/dL Total Bilirubin (0.2-1.3) mg/dL AST (14-36) IU/L ALT (<35) IU/L Alkaline Phosphatase (38-126) U/L Total Creatine Kinase 894 H (30-135) U/L CK-MB (CK-2) 2.86 H (<2.37) ng/mL CK-MB (CK-2) Rel Index 0.3 L (1.5-5.0) % Troponin I 0.979 H* (0.01-0.034) ng/mL C-Reactive Protein (<1.0) mg/dL NT-Pro-B Natriuret Pep (<450) pg/mL Total Protein (6.3-8.2) g/dL Albumin (3.5-5.0) g/dL Globulin (1.7-4.1) g/dL Albumin/Globulin Ratio (1.0-2.8) Lipase (23-300) U/L SARS-CoV-2 (PCR) (Negative) Blood Type O Positive Antibody Screen Negative Crossmatch See Detail 04/18/22 Range/Units 00:05 WBC (4.5-11.0) X10^3/uL RBC (4.0-5.2) X10^6/uL Hgb (12.0-16.0) g/dL Hct (36-46) % MCV (80-100) fL MCH (26-34) PG MCHC (30-36) % RDW (11.6-14.8) % Plt Count (150-400) X10^3/uL Neut % (Auto) (50-75) % Lymph % (Auto) (25-40) % Emmons % (Auto) (3-14) % Eos % (Auto) (2-4) % Baso % (Auto) (0-2) % Neut # (Auto) (1784-6770) /uL Lymph # (Auto) (4183-7200) /uL Emmons # (Auto) (0-900) /uL Eos # (Auto) (0-450) /uL Baso # (Auto) (0-100) /uL PT (10.1-12.7) SECONDS INR (0.9-1.3) Sodium (137-145) mmol/L Potassium (3.4-5.1) mmol/L Chloride (98-107) mmol/L Carbon Dioxide (22-32) mmol/L BUN (7-17) mg/dL Creatinine (0.52-1.04) mg/dL Estimated GFR (>60) mL/min BUN/Creatinine Ratio (6-22) Glucose (80-110) mg/dL Calcium (8.4-10.2) mg/dL Magnesium (1.6-2.3) mg/dL Total Bilirubin (0.2-1.3) mg/dL AST (14-36) IU/L ALT (<35) IU/L Alkaline Phosphatase (38-126) U/L Total Creatine Kinase (30-135) U/L CK-MB (CK-2) (<2.37) ng/mL CK-MB (CK-2) Rel Index (1.5-5.0) % Troponin I (0.01-0.034) ng/mL C-Reactive Protein (<1.0) mg/dL NT-Pro-B Natriuret Pep (<450) pg/mL Total Protein (6.3-8.2) g/dL Albumin (3.5-5.0) g/dL Globulin (1.7-4.1) g/dL Albumin/Globulin Ratio (1.0-2.8) Lipase (23-300) U/L SARS-CoV-2 (PCR) Negative (Negative) Blood Type Antibody Screen Crossmatch Imaging Data CT scan - abdomen/pelvis: Radiologist's Impression: Close Aorta w/Runoff CTA (Signed) Jv Foster - 04/17/22 Lumbar Spine MRI (Signed) Miah Vasquez 04/03/22 Lumbar Spine X-Ray (Signed) Miah Vasquez 04/03/22 Hip X-Ray (Signed) Miah Vasquez 04/03/22 Thoracic Spine X-Ray (Signed) Gilbert Guevara - 10/12/20 Lumbar Spine X-Ray (Signed) Gilbert Guevara - 10/12/20 Hip X-Ray (Signed) Gilbert Guevara - 10/12/20 Thoracic Spine MRI (Signed) Miah Vasquez - 08/27/20 Pelvis MRI (Signed) HaroonHernando - 08/27/20 Lumbar Spine MRI (Signed) Tyrone Lal - 08/27/20 Cervical Spine MRI (Signed) Etta Vasqueze - 08/27/20 Renal Scan Nuclear Medicine (Signed) Bk Dominguezcristela - 07/16/20 Mammogram Screening (Signed) Foster,Jv - 06/24/20 Mammogram Screening (Signed) Manish Jones - 02/07/19 Renal Ultrasound (Signed) Anthony Lockhart - 10/25/18 Mammogram Screening (Signed) BettyIsha - 01/05/18 Launch?Image [address] [address] [address] Scan Report Signed Patient: Mary Grace Zhou MR#: [id number] : 1935 Acct:[id number] Age/Sex: 86 / F Date of Service: 04/17/22 Loc: ED Accession Number: [id number] ?? Procedure: CT angio abd aorta runoff Ordering Provider: Luis F Rocha D.O. PROCEDURE:? CT ANGIO ABD AORTA RUNOFF ? INDICATIONS:? anemia, syncope, left leg hematoma ? TECHNIQUE:? After the administration of intravenous contrast, 2.5 mm sections acquired from T12 to the feet, with optional delayed image acquisition from the knees to the feet.? 3-dimensional maximum intensity projection (MIP) coronal and sagittal reformats, and/or 3-dimensional volume rendering reformatting was then performed.? For radiation dose reduction, the following was used:? automated exposure control.? ? COMPARISON:? [facility], MR, MR LUMBAR SPINE WO CON, 08/27/2020, 17:35.? [facility], MR, MR THORACIC SPINE WO CON, 08/27/2020, 17:09.? [facility], CT, IVP (ABD & PEL WWO CONTRAST), 05/05/2017, 15:30. ? FINDINGS:? Image quality:? There is mild motion artifact limiting evaluation.? There is also metallic streak artifact from patient's left hip prosthesis limiting evaluation. ? Abdominal aorta:? The abdominal aorta is normal in caliber and contour.? There is mild ectasia of the ascending thoracic aorta.? The celiac, superior mesenteric, and inferior mesenteric arteries appear patent.? There are single renal arteries bilaterally which appear patent. ? Right lower extremity:? There are scattered vascular calcifications. Common iliac artery:? Patent. External iliac artery:? Patent. Internal iliac artery: Patent. Common femoral artery: Patent. Deep femoral artery: Patent. Superficial femoral artery: Patent. Popliteal artery:? There is mild narrowing in the popliteal artery. Anterior tibial artery:? Patent. Tibioperoneal trunk: Patent. Posterior tibial artery: Patent. Peroneal artery: Patent. ? Left lower extremity:? There are scattered vascular calcifications. Common iliac artery:? Patent. External iliac artery:? Patent. Internal iliac artery: Patent. Common femoral artery: Patent. Deep femoral artery: Patent. Superficial femoral artery:? There is mild narrowing within the distal superficial femoral artery. Popliteal artery:? There is mild narrowing the popliteal artery. Anterior tibial artery:? Patent. Tibioperoneal trunk: Patent. Posterior tibial artery: Patent. Peroneal artery: Patent. ? Extravascular tissues:? CHEST: Lower Neck: No lymphadenopathy by size criteria. Thyroid:? Visualized thyroid demonstrates bilateral hypoattenuating thyroid nodules, measuring up to 2.5 cm in the right lobe with extension posterior inferiorly.? In the left lobe there is a hypoattenuating nodule measuring up to 1.0 cm. Axillae: No lymphadenopathy by size criteria. Chest Wall:? Unremarkable.? Bones: Visualized osseous structures demonstrate no suspicious lesions. Lungs and Airways:? No acute consolidation.? There is mild dependent atelectasis.? Mild centrilobular emphysematous changes are present.? The trachea and central airways are patent.? There is a small right posterior fat-containing diaphragmatic hernia. Pleura: No pneumothorax or pleural effusions.? Heart: Heart size is normal.? No pericardial effusion. Thoracic Vessels:? The pulmonary arteries are enlarged, with the main pulmonary artery measuring up to 3.5 cm suggestive of pulmonary arterial hypertension.? No filling defects to suggest central pulmonary embolism. Mediastinum and Aydee: No lymphadenopathy by size criteria. Esophagus: No wall thickening. No hiatal hernia. ABDOMEN: Liver:? No mass lesion. Gallbladder:? Within normal limits without calcified gallstones.? ? Biliary ducts:? No biliary ductal dilatation.? ? Pancreas:? Unremarkable.? ? Spleen:? Normal in size.? ? Adrenal Glands:? No adrenal nodules.? ? Kidneys and Ureters:? No hydronephrosis.? ? Stomach and Bowel:? Stomach, small bowel loops, and colon are normal in caliber and wall thickness.? Peritoneum:? There is a small amount of nonspecific free fluid in the pelvis.? No free air.? Ventral Wall: ? No hernia.? Abdominal Nodes:? No retroperitoneal or mesenteric adenopathy by size criteria.? Vessels:? Aorta and inferior vena cava are normal in size.? ? PELVIS: Pelvic Organs:? Unremarkable.? ? Bladder:? Unremarkable.? ? Pelvic Nodes: No enlarged lymph nodes.? Miscellaneous:? There is a large left retroperitoneal hematoma centered in the left iliacus muscle measuring up to approximately 8.6 x 7.3 cm in transverse dimension by approximately 13.9 cm in craniocaudal dimension.? There is an associated punctate internal focus of active arterial extravasation as seen on series 5, image 72. There is also a small left-sided extraperitoneal hematoma anteriorly within the space of Retzius.? No inguinal hernias. ? ? LOWER EXTREMITIES: Soft tissues:? There is edema within the left vastus intermedius muscle with internal hypoattenuating region suggestive of an intramuscular hematoma.? This measures up to approximately 3.1 x 1.8 cm in transverse dimension by approximately 7.6 cm in craniocaudal dimension. ? Bones:? There is a mild superior endplate compression deformity of the T10 vertebral body which appears unchanged from the prior MRI.? There is mild anterolisthesis at L4-5 and L5-S1 which also appears similar to the prior lumbar MRI study.? Visualized osseous structures demonstrate no suspicious focal lesions. ? IMPRESSION:? ? 1. Large left retroperitoneal hematoma involving the iliacus muscle as described.? There is a suspected punctate focus of internal active arterial extravasation as described. ? 2. Smaller amount of extraperitoneal hematoma in the pelvis within the space of Retzius anteriorly. ? 3. Small intramuscular hematoma within the left vastus intermedius muscle. ? Findings discussed with Dr. Rocha's physician human resources executive assistant on 04/17/2022 at 10:17 p.m.. ? 4. No evidence of pseudoaneurysm. ? 5. Small amount of nonspecific free fluid in the pelvis. ? 6. No evidence of high-grade arterial stenosis. ? ? Dictated by: Jv Foster M.D. on 04/17/2022 at 22:05 ? ? Approved by: Jv Foster M.D. on 04/17/2022 at 22:31 ? [facility] Narrative Medical decision making narrative: 2216 - received call from Radiology regarding CT findings 2219 - call to Dr. Song ([facility]) requests transfer given lack of IR/Vascular 2243 - call to [facility]. Pt. info faxed [phone] - [facility] does not have IR on weekend, cannot accept at this time. 2349 - call to [facility]. They request face sheet and chart to discuss 104 - Dr. Starr ([facility]) has reviewed case and suggest there is no indication for need for IR at this time, recommends typical resuscitation with blood products and platelets if needed. Hospitalist at [facility] requests patient go back to [facility] for continuity. 0110 - call back to [facility] to discuss with hospitalist, Dr. Villareal is happy to accept. Requests 1 unit PRBCs for now, no TXA for now. 0130 - called daughter Yamileth, she is aware of and in complete agreement with plan CC: Left flank pain, brief syncopal episode Complicating co-morbidities: age, coronary artery disease, recent hospitalization, Plavix Data collected from: Patient and daughter Medical records reviewed: From [facility], see details above, additional recent visits to our department as well Differential considered, but not limited to: Internal bleeding, bowel obstruction, kidney stone, dissection versus other Exam documented above, pertinent findings include: Non traumatic hematoma left anterior knee, left low back pain, neuro intact Lab Test results independently reviewed as above. Pertinent findings: Troponin is elevated but continuing to trend down, below level from discharge. H&H slowly trending down Independently reviewed EKG as above (no obvious occlusive findings) Imaging studies independently reviewed: CT demonstrates no dissection but does show left retroperitoneal hematoma with possible extravasation Consultations: radiologist, IR at [place], hospitalist at [facility] Treatments: PRBCs Re-evaluations: Patient continues to remain hemodynamically and neurologically intact Discussion: Patient with left flank pain with radiation down her left leg and syncopal episode in aftermath of recent hospitalization for NSTEMI and heart catheterization. Disposition: see below, along with detailed discharge instructions that have been reviewed with patient as well as indications for ED re-evaluation and additional outpatient follow up Discharge Plan Departure Patient Disposition: Xfer Acute Care Hospital Clinical Impression: Nontraumatic retroperitoneal hematoma, Elevated troponin I level Prescriptions: No Action ofloxacin 0.3 % drops 1 drp EYE-BOTH .prn PRNQty: 0 metoprolol tartrate 100 mg tablet See Rx Instructions .ROUTE .COMPLEX Qty: 180 3RF Dose Instruction: take 1 tablet by mouth twice a day Rx Instructions: take 1 tablet by mouth twice a day diltiazem HCl 180 mg tablet extended release 24 hr See Rx Instructions .ROUTE .COMPLEX Qty: 90 3RF Dose Instruction: take 1 tablet by mouth once daily Rx Instructions: take 1 tablet by mouth once daily acyclovir 400 mg tablet See Rx Instructions .ROUTE .COMPLEX Qty: 90 3RF Dose Instruction: take 1 tablet by mouth once daily for HERPES PROPHYLAXIS Rx Instructions: take 1 tablet by mouth once daily for HERPES PROPHYLAXIS hydrochlorothiazide 12.5 mg capsule See Rx Instructions .ROUTE .COMPLEX Qty: 180 3RF Dose Instruction: take 2 tablets by mouth once daily Rx Instructions: take 2 tablets by mouth once daily candesartan 16 mg tablet See Rx Instructions .ROUTE .COMPLEX Qty: 90 3RF Dose Instruction: take 1 tablet by mouth once daily Rx Instructions: take 1 tablet by mouth once daily atorvastatin 10 mg tablet See Rx Instructions .ROUTE .COMPLEX Qty: 90 3RF Dose Instruction: take 1 tablet by mouth every other day at bedtime Rx Instructions: take 1 tablet by mouth every other day at bedtime (DME) miscellaneous medical supply [facility] [place] See Dose Instructions .ROUTE .MEDSUPPLY Qty: 1 0RF Dose Instruction: Disabled Parking Permit Rx Instructions: Disabled Parking Permit naproxen sodium [Aleve] 220 mg tablet 220 mg PO BID Co Q-10 300 mg capsule 300 mg PO DAILY docusate sodium [Colace] 100 mg capsule 100 mg PO BID PRN ipratropium bromide 42 mcg (0.06 %) spray,non-aerosol 2 spray intranasal BID gabapentin 300 mg capsule 300 mg PO BEDTIME Qty: 90 1RF trazodone 50 mg tablet 12.5 mg PO TID PRN (Reason: anxiety) Qty: 45 5RF cyclobenzaprine 10 mg tablet 10 mg PO TID PRN (Reason: muscle spasm) Qty: 14 0RF Hold Instructions: groggy hydrocodone-acetaminophen 5-325 mg tablet 1 tab PO Q4-6H PRN (Reason: pain) Qty: 10 0RF methylprednisolone [Medrol (Dusty)] 4 mg tablets,dose pack See Rx Instructions .ROUTE .COMPLEX Qty: 21 0RF Rx Instructions: orally per package directions aspirin [Adult Low Dose Aspirin] 81 mg tablet,delayed release (DR/EC) 81 mg PO DAILY Centrum Silver 0.4-300-250 mg-mcg-mcg tablet 1 tab PO DAILY omega 0-axq-fjv-fish oil-krill 1 cap PO DAILY Referrals: Rashawn Banuelos DO [Primary Care Provider] -
[2022-04-17 18:37] LABS: Alanine Aminotransferase 27 IU/L (<35); Albumin Globulin Ratio 1.4 (1.0-2.8); Alkaline Phosphatase 68 U/L (38-126); Aspartate Aminotransferase 57 IU/L (14-36); BUN Creatinine Ratio 34.4 (6-22); Bilirubin Total 1.2 mg/dL (0.2-1.3); Blood Urea Nitrogen 22 mg/dL (7-17); Calcium 9.6 mg/dL (8.4-10.2); Carbon Dioxide 29 mmol/L (22-32); Chloride 93 mmol/L (98-107); Creatine Kinase 758 U/L (30-135); Estimated Glomerular Filt Rate > 60 mL/min (>60); Globulin 2.9 g/dL (1.7-4.1); Glucose 129 mg/dL (80-110); HEMOLYSIS < 15 (0-50); Lipase 61 U/L (23-300); Magnesium 1.8 mg/dL (1.6-2.3); Potassium 3.4 mmol/L (3.4-5.1); Sodium 130 mmol/L (137-145); Total Protein 6.9 g/dL (6.3-8.2)
[2022-04-17 18:49] LABS: NT-proBNP (BNP-Adult 18+) 4700 pg/mL (<450)
[2022-04-17 18:52] LABS: CKMB % Relative Index 0.4 % (1.5-5.0); Creatine Kinase MB 3.37 ng/mL (<2.37)
[2022-04-17 19:08] LABS: Prothrombin Time 11.8 SECONDS (10.1-12.7)
[2022-04-17 19:38] LABS: C-Reactive Protein Quant 1.6 mg/dL (<1.0)
[2022-04-17 20:21] LABS: Hemoglobin 8.9 g/dL (12.0-16.0)
[2022-04-17 20:33] LABS: Creatine Kinase 753 U/L (30-135)
[2022-04-17 20:48] LABS: CKMB % Relative Index 0.4 % (1.5-5.0); Creatine Kinase MB 3.07 ng/mL (<2.37)
--- NOTE | 2022-04-17 21:11 | DI.CT.S_ITS ---
PROCEDURE: CT ANGIO ABD AORTA RUNOFF INDICATIONS: anemia, syncope, left leg hematoma TECHNIQUE: After the administration of intravenous contrast, 2.5 mm sections acquired from T12 to the feet, with optional delayed image acquisition from the knees to the feet. 3-dimensional maximum intensity projection (MIP) coronal and sagittal reformats, and/or 3-dimensional volume rendering reformatting was then performed. For radiation dose reduction, the following was used: automated exposure control. COMPARISON: [facility], MR, MR LUMBAR SPINE WO CON, 08/27/2020, 17:35. [facility], MR, MR THORACIC SPINE WO CON, 08/27/2020, 17:09. [facility], CT, IVP (ABD & PEL WWO CONTRAST), 05/05/2017, 15:30. FINDINGS: Image quality: There is mild motion artifact limiting evaluation. There is also metallic streak artifact from patient's left hip prosthesis limiting evaluation. Abdominal aorta: The abdominal aorta is normal in caliber and contour. There is mild ectasia of the ascending thoracic aorta. The celiac, superior mesenteric, and inferior mesenteric arteries appear patent. There are single renal arteries bilaterally which appear patent. Right lower extremity: There are scattered vascular calcifications. Common iliac artery: Patent. External iliac artery: Patent. Internal iliac artery: Patent. Common femoral artery: Patent. Deep femoral artery: Patent. Superficial femoral artery: Patent. Popliteal artery: There is mild narrowing in the popliteal artery. Anterior tibial artery: Patent. Tibioperoneal trunk: Patent. Posterior tibial artery: Patent. Peroneal artery: Patent. Left lower extremity: There are scattered vascular calcifications. Common iliac artery: Patent. External iliac artery: Patent. Internal iliac artery: Patent. Common femoral artery: Patent. Deep femoral artery: Patent. Superficial femoral artery: There is mild narrowing within the distal superficial femoral artery. Popliteal artery: There is mild narrowing the popliteal artery. Anterior tibial artery: Patent. Tibioperoneal trunk: Patent. Posterior tibial artery: Patent. Peroneal artery: Patent. Extravascular tissues: CHEST: Lower Neck: No lymphadenopathy by size criteria. Thyroid: Visualized thyroid demonstrates bilateral hypoattenuating thyroid nodules, measuring up to 2.5 cm in the right lobe with extension posterior inferiorly. In the left lobe there is a hypoattenuating nodule measuring up to 1.0 cm. Axillae: No lymphadenopathy by size criteria. Chest Wall: Unremarkable. Bones: Visualized osseous structures demonstrate no suspicious lesions. Lungs and Airways: No acute consolidation. There is mild dependent atelectasis. Mild centrilobular emphysematous changes are present. The trachea and central airways are patent. There is a small right posterior fat-containing diaphragmatic hernia. Pleura: No pneumothorax or pleural effusions. Heart: Heart size is normal. No pericardial effusion. Thoracic Vessels: The pulmonary arteries are enlarged, with the main pulmonary artery measuring up to 3.5 cm suggestive of pulmonary arterial hypertension. No filling defects to suggest central pulmonary embolism. Mediastinum and Aydee: No lymphadenopathy by size criteria. Esophagus: No wall thickening. No hiatal hernia. ABDOMEN: Liver: No mass lesion. Gallbladder: Within normal limits without calcified gallstones. Biliary ducts: No biliary ductal dilatation. Pancreas: Unremarkable. Spleen: Normal in size. Adrenal Glands: No adrenal nodules. Kidneys and Ureters: No hydronephrosis. Stomach and Bowel: Stomach, small bowel loops, and colon are normal in caliber and wall thickness. Peritoneum: There is a small amount of nonspecific free fluid in the pelvis. No free air. Ventral Wall: No hernia. Abdominal Nodes: No retroperitoneal or mesenteric adenopathy by size criteria. Vessels: Aorta and inferior vena cava are normal in size. PELVIS: Pelvic Organs: Unremarkable. Bladder: Unremarkable. Pelvic Nodes: No enlarged lymph nodes. Miscellaneous: There is a large left retroperitoneal hematoma centered in the left iliacus muscle measuring up to approximately 8.6 x 7.3 cm in transverse dimension by approximately 13.9 cm in craniocaudal dimension. There is an associated punctate internal focus of active arterial extravasation as seen on series 5, image 72. There is also a small left-sided extraperitoneal hematoma anteriorly within the space of Retzius. No inguinal hernias. LOWER EXTREMITIES: Soft tissues: There is edema within the left vastus intermedius muscle with internal hypoattenuating region suggestive of an intramuscular hematoma. This measures up to approximately 3.1 x 1.8 cm in transverse dimension by approximately 7.6 cm in craniocaudal dimension. Bones: There is a mild superior endplate compression deformity of the T10 vertebral body which appears unchanged from the prior MRI. There is mild anterolisthesis at L4-5 and L5-S1 which also appears similar to the prior lumbar MRI study. Visualized osseous structures demonstrate no suspicious focal lesions. IMPRESSION: 1. Large left retroperitoneal hematoma involving the iliacus muscle as described. There is a suspected punctate focus of internal active arterial extravasation as described. 2. Smaller amount of extraperitoneal hematoma in the pelvis within the space of Retzius anteriorly. 3. Small intramuscular hematoma within the left vastus intermedius muscle. Findings discussed with Dr. Rocha's physician tax assistant on 04/17/2022 at 10:17 p.m.. 4. No evidence of pseudoaneurysm. 5. Small amount of nonspecific free fluid in the pelvis. 6. No evidence of high-grade arterial stenosis. Dictated by: Jv Foster M.D. on 04/17/2022 at 22:05 Approved by: Jv Foster M.D. on 04/17/2022 at 22:31
[2022-04-18] VITALS (9 sets, daily range): BP systolic 136–187; BP diastolic 64–80; PULSE 78–107; RESP 16–52; TEMP 36.6–36.9; O2SAT 89–100
[2022-04-18 00:12] LABS: Hematocrit 26.2 % (36-46); Hemoglobin 8.6 g/dL (12.0-16.0)
[2022-04-18 00:18] LABS: Creatine Kinase 894 U/L (30-135)
[2022-04-18 00:24] LABS: COVID19 -Nasal RAPID Negative (Negative)
[2022-04-18 00:33] LABS: CKMB % Relative Index 0.3 % (1.5-5.0); Creatine Kinase MB 2.86 ng/mL (<2.37)
[2022-04-18 00:39] LABS: Troponin I 0.979 ng/mL (0.01-0.034)
== END 2022-04-18 02:53 | disposition short-term general hospital (02) ==
PROVIDERS: Emergency Provider Emergency Medicine; Family Provider Family Medicine; PCP Family Medicine
DX: K66.1 Hemoperitoneum (principal); R77.8 Other specified abnormalities of plasma proteins; M54.50 Low back pain, unspecified; D64.9 Anemia, unspecified; R55 Syncope and collapse; R10.9 Unspecified abdominal pain; Z20.822 Contact with and (suspected) exposure to COVID-19
CPT/HCPCS: 36415; 36430; 75635; 80053; 82550; 82553; 83690; 83735; 83880; 84484; 85014; 85018; 85025; 85610; 86140; 86850; 86900; 86901; 87635; 93005; 99285; C9803; P9016; Q9967

== ENCOUNTER → 2022-05-11 08:38 | Outpatient (CLI) | payer MEDICARE, BC, SELFPAY ==
[2022-05-11 09:21] LABS: Add Manual Diff / Slide Review NO; Basophils Absolute Auto 0 /uL (0-100); Basophils Percent Auto 0.8 % (0-2); Eosinophils Absolute Auto 200 /uL (0-450); Eosinophils Percent Auto 3.2 % (2-4); Hematocrit 32.6 % (36-46); Hemoglobin 10.8 g/dL (12.0-16.0); Lymphocytes Absolute Auto 600 /uL (1100-4500); Lymphocytes Percent Auto 9.9 % (25-40); Mean Corpuscular HGB Conc 33.3 % (30-36); Mean Corpuscular Hemoglobin 32.4 PG (26-34); Mean Corpuscular Volume 97.3 fL (80-100); Monocytes Absolute Auto 500 /uL (0-900); Monocytes Percent Auto 8.8 % (3-14); Neutrophils Absolute Auto 4400 /uL (1500-7000); Neutrophils Percent Auto 77.3 % (50-75); Platelet Count 170 X10^3/uL (150-400); Red Blood Cell Count 3.35 X10^6/uL (4.0-5.2); Red Cell Distribution Width 16.2 % (11.6-14.8); White Blood Cell Count 5.7 X10^3/uL (4.5-11.0)
[2022-05-11 09:50] LABS: BUN Creatinine Ratio 31.5 (6-22); Blood Urea Nitrogen 29 mg/dL (7-17); Calcium 9.8 mg/dL (8.4-10.2); Carbon Dioxide 31 mmol/L (22-32); Chloride 96 mmol/L (98-107); Estimated Glomerular Filt Rate > 60 mL/min (>60); Glucose 101 mg/dL (80-110); HEMOLYSIS < 15 (0-50); Potassium 3.5 mmol/L (3.4-5.1); Sodium 133 mmol/L (137-145)
== END ==
PROVIDERS: Family Provider Family Medicine; PCP Family Medicine; Referring Provider Internal Medicine; Visit Provider Internal Medicine
DX: R60.0 Localized edema (principal); I48.91 Unspecified atrial fibrillation
CPT/HCPCS: 36415; 80048; 85025

== ENCOUNTER → 2022-06-02 09:59 | Outpatient (CLI) | payer MEDICARE, BC, SELFPAY ==
--- NOTE | 2022-06-02 | DI.RAD.S_ITS ---
PROCEDURE: FL BARIUM SWALLOW W SPEECH INDICATIONS: Dysphagia COMPARISON: None. TECHNIQUE: Examination was conducted in conjunction with speech pathology per standard protocol. In the lateral projection, filming was performed of the patient swallowing. AP projection filming may also be performed with patient swallowing. COMPARISON: FINDINGS: The oral preparatory phase appears normal, with proper containment. Flash laryngeal penetration observed with several different consistencies. No tracheal aspiration visualized. IMPRESSION: 1. No tracheal aspiration observed during the exam. 2. Please see the speech pathologist report for additional details. Dictated by: Crow Fox M.D. on 06/02/2022 at 15:04 Approved by: Crow Fox M.D. on 06/02/2022 at 15:07
--- NOTE | 2022-06-02 | DI.MG.S_ITS ---
BILATERAL DIGITAL SCREENING MAMMOGRAM 3D/2D WITH CAD: 06/02/2022 CLINICAL: Routine screening. Comparison is made to exams dated: 06/24/2020 mammogram, 02/07/2019 mammogram, and 01/05/2018 mammogram - [facility]. Both breasts are heterogeneously dense, which may obscure small masses (category c / 51-75% glandular tissue). Current study was also evaluated with a Computer Aided Detection (CAD) system. There are benign vascular calcifications in both breasts. No significant masses, calcifications, or other findings are seen in either breast. There has been no significant interval change. IMPRESSION: BENIGN There is no mammographic evidence of malignancy. A 1 year screening mammogram is recommended. This exam was interpreted at Station ID: [id number]. NOTE: For mammograms, a report in lay terms will be sent to the patient. Approximately 15% of breast malignancies will not be visualized mammographically. In the management of a palpable breast mass, a negative mammogram must not discourage biopsy of a clinically suspicious lesion. Electronically Signed By: Jose Burnette M.D. acr/penrad:06/02/2022 12:25:04 letter sent: Normal Exam ACR BI-RADS Category 2: Benign Finding(s) 3342F
--- NOTE | 2022-06-02 17:53 | ST.SWALLOW ---
Visit Care Team Role Provider Type Mark Anthony Pires MD Referring Provider Physician Specialty: Ear, Nose, Throat Address: [address] [place] [address], [id number] Email: [email or web address] Rashawn Banuelos DO Attending Provider Physician Family Provider Primary Care Provider Specialty: Family Practice Address: [address] [place] [address], [id number] Email: Modified Barium Swallow Study EMERGENCY DEPARTMENT TECHNICIAN Modified Barium Swallow Study Start: 06/02/22 17:16 Freq: Status: Active Protocol: Document 06/02/22 17:17 LNK (Rec: 06/02/22 17:27 LNK [id number]) Modified Barium Swallow Study Total Time Visit Start Time 10:30 Visit Stop Time 11:15 Total Visit Minutes [address] Banuelos Reason for Referral Dysphagia Setting Setting Outpatient Care Patient Information Identification Type Name,Date of Patient History pt was seen for a Modified Barium Swallow Study at the referral of Dr. Banuelos. According to the pt, she has been experiencing a sensation of pills getting stuck when she swallows. This occurs with larger pills. She noted that eating some bread will alleviate the sensation. pt denied difficulty with small pills, liquids and solid foods . PMH includes GERD fo which she does not take medication. She stated she stops eating at 6pm in order to control her GERD. She also reported she chews foods well before swallowing Subjective Observations pt was seated in the fluoroscopy chair with directions and instructions provided. She indicated that she understood and was agreeable to proceed. Patient Positioning Position View Lat-A/P Imaging Lateral View Textures Administered Trials Presented Thin Liquid via Spoon,Thin Liquid via Cup,Pudding Thick Liquid via Spoon,Regular Textures,Barium Tablet Oral Phase Source: MBSIMP (TM) (C) Bolus Specific Scoring Grid Lip Closure No Impairment (WNL) Tongue Control During Bolus Hold No Impairment (WNL) Bolus Prep/Mastication No Impairment (WNL) Bolus Transport/Lingual Motion No Impairment (WNL) A/P Lingual Propulsion Delay No Oral Residue Minimal Impairment Residue Clearing WFL Nasal Regurgitation No Additional Oral Phase Observations OME and DKSwere observed to be WNL. Oral Phase of swalow: Pt demonstrated good tongue control, bolus control, mastication and A/P transition WNL. Some residue remained on the tongue body, but was cleared with H2O wash. Pharyngeal Phase Source: MBSIMP (TM) (C) Bolus Specific Scoring Grid Delayed Initiation of Pharyngeal Swallow Yes: Premature spillage to the valeculla was observed across all trials. Soft Palate Elevation No Impairment (WNL) Tongue Base Strength/Range of Motion Mild Impairment Residue Along the Tongue Base Yes Clearance of Residue Along Tongue Base Minimal Impairment Laryngeal Elevation Mild Impairment Anterior Hyoid Movement Mild Impairment Vallecular Residue Yes Clearance of Vallecular Residue Mild Impairment Laryngeal Vestibular Closure Mild Impairment Pharyngeal Stripping Wave Minimal Impairment Posterior Pharyngeal Wall Residue Yes: cleared with H2O wash Clearance of Posterior Pharyngeal Wall Minimal Impairment Residue Upper Esophageal Sphincter Opening WFL Residue in the Pyriform Sinuses No Esophageal Clearance Upright Position WFL Pharyngoesophageal Backflow Observed No Additional Pharyngeal Phase Observations Mild tongue base weakness wa observed to impact hyolaryngeal elevation. Pt's epiglottis was noted to be very curly; however inversion was complete. Airway protection was adequate with the exception of flash penetration observed with consecutive swallows of contrast. No tracheal aspiration was noted. Pharyngeal pooling was observed in the valeculla and along the posterior pharyngeal wall. pooling cleared with H2O wash. The above observations appeared to be WFl for pt's age. Flash penetration has been described as WFL for elderly population . A/P View Textures Administered Trials Presented Thin Liquid via Spoon,Barium Tablet A/P View Observations Esophageal Function Slowed Clearing,Reverse Peristalsis,Narrowing Esophageal Clearance Upright Position Mild Impairment Additional Observations With the thin liquid trial and the barium tablet, there was slowed clearing mid-esophagus. At that point there was narrowing of the esophagus that moved in a superior direction. When this was observed, the pt was asked if she was feeling the sensation she originally described, to which she stated yes. A CP bar was also observed but did not interfere with bolus flow. Clinical Impressions Findings The results of the MBSS indicated that the oral and pharyngeal phases of swallowing were WFL for pt's age. Flash penetration was observed with no tracheal penetration. Esophageal narrowing and reduced flow through the esophagus were observed; the pt stated that she was experiencing the sensation she originally described when this occurred. Referral to GI may be indicated given the pt's PMH of GERD for further evaluation . Patient Appropriate for Therapy No Recommendations Diet Comments No change in diet; suggested swallowing pills in carrier or cutting them Aspiration Precautions Recommended Precautions Alternate Liquids/Solids,Small Bites/Sips Treatment Plan Recommended Referrals GI Consult
== END ==
PROVIDERS: Family Provider Family Medicine; PCP Family Medicine; Referring Provider Otolaryngology; Visit Provider Family Medicine
DX: Z12.31 Encounter for screening mammogram for malignant neoplasm of breast (principal); R13.10 Dysphagia, unspecified
CPT/HCPCS: 74230; 77063; 77067; 92611

== ENCOUNTER 2022-06-09 14:23 | Inpatient (IN) | payer MEDICARE, BC, SELFPAY ==
[2022-06-09] VITALS (13 sets, daily range): BP systolic 142–232; BP diastolic 79–103; PULSE 68–82; RESP 15–24; TEMP 36.3–36.6; O2SAT 91–98; BMI 24.2
--- NOTE | 2022-06-09 14:37 | DI.CT.S_ITS ---
PROCEDURE: CT ANGIO HEAD AND NECK INDICATIONS: right arm numbness, transient TECHNIQUE: Pre-contrast 4.5 mm thick sections acquired from the foramen magnum to the vertex. After the administration of intravenous contrast, 1 mm thick sections acquired from the aortic arch through the [place] of [place]hi. Post-contrast 4.5 mm thick sections then re-acquired from the foramen magnum to the vertex. 3-dimensional mqhmtmn-kwenxtifj-gkudkuuwvc (MIP) and/or volume rendering reformats were acquired of the central intracranial vasculature and neck separately. For radiation dose reduction, the following was used: automated exposure control, adjustment of mA and/or kV according to patient size. COMPARISON: [facility], CT, CT ANGIO CHEST ABDOMEN PELVIS, 06/09/2022, 14:45. [facility], CT, CT HEAD WITHOUT CONTRAST, 06/30/2020, 14:46. FINDINGS: Image quality: Excellent. BRAIN: CSF spaces: Ventricles are normal in size and shape. Basal cisterns are patent. No extra-axial fluid collections. Brain: No midline shift. No intracranial bleeds or masses. Meyer-white matter interface appears intact. Skull and face: Calvarium and facial bones appear intact, without suspicious lesions. Orbits appear normal. Sinuses: Sinuses and mastoids are clear. HEAD CT ANGIOGRAPHY: Anterior circulation: The intracranial segment of the right internal carotid artery appears occluded. Occlusion appears to extend to the level of the middle cerebral artery. The intracranial segment of the left internal carotid artery is patent. There is flow/opacification within the paired anterior cerebral arteries. There is opacification within the middle cerebral arteries. The anterior communicating artery is seen. No aneurysms are seen. Posterior circulation: Visualized portions of the vertebral arteries are patent and join to form a normal appearing basilar artery. No evidence for high-grade stenosis. No occlusions. There is opacification of the posterior cerebral arteries. No aneurysms are seen. NECK CT ANGIOGRAPHY: Carotid system: The great vessels demonstrate a conventional anatomy as they arise from the aortic arch. The origins of the common carotid arteries appear patent. The common carotid arteries appear patent throughout their visualized courses without high grade stenosis. Atherosclerotic calcifications noted at the bilateral carotid bifurcation. There is occlusion of the internal carotid artery a short distance distal to the bifurcation extending into the intracranial segment as described above. Left carotid bifurcation appears patent without high-grade stenosis. Extracranial left internal carotid artery is widely patent. Posterior circulation: The origins of the vertebral arteries both appear patent without hemodynamically significant stenosis. The more superior extracranial portions of both vertebral arteries also demonstrate normal courses and calibers. They join to form a normal appearing basilar artery. Soft tissues: Visualized neck soft tissues demonstrate no suspicious abnormalities. Bones: No suspicious bony lesions. Straightening of cervical lordosis. Minimal grade 1 anterolisthesis of C3 on C4 likely positional and related to moderate degenerative changes. No acute compression fractures of the vertebral bodies. IMPRESSION: 1. CT head without acute intracranial abnormalities. Age related senescent changes and sequela of chronic small vessel ischemic disease. 2. 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 Otherwise, negative CT angiogram of the head and neck arterial vasculature without evidence for high-grade stenosis. Scattered atherosclerotic calcifications seen. 3. Moderate multilevel cervical spondylosis with minimal anterolisthesis of C3 on C4. Findings were discussed with Dr. Mackenzie at 1630 hrs. Any quantitative measurements of stenosis were performed using NASCET criteria. Dictated by: Guy Perkins M.D. on 06/09/2022 at 16:15 Approved by: Guy Perkins M.D. on 06/09/2022 at 16:31
--- NOTE | 2022-06-09 14:37 | DI.CT.S_ITS ---
PROCEDURE: CT ANGIO CHEST ABDOMEN PELVIS INDICATIONS: eval dissection, change in pulse l vs rt TECHNIQUE: Precontrast 5 mm thick sections acquired from the lung apices to the iliac crests. After the administration of intravenous contrast, 2.5 mm thick sections again acquired from the lung apices to the iliac crests. Maximum intensity projection (MIP) oblique sagittal and coronal reformats were then acquired. For radiation dose reduction, the following was used: automated exposure control. COMPARISON: [facility], CT, CT ANGIO ABD AORTA RUNOFF, 04/17/2022, 21:17. FINDINGS: Image quality: Excellent. AORTA: Mild ectasia of the ascending thoracic aorta. No evidence for aneurysmal dilatation. No dissection. Thoracic aorta is tortuous in course but otherwise unremarkable. Scattered atherosclerotic calcifications are noted throughout the thoracic aorta. CHEST: Lungs and pleura: No acute airspace opacities. Bibasilar atelectasis. No new or suspicious pulmonary nodules. No pleural effusions or pneumothorax. Central and peripheral airways are patent and normal in caliber. Mediastinum: Heart size is enlarged. Coronary atherosclerotic vascular calcifications are noted. No pericardial effusion. No mediastinal or hilar adenopathy by size criteria. Central pulmonary arteries are normal in size. Esophagus is normal in caliber. No hiatal hernias. Enlargement of the main pulmonary artery as before. No evidence for central filling defects. Bones and chest wall: No axillary adenopathy by size criteria. Thyroid gland is stable in appearance . No suspicious bony lesions. No acute vertebral body compression fractures. ABDOMEN: Vasculature: Celiac trunk and mesenteric arteries are patent. Renal arteries are also patent. Solid organs: Liver is normal in size and enhancement. Gallbladder is unremarkable . Biliary system is non dilated. Pancreas enhances normally. Spleen is normal in size and enhancement. No adrenal nodules. Both kidneys are normal in size and enhancement, without hydronephrosis. Peritoneum and bowel: No free fluid or air. Bowel loops are normal in caliber and wall thickness. Nodes and vessels: No retroperitoneal or mesenteric adenopathy by size criteria. Scattered atherosclerotic calcifications of the abdominal aorta and iliac vessels without aneurysmal dilatation. The inferior vena cava appears patent. Miscellaneous: No ventral hernias. PELVIS: Genitourinary: Bladder wall thickness is normal. Miscellaneous: No inguinal hernias or adenopathy. No ventral hernias. Previously described large retroperitoneal hematoma involving the left iliacus has essentially resolved. Bones: No suspicious bony lesions. No acute vertebral body compression fractures. Stable postsurgical changes of left total hip arthroplasty. Significant beam hardening/streak artifact obscures lower pelvic structures. IMPRESSION: 1. CT chest, abdomen, and pelvis without acute abnormalities identified. 2. Mild ectasia of the ascending thoracic aorta. Otherwise, no evidence for aneurysmal dilatation of the visualized thoracic or abdominal aorta without dissection, occlusion, or hemodynamically significant stenosis. Moderate scattered atherosclerotic calcifications seen throughout. 3. Enlargement of main pulmonary artery likely sequela of chronic pulmonary arterial hypertension. No evidence for central pulmonary embolus. 4. Other chronic findings as above. Dictated by: Guy Perkins M.D. on 06/09/2022 at 16:32 Approved by: Guy Perkins M.D. on 06/09/2022 at 16:50
[2022-06-09 14:53] LABS: Alanine Aminotransferase 126 IU/L (<35); Albumin 3.9 g/dL (3.5-5.0); Albumin Globulin Ratio 1.3 (1.0-2.8); Alkaline Phosphatase 113 U/L (38-126); Aspartate Aminotransferase 88 IU/L (14-36); BUN Creatinine Ratio 23.9 (6-22); Bilirubin Total 0.6 mg/dL (0.2-1.3); Blood Urea Nitrogen 21 mg/dL (7-17); Calcium 9.7 mg/dL (8.4-10.2); Carbon Dioxide 34 mmol/L (22-32); Chloride 95 mmol/L (98-107); Estimated Glomerular Filt Rate > 60 mL/min (>60); Glucose 128 mg/dL (80-110); HEMOLYSIS 20 (0-50); Potassium 3.2 mmol/L (3.4-5.1); Sodium 136 mmol/L (137-145); Total Protein 6.9 g/dL (6.3-8.2)
[2022-06-09 14:54] LABS: Add Manual Diff / Slide Review NO; Basophils Absolute Auto 0 /uL (0-100); Basophils Percent Auto 0.8 % (0-2); Eosinophils Absolute Auto 200 /uL (0-450); Eosinophils Percent Auto 3.7 % (2-4); Hematocrit 39.3 % (36-46); Hemoglobin 13.2 g/dL (12.0-16.0); Lymphocytes Absolute Auto 800 /uL (1100-4500); Lymphocytes Percent Auto 14.6 % (25-40); Mean Corpuscular HGB Conc 33.7 % (30-36); Mean Corpuscular Hemoglobin 32.1 PG (26-34); Mean Corpuscular Volume 95.2 fL (80-100); Monocytes Absolute Auto 400 /uL (0-900); Monocytes Percent Auto 7.9 % (3-14); Neutrophils Absolute Auto 4100 /uL (1500-7000); Platelet Count 163 X10^3/uL (150-400); Red Blood Cell Count 4.13 X10^6/uL (4.0-5.2); Red Cell Distribution Width 14.3 % (11.6-14.8); White Blood Cell Count 5.6 X10^3/uL (4.5-11.0)
[2022-06-09 14:58] LABS: Prothrombin Time 11.6 SECONDS (10.1-12.7)
[2022-06-09 17:31] LABS: Troponin I 0.049 ng/mL (0.01-0.034)
--- NOTE | 2022-06-09 18:15 | DI.ECHO.S_ITS ---
[place] [facility]---------+ [facility] +---------+ : : [address] : : : : [id number] : : : : Phone: [phone]+ Echocardiogram Report + + :Name: BELLO CHAUHAN Study Date: 06/10/2022 Height: 23.5 in: :[facility] ReadingLocation: Weight: 124 lb : : Gender: Female BSA: 0.78 m2 : :: 1935 Age: 86 yrs BP: 158/84 mmHg: :Reason For Study: TRANSIENT ISCHEMIC ATTACK : :Ordering Physician: GROVER, : :MADYSON Marmolejo Performed By: TINA GRECO : :Referring: MADYSON NESS : + + Interpretation Summary Injection of contrast documented no interatrial shunt. The ejection fraction is estimated to be 65-70%. The right ventricle grossly appears normal in size with probable normal systolic function. There is severe biatrial enlargement. There is mild mitral regurgitation. There is mild to moderate aortic regurgitation. There is moderate tricuspid regurgitation. Procedure: A two-dimensional transthoracic echocardiogram with color flow and Doppler was performed in limited views only. The study quality was technically adequate. Comparison is made with the echocardiogram of 04/15/2022. A saline contrast injection was performed to assess for cardiac shunting. The heart rate ranged between 92-69 bpm during the study. Left Ventricle: The left ventricle is normal in size and wall thickness. The ejection fraction is estimated to be 65-70%. Right Ventricle: The right ventricle grossly appears normal in size with probable normal systolic function. Atria: There is severe biatrial enlargement. Injection of contrast documented no interatrial shunt. Mitral Valve: There is moderate mitral annular calcification. The mitral valve leaflets are mildly calcified. There is mild mitral regurgitation. Aortic Valve: The aortic valve opens well. The aortic valve is trileaflet. There is mild to moderate aortic regurgitation. Tricuspid Valve: The tricuspid valve is normal. There is moderate tricuspid regurgitation. Pulmonic Valve: The pulmonic valve leaflets are thin and pliable; valve motion is normal. Doppler Measurements & Calculations TR max jalen: 264.8 cm/sec TR max P.1 mmHg Reading Physician:08:36 AM
--- NOTE | 2022-06-09 18:16 | DI.MRI.S_ITS ---
PROCEDURE: MR HEAD/BRAIN WO CON INDICATIONS: TIA TECHNIQUE: Non-contrast axial T1 spin echo, axial T2 fast spin echo, sagittal and axial FLAIR, coronal T2 fast spin echo, axial gradient echo, axial diffusion and ADC through the brain. COMPARISON: [facility], MR, STROKE PROTOCOL A, 11/20/2007, 14:33. [facility], CT, CT ANGIO HEAD AND NECK, 06/09/2022, 14:45. [facility], XA, SI ANGIOGRAM EXTREMITY BILATERAL, 04/18/2022, 11:19. FINDINGS: Image quality: Excellent. CSF spaces: Ventricles appear symmetric in size and shape. Basal cisterns are patent. No extra-axial fluid collections. Brain: Foci of abnormal diffusion-weighted signal can be seen involving the right parietal lobe, as on series 11, image 68 and the left occipital lobe, as on series 11 images 63 and 64. Associated dark signal can be seen on the ADC maps these sites. No intracranial bleeds or mass effects. There is cerebral volume loss for age. There are periventricular and deep white matter chronic small vessel ischemic changes. Brainstem appears normal. Focal volume loss and encephalomalacia can be seen involving the left occipital lobe, as on series 7, image 13. Normal intravascular flow voids are present. Skull and face: Calvarial bone marrow is normal in signal. Orbits are normal. Note is made of bilateral lens replacements. Sinuses: Sinuses and mastoids are clear. 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 Dictated by: Miah Vasquez M.D. on 06/09/2022 at 18:20 Approved by: Miah Vasquez M.D. on 06/09/2022 at 18:24
--- NOTE | 2022-06-09 18:20 | P.HP_ITS ---
History of Present Illness History of Present Illness Date Patient Seen: 06/09/22 Time Patient Seen: 18:21 Chief complaint: right arm numbness Narrative: Mary Grace Zhou is an 86yo F with PMH of permanent A-fib not on anticoag, NSTEMI, chronic back pain with LLE radiculopathy, HTN, left total hip replacement, and OA who presents with several hours of right UE numbness. Patient states earlier today she noticed worsening numbness and tingling from her shoulder to her hand. She had similar symptoms about a month ago but it went away. She denies any trauma or overuse of the right arm. Currently the numbness has improved and is only from the elbow down to the hand. She denies any weakness, facial droop or dysarthria. She is not on blood thinners for her A-fib due to a previous hematoma in Mar 2022. She only takes a baby aspirin daily. She notes some left sided chest pain earlier today as well, which went away with nitro. She had an NSTEMI in Mar 2022 and was on a heparin drip and not deemed to be a cath candidate so was treated medically. She was told to take nitro when she gets angina. She currently feels well and denies any other symptoms including SOB, headache, dizziness, visual changes, abd pain or diarrhea. 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 neurology did not recommend vascular intervention but to undergo stroke workup and start DAPT for 21 days of plavix and continuing aspirin. Patient History Medical History (Updated 05/04/22 @ 09:24 by Rashawn Banuelos DO) Acute pain of right knee Anemia (2007) Anxiety as acute reaction to exceptional stress Atrial fibrillation (2007) BCC (basal cell carcinoma of skin) (2003) Harrison's palsy (2007) Bilateral thumb pain Body posture problem Cataract (2001) Cervical spine disease Change in stool Chicken pox (~1940) Chronic 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 Chronic thoracic back pain Closed T10 fracture Colon polyps (1997) Constipation by outlet dysfunction Coronary artery disease due to calcified coronary lesion Elevated fasting blood sugar Fecal incontinence (1997) Feeling of incomplete bladder emptying GERD (gastroesophageal reflux disease) (1989) Hearing loss (2012) Hemorrhoids (1989) Herpes (2009) Hypertension (~1979) Kidney disease (2007) Lower extremity edema Lumbar region somatic dysfunction Lumbar spine pain (2003) Measles (1942) Mumps (1946) Nocturia Obstruction of right ureteropelvic junction (UPJ) Osteoarthritis (~2000) Physical deconditioning Plantar warts (~1970) Psoriasis (2012) Rubella (1941) Spondylolisthesis at L4-L5 level Spondylolisthesis at L5-S1 level Tinnitus (2004) Urinary hesitancy Urinary incontinence (2010) Villous adenoma of colon Surgical History Anesthesia History of basal cell carcinoma excision (~2003) History of cataract removal with insertion of prosthetic lens (2010) History of hip replacement (03/2008) History of resection of rectum (1997) Status post blepharoplasty of both eyes (2013) Status post dilation and curettage (1981) Status post tonsillectomy and adenoidectomy (1941) Family & Social History Family History Brother Age: 68 Crohns disease Child Age: 62 Mental health problem Hepatitis C Child Age: 59 Graves disease Grandmother Heart disease Stroke [place] (myocardial infarction) Mother Heart disease Hypertension Osteoporosis Cancer Congestive heart failure Grandfather Heart disease [place] (myocardial infarction) Grandmother Heart disease Sister Age: 82 HINDS (nonalcoholic steatohepatitis) Liver cancer Sister Age: 69 Obesity Carotid artery disease Stroke Father No problems noted. Grandfather No problems noted. Sister Lung cancer Sister Respiratory arrest Safety & Behavioral: Feels Safe in Current Yes Environment Tobacco & Substance use: Smoking Status Former smoker alcohol intake frequency other Substance Use Type does not use Meds Home Medications and Allergies Home Medications Medication Instructions Recorded Confirmed Type miscellaneous medical supply #1 ea 08/21/18 05/13/22 Rx coenzyme Q10 300 mg capsule (Co 300 mg PO DAILY 12/18/19 05/13/22 History Q-10) naproxen sodium 220 mg tablet 220 mg PO BID 12/18/19 05/13/22 History (Aleve) ofloxacin 0.3 % eye drops 1 drp EYE-BOTH .prn PRN #0 mL 12/18/19 05/13/22 History aspirin 81 mg tablet,delayed 81 mg PO DAILY 11/30/20 05/13/22 History release (Adult Low Dose Aspirin) docusate sodium 100 mg capsule 100 mg PO BID PRN 11/30/20 05/13/22 History (Colace) ipratropium bromide 42 mcg (0.06 2 spray intranasal BID 11/30/20 05/13/22 History %) nasal spray xmppazwu-vbm-fdbrb acid 0.4 1 tab PO DAILY 11/30/20 05/13/22 History mg-lycopene 300 mcg-lutein 250 mcg tablet (Centrum Silver) omega 9-zdq-cau-fish oil-krill 1 cap PO DAILY 11/30/20 05/13/22 History metoprolol tartrate 100 mg tablet See Rx Instructions .Route 06/18/21 05/13/22 Rx .COMPLEX #180 tabs acyclovir 400 mg tablet See Rx Instructions .Route 11/18/21 05/13/22 Rx .COMPLEX #90 tabs hydrochlorothiazide 12.5 mg capsule See Rx Instructions .Route 11/25/21 05/13/22 Rx .COMPLEX #180 caps candesartan 16 mg tablet See Rx Instructions .Route 12/06/21 05/13/22 Rx .COMPLEX #90 tabs nitroglycerin 0.4 mg sublingual 0.4 mg sublingual Q5-15M PRN chest 04/25/22 05/13/22 Rx tablet (Nitrostat) pain #10 tabs atorvastatin 80 mg tablet 80 mg PO .COMPLEX #45 tabs 05/13/22 05/13/22 Rx nifedipine 60 mg tablet,extended 60 mg PO DAILY #90 tabs 05/13/22 05/13/22 Rx release 24 hr trazodone 50 mg tablet 12.5 mg PO BEDTIME PRN anxiety #45 05/13/22 05/13/22 Rx tabs Allergies Allergy/AdvReac Type Severity Reaction Status Date / Time Sulfa (Sulfonamide Allergy Unknown Verified 05/13/22 11:25 Antibiotics) Review of Systems Review of Systems Narrative: All other systems reviewed with the patient and are negative unless otherwise stated. Exam Vital Signs (past 8 hours): - 06/09/22 14:32 Temperature 97.8 F Pulse Rate 73 Respiratory Rate 18 Blood Pressure 201/89 H Pulse Oximetry 95 Oxygen Delivery Method Room Air Oxygen Delivery Method Room Air Narrative Exam Narrative: GEN: no acute distress, pleasant elderly female HEENT: moist mucous membranes, PERRL NECK: trachea midline, no JVD CV: irregularly irregular, no murmurs PULM: clear bilaterally ABD: soft, nontender, nondistended, no organomegaly EXT: warm and well perfused with no edema NEURO: awake, alert, oriented, no focal deficits, no facial droop, numbness of right hand extending to right elbow Objective Labs 06/09/22 14:30 06/09/22 14:30 Labs: Laboratory Results - last 24 hr 06/09/22 06/09/22 06/09/22 14:30 14:30 14:30 WBC 5.6 RBC 4.13 Hgb 13.2 Hct 39.3 MCV 95.2 MCH 32.1 MCHC 33.7 RDW 14.3 Plt Count 163 Neut % (Auto) 73.0 Lymph % (Auto) 14.6 L [place] % (Auto) 7.9 Eos % (Auto) 3.7 Baso % (Auto) 0.8 Neut # (Auto) 4100 Lymph # (Auto) 800 L [place] # (Auto) 400 Eos # (Auto) 200 Baso # (Auto) 0 PT 11.6 INR 1.0 Sodium 136 L Potassium 3.2 L Chloride 95 L Carbon Dioxide 34 H BUN 21 H Creatinine 0.88 Estimated GFR > 60 BUN/Creatinine Ratio 23.9 H Glucose 128 H Calcium 9.7 Total Bilirubin 0.6 AST 88 H ALT 126 H Alkaline Phosphatase 113 Troponin I 0.040 H Total Protein 6.9 Albumin 3.9 Globulin 3.0 Albumin/Globulin Ratio 1.3 06/09/22 16:55 WBC RBC Hgb Hct MCV MCH MCHC RDW Plt Count Neut % (Auto) Lymph % (Auto) [place] % (Auto) Eos % (Auto) Baso % (Auto) Neut # (Auto) Lymph # (Auto) [place] # (Auto) Eos # (Auto) Baso # (Auto) PT INR Sodium Potassium Chloride Carbon Dioxide BUN Creatinine Estimated GFR BUN/Creatinine Ratio Glucose Calcium Total Bilirubin AST ALT Alkaline Phosphatase Troponin I 0.049 H Total Protein Albumin Globulin Albumin/Globulin Ratio Assessment & Plan Assessment & Plan narrative: # possible TIA in the setting of a fully occluded right ICA -patient presenting with several hours of right arm numbness -CTA head positive only for occluded right ICA - neurology recommended MRI, echo and dual anti-platelet therapy with plavix for 21 days. No vascular intervention warranted. -MRI brain and echo ordered -check lipids and A1c -ASA and plavix for 21 days -continue lipitor 80mg nightly -permissive HTN for 24-48 hours but administer labetalol if SBP >220 or DBP >110 -PT/OT evals # permanent A-fib -EKG shows A-fib, rate controlled -continue home metoprolol to prevent RVR -not on anticoag due to previous hematoma # HTN -holding home nifedipine, candesartan and HCTZ for 24-48 hours # elevated troponin -patient notes left-sided chest pain earlier in day, but none currently -trop 0.040>0.049, likely demand ischemia -patient has known CAD and not cath candidate -continue ASA -check AM trop Code status is DNR. COVID negative. DVT prophylaxis with Lovenox. Proxy is daughter Martita. I have reviewed home meds and used all available resources to reconcile the home meds. This patient will be admitted as observation and will require less than 2 midnights of hospital time to treat TIA workup. Quality VTE Deep Vein Thrombosis/Pulmonary Embolism Present on Admission: No
[2022-06-09] MEDS: CLOPIDOGREL 75 MG TABLET 300 MG PO (18:28)
[2022-06-09 18:38] LABS: Magnesium 1.8 mg/dL (1.6-2.3)
[2022-06-09 18:39] LABS: Cholesterol 138 mg/dL (140-199); HDL Cholesterol 62 mg/dL (40-60); LDL Cholesterol Calculated 53 mg/dL (<100); Triglycerides 117 mg/dL (35-150)
[2022-06-09 18:42] LABS: Hemoglobin A1C% w Est Avg Glu 5.2 % (4.0-6.0)
[2022-06-09 19:10] LABS: TSH w/ Reflex to FT4 2.08 uIU/mL (0.47-4.68)
[2022-06-09] MEDS: POTASSIUM CHLORIDE 20 MEQ TAB 40 MEQ PO (19:27)
[2022-06-09] MEDS: ATORVASTATIN 20 MG TABLET 80 MG PO (21:22)
[2022-06-09] MEDS: METOPROLOL IR 50 MG TABLET 100 MG PO (21:22)
[2022-06-09] MEDS: SODIUM CHLORIDE 0.9% FLUSH 10 ML IV (21:22)
--- NOTE | 2022-06-09 21:50 | ED_ITS ---
HPI - Extremity Problem General Chief complaint: Extremity Problem,Nontraumatic Stated complaint: right arm numbness Source: patient and EMS Mode of arrival: EMS History of Present Illness HPI Narrative: 86-year-old female presenting right upper extremity numbness that has occurred intermittently over the last 1-2 weeks. Patient notes prior episode that occurred and lasted for approximately 12 hours, this then resolved. Patient did not seek medical attention at that time. Patient had recurrent episode that occurred today, approximately 4-5 hours prior to presentation. Symptoms rapidly resolving on presentation to the ED with numbness isolated to the tips of the fingers in the right hand. Patient denies any other associated symptoms with her numbness in the right upper extremity. Patient does report an episode of chest pain earlier in the day, this resolved after taking 2 nitroglycerin. Related Data Home Medications Medication Instructions Recorded Confirmed coenzyme Q10 300 mg capsule (Co 300 mg PO DAILY 12/18/19 06/09/22 Q-10) naproxen sodium 220 mg tablet 220 mg PO BID 12/18/19 06/09/22 (Aleve) aspirin 81 mg tablet,delayed 81 mg PO DAILY 11/30/20 06/09/22 release (Adult Low Dose Aspirin) docusate sodium 100 mg capsule 100 mg PO BID PRN Rectal Discomfort 11/30/20 06/09/22 (Colace) lkguhzsk-wjv-cratc acid 0.4 1 tab PO DAILY 11/30/20 06/09/22 mg-lycopene 300 mcg-lutein 250 mcg tablet (Centrum Silver) omega 1-owa-ase-fish oil-krill 1 cap PO DAILY 11/30/20 06/09/22 olopatadine 0.1 % eye drops 1 drp EYE-BOTH BID 06/09/22 06/09/22 Previous Rx's Medication Instructions Recorded miscellaneous medical supply #1 ea 08/21/18 metoprolol tartrate 100 mg tablet See Rx Instructions .Route 06/18/21 .COMPLEX #180 tabs acyclovir 400 mg tablet See Rx Instructions .Route 11/18/21 .COMPLEX #90 tabs hydrochlorothiazide 12.5 mg capsule See Rx Instructions .Route 11/25/21 .COMPLEX #180 caps candesartan 16 mg tablet See Rx Instructions .Route 12/06/21 .COMPLEX #90 tabs nitroglycerin 0.4 mg sublingual 0.4 mg sublingual Q5-15M PRN chest 04/25/22 tablet (Nitrostat) pain #10 tabs atorvastatin 80 mg tablet 80 mg PO .COMPLEX #45 tabs 05/13/22 nifedipine 60 mg tablet,extended 60 mg PO DAILY #90 tabs 05/13/22 release 24 hr trazodone 50 mg tablet 12.5 mg PO BEDTIME PRN anxiety #45 05/13/22 tabs Allergies Allergy/AdvReac Type Severity Reaction Status Date / Time Sulfa (Sulfonamide Allergy Unknown Verified 05/13/22 11:25 Antibiotics) Patient History Medical History Acute pain of right knee Anemia (2007) Anxiety as acute reaction to exceptional stress Atrial fibrillation (2007) BCC (basal cell carcinoma of skin) (2003) Harrison's palsy (2007) Bilateral thumb pain Body posture problem Cataract (2001) Cervical spine disease Change in stool Chicken pox (~1939) Chronic 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 Chronic thoracic back pain Closed T10 fracture Colon polyps (1997) Constipation by outlet dysfunction Coronary artery disease due to calcified coronary lesion Elevated fasting blood sugar Fecal incontinence (1997) Feeling of incomplete bladder emptying GERD (gastroesophageal reflux disease) (1989) Hearing loss (2012) Hemorrhoids (1989) Herpes (2009) Hypertension (~1979) Kidney disease (2007) Lower extremity edema Lumbar region somatic dysfunction Lumbar spine pain (2003) Measles (1942) Mumps (1946) Nocturia Obstruction of right ureteropelvic junction (UPJ) Osteoarthritis (~2000) Physical deconditioning Plantar warts (~1970) Psoriasis (2011) Rubella (1941) Spondylolisthesis at L4-L5 level Spondylolisthesis at L5-S1 level Tinnitus (2004) Urinary hesitancy Urinary incontinence (2010) Villous adenoma of colon Surgical History Anesthesia History of basal cell carcinoma excision (~2003) History of cataract removal with insertion of prosthetic lens (2010) History of hip replacement (03/2008) History of resection of rectum (1997) Status post blepharoplasty of both eyes (2013) Status post dilation and curettage (1981) Status post tonsillectomy and adenoidectomy (1941) Family History Brother Age: 68 Crohns disease Child Age: 62 Mental health problem Hepatitis C Child Age: 59 Graves disease Grandmother Heart disease Stroke AL (myocardial infarction) Mother Heart disease Hypertension Osteoporosis Cancer Congestive heart failure Grandfather Heart disease AL (myocardial infarction) Grandmother Heart disease Sister Age: 82 HINDS (nonalcoholic steatohepatitis) Liver cancer Sister Age: 69 Obesity Carotid artery disease Stroke Father No problems noted. Grandfather No problems noted. Sister Lung cancer Sister Respiratory arrest Social History Smoking Status: Former smoker alcohol intake: current Smoking Status: Former smoker alcohol intake frequency: other Substance Use Type: does not use Exam Narrative Exam Narrative: Vitals reviewed. Nursing note reviewed Constitutional: interactive HENT: Moist mucous membranes EYES: No scleral icterus NECK: no masses CV: Well perfused peripherally, no cyanosis present PULM: Unlabored respirations, symmetric chest rise ABD: Non-distended MS: No gross deformities, no asymmetric edema noted SKIN: Warm and dry. PSYCH: Appropriate affect NEURO: Follows simple commands, moves extremities, interactive with exam Initial Vital Signs Initial Vital Signs: Vital Signs Temperature 97.8 F 06/09/22 14:32 Pulse Rate 73 06/09/22 14:32 Respiratory Rate 18 06/09/22 14:32 Blood Pressure 201/89 H 06/09/22 14:32 Pulse Oximetry 95 06/09/22 14:32 Oxygen Delivery Method Room Air 06/09/22 14:32 Course Orders Ordered: ED Orders 06/09/22 14:30 CBC Auto Diff [Complete Blood Count AUTO DIFF] Stat CMP [Comprehensive Metabolic Panel] Stat Prothrombin Time INR Stat Troponin I Stat 06/09/22 14:37 CT angio chest abdomen pelvis Stat CT angio head and neck Stat 06/09/22 15:27 EKG-12 Lead Stat 06/09/22 16:55 Trop I [Troponin I] Stat Acetaminophen (Acetaminophen 325 Mg Tablet) 650 mg PO Q6H PRN PRN Reason: Fever/Mild Pain (1-3) Aspirin (Aspirin Ec 81 Mg Tablet) 81 mg PO DAILY JASVIR Atorvastatin Calcium (Atorvastatin 20 Mg Tablet) 80 mg PO BEDTIME JASVIR Last Admin: 06/09/22 21:22 Dose: 80 mg Documented By: SAMSON Clopidogrel Bisulfate (Clopidogrel 75 Mg Tablet) 75 mg PO DAILY [facility] Stop: 06/30/22 08:59 Enoxaparin Sodium (Enoxaparin 40 Mg/0.4 Ml Syringe) 40 mg SUBCUT DAILY [facility] Labetalol HCl (Labetalol 20 Mg/4 Ml Syringe) 10 mg IV Q5H PRN PRN Reason: SBP >220 or DBP >110 Melatonin (Melatonin 3 Mg Tablet) 6 mg PO BEDTIME PRN PRN Reason: Insomnia Metoprolol Tartrate (Metoprolol Ir 50 Mg Tablet) 100 mg PO BID [facility] Last Admin: 06/09/22 21:22 Dose: 100 mg Documented By: SAMSON Naloxone HCl (Naloxone 0.4 Mg/Ml Vial) 0.2 mg IV Q2MIN PRN PRN Reason: Opiate Reversal Polyethylene Glycol (Polyethylene Glycol 3350 17 Gm Powd.Pack) 17 gm PO DAILY PRN PRN Reason: Constipation Sennosides (Sennosides 8.6 Mg Tablet) 8.6 mg PO BID PRN PRN Reason: Constipation Sodium Chloride (Sodium Chloride 0.9% Flush) 10 ml IV PRN PRN PRN Reason: Flush Sodium Chloride (Sodium Chloride 0.9% Flush) 10 ml IV BID [facility] Last Admin: 06/09/22 21:22 Dose: 10 ml Documented By: SAMSON Trazodone HCl (Trazodone 50 Mg Tablet) 12.5 mg PO BEDTIME PRN PRN Reason: anxiety Discontinued Medications Clopidogrel Bisulfate (Clopidogrel 75 Mg Tablet) 300 mg PO NOW ONE Stop: 06/09/22 17:12 Last Admin: 06/09/22 18:28 Dose: 300 mg Documented By: RIZWAN Potassium Chloride (Potassium Chloride 20 Meq Tab) 40 meq PO NOW ONE Stop: 06/09/22 18:15 Last Admin: 06/09/22 19:27 Dose: 40 meq Documented By: ISIS Vital Signs Vital signs: Vital Signs - 8 hr 06/09/22 14:32 06/09/22 14:34 06/09/22 15:04 Temperature 97.8 F Pulse Rate 73 72 69 Respiratory Rate 18 17 Blood Pressure 201/89 H Pulse Oximetry 95 Oxygen Delivery Method Room Air 06/09/22 15:06 06/09/22 15:06 06/09/22 15:30 Temperature Pulse Rate 68 Respiratory Rate 16 Blood Pressure 184/91 H 192/102 H Pulse Oximetry 93 Oxygen Delivery Method 06/09/22 15:30 06/09/22 16:00 06/09/22 16:00 Temperature Pulse Rate 73 75 Respiratory Rate 24 18 Blood Pressure 232/103 H Pulse Oximetry 94 95 Oxygen Delivery Method 06/09/22 16:03 06/09/22 16:03 06/09/22 16:30 Temperature Pulse Rate 73 75 Respiratory Rate 16 20 Blood Pressure 160/88 H Pulse Oximetry 93 93 Oxygen Delivery Method 06/09/22 16:31 06/09/22 16:31 06/09/22 17:00 Temperature Pulse Rate 75 Respiratory Rate 18 Blood Pressure 193/86 H 173/88 H Pulse Oximetry 92 Oxygen Delivery Method 06/09/22 17:00 06/09/22 17:30 Temperature Pulse Rate 73 76 Respiratory Rate 19 24 Blood Pressure Pulse Oximetry 93 95 Oxygen Delivery Method MDM - Extremity (Nontraumatic) Lab Data 06/09/22 14:30 06/09/22 14:30 Labs: Lab Results 06/09/22 06/09/22 06/09/22 Range/Units 14:30 14:30 14:30 WBC 5.6 (4.5-11.0) X10^3/uL RBC 4.13 (4.0-5.2) X10^6/uL Hgb 13.2 (12.0-16.0) g/dL Hct 39.3 (36-46) % MCV 95.2 (80-100) fL MCH 32.1 (26-34) PG MCHC 33.7 (30-36) % RDW 14.3 (11.6-14.8) % Plt Count 163 (150-400) X10^3/uL Neut % (Auto) 73.0 (50-75) % Lymph % (Auto) 14.6 L (25-40) % [place] % (Auto) 7.9 (3-14) % Eos % (Auto) 3.7 (2-4) % Baso % (Auto) 0.8 (0-2) % Neut # (Auto) 4100 (5665-6765) /uL Lymph # (Auto) 800 L (6056-4754) /uL [place] # (Auto) 400 (0-900) /uL Eos # (Auto) 200 (0-450) /uL Baso # (Auto) 0 (0-100) /uL PT 11.6 (10.1-12.7) SECONDS INR 1.0 (0.9-1.3) Sodium 136 L (137-145) mmol/L Potassium 3.2 L (3.4-5.1) mmol/L Chloride 95 L (98-107) mmol/L Carbon Dioxide 34 H (22-32) mmol/L BUN 21 H (7-17) mg/dL Creatinine 0.88 (0.52-1.04) mg/dL Estimated GFR > 60 (>60) mL/min BUN/Creatinine Ratio 23.9 H (6-22) Glucose 128 H (80-110) mg/dL Hemoglobin A1c (4.0-6.0) % Calcium 9.7 (8.4-10.2) mg/dL Magnesium (1.6-2.3) mg/dL Total Bilirubin 0.6 (0.2-1.3) mg/dL AST 88 H (14-36) IU/L ALT 126 H (<35) IU/L Alkaline Phosphatase 113 (38-126) U/L Troponin I 0.040 H (0.01-0.034) ng/mL Total Protein 6.9 (6.3-8.2) g/dL Albumin 3.9 (3.5-5.0) g/dL Globulin 3.0 (1.7-4.1) g/dL Albumin/Globulin Ratio 1.3 (1.0-2.8) Triglycerides (35-150) mg/dL Cholesterol (140-199) mg/dL LDL Cholesterol, Calc (<100) mg/dL HDL Cholesterol (40-60) mg/dL TSH (0.47-4.68) uIU/mL 06/09/22 06/09/22 06/09/22 Range/Units 14:30 14:32 14:32 WBC (4.5-11.0) X10^3/uL RBC (4.0-5.2) X10^6/uL Hgb (12.0-16.0) g/dL Hct (36-46) % MCV (80-100) fL MCH (26-34) PG MCHC (30-36) % RDW (11.6-14.8) % Plt Count (150-400) X10^3/uL Neut % (Auto) (50-75) % Lymph % (Auto) (25-40) % [place] % (Auto) (3-14) % Eos % (Auto) (2-4) % Baso % (Auto) (0-2) % Neut # (Auto) (8900-0131) /uL Lymph # (Auto) (6011-1615) /uL [place] # (Auto) (0-900) /uL Eos # (Auto) (0-450) /uL Baso # (Auto) (0-100) /uL PT (10.1-12.7) SECONDS INR (0.9-1.3) Sodium (137-145) mmol/L Potassium (3.4-5.1) mmol/L Chloride (98-107) mmol/L Carbon Dioxide (22-32) mmol/L BUN (7-17) mg/dL Creatinine (0.52-1.04) mg/dL Estimated GFR (>60) mL/min BUN/Creatinine Ratio (6-22) Glucose (80-110) mg/dL Hemoglobin A1c 5.2 (4.0-6.0) % Calcium (8.4-10.2) mg/dL Magnesium 1.8 (1.6-2.3) mg/dL Total Bilirubin (0.2-1.3) mg/dL AST (14-36) IU/L ALT (<35) IU/L Alkaline Phosphatase (38-126) U/L Troponin I (0.01-0.034) ng/mL Total Protein (6.3-8.2) g/dL Albumin (3.5-5.0) g/dL Globulin (1.7-4.1) g/dL Albumin/Globulin Ratio (1.0-2.8) Triglycerides (35-150) mg/dL Cholesterol (140-199) mg/dL LDL Cholesterol, Calc (<100) mg/dL HDL Cholesterol (40-60) mg/dL TSH 2.08 (0.47-4.68) uIU/mL 06/09/22 06/09/22 Range/Units 14:32 16:55 WBC (4.5-11.0) X10^3/uL RBC (4.0-5.2) X10^6/uL Hgb (12.0-16.0) g/dL Hct (36-46) % MCV (80-100) fL MCH (26-34) PG MCHC (30-36) % RDW (11.6-14.8) % Plt Count (150-400) X10^3/uL Neut % (Auto) (50-75) % Lymph % (Auto) (25-40) % [place] % (Auto) (3-14) % Eos % (Auto) (2-4) % Baso % (Auto) (0-2) % Neut # (Auto) (7667-9541) /uL Lymph # (Auto) (9140-4169) /uL [place] # (Auto) (0-900) /uL Eos # (Auto) (0-450) /uL Baso # (Auto) (0-100) /uL PT (10.1-12.7) SECONDS INR (0.9-1.3) Sodium (137-145) mmol/L Potassium (3.4-5.1) mmol/L Chloride (98-107) mmol/L Carbon Dioxide (22-32) mmol/L BUN (7-17) mg/dL Creatinine (0.52-1.04) mg/dL Estimated GFR (>60) mL/min BUN/Creatinine Ratio (6-22) Glucose (80-110) mg/dL Hemoglobin A1c (4.0-6.0) % Calcium (8.4-10.2) mg/dL Magnesium (1.6-2.3) mg/dL Total Bilirubin (0.2-1.3) mg/dL AST (14-36) IU/L ALT (<35) IU/L Alkaline Phosphatase (38-126) U/L Troponin I 0.049 H (0.01-0.034) ng/mL Total Protein (6.3-8.2) g/dL Albumin (3.5-5.0) g/dL Globulin (1.7-4.1) g/dL Albumin/Globulin Ratio (1.0-2.8) Triglycerides 117 (35-150) mg/dL Cholesterol 138 L (140-199) mg/dL LDL Cholesterol, Calc 53 (<100) mg/dL HDL Cholesterol 62 H (40-60) mg/dL TSH (0.47-4.68) uIU/mL MDM Narrative Medical decision making narrative: 86-year-old female presenting with right upper extremity and an episode of chest pain, both resolved on presentation to the emergency department. On presentation vital signs notable or retention otherwise reassuring. Physical exam notable for alert and interactive 86-year-old female is in no acute distress. Initial concern for CVA, TIA, cervical radiculopathy, infectious etiology, vascular pathology including aortic dissection, medication effect, ACS. EKG without evidence of acute ischemia, patient's initial troponin is borderline mildly elevated, repeat evaluation, patient has no active symptoms, on review of the patient's prior medical records, patient does have multiple prior mildly elevated cardiac enzymes, patient is not currently a candidate for cat heterization per prior medical records, plan for repeat cardiac enzyme and deferring further workup to the inpatient service. Given concern for vascular pathology versus CVA/TIA and presentation, CTA head, neck, chest, abdomen, pelvis obtained further evaluate. CT imaging notable for right internal carotid artery occlusion that does not explain the patient's right upper extremity numbness. Discussed findings with stroke Neurology at [facility], Dr. Mead, patient is not for neuro intervention, recommending admission to complete CVA workup including MR imaging of the brain and echo. Recommending continued aspirin, loading with Plavix and completing 21 day course Plavix. Loading dose of Plavix was ordered in the emergency department. Discussed findings with patient and family members at bedside, agreeable with plan for admission facilitate further workup. Patient is subsequently admitted in stable condition. Discharge Plan Departure Patient Disposition: Admitted As Inpatient Clinical Impression: Muscle weakness of left arm Admit Date/Time: 06/09/22 17:34 Admit Provider: Pablito Ramirez
[2022-06-09 22:01] LABS: COVID19 -Nasal RAPID POSITIVE (Negative)
--- NOTE | 2022-06-09 22:20 | PC.NURSE ---
Pt. admitted to room 213 oriented to her room & intructed not to get OOB without any assistance, call light with in reached. Denies any fall at home, no C/O pain or any discomfort. Will continue POC & monitor.
[2022-06-10 00:15] VITALS: BP 144/77; PULSE 77; RESP 18; TEMP 36.5; O2SAT 96
[2022-06-10] MEDS: ACETAMINOPHEN 325 MG TABLET 650 MG PO (00:29)
[2022-06-10] MEDS: TRAZODONE 50 MG TABLET 12.5 MG PO (01:38)
--- NOTE | 2022-06-10 02:41 | PC.NURSE ---
C/O CP earlier stat EKG done. Pt. was not able to sleep & restless. Medicated with 12.5 mg. of Trazadone & Tyelnol, reassessed her pain. She reported my chest pain is gone & I was able to sleep. Will cont. POC & monitor.
[2022-06-10 03:05] VITALS: BP 114/71; PULSE 85; RESP 18; TEMP 36.3; O2SAT 94
[2022-06-10 06:00] VITALS: BP 158/84; PULSE 75; RESP 18; TEMP 36.9; O2SAT 96
[2022-06-10 06:26] LABS: Add Manual Diff / Slide Review NO; Basophils Absolute Auto 0 /uL (0-100); Basophils Percent Auto 0.6 % (0-2); Eosinophils Absolute Auto 300 /uL (0-450); Eosinophils Percent Auto 5.2 % (2-4); Hematocrit 35.9 % (36-46); Hemoglobin 12.2 g/dL (12.0-16.0); Lymphocytes Absolute Auto 800 /uL (1100-4500); Lymphocytes Percent Auto 14.9 % (25-40); Mean Corpuscular Hemoglobin 32.1 PG (26-34); Mean Corpuscular Volume 94.6 fL (80-100); Monocytes Absolute Auto 400 /uL (0-900); Monocytes Percent Auto 6.6 % (3-14); Neutrophils Absolute Auto 4100 /uL (1500-7000); Neutrophils Percent Auto 72.7 % (50-75); Platelet Count 146 X10^3/uL (150-400); Red Blood Cell Count 3.79 X10^6/uL (4.0-5.2); Red Cell Distribution Width 14.2 % (11.6-14.8); White Blood Cell Count 5.6 X10^3/uL (4.5-11.0)
[2022-06-10 06:32] LABS: BUN Creatinine Ratio 21.5 (6-22); Blood Urea Nitrogen 17 mg/dL (7-17); Calcium 9.1 mg/dL (8.4-10.2); Carbon Dioxide 30 mmol/L (22-32); Chloride 97 mmol/L (98-107); Estimated Glomerular Filt Rate > 60 mL/min (>60); Glucose 93 mg/dL (80-110); HEMOLYSIS < 15 (0-50); Potassium 3.7 mmol/L (3.4-5.1); Sodium 133 mmol/L (137-145)
[2022-06-10 06:38] LABS: Troponin I 0.037 ng/mL (0.01-0.034)
--- NOTE | 2022-06-10 06:48 | PC.NURSE ---
Denies any pain to her rt. wrist & hand. Rt. hand slightly colder than her lt. hand, but able to wiggle her rt. fingers & hold on to her walker. Reported feels much better after medicated with Trazodone. Will cont. POC & monitor.
[2022-06-10 08:00] VITALS: BP 174/100; PULSE 88; RESP 17; TEMP 36.3; O2SAT 97
[2022-06-10] MEDS: SODIUM CHLORIDE 0.9% FLUSH 10 ML IV (09:25)
[2022-06-10] MEDS: APIXABAN 5 MG TABLET PO (09:25)
[2022-06-10] MEDS: METOPROLOL IR 50 MG TABLET 100 MG PO (09:25)
[2022-06-10] MEDS: ASPIRIN EC 81 MG TABLET PO (09:25)
[2022-06-10 09:51] VITALS: BP 142/76; PULSE 67
--- NOTE | 2022-06-10 10:42 | CM.DANOTE ---
Addendum entered by MICHEAL Abraham 06/10/22 14:42: ADD: SW met with PT/OT, they are recommending safe return to [facility] and ongoing outpt PT with [facility] and use of walker, which pt states she has available for use and will use for ambulation and current minor deficiet with ambulation and eye sight. SW faxed d/c packet and PT/OT notes to [facility] and left vm with Jo-Ann regarding d/c back this afternoon. BF Original Note: Patient is an 86 yo female who was admitted on 06/09/22 for Right Arm Numbness. Pt has MCR and BX FED for insurance and her PCP is Dr. Rashawn Banuelos. EMR was reviewed. Per MD, pt with hx of AFIB and NSTEMI in Mar 2022 this year and admitted for CVA r/o. Pt also tested COVID+ but asymptomatic. MRI/Echo pending. PT/OT ordered and pending. SW called pt via room phone due to COVID precautions and explained role and pt confirms she lives at [facility] and just moved to Assisted Living since her arm started going numb. Pt receives just level one assist and mostly independent with ADLs. Pt states she also started with [facility] outpt PT that is housed inside [facility] and pt feels this has been very helpful. Pt denies any hx of HH or SNF and states she has two adult Dtrs that are her DPOAs, Martita lives in [place] but has a [place] trip planned for next month and therefore her other Dtr who lives in [place] will come stay in [place] to visit with pt and help if anything is needed. Pt mostly relies on her Dtr for transport and typically does not use DME for ambulation. Pt aware that she may be stable for discharge today pending PT/OT and confirms her Dtr Martita can transport, pt does not anticipate any needs and would like to continue with [facility] outpt PT. Plan: RANDELL faxed initial clinicals to Jo-Ann at [facility] and awaiting PT/OT eval to fax to [facility] and confirm pt at baseline for return to [facility] via Dtr POV. MICHEAL Abraham Discharge Planning/Care Management CM Discharge Assessment Start: 06/10/22 10:39 Freq: Status: Active Protocol: Document 06/10/22 10:39 BF (Rec: 06/10/22 10:42 BF [id number]) Discharge Planning Assessment Assigned Rater Associate MICHEAL Echeverria DPOA/Assigned Designee Name Dtr Martita Contact Information [phone] Advance Directives? No Advance Directives on File No History Provided By Patient,Medical Record Has Patient been admitted in last 30 No days? Prior Living Arrangements Assisted Living Household Members none Type of transporation used prior to Relies on Others admit Facility Name Admitted From: [facility] Willing to Return to Facility? Yes Independent with ADL's Yes: mostly Is patient alert and oriented? Yes Needs Assistance With Managing Medications,Home Chores / Shopping Caregiver for Another No Community Services used prior to Physical Therapy admission: Comment uses [facility] outpt PT at [facility] DME Already Rented / Owned FWW / Walker Patient/Family Preference OP PT Therapy Barriers to Discharge No Discharge Plan Assisted Living Facility Transportation Arrangement local Dtr can transport Referrals Initiated None needed Additional Comment Pending PT/OT eval Whiteboard Updated in Patient Room with Yes name and ext. # of Rater Associate Review Status In Process Please Provide Date Initial DC 06/10/22 Assessment Was Performed Next Review Type Continued Stay Review
--- NOTE | 2022-06-10 11:11 | PM.DS.1 ---
History of Present Illness History of Present Illness Date Patient Seen: 06/10/22 Chief complaint: right arm numbness Narrative: Mary Grace Zhou is an 86yo F with PMH of permanent A-fib not on anticoag, NSTEMI, chronic back pain with LLE radiculopathy, HTN, left total hip replacement, and OA who presents with several hours of right UE numbness. Patient states earlier today she noticed worsening numbness and tingling from her shoulder to her hand. She had similar symptoms about a month ago but it went away. She denies any trauma or overuse of the right arm. Currently the numbness has improved and is only from the elbow down to the hand. She denies any weakness, facial droop or dysarthria. She is not on blood thinners for her A-fib due to a previous hematoma in Mar 2022. She only takes a baby aspirin daily. She notes some left sided chest pain earlier today as well, which went away with nitro. She had an NSTEMI in Mar 2022 and was on a heparin drip and not deemed to be a cath candidate so was treated medically. She was told to take nitro when she gets angina. She currently feels well and denies any other symptoms including SOB, headache, dizziness, visual changes, abd pain or diarrhea. 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 neurology did not recommend vascular intervention but to undergo stroke workup and start DAPT for 21 days of plavix and continuing aspirin. 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 No vascular intervention warranted. -MRI brain returned showed acute infarcts of right parietal and left occipital lobes -echo showed no intracardiac clot or shunt -LDL 53 and A1c 5.2% -called stroke neurology back given MRI findings, and it was felt to be strokes were likely cardioembolic and from her A-fib, therefore she was started on eliquis with aspirin and plavix was stopped -continue lipitor 80mg nightly -sent home on eliquis 2.5mg BID due to age and weight # permanent A-fib -EKG shows A-fib, rate controlled -continue home metoprolol to prevent RVR -started low dose eliquis as above # HTN -holding home nifedipine, candesartan and HCTZ for 24-48 hours -resumed on discharge # elevated troponin -patient notes left-sided chest pain earlier in day, but none currently -trop 0.040>0.049>0.037, likely demand ischemia -patient has known CAD and not cath candidate -continue ASA Hospital Course: Admitted for several hours of acute right arm numbness. CTA head showed fully occluded right ICA extending intracranially to MCA. stroke neurology initially recommended DAPT and no vascular intervention. MRI brain returned showing bilateral strokes as above. stroke neurology was reconsulted due to MRI findings and they recommended stopping plavix, continuing aspirin and starting eliquis for A-fib given likely cardioembolic source of strokes. She was started on 2.5mg BID eliquis along with her aspirin. Lipitor was continued. Her right arm numbness improved during admission. Time Spent with Patient Time spent: Greater than 30 minutes Exam Vital Signs (past 8 hours): - 06/10/22 06:00 06/10/22 08:00 06/10/22 09:51 Temperature 98.5 F 97.3 F L Pulse Rate 75 88 67 Respiratory Rate 18 17 Blood Pressure 158/84 H 174/100 H 142/76 H Pulse Oximetry 96 97 Oxygen Flow Rate 0 Oxygen Delivery Method Room Air Oxygen Flow Rate 0 Narrative Exam Narrative: GEN: no acute distress, pleasant elderly female HEENT: moist mucous membranes, PERRL NECK: trachea midline, no JVD CV: irregularly irregular, no murmurs PULM: clear bilaterally ABD: soft, nontender, nondistended, no organomegaly EXT: warm and well perfused with no edema NEURO: awake, alert, oriented, no focal deficits, no facial droop, numbness of right hand extending to right elbow Objective Labs 06/10/22 06:07 06/10/22 06:07 Labs: Laboratory Results - last 24 hr 06/09/22 06/09/22 06/09/22 14:30 14:30 14:30 WBC 5.6 RBC 4.13 Hgb 13.2 Hct 39.3 MCV 95.2 MCH 32.1 MCHC 33.7 RDW 14.3 Plt Count 163 Neut % (Auto) 73.0 Lymph % (Auto) 14.6 L [place] % (Auto) 7.9 Eos % (Auto) 3.7 Baso % (Auto) 0.8 Neut # (Auto) 4100 Lymph # (Auto) 800 L [place] # (Auto) 400 Eos # (Auto) 200 Baso # (Auto) 0 PT 11.6 INR 1.0 Sodium 136 L Potassium 3.2 L Chloride 95 L Carbon Dioxide 34 H BUN 21 H Creatinine 0.88 Estimated GFR > 60 BUN/Creatinine Ratio 23.9 H Glucose 128 H Hemoglobin A1c Calcium 9.7 Magnesium Total Bilirubin 0.6 AST 88 H ALT 126 H Alkaline Phosphatase 113 Troponin I 0.040 H Total Protein 6.9 Albumin 3.9 Globulin 3.0 Albumin/Globulin Ratio 1.3 Triglycerides Cholesterol LDL Cholesterol, Calc HDL Cholesterol TSH SARS-CoV-2 (PCR) 06/09/22 06/09/22 06/09/22 14:30 14:32 14:32 WBC RBC Hgb Hct MCV MCH MCHC RDW Plt Count Neut % (Auto) Lymph % (Auto) [place] % (Auto) Eos % (Auto) Baso % (Auto) Neut # (Auto) Lymph # (Auto) [place] # (Auto) Eos # (Auto) Baso # (Auto) PT INR Sodium Potassium Chloride Carbon Dioxide BUN Creatinine Estimated GFR BUN/Creatinine Ratio Glucose Hemoglobin A1c 5.2 Calcium Magnesium 1.8 Total Bilirubin AST ALT Alkaline Phosphatase Troponin I Total Protein Albumin Globulin Albumin/Globulin Ratio Triglycerides Cholesterol LDL Cholesterol, Calc HDL Cholesterol TSH 2.08 SARS-CoV-2 (PCR) 06/09/22 06/09/22 06/09/22 14:32 16:55 21:30 WBC RBC Hgb Hct MCV MCH MCHC RDW Plt Count Neut % (Auto) Lymph % (Auto) [place] % (Auto) Eos % (Auto) Baso % (Auto) Neut # (Auto) Lymph # (Auto) [place] # (Auto) Eos # (Auto) Baso # (Auto) PT INR Sodium Potassium Chloride Carbon Dioxide BUN Creatinine Estimated GFR BUN/Creatinine Ratio Glucose Hemoglobin A1c Calcium Magnesium Total Bilirubin AST ALT Alkaline Phosphatase Troponin I 0.049 H Total Protein Albumin Globulin Albumin/Globulin Ratio Triglycerides 117 Cholesterol 138 L LDL Cholesterol, Calc 53 HDL Cholesterol 62 H TSH SARS-CoV-2 (PCR) Positive H 06/10/22 06/10/22 06/10/22 06:07 06:07 06:07 WBC 5.6 RBC 3.79 L Hgb 12.2 Hct 35.9 L MCV 94.6 MCH 32.1 MCHC 34.0 RDW 14.2 Plt Count 146 L Neut % (Auto) 72.7 Lymph % (Auto) 14.9 L [place] % (Auto) 6.6 Eos % (Auto) 5.2 H Baso % (Auto) 0.6 Neut # (Auto) 4100 Lymph # (Auto) 800 L [place] # (Auto) 400 Eos # (Auto) 300 Baso # (Auto) 0 PT INR Sodium 133 L Potassium 3.7 Chloride 97 L Carbon Dioxide 30 BUN 17 Creatinine 0.79 Estimated GFR > 60 BUN/Creatinine Ratio 21.5 Glucose 93 Hemoglobin A1c Calcium 9.1 Magnesium Total Bilirubin AST ALT Alkaline Phosphatase Troponin I 0.037 H Total Protein Albumin Globulin Albumin/Globulin Ratio Triglycerides Cholesterol LDL Cholesterol, Calc HDL Cholesterol TSH SARS-CoV-2 (PCR) [facility] Medical History Acute pain of right knee Anemia (2007) Anxiety as acute reaction to exceptional stress Atrial fibrillation (2007) BCC (basal cell carcinoma of skin) (2003) Harrison's palsy (2007) Bilateral thumb pain Body posture problem Cataract (2001) Cervical spine disease Change in stool Chicken pox (~194) Chronic 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 Chronic thoracic back pain Closed T10 fracture Colon polyps (1997) Constipation by outlet dysfunction Coronary artery disease due to calcified coronary lesion Elevated fasting blood sugar Fecal incontinence (1997) Feeling of incomplete bladder emptying GERD (gastroesophageal reflux disease) (1989) Hearing loss (2012) Hemorrhoids (1989) Herpes (2009) Hypertension (~1979) Kidney disease (2007) Lower extremity edema Lumbar region somatic dysfunction Lumbar spine pain (2003) Measles (1942) Mumps (1946) Nocturia Obstruction of right ureteropelvic junction (UPJ) Osteoarthritis (~2000) Physical deconditioning Plantar warts (~1970) Psoriasis (2012) Rubella (1941) Spondylolisthesis at L4-L5 level Spondylolisthesis at L5-S1 level Tinnitus (2004) Urinary hesitancy Urinary incontinence (2010) Villous adenoma of colon Surgical History Anesthesia History of basal cell carcinoma excision (~2003) History of cataract removal with insertion of prosthetic lens (2010) History of hip replacement (03/2008) History of resection of rectum (1997) Status post blepharoplasty of both eyes (2013) Status post dilation and curettage (1981) Status post tonsillectomy and adenoidectomy (1941) Family History Brother Age: 68 Crohns disease Child Age: 62 Mental health problem Hepatitis C Child Age: 59 Graves disease Grandmother Heart disease Stroke NC (myocardial infarction) Mother Heart disease Hypertension Osteoporosis Cancer Congestive heart failure Grandfather Heart disease NC (myocardial infarction) Grandmother Heart disease Sister Age: 82 HINDS (nonalcoholic steatohepatitis) Liver cancer Sister Age: 69 Obesity Carotid artery disease Stroke Father No problems noted. Grandfather No problems noted. Sister Lung cancer Sister Respiratory arrest Social History household members: none Smoking Status: Former smoker alcohol intake: current Discharge Plan Discharge Plan Patient Disposition: Home Provider Discharge Comment: You were admitted for right arm numbness and found to have 2 new strokes. You will now be on eliquis for your A-fib as this was likely the cause. You can take it with aspirin daily. I've changed your lipitor to take nightly instead of every other day. And I've stopped your aleve, as you cannot take it with the eliquis. Your heart echo looked great. Discharge orders & Medications Prescriptions: New apixaban 2.5 mg tablet 2.5 mg PO BID Qty: 30 0RF Continued acyclovir 400 mg tablet See Rx Instructions .ROUTE .COMPLEX Qty: 90 3RF Dose Instruction: take 1 tablet by mouth once daily for HERPES PROPHYLAXIS Rx Instructions: take 1 tablet by mouth once daily for HERPES PROPHYLAXIS hydrochlorothiazide 12.5 mg capsule See Rx Instructions .ROUTE .COMPLEX Qty: 180 3RF Dose Instruction: take 2 tablets by mouth once daily Rx Instructions: take 2 tablets by mouth once daily candesartan 16 mg tablet See Rx Instructions .ROUTE .COMPLEX Qty: 90 3RF Dose Instruction: take 1 tablet by mouth once daily Rx Instructions: take 1 tablet by mouth once daily (DME) [facility] See Dose Instructions .ROUTE .MEDSUPPLY Qty: 1 0RF Dose Instruction: Disabled Parking Permit Rx Instructions: Disabled Parking Permit trazodone 50 mg tablet 12.5 mg PO BEDTIME PRN (Reason: anxiety) Qty: 45 5RF nifedipine 60 mg tablet extended release 24hr 60 mg PO DAILY Qty: 90 3RF Co Q-10 300 mg capsule 300 mg PO DAILY docusate sodium [Colace] 100 mg capsule 100 mg PO BID PRN (Reason: Rectal Discomfort) nitroglycerin [Nitrostat] 0.4 mg tablet, sublingual 0.4 mg sublingual Q5-15M PRN (Reason: chest pain) Qty: 10 1RF Rx Instructions: do not exceed 3 doses per episode olopatadine 0.1 % drops 1 drp EYE-BOTH BID Patient Comments: instill 1 drop into both eyes twice a day aspirin [Adult Low Dose Aspirin] 81 mg tablet,delayed release (DR/EC) 81 mg PO DAILY Centrum Silver 0.4-300-250 mg-mcg-mcg tablet 1 tab PO DAILY omega 4-pqm-ypp-fish oil-krill 1 cap PO DAILY Changed atorvastatin 80 mg tablet 80 mg PO BEDTIME Qty: 45 3RF Discontinued naproxen sodium [Aleve] 220 mg tablet 220 mg PO BID No Action metoprolol tartrate 100 mg tablet See Rx Instructions .ROUTE .COMPLEX Qty: 180 0RF Dose Instruction: take 1 tablet by mouth twice a day Rx Instructions: take 1 tablet by mouth twice a day Follow up/Referrals: Rashawn Banuelos DO [Primary Care Provider] - 06/13/22 11:00 am (has telehealth appt already scheduled with PCP) Visit Report/Discharge Packet Instructions: The Mediterranean Diet and Good Health, DI for Stroke-Ischemic, DI for Atrial Fibrillation Stand Alone Forms: Patient Portal/API, Stroke Signs & Symptoms Discharge Data Primary Care Provider: Rashawn Banuelos Quality VTE Deep Vein Thrombosis/Pulmonary Embolism Present on Admission: No
--- NOTE | 2022-06-10 11:45 | OT.IP.EVAL ---
Current Diagnoses Occlusion and stenosis of right carotid artery (06/09/22) Past Medical History (Last Reviewed 06/09/22 @ 21:51 by Pablito Mackenzie MD) Acute pain of right knee Anemia (2007) Anxiety as acute reaction to exceptional stress Atrial fibrillation (2007) BCC (basal cell carcinoma of skin) (2003) Harrison's palsy (2007) Bilateral thumb pain Body posture problem Cataract (2001) Cervical spine disease Change in stool Chicken pox (~194) Chronic 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 Chronic thoracic back pain Closed T10 fracture Colon polyps (1997) Constipation by outlet dysfunction Coronary artery disease due to calcified coronary lesion Elevated fasting blood sugar Fecal incontinence (1997) Feeling of incomplete bladder emptying GERD (gastroesophageal reflux disease) (1989) Hearing loss (2012) Hemorrhoids (1989) Herpes (2009) Hypertension (~1979) Kidney disease (2007) Lower extremity edema Lumbar region somatic dysfunction Lumbar spine pain (2003) Measles (1942) Mumps (1946) Nocturia Obstruction of right ureteropelvic junction (UPJ) Osteoarthritis (~1999) Physical deconditioning Plantar warts (~1970) Psoriasis (2011) Rubella (194) Spondylolisthesis at L4-L5 level Spondylolisthesis at L5-S1 level Tinnitus (2004) Urinary hesitancy Urinary incontinence (2010) Villous adenoma of colon Surgical History (Last Reviewed 06/09/22 @ 21:51 by Pablito Mackenzie MD) Anesthesia History of basal cell carcinoma excision (~2003) History of cataract removal with insertion of prosthetic lens (2010) History of hip replacement (03/2008) History of resection of rectum (1997) Status post blepharoplasty of both eyes (2013) Status post dilation and curettage (1981) Status post tonsillectomy and adenoidectomy (1941) Occupational Therapy Inpatient Evaluation/Re-Eval M1 PT/OT-IP Prior Functional Status Start: 06/10/22 12:45 Freq: NEEDED Status: Active Protocol: Document 06/10/22 11:10 [facility] (Rec: 06/10/22 14:07 [facility] [id number]) Medical Review Prior Functional Status Communication Independent Mobility and Gait Pt states use of 4ww for long distances and in the rom at times but mostly without the FWW. Activities of Daily Living and IADL's Pt states just has SBA for showering needs. Social History Household Members none Living Arrangements Assisted Living Home Environment High Toilet,Walk in Shower Home Equipment Four Wheel Walker,Straight Cane,Hand Held Shower,Grab Bars Near Toilet M2 OT-IP Current Condition Start: 06/10/22 12:45 Freq: Status: Active Protocol: Document 06/10/22 11:10 [facility] (Rec: 06/10/22 14:07 [facility] [id number]) Occupational Therapy Current Condition Current Condition Evaluation Date 06/10/22 Treatment Diagnosis Acute infarctions seen involving both posterior cerebral hemispheres Diagnosis Onset Date 06/09/22 M3 OT- IP Subjective and Pain Start: 06/10/22 12:45 Freq: Status: Active Protocol: Document 06/10/22 11:10 [facility] (Rec: 06/10/22 14:07 [facility] [id number]) OT- Subjective Occupational Therapy Visit Type Type Initial Evaluation Visit Start Time 11:10 Visit Stop Time 11:45 Total Visit Minutes 35 Occupational Therapy Visit Comments Patient Comments Pt agreed to get up. Patient/Caregiver Goals To go home and resume her outpt PT at [facility] OT Pain Assessment Pain When Pain Assessed At Rest Pain Present Pain Present Pain Reported Location Right Hand Intensity 3 Scale Used Numeric (0 - 10) M4 OT- IP ADL's Start: 06/10/22 12:45 Freq: Status: Active Protocol: Document 06/10/22 11:10 [facility] (Rec: 06/10/22 14:07 [facility] [id number]) OT [id number] Comments OT Self-Feeding Comments NOt at meal time OT ADL-Grooming General Evaluation Grooming Ability Standby Assistance Areas Needing Assistance Retrieving/Set-up of Grooming Items Comments OT Grooming Comments Pt able to stand with FWW at the sink for grooming needs. OT ADL-Oral Care General Eval Oral Care Ability Independent OT ADL-Dressing General Eval Lower Body Dressing Ability Standby Assistance Comments OT Dressing Comments Pt able to cross her legs over to ernie/doff her socks. OT ADL-Toileting General Evaluation Toileting Ability Standby Assistance Comments OT Toileting Comments Pt able to use the toilet on her own. OT ADL-Bathing Comments OT Bathing Comments Pt has SBA assist at [place] for showering needs. M5 OT- IP IADL's Start: 06/10/22 12:45 Freq: Status: Active Protocol: Document 06/10/22 11:10 [facility] (Rec: 06/10/22 14:07 [facility] [id number]) OT-Instrumental Activities of Daily Living Deficits IADL Deficits Identified Deficits Home Safety Awareness Awareness of Need for Assistance at Home Decreased Awareness Ability to Problem Solve Emergency Able to Problem Solve Situations Home Safety Comments At this time due to decreased dynamic balance, pt will benefit from assist with IADl needs. Medication Management Medication Management Comments Pt will benefit from at least supervision. Meal Preparation Meal Preparation Comments Pt go out to the dining room for meals. Patent Drafter Patent Drafter Comments Pt will benefit from assist. M6 OT- IP Functional Cognition Start: 06/10/22 12:45 Freq: Status: Active Protocol: Document 06/10/22 11:10 [facility] (Rec: 06/10/22 14:07 [facility] [id number]) Cognitive Factors Limiting Selfcare Function Cognitive Ability Level of Alertness Alert Patient Orientation Name,Place,Situation Attention Span Ability Capable of Focused Attention, Capable of Sustained Attention Ability to Follow Commands Able to Follow Multi-Step Commands Memory Description No Deficits Noted Safety Awareness Underestimates Need for Assistance Cognitive Comments Cognitive Assessment Comments Pt able to follow multiple step commands and scored 98 seconds on [place] Making Part B which is 80% for her age group and implies mild deficits for visual attention, speed of processing, task switching, mental flexibility, and executive functioning. Pt well aware that she is a little unsteady on her feet and will be using her 4ww in the apartment for now. OT- Vision and Hearing OT- Hearing Assessment OT- Hearing Assessment Hearing Impaired OT- Vision Assessment Visual Acuity Glasses All The Time Vision Assessment Comments Pt states having to get new hearing aids soon. Pt states having visual hallucinations on the right . Pt at times neglectful on the right side of her vision. M7 OT- IP Mobility and Balance Start: 06/10/22 12:45 Freq: Status: Active Protocol: Document 06/10/22 11:10 [facility] (Rec: 06/10/22 14:07 [facility] [id number]) OT- Bed Mobility Assessment Rolling Level of Assistance Independent Supine to Sit Supine to Sit Assist Independent Sit to Supine Sit to Supine Assist Independent OT-Transfer Assessment Sit to and From Stand Sit to and from Stand Contact Guard Assistance Transfers Transfer Ability Standby Assistance,Minimal Assistance Technique Transfer Destination Bed Transfer Technique Stand Step Pivot Devices Transfer Assistive Devices Gait Belt,Front Wheeled Walker Comments Mobility Comments Pt able to get into and out of the bed on her own but has to use her hands to assist to get her left leg into and out of the bed. Pt states prior does use her hands to assist with her left leg. Pt needing CGA to stand and right leg extending forwards and GABRIEL to help sit back down. 2nd attempt able to stand CGA, close SBA. Pt able to use FWW with close SBA and tends to lean to the right. Trial of taking steps without the fww as pt states in her room does not use the walker at times and unsteady on her feet and needing CGA/GABRIEL for balance and use of surfaces to steady herself. OT- Balance Assessment Sitting Balance and Reactions Static Sitting Balance Ability Normal Dynamic Sitting Balance Ability Normal Standing Balance and Reactions Static Standing Balance Ability Good Dynamic Standing Balance Ability Fair Comments Other Balance Tests/Deviations/Treatment Pt able to marketing business analyst front of : the sink with good balance for oral and grooming needs. Pt unsteady on her feet and tends to lean to the right with use of FWW and without. M8 OT- IP Objective Assessments Start: 06/10/22 12:45 Freq: Status: Active Protocol: Document 06/10/22 11:10 [facility] (Rec: 06/10/22 14:07 [facility] [id number]) OT Gross Range of Motion Upper Extremity Range of Motion Assessment Within Functional Limits OT Strength Upper Extremity Strength Assessment Within Functional Limits OT- Coordination Assessment Upper Extremity Finger to Nose Test Within Functional Limits Finger Tapping Test Within Functional Limits Comments Coordination Comments Increased time finger to thumb for right hand. Right hand 30 seconds which puts pt at 10th percentile for her age and Left hand 24 seconds and at 75th percentile . OT Sensation Assessment Comments Summary Comments Intact for light touch, pt does complain of right hand pain from elbow to distal. Mildly decreased for proprioception of right arm distally. M9 OT- IP Assessment and Plan Start: 06/10/22 12:45 Freq: Status: Active Protocol: Document 06/10/22 11:10 [facility] (Rec: 06/10/22 14:07 [facility] [id number]) OT Summary Assessment and Plan Potential Rehabilitation Potential Excellent Analytic Complexity at Evaluation Moderate Summary OT Impairments Balance,Coordination, Functional Mobility,Dressing, Toileting,Bathing,Toilet Transfers,Shower Transfers Progress Towards Goals Progressing Toward Goals Assessment Summary Pt MOD complexity and here with CVA, COVID+ and recent NSTEMI. Pt main barriers are decreased dynamic balance, right hand coordination, and having visual hallucinations per pt. Pt not wanting home health but will greatly benefit from continuing her outpt PT. Goals Dressing Goal Independent Toileting Goal Independent Bathing Goal Standby Assistance Shower Transfer Goal Standby Assistance Days to Meet Goals 2 Frequency of Treatment Frequency Of Treatment Once a Day Treatment Plan OT Treatment Plan ADL Training,Functional Mobility,Patient/Family Education,Discharge Planning Discharge Recommendations OT Discharge Recommendations Home with Assistance, Outpatient PT Transportation Needs at Discharge Private Vehicle
[2022-06-10 11:58] VITALS: BP 149/89; PULSE 82; RESP 17; TEMP 36.2; O2SAT 96
--- NOTE | 2022-06-10 13:53 | PT.IIE ---
Current Diagnoses Occlusion and stenosis of right carotid artery (06/09/22) Surgical History (Last Reviewed 06/09/22 @ 21:51 by Pablito Mackenzie MD) Anesthesia History of basal cell carcinoma excision (~2003) History of cataract removal with insertion of prosthetic lens (2010) History of hip replacement (03/2008) History of resection of rectum (1997) Status post blepharoplasty of both eyes (2013) Status post dilation and curettage (1981) Status post tonsillectomy and adenoidectomy (1941) Medical History (Last Reviewed 06/09/22 @ 21:51 by Pablito Mackenzie MD) Acute pain of right knee Anemia (2007) Anxiety as acute reaction to exceptional stress Atrial fibrillation (2007) BCC (basal cell carcinoma of skin) (2003) Harrison's palsy (2007) Bilateral thumb pain Body posture problem Cataract (2001) Cervical spine disease Change in stool Chicken pox (~1939) Chronic 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 Chronic thoracic back pain Closed T10 fracture Colon polyps (1997) Constipation by outlet dysfunction Coronary artery disease due to calcified coronary lesion Elevated fasting blood sugar Fecal incontinence (1997) Feeling of incomplete bladder emptying GERD (gastroesophageal reflux disease) (1989) Hearing loss (2012) Hemorrhoids (1989) Herpes (2009) Hypertension (~1979) Kidney disease (2007) Lower extremity edema Lumbar region somatic dysfunction Lumbar spine pain (2003) Measles (1942) Mumps (1946) Nocturia Obstruction of right ureteropelvic junction (UPJ) Osteoarthritis (~2000) Physical deconditioning Plantar warts (~1970) Psoriasis (2011) Rubella (194) Spondylolisthesis at L4-L5 level Spondylolisthesis at L5-S1 level Tinnitus (2004) Urinary hesitancy Urinary incontinence (2010) Villous adenoma of colon Physical Therapy Inpatient Evaluation/Re-Eval M1 PT/OT-IP Prior Functional Status Start: 06/10/22 12:45 Freq: NEEDED Status: Active Protocol: Document 06/10/22 13:53 DLM (Rec: 06/10/22 15:20 DLM [id number]) Medical Review Prior Functional Status Medical History Reviewed Yes Diet/Fluid Consistency Regular Communication Independent Mobility and Gait Pt states use of 4WW for long distances and in the room at times but mostly without the FWW. She has been working with physical therapy on her balance. She uses a grocery cart when avaiable in the store. She will take her cane to the store knowing she can put it into the grocery cart. She has a hx of left LE weakness due. Activities of Daily Living and IADL's Pt states just has SBA for showering needs. Social History Household Members none Living Arrangements Assisted Living Number of Floors (Floors) One Floor Number of Stairs To Enter/Railing? none Home Environment High Toilet,Walk in Shower Home Equipment Four Wheel Walker,Straight Cane,Hand Held Shower,Grab Bars Near Toilet Employment Status Retired M2 PT-IP Current Condition Start: 06/10/22 14:31 Freq: NEEDED Status: Active Protocol: Document 06/10/22 13:53 DLM (Rec: 06/10/22 15:20 DLM [id number]) Physical Therapy Current Condition Current Condition Evaluation Date 06/10/22 Treatment Diagnosis CVA, impaired vision and balance Onset Date 06/09/22 M3 PT-IP Subjective Start: 06/10/22 14:31 Freq: NEEDED Status: Active Protocol: Document 06/10/22 13:53 DLM (Rec: 06/10/22 15:20 DLM [id number]) Subjective Physical Therapy Visit Type Type Initial Evaluation Visit Start Time 13:20 Visit Stop Time 13:53 Total Visit Minutes 33 Notes 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 Patient Goals Discharge back to her apt. Therapy Pain Assessment Pain When Pain Assessed During Mobility Pain Present Pain Present Denied Pain M4 PT-IP Mobility and Gait Start: 06/10/22 14:31 Freq: NEEDED Status: Active Protocol: Document 06/10/22 13:53 DLM (Rec: 06/10/22 15:34 DLM [id number]) PT-Bed Mobility Assessment Rolling Level of Assist Independent Supine to Sit Supine to Sit Independent Sit to Supine Sit to Supine Independent Scooting Scooting to Edge of Bed Independent Scooting Up and Down in Bed Independent PT-Transfer Assessment Sit to and From Stand Sit to and from Stand Independent,Use of Upper Extremities Equipment Transfer Assistive Device Gait Belt,Front Wheeled Walker Transfers Transfer Destination Bed,Chair Transfer Technique Stand Step Pivot Transfer Ability Level of Assist Independent,Use of Upper Extremities Comments Mobility Comments She presents with decreased balance without a device. She is better able to manage her balance with use of the FWW. Without a device she needs min assist. Gait Assessment Gait Gait Assistance Required: Independent Distance (Feet) 60 Assistive Devices Assistive Device Gait Belt,Front Wheeled Walker Gait Deviations General Gait Pattern Narrow Based Gait Factors Limiting Gait Function Factors Limiting Gait Function Decreased Activity Tolerance, Decreased Strength,Poor Balance Comments Gait Comments During gait with the FWW she has a left trandelenburg, scissoring gait with bilateral LE's and decreased awareness of her feet placement. She is able to use the FWW to manage her balance deficits but is does not correct her scissoring pattern. With verbal cues she can improve her gait pattern with the FWW but not normalize her base of support. During gait training without the FWW her base of support improves with less scissoring but she has lateral losses of balance. Pt reports she feels unsteady ambulating without the device. PT-Balance Assessment Sitting Balance and Reactions Static Sitting Balance Ability Good Dynamic Sitting Balance Ability Good Standing Balance and Reactions Static Standing Balance Ability Good Dynamic Standing Balance Ability Fair Device Used FWW is safer than no device Balance Tests Single Limb Standing left unable to hold, right 2-3 sec with sway Romberg unsteady, worse eyes closed than eyes open Tandem Standing unable to hold without support Functional Assessments Functional Tests Tinetti Balance and Gait Assessment M5 PT-IP Objective Assessments Start: 06/10/22 14:31 Freq: NEEDED Status: Active Protocol: Document 06/10/22 13:53 DL (Rec: 06/10/22 15:34 DL [id number]) Orientation Orientation/Cognition Level of Alertness Alert Orientation Name,Age,Birthday,Month,Date, Year,Day of Week,Place, Situation Language Function Ability No Deficits Noted Safety Awareness Understands Safety Issues Memory Description No Deficits Noted Comments she reports seeing things in right visual field that are not there such as pattern on the wall Gross Range of Motion Upper Extremity ROM Assessment Within Functional Limits Lower Extremity ROM Assessment Within Functional Limits Impairments hx left TOMASZ with mild stiffness during flexion Strength Upper Extremity Strength Shoulder see OT eval for details Lower Extremity Strength Assessment Left Impaired Hip flex 4/5, instability in closed chain Knee 4+/5 Ankle 5/5 Coordination Assessment Assessment Coordination Comments LE's are WFL Sensation Assessment Sensation Gross Sensation Left LE Impaired Sensation Description Numbness Comments Sensation Comments she reports she can feel touch left LE but it is less than right side, long history of sciatica left LE that has improved with recent physical therapy Muscle Tone Muscle Tone WNL Yes M6 PT-IP Treatment Start: 06/10/22 14:31 Freq: NEEDED Status: Active Protocol: Document 06/10/22 13:53 DLM (Rec: 06/10/22 15:34 DLM [id number]) Physical Therapy Treatment Education Education Provided Safety Other Treatments Other Treatment Performed discussed eval findings with pt, recommend she sit for her showers to avoid falls and she should use her walker for all gait at this time. M7 PT-IP Assessment and Plan Start: 06/10/22 14:31 Freq: NEEDED Status: Active Protocol: Document 06/10/22 13:53 DLM (Rec: 06/10/22 15:20 DLM [id number]) PT Summary Assessment and Plan Potential Rehabilitation Potential Good Status of Condition at Evaluation Evolving Summary Impairments Strength,Balance,Gait,Activity Tolerance Progress Towards Goals Safe For Discharge Assessment Summary Mary Grace is alert and resting in bed. She is eager to go home. She presents with vision changes and impaired standing balance this visit. She reports right hand is painful when it gets cold and then she warms it back up. She presents with a scissoring gait pattern with decreased awareness of her feet positioning. She is able to manage her balance deficits with the FWW. She appears safe to discharge home today but she will need to use the walker at all times and take extra precautions to manage her fall risks. Pt wants to return to her out-pt PT to work on her balance and gait deficits. Frequency of Treatment Frequency Of Treatment Discharge Treatment Plan Other Recommendations and Next Treatment pt to discharge later today Focus Precautions Other Precautions fall risk, COVID-19 (+) Recommendations To Nursing Amount of Assist Needed Standby Assistance Discharge Recommendations PT Discharge Recommendations Home,Outpatient PT Transportation Needs at Discharge Private Vehicle
--- NOTE | 2022-06-10 16:38 | PC.NURSE ---
Pt discharged back to [facility] at 1630, escorted off floor in wheelchair, accompanied by family member and hospital staff. IV removed, tele d/c'd, discharge teaching provided including follow up appointments, new medications/medication changes, and worsening symptoms. All questions answered and concerns addressed. Patient left the floor with all belongings.
== END 2022-06-10 16:39 | disposition home or self-care (01) | DRG 65 ==
LOC: ED 14:50 → AC 17:35
PROVIDERS: Admitting Provider Student in an Organized Health Care Education/Training Program; Emergency Provider Emergency Medicine; Family Provider Family Medicine; PCP Family Medicine; Referring Provider Emergency Medicine; Visit Provider Student in an Organized Health Care Education/Training Program
DX: I63.231 Cerebral infarction due to unspecified occlusion or stenosis of right carotid arteries (principal); I24.8 Other forms of acute ischemic heart disease; I48.21 Permanent atrial fibrillation; I10 Essential (primary) hypertension; F41.9 Anxiety disorder, unspecified; G83.24 Monoplegia of upper limb affecting left nondominant side; Z20.822 Contact with and (suspected) exposure to COVID-19; Z66 Do not resuscitate; Z87.891 Personal history of nicotine dependence
CPT/HCPCS: 36415; 70496; 70498; 70551; 71275; 74174; 80048; 80053; 80061; 83036; 83735; 84443; 84484; 85025; 85610; 87635; 93005; 93010; 93306; 97162; 97166; 99284; C9803; Q9967

== ENCOUNTER → 2022-08-03 09:40 | Outpatient (CLI) | payer MEDICARE, BC, SELFPAY ==
[2022-06-09 23:37] VITALS: BMI 24.2
[2022-08-03 11:14] LABS: Add Manual Diff / Slide Review NO; Basophils Absolute Auto 0 /uL (0-100); Basophils Percent Auto 0.7 % (0-2); Eosinophils Absolute Auto 200 /uL (0-450); Eosinophils Percent Auto 3.7 % (2-4); Hematocrit 40.1 % (36-46); Hemoglobin 13.4 g/dL (12.0-16.0); Lymphocytes Absolute Auto 1300 /uL (1100-4500); Lymphocytes Percent Auto 23.3 % (25-40); Mean Corpuscular HGB Conc 33.4 % (30-36); Mean Corpuscular Hemoglobin 30.8 PG (26-34); Mean Corpuscular Volume 92.1 fL (80-100); Monocytes Absolute Auto 500 /uL (0-900); Monocytes Percent Auto 9.2 % (3-14); Neutrophils Absolute Auto 3400 /uL (1500-7000); Neutrophils Percent Auto 63.1 % (50-75); Platelet Count 174 X10^3/uL (150-400); Red Blood Cell Count 4.35 X10^6/uL (4.0-5.2); Red Cell Distribution Width 14.1 % (11.6-14.8); White Blood Cell Count 5.5 X10^3/uL (4.5-11.0)
[2022-08-03 11:38] LABS: Alanine Aminotransferase 309 IU/L (<35); Albumin 4.1 g/dL (3.5-5.0); Albumin Globulin Ratio 1.2 (1.0-2.8); Alkaline Phosphatase 563 U/L (38-126); Aspartate Aminotransferase 273 IU/L (14-36); BUN Creatinine Ratio 20.3 (6-22); Bilirubin Total 0.9 mg/dL (0.2-1.3); Blood Urea Nitrogen 16 mg/dL (7-17); Calcium 10.3 mg/dL (8.4-10.2); Carbon Dioxide 28 mmol/L (22-32); Chloride 101 mmol/L (98-107); Cholesterol 190 mg/dL (140-199); Estimated Glomerular Filt Rate > 60 mL/min (>60); Globulin 3.3 g/dL (1.7-4.1); Glucose 106 mg/dL (80-110); HDL Cholesterol 99 mg/dL (40-60); HEMOLYSIS < 15 (0-50); LDL Cholesterol Calculated 78 mg/dL (<100); Potassium 3.6 mmol/L (3.4-5.1); Sodium 137 mmol/L (137-145); Total Protein 7.4 g/dL (6.3-8.2); Triglycerides 66 mg/dL (35-150)
[2022-08-03 12:24] LABS: Vitamin B12 784 pg/mL (239-931)
== END ==
PROVIDERS: Family Provider Family Medicine; PCP Family Medicine; Referring Provider Family Medicine; Visit Provider Family Medicine
DX: E78.2 Mixed hyperlipidemia (principal); F41.9 Anxiety disorder, unspecified; I10 Essential (primary) hypertension; R53.81 Other malaise
CPT/HCPCS: 36415; 80053; 80061; 82607; 85025

== ENCOUNTER → 2022-10-06 09:18 | Outpatient (CLI) | payer MEDICARE, BC, SELFPAY ==
[2022-06-09 23:37] VITALS: BMI 24.2
[2022-10-06 11:32] LABS: Alanine Aminotransferase 106 IU/L (<35); Albumin 4.2 g/dL (3.5-5.0); Albumin Globulin Ratio 1.6 (1.0-2.8); Alkaline Phosphatase 169 U/L (38-126); Aspartate Aminotransferase 58 IU/L (14-36); BUN Creatinine Ratio 19.8 (6-22); Blood Urea Nitrogen 21 mg/dL (7-17); Calcium 10.4 mg/dL (8.4-10.2); Carbon Dioxide 32 mmol/L (22-32); Chloride 100 mmol/L (98-107); Estimated Glomerular Filt Rate 51 mL/min (>60); Globulin 2.6 g/dL (1.7-4.1); Glucose 100 mg/dL (80-110); HEMOLYSIS < 15 (0-50); Sodium 137 mmol/L (137-145); Total Protein 6.8 g/dL (6.3-8.2)
== END ==
PROVIDERS: Family Provider Family Medicine; PCP Family Medicine; Referring Provider Family Medicine; Visit Provider Family Medicine
DX: N13.5 Crossing vessel and stricture of ureter without hydronephrosis (principal); R74.01 Elevation of levels of liver transaminase levels; R35.1 Nocturia; R39.11 Hesitancy of micturition; R33.9 Retention of urine, unspecified; R39.14 Feeling of incomplete bladder emptying
CPT/HCPCS: 36415; 51798; 80053; 81002; 99213

== ENCOUNTER 2022-10-06 12:30 | Outpatient (RCR) | payer MEDICARE, BC, SELFPAY ==
[2022-06-09 23:37] VITALS: BMI 24.2
== END 2022-10-06 14:30 ==
LOC: CAR 12:30
PROVIDERS: Family Provider Family Medicine; PCP Family Medicine; Referring Provider Internal Medicine; Visit Provider Internal Medicine
DX: I25.5 Ischemic cardiomyopathy (principal)
CPT/HCPCS: 93798

== ENCOUNTER → 2022-12-14 10:06 | Outpatient (CLI) | payer MEDICARE, BC, SELFPAY ==
[2022-06-09 23:37] VITALS: BMI 24.2
[2022-12-14 11:56] LABS: Alanine Aminotransferase 71 IU/L (<35); Albumin 4.1 g/dL (3.5-5.0); Albumin Globulin Ratio 1.5 (1.0-2.8); Alkaline Phosphatase 113 U/L (38-126); Aspartate Aminotransferase 55 IU/L (14-36); BUN Creatinine Ratio 18.5 (6-22); Bilirubin Total 0.7 mg/dL (0.2-1.3); Blood Urea Nitrogen 17 mg/dL (7-17); Calcium 10.5 mg/dL (8.4-10.2); Carbon Dioxide 30 mmol/L (22-32); Chloride 100 mmol/L (98-107); Estimated Glomerular Filt Rate > 60 mL/min (>60); Globulin 2.8 g/dL (1.7-4.1); Glucose 124 mg/dL (80-110); HEMOLYSIS < 15 (0-50); Potassium 3.9 mmol/L (3.4-5.1); Sodium 139 mmol/L (137-145); Total Protein 6.9 g/dL (6.3-8.2)
== END ==
PROVIDERS: Family Provider Family Medicine; PCP Family Medicine; Referring Provider Family Medicine; Visit Provider Family Medicine
DX: I10 Essential (primary) hypertension (principal); Z79.899 Other long term (current) drug therapy
CPT/HCPCS: 36415; 80053

== ENCOUNTER → 2023-01-24 10:47 | Outpatient (CLI) | payer MEDICARE, BC, SELFPAY ==
[2022-06-09 23:37] VITALS: BMI 24.2
[2023-01-24 12:25] LABS: Appearance Urine UA CLEAR; Bilirubin Urine UA NEGATIVE (NEGATIVE); Color Urine UA YELLOW; Glucose Urine UA NEGATIVE (Negative); Ketones Urine UA NEGATIVE (NEGATIVE); Leukocyte Esterase Urine UA 1+ (NEGATIVE); Nitrite Urine UA NEGATIVE (Negative); Occult Blood Urine UA NEGATIVE (Negative); Protein Urine UA NEGATIVE (Negative); Urobilinogen Urine UA 0.2 E.U./dL (0.2)
[2023-01-24 12:39] LABS: Bacteria Urine Occasional (0-1); RBC Urine None Seen (0-5/HPF); WBC Urine 1-5/HPF (0-5/HPF)
[2023-01-24 12:40] LABS: Culture Indicated Urine Specimen Cultured; Squamous Epithelial Cell Urine 1-5 /HPF (0-5/HPF)
[2023-01-24 12:48] LABS: Hematocrit 43.3 % (36-46); Hemoglobin 14.7 g/dL (12.0-16.0); Mean Corpuscular HGB Conc 33.9 % (30-36); Mean Corpuscular Hemoglobin 31.3 PG (26-34); Mean Corpuscular Volume 92.4 fL (80-100); Platelet Count 134 X10^3/uL (150-400); Red Blood Cell Count 4.68 X10^6/uL (4.0-5.2); White Blood Cell Count 5.1 X10^3/uL (4.5-11.0)
[2023-01-24 13:01] LABS: Neutrophils Absolute Manual 3774 /uL (3000-5900); RBC Morphology Normal Morphology; Total Cells Counted 100
[2023-01-24 13:23] LABS: Alanine Aminotransferase 57 IU/L (<35); Albumin 4.3 g/dL (3.5-5.0); Albumin Globulin Ratio 1.3 (1.0-2.8); Alkaline Phosphatase 120 U/L (38-126); Aspartate Aminotransferase 54 IU/L (14-36); BUN Creatinine Ratio 21.1 (6-22); Blood Urea Nitrogen 19 mg/dL (7-17); C-Reactive Protein Quant < 0.5 mg/dL (<1.0); Calcium 10.7 mg/dL (8.4-10.2); Carbon Dioxide 30 mmol/L (22-32); Chloride 100 mmol/L (98-107); Estimated Glomerular Filt Rate > 60 mL/min (>60); Globulin 3.2 g/dL (1.7-4.1); Glucose 100 mg/dL (80-110); HEMOLYSIS < 15 (0-50); Potassium 3.9 mmol/L (3.4-5.1); Sodium 138 mmol/L (137-145); Total Protein 7.5 g/dL (6.3-8.2)
[2023-01-25 05:32] LABS: HBsAg Screen Negative (Negative); Hepatitis A Antibody IgM Negative (Negative); Hepatitis B Core Antibody IgM Negative (Negative); Hepatitis C Antibody Non Reactive (Non Reactive)
== END ==
PROVIDERS: Family Provider Family Medicine; PCP Family Medicine; Referring Provider Family Medicine; Visit Provider Family Medicine
DX: R74.01 Elevation of levels of liver transaminase levels (principal); R63.4 Abnormal weight loss; R61 Generalized hyperhidrosis
CPT/HCPCS: 36415; 80053; 80074; 81001; 84443; 85025; 86140; 87045; 87086; 87899

== ENCOUNTER → 2023-02-06 12:23 | Outpatient (CLI) | payer MEDICARE, BC, SELFPAY ==
[2022-06-09 23:37] VITALS: BMI 24.2
--- NOTE | 2023-02-06 12:24 | DI.CT.S_ITS ---
PROCEDURE: CT CHEST ABD PEL W CON INDICATIONS: unexplained night sweats, elevated liver transaminase levels TECHNIQUE: After the administration of intravenous contrast, axial sections acquired from the supraclavicular neck to the pubic symphysis. Coronal and sagittal reformats were performed. For radiation dose reduction, the following was used: automated exposure control, adjustment of mA and/or kV according to patient size. COMPARISON: [facility], CT, IVP (ABD & PEL WWO CONTRAST), 05/05/2017, 15:30. [facility], CT, CT ANGIO CHEST ABDOMEN PELVIS, 06/09/2022, 14:45. FINDINGS: Image quality: Excellent. CHEST: Lower Neck: No enlarged lymph nodes. Thyroid: Small thyroid nodules. For example right thyroid nodule measuring 1.2 cm, (2/10). Axillae: No enlarged lymph nodes. Chest Wall: Unremarkable. Lungs and Airways: No consolidation. Left lower lobe pulmonary nodule measuring 0.4 cm, (2/41). Airways are clear. Pleura: No pneumothorax or pleural effusions. Heart: Heart size is prominent. Three-vessel coronary artery calcifications. No pericardial effusion. Thoracic Vessels: Ascending aorta ectasia measuring 3.7 cm, (4/20). No aortic dissection. No central pulmonary embolism. Mediastinum and Aydee: No enlarged lymph nodes. Esophagus: No wall thickening. No hiatal hernia. ABDOMEN: Liver: No solid mass. Gallbladder: No radiopaque gallstones or wall thickening. Biliary ducts: No biliary dilation. Pancreas: No ductal dilation. Spleen: Size is within normal limits. Adrenal Glands: No adrenal nodules. Kidneys and Ureters: No hydronephrosis. Dilated right renal pelvis is similar to 2018. No solid mass. No complex renal cystic lesion which requires follow up. Stomach and Bowel: Normal colonic caliber, without significant wall thickening. Diverticulitis. Peritoneum: No abnormal intraperitoneal fluid. No free air. Ventral Wall: No hernia. Abdominal Nodes: No retroperitoneal or mesenteric adenopathy by size criteria. Vessels: Aorta and inferior vena cava are normal in size. Circumferential calcified atherosclerotic plaque. PELVIS: Pelvic Organs: Unremarkable. Bladder: Unremarkable. Pelvic Nodes: No enlarged lymph nodes. Miscellaneous: No inguinal hernias are seen. Bones: No suspicious lesion. Scoliosis. Anterolisthesis of L4 on L5 measuring 0.9 cm. Left hip arthroplasty. Beam hardening artifact. IMPRESSION: 1. No mass or adenopathy. No free fluid. 2. Dilated right renal pelvis is similar to 2018. Dictated by: Manish Jones M.D. on 02/06/2023 at 13:59 Approved by: Manish Jones M.D. on 02/06/2023 at 14:32
== END ==
PROVIDERS: Family Provider Family Medicine; PCP Family Medicine; Referring Provider Family Medicine; Visit Provider Family Medicine
DX: N28.89 Other specified disorders of kidney and ureter (principal); R61 Generalized hyperhidrosis; R74.01 Elevation of levels of liver transaminase levels; E04.2 Nontoxic multinodular goiter; R91.1 Solitary pulmonary nodule; I77.810 Thoracic aortic ectasia; I25.10 Atherosclerotic heart disease of native coronary artery without angina pectoris; M41.9 Scoliosis, unspecified; M43.16 Spondylolisthesis, lumbar region
CPT/HCPCS: 71260; 74177; Q9967

== ENCOUNTER → 2023-03-07 09:03 | Outpatient (CLI) | payer MEDICARE, BC, SELFPAY ==
[2022-06-09 23:37] VITALS: BMI 24.2
--- NOTE | 2023-03-07 09:04 | DI.ECHO.S_ITS ---
[facility]---------+ [facility] +---------+ : : [id number] [place] : : : : [id number] : : : : Phone: [phone]---------+ Echocardiogram Report + + :Name: BELLO CHAUHAN Study Date: 03/07/2023 Height: 60 in : :[facility] ReadingLocation: Weight: 113 lb : : Gender: Female BSA: 1.5 m2 : :: 1935 Age: 87 yrs BP: 135/82 mmHg: :Reason For Study: [place]-Recent : : Performed By: Ynes Panda : :Referring: KINA PEARSON : + + Interpretation Summary The patient was in atrial fibrillation with controlled ventricular rate during the exam. The left ventricle is normal in size. The left ventricular ejection fraction is normal. The ejection fraction is estimated to be 65-70%. The interventricular septum is flattened, consistent with a right ventricular pressure/volume condition. The right ventricle is mildly dilated. Visually RV systolic function preserved. Both atria are severely dilated. Both atria have remained unchanged in size since the prior echo exam. There is severe mitral annular calcification. Restriction of mitral leaflets movement. Visually mild to moderate mitral stenosis. There is mild to moderate mitral regurgitation. Compared to the prior echo study, there has been an increase in the severity of mitral regurgitation. There is mild to moderate aortic regurgitation. Compared to the prior echo study, there has been no change in the severity of aortic regurgitation. The tricuspid annulus is dilated. There is non-coaptation of the tricuspid valve leaflets. There is severe tricuspid regurgitation. Compared to the prior echo exam, there has been an increase in TR severity. The right ventricular systolic pressure is estimated to be at least 30 mmHg based on an estimated right atrial pressure of 8 mm Hg. The ascending aorta is mild-moderately enlarged. There is mild luminal irregularity and echogenicity in the abdominal aorta, suggestive of aortic atherosclerotic disease. Procedure: A two-dimensional transthoracic echocardiogram with color flow and Doppler was performed. The study quality was technically excellent. Comparison is made with the echocardiogram of 06-10-22. The heart rate ranged between 61-75 bpm during the study. The patient was in atrial fibrillation with controlled ventricular rate during the exam. Left Ventricle: The left ventricle is normal in size. Proximal septal thickening is noted. There is no echo evidence for significant left ventricular outflow tract obstruction. There is no thrombus. The ejection fraction is estimated to be 65-70%. The left ventricular ejection fraction is normal. The interventricular septum is flattened, consistent with a right ventricular pressure/volume condition. Diastolic function could not be accurately assessed due to atrial fibrillation. Right Ventricle: The right ventricle is mildly dilated. Visually RV systolic function preserved. Atria: The left atrium is severely dilated. Both atria have remained unchanged in size since the prior echo exam. Both atria are severely dilated. The right atrium is severely dilated. The interatrial septum grossly appears intact with no obvious evidence for an atrial septal defect. Mitral Valve: There is mild calcification extending into the subvalvular apparatus. There is severe mitral annular calcification. Restriction of mitral leaflets movement. Visually mild to moderate mitral stenosis. There is mild to moderate mitral regurgitation. Compared to the prior echo study, there has been an increase in the severity of mitral regurgitation. Aortic Valve: The aortic valve is trileaflet. The aortic valve is mildly calcified. There is minimally reduced leaflet mobility. There is no hemodynamically significant valvular aortic stenosis. There is mild to moderate aortic regurgitation. Compared to the prior echo study, there has been no change in the severity of aortic regurgitation. Tricuspid Valve: The tricuspid annulus is dilated. There is non-coaptation of the tricuspid valve leaflets. There is severe tricuspid regurgitation. The right ventricular systolic pressure is estimated to be at least 30 mmHg based on an estimated right atrial pressure of 8 mm Hg. There is systolic flow reversal in the hepatic vein. Compared to the prior echo exam, there has been an increase in TR severity. Pulmonic Valve: The pulmonic valve is not well seen, but is grossly normal. There is moderate pulmonic regurgitation. Great Vessels: The aortic root is normal size. The ascending aorta is mild- moderately enlarged. The aortic arch is normal in size. There is mild luminal irregularity and echogenicity in the abdominal aorta, suggestive of aortic atherosclerotic disease. The IVC is dilated (diameter is greater than 2.1 cm) yet it collapses greater than 50% with a sniff. This suggests a right atrial pressure of 8 mm Hg. Pericardium/ Pleura There is no pericardial effusion. There is no pleural effusion. MMode/2D Measurements & Calculations LVIDd: 3.8 cm LVOT diam: 1.8 cm LVIDs: 2.2 cm Ao root diam: 3.7 cm FS: 42.5 % asc Aorta Diam: 4.0 cm EPSS: 0.58 cm Ao Arch Diam (Prox Trans): 2.6 cm IVSd: 1.1 cm LVPWd: 0.63 cm LV juarez. diameter/BSA (cm/m^2): 2.6 LV sys. diameter/BSA (cm/m^2): 1.5 LA A2 area: 29.7 cm2 RA long axis: 6.8 cm LA A4 area: 27.5 cm2 RA area: 27.1 cm2 LA length (vol): 6.3 cm RA vol: 91.1 ml LA vol: 110.7 ml RA : 62.2 ml/m2 LA vol index: 75.6 ml/m2 IVC diam: 2.0 cm RVD1 (basal): 3.3 cm Doppler Measurements & Calculations Ao V2 max: 128.4 cm/sec LVOT Max Michi: 72.8 cm/sec Ao V2 mean: 87.4 cm/sec LV V1 max P.1 mmHg Ao max P.6 mmHg LV V1 VTI: 15.4 cm Ao mean P.5 mmHg JORDANA(I,D): 1.3 cm2 Ao V2 VTI: 30.2 cm JORDANA(V,D): 1.4 cm2 sev ratio: 0.51 JORDANA indexed to BSA (cm^2/m^2): 0.87 AI P1/2t: 849.7 msec AI dec slope: 157.8 cm/sec2 MV E max michi: 170.3 cm/sec TR max michi: 236.6 cm/sec MV A max michi: 38.0 cm/sec TR max P.4 mmHg MV E/A: 4.5 PA V2 max: 59.9 cm/sec Med Peak E' Michi: 6.2 cm/sec PA V2 mean: 34.9 cm/sec E/E' med: 27.6 PA mean P.64 mmHg Lat Peak E' Michi: 8.5 cm/sec PA pr(Accel): 13.9 mmHg E/E' lat: 20.0 E/e' average: 23.8 MV dec time: 0.20 sec MVA(VTI): 1.2 cm2 MV V2 mean: 69.3 cm/sec SV(LVOT): 38.7 ml MV mean P.8 mmHg MV V2 VTI: 33.2 cm Reading Physician:05:10 PM
== END ==
PROVIDERS: Family Provider Family Medicine; PCP Family Medicine; Referring Provider Family Medicine; Visit Provider Family Medicine
DX: I08.3 Combined rheumatic disorders of mitral, aortic and tricuspid valves (principal); I77.89 Other specified disorders of arteries and arterioles; I25.84 Coronary atherosclerosis due to calcified coronary lesion; I25.10 Atherosclerotic heart disease of native coronary artery without angina pectoris; R61 Generalized hyperhidrosis; R63.4 Abnormal weight loss
CPT/HCPCS: 93306

== ENCOUNTER → 2023-03-25 09:20 | Outpatient (CLI) | payer MEDICARE, BC, SELFPAY ==
[2022-06-09 23:37] VITALS: BMI 24.2
[2023-03-25 10:03] LABS: Alanine Aminotransferase 59 IU/L (<35); Albumin 4.4 g/dL (3.5-5.0); Albumin Globulin Ratio 1.3 (1.0-2.8); Alkaline Phosphatase 104 U/L (38-126); Aspartate Aminotransferase 53 IU/L (14-36); BUN Creatinine Ratio 20.4 (6-22); Bilirubin Total 0.8 mg/dL (0.2-1.3); Blood Urea Nitrogen 21 mg/dL (7-17); Carbon Dioxide 30 mmol/L (22-32); Chloride 101 mmol/L (98-107); Estimated Glomerular Filt Rate 53 mL/min (>60); Globulin 3.3 g/dL (1.7-4.1); Glucose 156 mg/dL (80-110); HEMOLYSIS < 15 (0-50); Potassium 4.1 mmol/L (3.4-5.1); Sodium 139 mmol/L (137-145); Total Protein 7.7 g/dL (6.3-8.2)
== END ==
LOC: LAB 09:24
PROVIDERS: Family Provider Family Medicine; PCP Family Medicine; Referring Provider Registered Nurse Diabetes Educator; Visit Provider Registered Nurse Diabetes Educator
DX: R74.8 Abnormal levels of other serum enzymes (principal)
CPT/HCPCS: 36415; 80053

== ENCOUNTER 2023-06-14 12:31 | Emergency (ER) | payer MEDICARE, BC, SELFPAY ==
[2022-06-09 23:37] VITALS: BMI 24.2
[2023-06-14] VITALS (12 sets, daily range): BP systolic 110–148; BP diastolic 55–73; PULSE 49–70; RESP 12–30; O2SAT 91–98; BMI 21.9
--- NOTE | 2023-06-14 12:55 | DI.CT.S_ITS ---
PROCEDURE: CT HEAD/BRAIN WO CON INDICATIONS: PROGRESSIVE LIGHTHEADEDNESS/GEN WEAKNESS TECHNIQUE: Noncontrast 4.5 mm thick angled axial sections acquired from the foramen magnum to the vertex, with coronal and sagittal reformats. For radiation dose reduction, the following was used: automated exposure control, adjustment of mA and/or kV according to patient size. COMPARISON: CT, CT ANGIO HEAD AND NECK, 06/09/2022, 14:45. [facility], MR, MR HEAD/BRAIN WO CON, 06/09/2022, 18:23. CT, CT ANGIO CHEST ABDOMEN PELVIS, 06/09/2022, 14:45. [facility], CT, HEAD WITHOUT CONTRAST, 01/27/2016, 13:02. FINDINGS: Image quality: Diagnostic. CSF spaces: Basal cisterns are patent. No extra-axial fluid collections. The ventricles are symmetric in size and shape. Brain: No intracranial bleeds or masses. There is cerebral volume loss for age, with resultant ventricular and sulcal prominence. There are periventricular and deep white matter chronic small vessel ischemic changes. There is intracranial internal carotid artery atherosclerosis. Skull and face: Calvarium and visualized facial bones appear intact, without suspicious lesions. Sinuses: Visualized sinuses and mastoids are clear. IMPRESSION: 1. No acute intracranial abnormalities. Consider MRI for further evaluation if clinically indicated. 2. Cerebral volume loss and chronic microvascular ischemic changes. Dictated by: Kulwant Dominguez M.D. on 06/14/2023 at 13:46 Approved by: Kulwant Dominguez M.D. on 06/14/2023 at 13:52
--- NOTE | 2023-06-14 12:56 | DI.RAD.S_ITS ---
PROCEDURE: XR CHEST 1V INDICATIONS: GEN WEAKNESS TECHNIQUE: One view of the chest was acquired. COMPARISON: [facility], , CHEST 1 VIEW, 01/27/2016, 12:43. FINDINGS: Surgical changes and devices: None. Lungs and pleura: Lungs are clear. No pleural effusions or pneumothorax. Mediastinum: Mediastinal contours appear normal unchanged cardiomegaly. Bones and chest wall: No suspicious bony lesions. Overlying soft tissues appear unremarkable. IMPRESSION: Unchanged cardiomegaly. No evidence acute pulmonary process. Dictated by: Rich Diaz M.D. on 06/14/2023 at 13:39 Approved by: Rich Diaz M.D. on 06/14/2023 at 13:41
--- NOTE | 2023-06-14 12:57 | ED_ITS ---
HPI - Dizziness General Chief Complaint: Dizziness Stated Complaint: fall, dizziness, unable to walk Time Seen by Provider: 06/14/23 12:42 Source: patient and family Mode of arrival: Wheelchair History of Present Illness HPI Narrative: A 7-year-old female with history of atrial fibrillation on amiodarone and Eliquis presents by private vehicle from home for approximately 1-1.5 weeks of gradually worsening lightheadedness. Patient states she started to amiodarone on a taper in anticipation of a cardioversion that she should have within the next 2 weeks. Patient states that she usually gets lightheaded when she stands up, however it seems that ever since she started the amiodarone it has gotten much worse and she was barely able to get up without feeling extremely lightheaded. Patient reports fall in the past, however not since she started the amiodarone and this is not why she was here today. Denies chest pain, shortness of breath, vertigo. Related Data Home Medications Medication Instructions Recorded Confirmed coenzyme Q10 300 mg capsule (Co 300 mg PO DAILY 12/18/19 04/21/23 Q-10) otgxlurr-tmi-tcmdz acid 0.4 1 tab PO DAILY 11/30/20 04/21/23 mg-lycopene 300 mcg-lutein 250 mcg tablet (Centrum Silver) olopatadine 0.1 % eye drops 1 drp EYE-BOTH BID 06/09/22 04/21/23 clobetasol 0.05 % shampoo ml topical DAILY 12/14/22 04/21/23 fish [id number] C-vit E 2,000 g PO DAILY 04/21/23 04/21/23 mg-650 mg-12 mg/2.5 g emulsion packt (Coromega) Previous Rx's Medication Instructions Recorded miscellaneous medical supply #1 ea 08/21/18 tramadol 50 mg tablet See Rx Instructions .Route 09/14/22 .COMPLEX #90 tabs acyclovir 400 mg tablet See Rx Instructions .Route 11/23/22 .COMPLEX #90 tabs candesartan 16 mg tablet See Rx Instructions .Route 01/23/23 .COMPLEX #90 tabs apixaban 2.5 mg tablet 2.5 mg PO BID #90 tabs 01/27/23 furosemide 20 mg tablet 20 mg PO DAILY #90 tabs 02/28/23 nifedipine 60 mg tablet,extended 60 mg PO DAILY #90 tabs 05/01/23 release 24 hr trazodone 50 mg tablet 25 mg (1/2 x 50 mg) PO 3XD PRN for 05/17/23 anxiety #45 tabs atorvastatin 20 mg tablet 80 mg (4 x 20 mg) PO QPM #120 tabs 05/26/23 nitroglycerin 0.4 mg sublingual 0.4 mg sublingual Q5M PRN chest 06/13/23 tablet pain #25 tabs Allergies Allergy/AdvReac Type Severity Reaction Status Date / Time Sulfa (Sulfonamide Allergy Unknown Verified 04/21/23 11:36 Antibiotics) Review of Systems Review of Systems Narrative: Negative except as noted above Patient History Medical History Severe tricuspid regurgitation Transaminitis Medicare annual wellness visit, subsequent Difficulty swallowing pills Bilateral lower extremity edema Stroke Coronary artery disease due to calcified coronary lesion Physical deconditioning Lumbar region somatic dysfunction Bilateral thumb pain Body posture problem Chronic 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 Acute pain of right knee Anxiety as acute reaction to exceptional stress Obstruction of right ureteropelvic junction (UPJ) Lower extremity edema Feeling of incomplete bladder emptying Urinary hesitancy Nocturia Spondylolisthesis at L5-S1 level Spondylolisthesis at L4-L5 level Closed T10 fracture Chronic thoracic back pain Villous adenoma of colon Change in stool Constipation by outlet dysfunction Elevated fasting blood sugar Herpes (2009) Fecal incontinence (1997) Kidney disease (2007) Lumbar spine pain (2003) Cervical spine disease BCC (basal cell carcinoma of skin) (2003) Harrison's palsy (2007) Colon polyps (1997) GERD (gastroesophageal reflux disease) (1989) Hemorrhoids (1989) Urinary incontinence (2010) Chicken pox (~1940) Measles (1942) Mumps (1946) Rubella (194) Plantar warts (~1970) Psoriasis (2011) Atrial fibrillation (2007) Hypertension (~1979) Cataract (2001) Hearing loss (2012) Tinnitus (2004) Anemia (2007) Osteoarthritis (~1999) Surgical History Anesthesia Status post blepharoplasty of both eyes (2013) History of basal cell carcinoma excision (~2003) History of resection of rectum (1997) History of cataract removal with insertion of prosthetic lens (2010) History of hip replacement (03/2008) Status post dilation and curettage (1981) Status post tonsillectomy and adenoidectomy (1941) Family History Brother Age: 69 Crohns disease Child Age: 63 Mental health problem Hepatitis C Child Age: 60 Graves disease Grandmother Heart disease Stroke VA (myocardial infarction) Mother Heart disease Hypertension Osteoporosis Cancer Congestive heart failure Grandfather Heart disease VA (myocardial infarction) Grandmother Heart disease Sister Age: 83 HINDS (nonalcoholic steatohepatitis) Liver cancer Sister Age: 70 Obesity Carotid artery disease Stroke Father No problems noted. Grandfather No problems noted. Sister Lung cancer Sister Respiratory arrest Social History household members: none Smoking Status: Former smoker alcohol intake: current Smoking Status: Former smoker alcohol intake frequency: other Substance Use Type: does not use Exam Initial Vital Signs Initial Vital Signs: Vital Signs Pulse Rate 70 06/14/23 12:43 Respiratory Rate 18 06/14/23 12:43 Const: Awake, alert, frail, nontoxic appearing Cardiac: Bradycardia, regular rhythm RESP: unlabored, clear bilaterally, no wheezing GI: Soft, nontender, nondistended, no rebound, no guarding MSK: Atraumatic, full range of motion, pulses equal Skin: Warm, Dry, intact, no rashes Neuro: AO x3, CN II-XII grossly intact, moves all extremities Course Orders Ordered: Discontinued Medications Sodium Chloride (Normal Saline 0.9%) 500 mls @ 1,000 mls/hr IV BOLUS ONE Stop: 06/14/23 14:36 Last Infusion: 06/14/23 15:29 Dose: Infused Documented By: Admin: 06/14/23 14:25 Dose: 1,000 mls/hr Documented By: BS Vital Signs Vital signs: Vital Signs - 8 hr 06/14/23 12:43 06/14/23 12:44 06/14/23 12:44 Pulse Rate 70 59 L Respiratory Rate 18 21 Blood Pressure 121/60 Pulse Oximetry 95 Oxygen Delivery Method 06/14/23 12:48 06/14/23 13:00 06/14/23 13:01 Pulse Rate 63 53 L 56 L Respiratory Rate 18 30 H 22 Blood Pressure 121/60 Pulse Oximetry 95 Oxygen Delivery Method Room Air 06/14/23 13:01 06/14/23 13:15 06/14/23 13:15 Pulse Rate 60 Respiratory Rate 19 Blood Pressure 110/58 L 119/55 L Pulse Oximetry Oxygen Delivery Method 06/14/23 13:30 06/14/23 13:30 Pulse Rate 49 L Respiratory Rate 16 Blood Pressure 122/60 Pulse Oximetry 95 Oxygen Delivery Method Room Air MDM - Dizziness Lab Data 06/14/23 13:30 06/14/23 13:30 Labs: Lab Results 06/14/23 06/14/23 Range/Units 13:30 13:50 WBC 8.2 (4.5-11.0) X10^3/uL RBC 4.27 (4.0-5.2) X10^6/uL Hgb 13.5 (12.0-16.0) g/dL Hct 40.6 (36-46) % MCV 95.1 (80-100) fL MCH 31.7 (26-34) PG MCHC 33.3 (30-36) % RDW 14.4 (11.6-14.8) % Plt Count 155 (150-400) X10^3/uL Neut % (Auto) 74.9 (50-75) % Lymph % (Auto) 17.0 L (25-40) % [place] % (Auto) 6.6 (3-14) % Eos % (Auto) 1.0 L (2-4) % Baso % (Auto) 0.5 (0-2) % Neut # (Auto) 6100 (6232-2779) /uL Lymph # (Auto) 1400 (0161-4845) /uL [place] # (Auto) 500 (0-900) /uL Eos # (Auto) 100 (0-450) /uL Baso # (Auto) 0 (0-100) /uL Sodium 134 L (137-145) mmol/L Potassium 4.7 (3.4-5.1) mmol/L Chloride 103 (98-107) mmol/L Carbon Dioxide 26 (22-32) mmol/L BUN 37 H (7-17) mg/dL Creatinine 1.50 H (0.52-1.04) mg/dL Estimated GFR 34 L (>60) mL/min BUN/Creatinine Ratio 24.7 H (6-22) Glucose 108 (80-110) mg/dL Calcium 10.2 (8.4-10.2) mg/dL Total Bilirubin 0.8 (0.2-1.3) mg/dL AST 64 H (14-36) IU/L ALT 62 H (<35) IU/L Alkaline Phosphatase 99 (38-126) U/L Total Protein 6.7 (6.3-8.2) g/dL Albumin 3.9 (3.5-5.0) g/dL Globulin 2.8 (1.7-4.1) g/dL Albumin/Globulin Ratio 1.4 (1.0-2.8) Urine Color Yellow Urine Appearance Clear Urine pH 5.5 (4.5-8.0) Ur Specific [place] 1.010 (1.000-1.035) Urine Protein Negative (Negative) Urine Glucose (UA) Negative (Negative) g/dL Urine Ketones Negative (NEGATIVE) Urine Occult Blood Negative (Negative) Urine Nitrate Negative (Negative) Urine Bilirubin Negative (NEGATIVE) Urine Urobilinogen 0.2 (0.2) E.U./dL Ur Leukocyte Esterase Negative (NEGATIVE) Urine RBC None seen (0-5/HPF) Urine WBC None seen (0-5/HPF) Ur Squamous Epith Cells 0-1 /hpf (0-5/HPF) Urine Bacteria None seen (None) Ur Culture Indicated? Cult not indicated Vol Urine Centrifuged 10ml (spun) MDM Narrative Medical decision making narrative: Well-appearing patient with lightheadedness since starting amiodarone. Triage vitals significant for a pulse of 70, however while in the exam room patient's heart rate is between 45 and 60 beats per minute, usually in the 50s. Patient is on metoprolol 50 mg b.i.d.. Laboratory work is reviewed, patient has had a mild bump in her creatinine with creatinine 1.5, GFR 34. Several months ago patient's creatinine 1.0, GFR 53. Suspect that patient's decreased renal function and her metoprolol is contributing to patient's lightheaded symptoms. Other laboratory work is negative for signs of infection or other acute abnormalities. Head CT and chest x-ray are negative for acute pathology. Patient and daughter informed of all lab and imaging findings. I recommended that the patient continue on amiodarone for her cardioversion as instructed by her account development specialist. I did recommenPatient decreasing her metoprolol from 50 mg b.i.d. to 25 mg b.i.d., monitoring her heart rate and her blood pressure. Recommended close for cardiology follow up she continues to feel symptomatic. ED return precautions discussed at bedside. Patient expressed understanding of the plan and is in agreement at this time. All questions answered at the time of discharge. Discharge Plan Departure Patient Disposition: Home Clinical Impression: Dizziness Instructions: DI for Dizziness-Nonvertigo Activity Restrictions/Additional Instructions: DECREASE YOUR METOPROLOL TO 25 MG TWICE DAILY. YOUR KIDNEY FUNCTION IS SLIGHTLY DECREASED FROM YOUR USUAL, MAKE SURE TO DRINK PLENTY OF FLUIDS AND FOLLOW UP WITH YOUR PRIMARY CARE PHYSICIAN Prescriptions: No Action tramadol 50 mg tablet See Rx Instructions .ROUTE .COMPLEX Qty: 90 0RF Rx Instructions: Take 1/2-1 tablet by mouth 3 times daily as needed for pain acyclovir 400 mg tablet See Rx Instructions .ROUTE .COMPLEX Qty: 90 3RF Dose Instruction: take 1 tablet by mouth once daily for HERPES PROPHYLAXIS Rx Instructions: take 1 tablet by mouth once daily for HERPES PROPHYLAXIS candesartan 16 mg tablet See Rx Instructions .ROUTE .COMPLEX Qty: 90 1RF Dose Instruction: take 1 tablet by mouth once daily Rx Instructions: take 1 tablet by mouth once daily apixaban 2.5 mg tablet 2.5 mg PO BID Qty: 90 3RF furosemide 20 mg tablet 20 mg PO DAILY Qty: 90 2RF Rx Instructions: take an extra tablet PRN for edema nifedipine 60 mg tablet extended release 24hr 60 mg PO DAILY Qty: 90 3RF trazodone 50 mg tablet 25 mg PO 3XD PRN (Reason: for anxiety) Qty: 45 0RF atorvastatin 20 mg tablet 80 mg PO QPM Qty: 120 11RF nitroglycerin 0.4 mg tablet, sublingual 0.4 mg sublingual Q5M PRN (Reason: chest pain) Qty: 25 0RF (DME) miscellaneous medical supply misc See Dose Instructions .ROUTE .MEDSUPPLY Qty: 1 0RF Dose Instruction: Disabled Parking Permit Rx Instructions: Disabled Parking Permit Co Q-10 300 mg capsule 300 mg PO DAILY clobetasol 0.05 % shampoo topical DAILY Coromega 2,000-650-12 mg/2.5 gram emulsion in packet PO DAILY olopatadine 0.1 % drops 1 drp EYE-BOTH BID Patient Comments: instill 1 drop into both eyes twice a day Centrum Silver 0.4-300-250 mg-mcg-mcg tablet 1 tab PO DAILY Referrals: Rashawn Banuelos DO [Primary Care Provider] - Stand Alone Forms: Patient Portal/API
[2023-06-14 13:44] LABS: Add Manual Diff / Slide Review NO; Basophils Absolute Auto 0 /uL (0-100); Basophils Percent Auto 0.5 % (0-2); Eosinophils Absolute Auto 100 /uL (0-450); Hematocrit 40.6 % (36-46); Hemoglobin 13.5 g/dL (12.0-16.0); Lymphocytes Absolute Auto 1400 /uL (1100-4500); Mean Corpuscular HGB Conc 33.3 % (30-36); Mean Corpuscular Hemoglobin 31.7 PG (26-34); Mean Corpuscular Volume 95.1 fL (80-100); Monocytes Absolute Auto 500 /uL (0-900); Monocytes Percent Auto 6.6 % (3-14); Neutrophils Absolute Auto 6100 /uL (1500-7000); Neutrophils Percent Auto 74.9 % (50-75); Platelet Count 155 X10^3/uL (150-400); Red Blood Cell Count 4.27 X10^6/uL (4.0-5.2); Red Cell Distribution Width 14.4 % (11.6-14.8); White Blood Cell Count 8.2 X10^3/uL (4.5-11.0)
[2023-06-14 13:57] LABS: Alanine Aminotransferase 62 IU/L (<35); Albumin 3.9 g/dL (3.5-5.0); Albumin Globulin Ratio 1.4 (1.0-2.8); Alkaline Phosphatase 99 U/L (38-126); Aspartate Aminotransferase 64 IU/L (14-36); BUN Creatinine Ratio 24.7 (6-22); Bilirubin Total 0.8 mg/dL (0.2-1.3); Blood Urea Nitrogen 37 mg/dL (7-17); Calcium 10.2 mg/dL (8.4-10.2); Carbon Dioxide 26 mmol/L (22-32); Chloride 103 mmol/L (98-107); Estimated Glomerular Filt Rate 34 mL/min (>60); Globulin 2.8 g/dL (1.7-4.1); Glucose 108 mg/dL (80-110); HEMOLYSIS 20 (0-50); Potassium 4.7 mmol/L (3.4-5.1); Sodium 134 mmol/L (137-145); Total Protein 6.7 g/dL (6.3-8.2)
[2023-06-14 14:00] LABS: Appearance Urine UA CLEAR; Bilirubin Urine UA NEGATIVE (NEGATIVE); Color Urine UA YELLOW; Glucose Urine UA NEGATIVE (Negative); Ketones Urine UA NEGATIVE (NEGATIVE); Leukocyte Esterase Urine UA NEGATIVE (NEGATIVE); Nitrite Urine UA NEGATIVE (Negative); Occult Blood Urine UA NEGATIVE (Negative); Protein Urine UA NEGATIVE (Negative); Urobilinogen Urine UA 0.2 E.U./dL (0.2)
[2023-06-14 14:04] LABS: pH Urine UA 5.5 (4.5-8.0)
[2023-06-14 14:09] LABS: Bacteria Urine None Seen; Culture Indicated Urine Cult Not Indicated; RBC Urine None Seen (0-5/HPF); Squamous Epithelial Cell Urine 0-1 /HPF (0-5/HPF); Urine Volume 10mL (spun); WBC Urine None Seen (0-5/HPF)
[2023-06-14] MEDS: SODIUM CHLORIDE 0.9% 500 ML 1000 ML IV (14:25)
== END 2023-06-14 15:34 | disposition home or self-care (01) ==
PROVIDERS: Emergency Provider Emergency Medicine; Family Provider Family Medicine; PCP Family Medicine
DX: R42 Dizziness and giddiness (principal)
CPT/HCPCS: 36415; 70450; 71045; 80053; 81001; 85025; 93005; 99284

== ENCOUNTER → 2023-06-22 14:21 | Outpatient (CLI) | payer MEDICARE, BC, SELFPAY ==
[2022-06-09 23:37] VITALS: BMI 24.2
[2023-06-22 15:38] LABS: BUN Creatinine Ratio 23.3 (6-22); Blood Urea Nitrogen 30 mg/dL (7-17); Calcium 9.9 mg/dL (8.4-10.2); Carbon Dioxide 32 mmol/L (22-32); Chloride 101 mmol/L (98-107); Estimated Glomerular Filt Rate 40 mL/min (>60); Glucose 98 mg/dL (80-110); HEMOLYSIS < 15 (0-50); Potassium 4.3 mmol/L (3.4-5.1); Sodium 136 mmol/L (137-145)
== END ==
PROVIDERS: Family Provider Family Medicine; PCP Family Medicine; Referring Provider Internal Medicine Cardiovascular Disease; Visit Provider Internal Medicine Cardiovascular Disease
DX: I48.19 Other persistent atrial fibrillation (principal)
CPT/HCPCS: 36415; 80048

== ENCOUNTER → 2023-07-12 13:27 | Outpatient (CLI) | payer MEDICARE, BC, SELFPAY ==
[2022-06-09 23:37] VITALS: BMI 24.2
--- NOTE | 2023-07-12 | DI.ECHO.S_ITS ---
[facility] : : [id number] : [place] : : [id number] : : Phone: [phone] Echocardiogram Report + + :Name: BELLO CHAUHAN Study Date: 07/12/2023 Height: 60 in : :Hospital ReadingLocation: Weight: 110 lb : : Gender: Female BSA: 1.4 m2 : :: 1935 Age: 87 yrs BP: 134/73 mmHg: :Reason For Study: RHEUMATIC TRICUSPID INSUFFICIENCY : :Ordering Physician: MARY, : :JUANITA Performed By: Pooja Busby : :Referring: JUANITA HERNANDEZ : + + Interpretation Summary The ejection fraction is estimated to be 65-70%. Grade II diastolic dysfunction. The right ventricle is normal in size and function. There is severe biatrial enlargement. There is mild to moderate mitral stenosis. There is mild aortic regurgitation. There is mild to moderate tricuspid regurgitation. The right ventricular systolic pressure is estimated to be at least 28 mmHg based on an estimated right atrial pressure of 3 mm Hg. The ascending aorta is mildly enlarged, 4.1 cm. Compared to the prior study dated 03/07/2023, the patient is now in sinus rhythm, the AV valvular regurgitation has decreased and the right ventricular size has decreased. Procedure: A two-dimensional transthoracic echocardiogram with color flow and Doppler was performed. The study quality was technically adequate. Comparison is made with the echocardiogram of 03/07/2023. The patient was in normal sinus rhythm during the exam. The heart rate ranged between 56-60 bpm during the study. Left Ventricle: Proximal septal thickening is noted. The left ventricle is normal in size. The ejection fraction is estimated to be 65-70%. Diastolic parameters suggest a pseudonormalization pattern, consistent with probable elevated filling pressures. Right Ventricle: The right ventricle is normal in size and function. Atria: There is severe biatrial enlargement. There is no Doppler evidence for an interatrial shunt. Mitral Valve: There is severe mitral annular calcification. Calcified mitral apparatus. The mitral annular calcification extends onto the posterior mitral valve leaflet. The mitral valve mean gradient is 2.9 mmHg. The mitral valve area by pressure half-time is 1.4 cm2 of a heart rate of 60 bpm. There is mild to moderate mitral stenosis. There is mild mitral regurgitation. Aortic Valve: The aortic valve is mildly calcified. There is no aortic valve stenosis. There is mild aortic regurgitation. Tricuspid Valve: The tricuspid valve leaflets are thin and pliable. There is mild to moderate tricuspid regurgitation. The right ventricular systolic pressure is estimated to be at least 28 mmHg based on an estimated right atrial pressure of 3 mm Hg. Pulmonic Valve: The pulmonic valve leaflets are thin and pliable; valve motion is normal. There is mild pulmonic regurgitation. Great Vessels: The aortic root is normal size. The ascending aorta is mildly enlarged. Atherosclerotic plaque in the abdominal aorta. The IVC is of normal diameter and collapses greater than 50% with a sniff. This suggests a low right atrial pressure of 3 mm Hg. Pericardium/ Pleura There is no pericardial effusion. There is no pleural effusion. MMode/2D Measurements & Calculations LVIDd: 4.6 cm LVOT diam: 2.0 cm LVIDs: 2.8 cm Ao root diam: 3.5 cm FS: 40.2 % asc Aorta Diam: 4.1 cm IVSd: 0.98 cm Ao Arch Diam (Prox Trans): 3.0 cm LVPWd: 0.90 cm LV juarez. diameter/BSA (cm/m^2): 3.2 LV sys. diameter/BSA (cm/m^2): 1.9 LA A2 area: 28.2 cm2 RA long axis: 6.1 cm LA A4 area: 20.8 cm2 RA area: 21.3 cm2 LA length (vol): 5.9 cm RA vol: 63.3 ml LA vol: 84.7 ml RA : 43.8 ml/m2 LA vol index: 58.5 ml/m2 IVC diam: 1.2 cm RVD1 (basal): 3.2 cm RVD2 (mid): 2.6 cm TAPSE: 1.8 cm Doppler Measurements & Calculations Ao V2 max: 132.6 cm/sec LVOT Max Michi: 122.0 cm/sec Ao V2 mean: 100.8 cm/sec LV V1 max P.9 mmHg Ao max P.0 mmHg LV V1 VTI: 22.9 cm Ao mean P.3 mmHg JORDANA(I,D): 2.4 cm2 Ao V2 VTI: 30.1 cm JORDANA(V,D): 2.9 cm2 sev ratio: 0.76 JORDANA indexed to BSA (cm^2/m^2): 1.7 AI P1/2t: 722.2 msec AI dec slope: 167.7 cm/sec2 MV E max michi: 83.1 cm/sec TR max michi: 247.9 cm/sec MV A max michi: 133.0 cm/sec TR max P.6 mmHg MV E/A: 0.62 PA V2 max: 108.7 cm/sec Med Peak E' Michi: 3.0 cm/sec PA V2 mean: 72.5 cm/sec E/E' med: 28.2 PA mean P.4 mmHg Lat Peak E' Michi: 4.8 cm/sec PA pr(Accel): 32.8 mmHg E/E' lat: 17.4 E/e' average: 22.8 MV dec time: 0.46 sec MVA(VTI): 1.4 cm2 MV V2 mean: 79.4 cm/sec SV(LVOT): 72.0 ml MV mean P.9 mmHg MV V2 VTI: 50.5 cm MV P1/2t-pr_phl: 161.8 msec Reading Physician:07:54 PM
== END ==
LOC: ECHO 13:28
PROVIDERS: Family Provider Family Medicine; PCP Family Medicine; Referring Provider Nurse Practitioner Acute Care; Visit Provider Nurse Practitioner Acute Care
DX: I08.3 Combined rheumatic disorders of mitral, aortic and tricuspid valves (principal); I77.89 Other specified disorders of arteries and arterioles; I70.0 Atherosclerosis of aorta
CPT/HCPCS: 93306

== ENCOUNTER → 2023-11-01 08:06 | Outpatient (CLI) | payer MEDICARE, BC, SELFPAY ==
[2022-06-09 23:37] VITALS: BMI 24.2
[2023-11-01 08:56] LABS: Add Manual Diff / Slide Review NO; Basophils Absolute Auto 0 /uL (0-100); Basophils Percent Auto 0.5 % (0-2); Eosinophils Absolute Auto 100 /uL (0-450); Eosinophils Percent Auto 1.5 % (2-4); Hematocrit 38.6 % (36-46); Hemoglobin 12.9 g/dL (12.0-16.0); Lymphocytes Absolute Auto 1400 /uL (1100-4500); Lymphocytes Percent Auto 25.3 % (25-40); Mean Corpuscular HGB Conc 33.4 % (30-36); Mean Corpuscular Volume 95.9 fL (80-100); Monocytes Absolute Auto 400 /uL (0-900); Monocytes Percent Auto 7.8 % (3-14); Neutrophils Absolute Auto 3500 /uL (1500-7000); Neutrophils Percent Auto 64.9 % (50-75); Platelet Count 137 X10^3/uL (150-400); Red Blood Cell Count 4.03 X10^6/uL (4.0-5.2); Red Cell Distribution Width 13.3 % (11.6-14.8); White Blood Cell Count 5.4 X10^3/uL (4.5-11.0)
[2023-11-01 09:18] LABS: Alanine Aminotransferase 32 IU/L (<35); Albumin 4.3 g/dL (3.5-5.0); Albumin Globulin Ratio 1.7 (1.0-2.8); Alkaline Phosphatase 82 U/L (38-126); Aspartate Aminotransferase 42 IU/L (14-36); BUN Creatinine Ratio 18.4 (6-22); Blood Urea Nitrogen 18 mg/dL (7-17); Calcium 10.8 mg/dL (8.4-10.2); Carbon Dioxide 29 mmol/L (22-32); Chloride 102 mmol/L (98-107); Cholesterol 152 mg/dL (140-199); Estimated Glomerular Filt Rate 56 mL/min (>60); Globulin 2.6 g/dL (1.7-4.1); Glucose 94 mg/dL (80-110); HDL Cholesterol 76 mg/dL (40-60); HEMOLYSIS < 15 (0-50); LDL Cholesterol Calculated 62 mg/dL (<100); Potassium 4.2 mmol/L (3.4-5.1); Sodium 136 mmol/L (137-145); Total Protein 6.9 g/dL (6.3-8.2); Triglycerides 71 mg/dL (35-150)
== END ==
PROVIDERS: Family Provider Family Medicine; PCP Family Medicine; Referring Provider Family Medicine; Visit Provider Family Medicine
DX: I10 Essential (primary) hypertension (principal); E78.2 Mixed hyperlipidemia
CPT/HCPCS: 36415; 80053; 80061; 85025

== ENCOUNTER → 2023-12-18 15:55 | Outpatient (CLI) | payer MEDICARE, BC, SELFPAY ==
[2022-06-09 23:37] VITALS: BMI 24.2
--- NOTE | 2023-12-18 15:56 | DI.RAD.S_ITS ---
PROCEDURE: XR KNEE RT 3V INDICATIONS: RIGHT KNEE PAIN TECHNIQUE: 3 views of the knee were acquired. COMPARISON: None. FINDINGS: Bones: No fractures or dislocations. No suspicious bony lesions. Severe joint space narrowing at the medial compartment. Osteophytic lipping. Soft tissues: Trace joint effusion. No suspicious soft tissue calcifications. 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 Dictated by: Manish Jones M.D. on 12/18/2023 at 16:35 Approved by: Manish Jones M.D. on 12/18/2023 at 16:37
--- NOTE | 2023-12-18 15:56 | DI.RAD.S_ITS ---
PROCEDURE: XR HIP W PEL IF DONE ADIA MIN 4V INDICATIONS: BILATERAL HIP PAIN TECHNIQUE: AP pelvis with lateral view(s) of the both hip(s). COMPARISON: [facility], CR, XR HIP W PEL IF DONE LT 2V, 04/03/2022, 13:53. [facility], CR, XR HIP W PEL IF DONE ADIA 3TO4V, 10/12/2020, 15:26. FINDINGS: Bones: Left hip arthroplasty projects in the expected location. No periprosthetic lucency to suggest loosening or infection. No fractures or dislocations. Pelvic ring appears intact. No suspicious bony lesions. Mild to moderate right hip DJD. Degenerative changes at the SI joints. Soft tissues: The visualized bowel gas pattern is normal. No suspicious soft tissue calcifications. IMPRESSION: Stable left hip arthroplasty. Mild to moderate right hip DJD is similar. Dictated by: Manish Jones M.D. on 12/18/2023 at 16:32 Approved by: Manish Jones M.D. on 12/18/2023 at 16:35
== END ==
PROVIDERS: Family Provider Family Medicine; PCP Family Medicine; Referring Provider Physical Medicine & Rehabilitation; Visit Provider Physical Medicine & Rehabilitation
DX: M16.11 Unilateral primary osteoarthritis, right hip (principal); M17.11 Unilateral primary osteoarthritis, right knee; M25.551 Pain in right hip; M25.552 Pain in left hip; M25.561 Pain in right knee; G89.29 Other chronic pain; Z96.642 Presence of left artificial hip joint
CPT/HCPCS: 73522; 73562

== ENCOUNTER → 2023-12-20 09:46 | Outpatient (CLI) | payer MEDICARE, BC, SELFPAY ==
[2022-06-09 23:37] VITALS: BMI 24.2
--- NOTE | 2023-12-20 09:49 | DI.RAD.S_ITS ---
PROCEDURE: XR SHOULDER LT MIN 2V INDICATIONS: left shoulder djd TECHNIQUE: 3 views of the shoulder were acquired. COMPARISON: None. FINDINGS: Bones: No fractures or dislocations. No suspicious bony lesions. Visualized ribs appear intact. Acromioclavicular and glenohumeral degenerative change. Minimal osteophytes. No erosions. Soft tissues: No suspicious soft tissue calcifications. IMPRESSION: Moderate acromioclavicular and glenohumeral arthritic changes. Dictated by: Connie Hensley M.D. on 12/20/2023 at 16:21 Approved by: Connie Hensley M.D. on 12/20/2023 at 16:33
== END ==
PROVIDERS: Family Provider Family Medicine; PCP Family Medicine; Referring Provider Physical Medicine & Rehabilitation; Visit Provider Physical Medicine & Rehabilitation
DX: M19.012 Primary osteoarthritis, left shoulder (principal)
CPT/HCPCS: 73030

== ENCOUNTER → 2024-05-01 10:19 | Outpatient (CLI) | payer MEDICARE, BC, SELFPAY ==
[2022-06-09 23:37] VITALS: BMI 24.2
--- NOTE | 2024-05-01 10:20 | DI.RAD.S_ITS ---
PROCEDURE: XR CERVICAL SPINE 4V OR 5V INDICATIONS: NECK PAIN TECHNIQUE: 5 views of the cervical spine acquired. COMPARISON: None. FINDINGS: Bones: No fractures or dislocations to the T1 level. Oblique images demonstrate no bony foraminal stenoses. Disc space narrowing and hypertrophic arthropathy noted in the mid cervical spine. Oblique images show no significant foraminal stenosis, although, evaluation of the lower cervical spine on the left is limited due to positioning. Soft tissues: No prevertebral soft tissue swelling. IMPRESSION: Multilevel degenerative disc disease and arthropathy. Approved by: Robert Pathak M.D. on 05/01/2024 at 10:58
--- NOTE | 2024-05-01 10:20 | DI.RAD.S_ITS ---
PROCEDURE: XR LUMBAR SPINE MIN 4V INDICATIONS: BACK PAIN TECHNIQUE: 5 views of the lumbar spine were acquired, including bilateral oblique views. COMPARISON: [facility], , XR LUMBAR SPINE 2-3V, 04/03/2022, 13:53. FINDINGS: Bones: Convex left lumbar scoliosis. Generalized decreased osseous mineralization noted. Hypertrophic facet joints throughout the exam. Grade 1 anterior spondylolisthesis L4-5 and L5-S1. Diffuse disc space narrowing. Vertebral body heights are maintained. Left hip arthroplasty. Soft tissues: Overlying bowel gas pattern is normal. No suspicious soft tissue calcifications. Atherosclerotic calcification in the abdominal aorta noted without evidence of aneurysm. Oblique images: No pars defects. IMPRESSION: Degenerative disc disease, arthropathy and spondylolisthesis Osteopenia without fracture. Approved by: Robert Pathak M.D. on 05/01/2024 at 11:00
== END ==
PROVIDERS: Family Provider Family Medicine; PCP Family Medicine; Referring Provider Physical Medicine & Rehabilitation; Visit Provider Physical Medicine & Rehabilitation
DX: M47.812 Spondylosis without myelopathy or radiculopathy, cervical region (principal); M50.30 Other cervical disc degeneration, unspecified cervical region; M47.816 Spondylosis without myelopathy or radiculopathy, lumbar region; M43.17 Spondylolisthesis, lumbosacral region; M43.16 Spondylolisthesis, lumbar region; M41.9 Scoliosis, unspecified; M51.369 Other intervertebral disc degeneration, lumbar region without mention of lumbar back pain or lower extremity pain; M85.88 Other specified disorders of bone density and structure, other site
CPT/HCPCS: 72050; 72110

== ENCOUNTER → 2024-06-12 13:49 | Outpatient (CLI) | payer MEDICARE, BC, SELFPAY ==
[2024-05-06 09:39] VITALS: BMI 24.2
[2024-06-12 14:56] LABS: Add Manual Diff / Slide Review NO; Basophils Absolute Auto 100 /uL (0-100); Basophils Percent Auto 0.8 % (0-2); Eosinophils Absolute Auto 0 /uL (0-450); Eosinophils Percent Auto 0.7 % (2-4); Hematocrit 37.7 % (36-46); Hemoglobin 12.6 g/dL (12.0-16.0); Lymphocytes Absolute Auto 1000 /uL (1100-4500); Lymphocytes Percent Auto 14.6 % (25-40); Mean Corpuscular HGB Conc 33.5 % (30-36); Mean Corpuscular Hemoglobin 31.8 PG (26-34); Monocytes Absolute Auto 500 /uL (0-900); Monocytes Percent Auto 7.3 % (3-14); Neutrophils Absolute Auto 5300 /uL (1500-7000); Neutrophils Percent Auto 76.6 % (50-75); Platelet Count 181 X10^3/uL (150-400); Red Blood Cell Count 3.97 X10^6/uL (4.0-5.2); Red Cell Distribution Width 13.8 % (11.6-14.8); White Blood Cell Count 6.9 X10^3/uL (4.5-11.0)
[2024-06-12 15:27] LABS: Alanine Aminotransferase 34 IU/L (<35); Albumin 4.4 g/dL (3.5-5.0); Albumin Globulin Ratio 1.4 (1.0-2.8); Alkaline Phosphatase 72 U/L (38-126); Aspartate Aminotransferase 45 IU/L (14-36); BUN Creatinine Ratio 25.3 (6-22); Bilirubin Total 0.7 mg/dL (0.2-1.3); Blood Urea Nitrogen 25 mg/dL (7-17); Carbon Dioxide 29 mmol/L (22-32); Chloride 101 mmol/L (98-107); Creatine Kinase 127 U/L (30-135); Estimated Glomerular Filt Rate 55 mL/min (>60); Globulin 3.1 g/dL (1.7-4.1); Glucose 105 mg/dL (80-110); HEMOLYSIS < 15 (0-50); Potassium 4.1 mmol/L (3.4-5.1); Sodium 136 mmol/L (137-145); Total Protein 7.5 g/dL (6.3-8.2)
[2024-06-12 15:56] LABS: TSH w/ Reflex to FT4 1.43 uIU/mL (0.47-4.68)
== END ==
PROVIDERS: Family Provider Family Medicine; PCP Family Medicine; Referring Provider Physician Assistant; Visit Provider Physician Assistant
DX: K52.9 Noninfective gastroenteritis and colitis, unspecified (principal); R25.2 Cramp and spasm
CPT/HCPCS: 36415; 80053; 82550; 83735; 84443; 85025; 87177

== ENCOUNTER → 2024-06-13 13:53 | Outpatient (CLI) | payer MEDICARE, BC, SELFPAY ==
[2024-05-06 09:39] VITALS: BMI 24.2
[2024-06-17 12:08] LABS: Fecal Immunochemical Test Negative (Negative)
== END ==
PROVIDERS: Family Provider Family Medicine; PCP Family Medicine; Referring Provider Family Medicine; Visit Provider Physician Assistant
DX: K52.9 Noninfective gastroenteritis and colitis, unspecified (principal)
CPT/HCPCS: 82274

== ENCOUNTER → 2024-06-20 11:38 | Outpatient (CLI) | payer MEDICARE, BC, SELFPAY ==
[2024-05-06 09:39] VITALS: BMI 24.2
[2024-06-20 13:43] LABS: Clostridium Difficile Tox PCR Negative for C. diff (Negative)
== END ==
PROVIDERS: Family Provider Family Medicine; PCP Family Medicine; Referring Provider Family Medicine; Visit Provider Physician Assistant
DX: K52.9 Noninfective gastroenteritis and colitis, unspecified (principal)
CPT/HCPCS: 87493

== ENCOUNTER → 2024-07-04 12:11 | Outpatient (CLI) | payer MEDICARE, BC, SELFPAY ==
[2024-05-06 09:39] VITALS: BMI 24.2
[2024-07-05 13:10] LABS: Calcium 10.9 mg/dL (8.7-10.3); Parathyroid Hormone, Intact 59 pg/mL (15-65)
== END ==
PROVIDERS: Family Provider Family Medicine; PCP Family Medicine; Referring Provider Physician Assistant; Visit Provider Physician Assistant
DX: E83.52 Hypercalcemia (principal)
CPT/HCPCS: 36415; 82310; 83970

== ENCOUNTER 2024-07-17 09:44 | Emergency (ER) | payer MEDICARE, BC, SELFPAY ==
[2024-05-06 09:39] VITALS: BMI 24.2
[2024-07-17] VITALS (14 sets, daily range): BP systolic 116–182; BP diastolic 58–88; PULSE 53–81; RESP 14–41; TEMP 36.6–37.1; O2SAT 96–99; BMI 20.7
--- NOTE | 2024-07-17 09:51 | EKG_ITS ---
[address] [address] Test Date: 2024-07-17 Pat Name: Mary Grace Zhou Department: Room: Gender: Female Career Development Director: YAMIL : 1935 Requested By: Order Number: [id number] Reading MD: Shaun Gomez Measurements Intervals [place] Rate: 67 P: 39 ID: [id number] QRS: -22 QRSD: 80 T: 53 QT: 408 QTc: 431 Interpretive Statements Normal sinus rhythm Electronically Signed On 07-17-2024 17:40:08 PDT by Shaun Gomez
--- NOTE | 2024-07-17 09:57 | DI.RAD.S_ITS ---
PROCEDURE: XR CHEST 1V INDICATIONS: chest pain TECHNIQUE: One view of the chest was acquired. COMPARISON: [facility], CR, XR CHEST 1V, 06/14/2023, 13:04. FINDINGS: Surgical changes and devices: None. Lungs and pleura: Lungs are clear. No pleural effusions or pneumothorax. Mediastinum: Mediastinal contours appear normal. Heart size is enlarged. Bones and chest wall: No suspicious bony lesions. Overlying soft tissues appear unremarkable. IMPRESSION: Cardiomegaly. No evidence acute pulmonary process. Dictated by: Rich Diaz M.D. on 07/17/2024 at 10:18 Approved by: Rich Diaz M.D. on 07/17/2024 at 10:19
[2024-07-17 10:07] LABS: INR 0.9 (0.9-1.3); Prothrombin Time 10.6 SECONDS (9.4-12.5)
[2024-07-17 10:09] LABS: PTT Partial Thromboplastin Tim 35 SECONDS (25.1-36.5)
[2024-07-17 10:12] LABS: Alanine Aminotransferase 31 IU/L (<35); Albumin Globulin Ratio 1.5 (1.0-2.8); Alkaline Phosphatase 72 U/L (38-126); Aspartate Aminotransferase 38 IU/L (14-36); Bilirubin Total 0.8 mg/dL (0.2-1.3); Blood Urea Nitrogen 26 mg/dL (7-17); Calcium 10.3 mg/dL (8.4-10.2); Carbon Dioxide 25 mmol/L (22-32); Chloride 106 mmol/L (98-107); Creatine Kinase 124 U/L (30-135); Estimated Glomerular Filt Rate 59 mL/min (>60); Globulin 2.7 g/dL (1.7-4.1); Glucose 97 mg/dL (70-99); HEMOLYSIS < 15 (0-50); Lipase 154 U/L (23-300); Potassium 4.3 mmol/L (3.4-5.1); Sodium 137 mmol/L (137-145); Total Protein 6.7 g/dL (6.3-8.2)
[2024-07-17 10:20] LABS: Add Manual Diff / Slide Review NO; Basophils Absolute Auto 0 /uL (0-100); Basophils Percent Auto 0.7 % (0-2); Eosinophils Absolute Auto 100 /uL (0-450); Hematocrit 36.8 % (36-46); Hemoglobin 12.5 g/dL (12.0-16.0); Lymphocytes Absolute Auto 1700 /uL (1100-4500); Lymphocytes Percent Auto 29.2 % (25-40); Mean Corpuscular HGB Conc 33.9 % (30-36); Mean Corpuscular Hemoglobin 32.5 PG (26-34); Mean Corpuscular Volume 95.7 fL (80-100); Monocytes Absolute Auto 500 /uL (0-900); Monocytes Percent Auto 7.8 % (3-14); Neutrophils Absolute Auto 3600 /uL (1500-7000); Neutrophils Percent Auto 60.3 % (50-75); Platelet Count 149 X10^3/uL (150-400); Red Blood Cell Count 3.84 X10^6/uL (4.0-5.2); Red Cell Distribution Width 13.9 % (11.6-14.8); White Blood Cell Count 5.9 X10^3/uL (4.5-11.0)
[2024-07-17 10:23] LABS: NT-proBNP (BNP-Adult 18+) 773 pg/mL (<450); Troponin I 0.018 ng/mL (0.01-0.034)
--- NOTE | 2024-07-17 10:49 | ED.CHESTPAIN ---
HPI - Chest Pain General Chief Complaint: Chest Pain Stated Complaint: Chest Pain Time Seen by Provider: 07/17/24 10:08 Source: patient and EMS Mode of arrival: EMS Limitations: no limitations History of Present Illness HPI narrative: Patient here for non reproducible right-sided chest discomfort that occurred at 845 this morning while walking to the bathroom. She took 3 nitroglycerins with relief. Patient has history of multivessel coronary artery disease. History of [place] in the past. Two years ago patient was transferred from here to [facility] for elevated troponins. She does have history of MIs and failed a temp of heart catheterization through the right groin given multivessel disease. She lives in independent living at [facility]. Pain is reproducible when patient takes a deep breath and on palpation of the right pectoral area. EKG reassuring troponin is 0.018. Related Data Home Medications Medication Instructions Recorded Confirmed coenzyme Q10 300 mg capsule (Co 300 mg PO DAILY 12/18/19 07/18/24 Q-10) tyhyswve-nix-tfmgx acid 0.4 1 tab PO DAILY 11/30/20 07/18/24 mg-lycopene 300 mcg-lutein 250 mcg tablet (Centrum Silver) olopatadine 0.1 % eye drops 1 drp EYE-BOTH BID 06/09/22 07/18/24 fish [id number] C-vit E 2,000 g PO DAILY 04/21/23 07/18/24 mg-650 mg-12 mg/2.5 g emulsion packt (Coromega) amlodipine 5 mg tablet 5 mg PO DAILY 08/23/23 07/18/24 metoprolol succinate 25 mg 25 mg PO DAILY 08/23/23 07/18/24 tablet,extended release 24 hr spironolactone 25 mg tablet 12.5 mg PO DAILY 11/08/23 07/18/24 ipratropium bromide 42 mcg (0.06 2 spray intranasal ONCE Runny nose 05/06/24 07/18/24 %) nasal spray Previous Rx's Medication Instructions Recorded apixaban 2.5 mg tablet 2.5 mg PO BID #90 tabs 01/27/23 Disabled Parking Permit #1 ea 08/03/23 atorvastatin 20 mg tablet 80 mg (4 x 20 mg) PO QPM #120 tabs 09/28/23 acyclovir 400 mg tablet See Rx Instructions .Route 11/08/23 .COMPLEX #90 tabs candesartan 16 mg tablet See Rx Instructions .Route 11/08/23 .COMPLEX #90 tabs furosemide 20 mg tablet 20 mg PO DAILY #90 tabs 05/08/24 tramadol 50 mg tablet See Rx Instructions .Route 05/17/24 .COMPLEX #90 tabs diphenoxylate-atropine 2.5 1 tab PO BID PRN diarrhea #60 tabs 05/22/24 mg-0.025 mg tablet (Lomotil) nitroglycerin 0.4 mg sublingual 0.4 mg sublingual .PRN #25 tabs 06/19/24 tablet buspirone 5 mg tablet 5 mg PO TID #90 tabs 07/18/24 Allergies Allergy/AdvReac Type Severity Reaction Status Date / Time Sulfa (Sulfonamide Allergy Unknown Verified 07/18/24 13:08 Antibiotics) Review of Systems Review of Systems Narrative: GENERAL: Negative chills, fatigue, malaise, fever, sweats. HEENT: Negative sinus pain, ear pain, sore throat RESPIRATORY: Negative dyspnea, cough CARDIOVASCULAR: Positive chest pain, negative palpitations GASTROINTESTINAL: Negative vomiting, nausea, abdominal pain : Negative dysuria, frequency, hematuria MUSCULOSKELETAL: Negative muscle or bony pain SKIN: Negative rash, skin lesions NEUROLOGIC: Negative weakness, numbness ROS Unobtainable: All systems reviewed & are unremarkable except as noted in HPI and below Patient History Medical History (Updated 07/18/24 @ 13:21 by Monik Monson PA-C) Weight loss Angina of effort History of ST elevation myocardial infarction (STEMI) 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 Chronic diarrhea Incomplete emptying of bladder Severe tricuspid regurgitation Transaminitis Medicare annual wellness visit, subsequent Difficulty swallowing pills Bilateral lower extremity edema Stroke Coronary artery disease due to calcified coronary lesion Physical deconditioning Lumbar region somatic dysfunction Bilateral thumb pain Body posture problem Chronic 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 Acute pain of right knee Anxiety as acute reaction to exceptional stress Obstruction of right ureteropelvic junction (UPJ) Lower extremity edema Feeling of incomplete bladder emptying Urinary hesitancy Nocturia Spondylolisthesis at L5-S1 level Spondylolisthesis at L4-L5 level Closed T10 fracture Chronic thoracic back pain Villous adenoma of colon Change in stool Constipation by outlet dysfunction Elevated fasting blood sugar Herpes (2009) Fecal incontinence (1997) Kidney disease (2007) Lumbar spine pain (2003) Cervical spine disease BCC (basal cell carcinoma of skin) (2003) Harrison's palsy (2007) Colon polyps (1997) GERD (gastroesophageal reflux disease) (1989) Hemorrhoids (1989) Urinary incontinence (2010) Chicken pox (~1940) Measles (1942) Mumps (1946) Rubella (194) Plantar warts (~1970) Psoriasis (2011) Atrial fibrillation (2007) Hypertension (~1980) Cataract (2001) Hearing loss (2012) Tinnitus (2004) Anemia (2007) Osteoarthritis (~1999) Surgical History Anesthesia Status post blepharoplasty of both eyes (2013) History of basal cell carcinoma excision (~2003) History of resection of rectum (1997) History of cataract removal with insertion of prosthetic lens (2010) History of hip replacement (03/2008) Status post dilation and curettage (1981) Status post tonsillectomy and adenoidectomy (1941) Family History Brother Age: 70 Crohns disease Child Age: 64 Mental health problem Hepatitis C Child Age: 61 Graves disease Grandmother Heart disease Stroke [place] (myocardial infarction) Mother Heart disease Hypertension Osteoporosis Cancer Congestive heart failure Grandfather Heart disease IL (myocardial infarction) Grandmother Heart disease Sister Age: 84 HINDS (nonalcoholic steatohepatitis) Liver cancer Sister Age: 71 Obesity Carotid artery disease Stroke Father No problems noted. Grandfather No problems noted. Sister Lung cancer Sister Respiratory arrest Social History household members: none Smoking Status: Former smoker alcohol intake: current Smoking Status: Never smoker alcohol intake frequency: other Exam Narrative Exam Narrative: GENERAL: in no distress, not toxic not dyspneic HEAD: Normocephalic. EYES: Pupils equal round ENT: Mucous membranes moist. NECK: Trachea midline. CARDIOVASCULAR: Regular rate and rhythm RESPIRATORY: Clear to auscultation. Breath sounds equal bilaterally. No wheezes, rales, or rhonchi., chest is nontender., mild right pectoral/right-sided chest tenderness on palpation and deep breath. GASTROINTESTINAL: Abdomen soft, non-tender EXTREMITIES: No gross deformities. BACK: No flank tenderness. NEURO: AOx4. Clear speech SKIN: Warm and dry PSYCH: Not anxious, is cooperative Initial Vital Signs Initial Vital Signs: Vital Signs Pulse Oximetry 97 07/17/24 09:47 Course Orders Ordered: Discontinued Medications Ceftriaxone Sodium 2,000 mg/ (Sodium Chloride) 100 mls @ 200 mls/hr IV NOW ONE Stop: 07/17/24 11:16 Last Admin: 07/17/24 11:27 Dose: Not Given Documented By: ES Vital Signs Vital signs: Vital Signs - 8 hr 07/17/24 09:47 07/17/24 09:50 07/17/24 09:50 Temperature Pulse Rate 67 Respiratory Rate 21 Blood Pressure 170/81 H Pulse Oximetry 97 98 Oxygen Delivery Method 07/17/24 09:52 07/17/24 10:00 07/17/24 10:00 Temperature 97.8 F Pulse Rate 66 61 Respiratory Rate 18 23 Blood Pressure 170/81 H 142/71 H Pulse Oximetry 98 96 Oxygen Delivery Method Room Air Room Air 07/17/24 10:30 07/17/24 10:30 07/17/24 11:00 Temperature Pulse Rate 57 L Respiratory Rate 16 Blood Pressure 136/65 126/58 L Pulse Oximetry 98 Oxygen Delivery Method 07/17/24 11:00 07/17/24 11:30 07/17/24 11:30 Temperature Pulse Rate 53 L 53 L Respiratory Rate 14 19 Blood Pressure 116/58 L Pulse Oximetry 98 98 Oxygen Delivery Method 07/17/24 12:00 07/17/24 12:01 07/17/24 12:01 Temperature Pulse Rate 72 70 Respiratory Rate 29 H 24 Blood Pressure 182/88 H Pulse Oximetry Oxygen Delivery Method 07/17/24 12:30 07/17/24 12:35 07/17/24 12:35 Temperature Pulse Rate 81 78 Respiratory Rate 41 H 23 Blood Pressure 143/65 H Pulse Oximetry 99 Oxygen Delivery Method 07/17/24 13:00 07/17/24 13:01 07/17/24 13:01 Temperature Pulse Rate 66 66 Respiratory Rate 18 26 H Blood Pressure 152/68 H Pulse Oximetry 97 98 Oxygen Delivery Method MDM - Chest Pain Lab Data 07/17/24 09:40 07/17/24 09:40 Labs: Lab Results 07/17/24 07/17/24 Range/Units 09:40 12:00 WBC 5.9 (4.5-11.0) X10^3/uL RBC 3.84 L (4.0-5.2) X10^6/uL Hgb 12.5 (12.0-16.0) g/dL Hct 36.8 (36-46) % MCV 95.7 (80-100) fL MCH 32.5 (26-34) PG MCHC 33.9 (30-36) % RDW 13.9 (11.6-14.8) % Plt Count 149 L (150-400) X10^3/uL Neut % (Auto) 60.3 (50-75) % Lymph % (Auto) 29.2 (25-40) % [place] % (Auto) 7.8 (3-14) % Eos % (Auto) 2.0 (2-4) % Baso % (Auto) 0.7 (0-2) % Neut # (Auto) 3600 (9844-4880) /uL Lymph # (Auto) 1700 (0857-3962) /uL [place] # (Auto) 500 (0-900) /uL Eos # (Auto) 100 (0-450) /uL Baso # (Auto) 0 (0-100) /uL PT 10.6 (9.4-12.5) SECONDS INR 0.9 (0.9-1.3) APTT 35 (25.1-36.5) SECONDS Sodium 137 (137-145) mmol/L Potassium 4.3 (3.4-5.1) mmol/L Chloride 106 (98-107) mmol/L Carbon Dioxide 25 (22-32) mmol/L BUN 26 H (7-17) mg/dL Creatinine 0.93 (0.52-1.04) mg/dL Estimated GFR 59 L (>60) mL/min BUN/Creatinine Ratio 28.0 H (6-22) Glucose 97 (70-99) mg/dL Calcium 10.3 H (8.4-10.2) mg/dL Magnesium 2.0 (1.6-2.3) mg/dL Total Bilirubin 0.8 (0.2-1.3) mg/dL AST 38 H (14-36) IU/L ALT 31 (<35) IU/L Alkaline Phosphatase 72 (38-126) U/L Total Creatine Kinase 124 (30-135) U/L Troponin I 0.018 0.014 (0.01-0.034) ng/mL NT-Pro-B Natriuret Pep 773 H (<450) pg/mL Total Protein 6.7 (6.3-8.2) g/dL Albumin 4.0 (3.5-5.0) g/dL Globulin 2.7 (1.7-4.1) g/dL Albumin/Globulin Ratio 1.5 (1.0-2.8) Lipase 154 (23-300) U/L Imaging Data Chest x-ray: Radiologist's Impression: [address] [address] XRay Report Signed Patient: Mary Grace Zhou MR#: [id number] : 1935 Acct:[id number] Age/Sex: 88 / F Date of Service: 07/17/24 Loc: ED Accession Number: [id number] Procedure: XR chest 1V Ordering Provider: Tiago Castellanos MD PROCEDURE: XR CHEST 1V INDICATIONS: chest pain TECHNIQUE: One view of the chest was acquired. COMPARISON: [facility], , XR CHEST 1V, 06/14/2023, 13:04. FINDINGS: Surgical changes and devices: None. Lungs and pleura: Lungs are clear. No pleural effusions or pneumothorax. Mediastinum: Mediastinal contours appear normal. Heart size is enlarged. Bones and chest wall: No suspicious bony lesions. Overlying soft tissues appear unremarkable. IMPRESSION: Cardiomegaly. No evidence acute pulmonary process. Dictated by: Rich Diaz M.D. on 07/17/2024 at 10:18 Approved by: Rich Diaz M.D. on 07/17/2024 at 10:19 [facility] Narrative Medical decision making narrative: Patient here for non reproducible right-sided chest discomfort that occurred at 845 this morning while walking to the bathroom. She took 3 nitroglycerins with relief. Patient has history of multivessel coronary artery disease. History of [place] in the past. Two years ago patient was transferred from here to [facility] for elevated troponins. She does have history of MIs and failed a temp of heart catheterization through the right groin given multivessel disease. She lives in independent living at [facility]. Pain is reproducible when patient takes a deep breath and on palpation of the right pectoral area. EKG reassuring troponin is 0.018. After history and exam, CBC CMP troponin x2 EKG chest x-ray, patient already had aspirin and nitroglycerin. BNP MDM Medical records reviewed: ER visits here laboratory studies April 17, 2022 as well as June 14, 2023. Differential considered: Includes but not limited to STEMI non-STEMI costochondritis pleurisy pneumonia Lab Test results independently reviewed as above. Pertinent findings: WBC 5.9 hemoglobin 12.5 INR 0.9 sodium 137 potassium 4.3 BUN 26 creatinine 0.93 GFR 59 troponin 0.018 BNP 773, repeat troponin 0.014 Independently reviewed EKG normal sinus rhythm normal EKG rate 67 Imaging studies independently reviewed: Chest x-ray no acute finding Consultations: 12:20 p.m.. Spoke with Cardiology, Dr. Doroteo Morales, he is on-call for Dr. Mckee, patient may be discharged home if 2nd troponin is not elevated. No need for transfer or admission or observation at this time. Nitroglycerin taken his nonspecific. Chest pain is on the right side and reproducible. Re-evaluations: 1:15 p.m.. Updated patient results. Exam is reassuring laboratory studies are reassuring cardiology service was contacted. She can be discharged home and resume her medications and follow up with her cytology laboratory manager this week. Again, right side chest is tender to touch. But very mild. Discussion: Appropriate for discharge home. Exam is reassuring. Two sets of troponins were done. Cardiology service was consulted. Patient is chest pain-free at time of discharge. Return precautions reviewed. She desires discharge home. Patient had atypical right-sided chest pain, she could feel it when she takes a deep breath and on palpation here. No D-dimer indicated at this time. Clinically not pulmonary embolism or dissection. Diagnosis: Atypical Chest pain Discharge Plan Departure Patient Disposition: Home Clinical Impression: Atypical chest pain Instructions: DI for Atypical Chest Pain Activity Restrictions/Additional Instructions: Your exam and laboratory studies imaging studies and EKG are reassuring. Cardiology service was contacted today. Please see your family doctor and cytology laboratory manager within a week for re-evaluation. Continue home medications. Return if worse if any questions or concerns. At this time it does not appear to be heart related causing your discomfort on the right chest today. Return if worse if any questions or concerns Prescriptions: No Action apixaban 2.5 mg tablet 2.5 mg PO BID Qty: 90 3RF (DME) Disabled Parking Permit See Rx Instructions .Route .MEDSUPPLY Qty: 1 0RF Rx Instructions: Valid for 5 years. atorvastatin 20 mg tablet 80 mg PO QPM Qty: 120 11RF furosemide 20 mg tablet 20 mg PO DAILY Qty: 90 2RF Rx Instructions: take an extra tablet PRN for edema tramadol 50 mg tablet See Rx Instructions .ROUTE .COMPLEX Qty: 90 0RF Rx Instructions: Take 1/2-1 tablet by mouth 3 times daily as needed for pain diphenoxylate-atropine [Lomotil] 2.5-0.025 mg tablet 1 tab PO BID PRN (Reason: diarrhea) Qty: 60 5RF nitroglycerin 0.4 mg tablet, sublingual 0.4 mg sublingual .PRN Qty: 25 0RF metoprolol succinate 25 mg tablet extended release 24 hr 25 mg PO DAILY amlodipine 5 mg tablet 5 mg PO DAILY spironolactone 25 mg tablet 12.5 mg PO DAILY acyclovir 400 mg tablet See Rx Instructions .ROUTE .COMPLEX Qty: 90 3RF Dose Instruction: take 1 tablet by mouth once daily for HERPES PROPHYLAXIS Rx Instructions: take 1 tablet by mouth once daily for HERPES PROPHYLAXIS candesartan 16 mg tablet See Rx Instructions .ROUTE .COMPLEX Qty: 90 3RF Dose Instruction: take 1 tablet by mouth once daily Rx Instructions: take 1 tablet by mouth once daily Co Q-10 300 mg capsule 300 mg PO DAILY Coromega 2,000-650-12 mg/2.5 gram emulsion in packet PO DAILY buspirone 5 mg tablet 5 mg PO TID Qty: 90 0RF olopatadine 0.1 % drops 1 drp EYE-BOTH BID Patient Comments: instill 1 drop into both eyes twice a day Centrum Silver 0.4-300-250 mg-mcg-mcg tablet 1 tab PO DAILY ipratropium bromide 42 mcg (0.06 %) spray,non-aerosol 2 spray intranasal ONCE Referrals: Rashawn Banuelos DO [Primary Care Provider] - Stand Alone Forms: Patient Portal/API/Survey
[2024-07-17 12:33] LABS: Troponin I 0.014 ng/mL (0.01-0.034)
== END 2024-07-17 14:01 | disposition home or self-care (01) ==
PROVIDERS: Emergency Provider Emergency Medicine; Family Provider Family Medicine; PCP Family Medicine
DX: R07.89 Other chest pain (principal); I25.10 Atherosclerotic heart disease of native coronary artery without angina pectoris; I25.2 Old myocardial infarction
CPT/HCPCS: 71045; 80053; 82550; 83690; 83735; 83880; 84484; 85025; 85610; 85730; 93005; 99283; 99284

== ENCOUNTER → 2024-10-01 13:59 | Outpatient (CLI) | payer MEDICARE, BC, SELFPAY ==
[2024-05-06 09:39] VITALS: BMI 24.2
[2024-10-01 14:32] LABS: Cholesterol 148 mg/dL (140-199); HDL Cholesterol 83 mg/dL (40-60); Triglycerides 73 mg/dL (35-150)
== END ==
PROVIDERS: Family Provider Family Medicine; PCP Family Medicine; Referring Provider Family Medicine; Visit Provider Family Medicine
DX: E78.2 Mixed hyperlipidemia (principal)
CPT/HCPCS: 36415; 80061

== ENCOUNTER → 2024-12-26 10:07 | Outpatient (CLI) | payer MEDICARE, BC, SELFPAY ==
[2024-05-06 09:39] VITALS: BMI 24.2
[2024-12-26 11:03] LABS: Add Manual Diff / Slide Review NO; Hematocrit 37.4 % (36-46); Hemoglobin 12.6 g/dL (12.0-16.0); Lymphocytes Absolute Auto 1200 /uL (1100-4500); Mean Corpuscular HGB Conc 33.6 % (30-36); Mean Corpuscular Hemoglobin 31.7 PG (26-34); Mean Corpuscular Volume 94.5 fL (80-100); Platelet Count 178 X10^3/uL (150-400)
[2024-12-26 13:00] LABS: Alanine Aminotransferase 27 IU/L (<35); Albumin 4.6 g/dL (3.5-5.0); Albumin Globulin Ratio 1.6 (1.0-2.8); Alkaline Phosphatase 76 U/L (38-126); Blood Urea Nitrogen 25 mg/dL (7-17); Calcium 10.5 mg/dL (8.4-10.2); Carbon Dioxide 24 mmol/L (22-32); Chloride 98 mmol/L (98-107); Cholesterol 159 mg/dL (140-199); Estimated Glomerular Filt Rate 47 mL/min (>60); Globulin 2.8 g/dL (1.7-4.1); Glucose 103 mg/dL (70-99); HDL Cholesterol 98 mg/dL (40-60); HEMOLYSIS < 15 (0-50); Potassium 4.6 mmol/L (3.4-5.1); Sodium 133 mmol/L (137-145); Total Protein 7.4 g/dL (6.3-8.2); Triglycerides 70 mg/dL (35-150)
== END ==
PROVIDERS: Family Provider Family Medicine; PCP Family Medicine; Referring Provider Family Medicine; Visit Provider Family Medicine
DX: N13.30 Unspecified hydronephrosis (principal); R79.9 Abnormal finding of blood chemistry, unspecified; I10 Essential (primary) hypertension; E78.2 Mixed hyperlipidemia
CPT/HCPCS: 36415; 80053; 80061; 85025

== ENCOUNTER 2024-12-30 02:46 | Emergency (ER) | payer MEDICARE, BC, SELFPAY ==
[2024-05-06 09:39] VITALS: BMI 24.2
[2024-12-30] VITALS (18 sets, daily range): BP systolic 122–170; BP diastolic 59–81; PULSE 52–73; RESP 11–22; TEMP 36.4–36.7; O2SAT 84–98; BMI 21.4
--- NOTE | 2024-12-30 02:55 | EKG_ITS ---
[address] [address] Test Date: 2024-12-30 Pat Name: Mary Grace Zhou Department: Room: Gender: Female Policy Advisor: JUAN : 1935 Requested By: Order Number: [id number] Reading MD: Ameya Melenrdez MD Measurements Intervals [place] Rate: 63 P: 40 MS: 206 QRS: -28 QRSD: 80 T: 43 QT: 418 QTc: 427 Interpretive Statements Sinus rhythm with premature atrial complexes Electronically Signed On 12-30-2024 7:49:29 PDT by Ameya Melendrez MD
--- NOTE | 2024-12-30 02:59 | ED.CHESTPAIN ---
HPI - Chest Pain General Chief Complaint: Chest Pain Stated Complaint: chest pain Time Seen by Provider: 12/30/24 02:54 History of Present Illness HPI narrative: 89-year-old female with a history of coronary artery disease and CVA history in 2022 presents with right-sided chest pressure like pain that lasted approximately 45 minutes prior to arrival it woke her up during her sleep. She took a total of 3 nitroglycerin tablets every 15 minutes and it was not until the 3rd tablet was finished that the pain dissipated. Patient was also given a full aspirin dose via EMS on route. Patient also has a history of atrial fibrillation is anticoagulated with Eliquis. Currently the patient is asymptomatic. Related Data Home Medications ?Medication ?Instructions ?Recorded ?Confirmed coenzyme Q10 300 mg capsule (Co 300 mg PO DAILY 12/18/19 10/03/24 Q-10) znqhgltc-oqk-huiry acid 0.4 1 tab PO DAILY 11/30/20 10/03/24 mg-lycopene 300 mcg-lutein 250 mcg tablet (Centrum Silver) olopatadine 0.1 % eye drops 1 drp EYE-BOTH BID 06/09/22 10/03/24 fish wzo--gsv C-vit E 2,000 g PO DAILY 04/21/23 10/03/24 mg-650 mg-12 mg/2.5 g emulsion packt (Coromega) amlodipine 5 mg tablet 5 mg PO DAILY 08/23/23 10/03/24 metoprolol succinate 25 mg 25 mg PO DAILY 08/23/23 10/03/24 tablet,extended release 24 hr spironolactone 25 mg tablet 12.5 mg PO DAILY 11/08/23 10/03/24 ipratropium bromide 42 mcg (0.06 2 spray intranasal ONCE Runny nose 05/06/24 10/03/24 %) nasal spray lactobacillus combo no.11 15 1 cap PO DAILY Diarrhea 08/07/24 10/03/24 billion cell sprinkle capsule (Probiotic) melatonin 5 mg capsule 5 mg PO BEDTIME 08/07/24 10/03/24 lactobacillus combination no.9 4 4,000 mmu cells PO DAILY 10/01/24 10/03/24 billion cell capsule (Adult 50 Plus Probiotic) psyllium husk 3.4 gram/5.4 gram 1 tbsp PO DAILY 10/01/24 10/03/24 oral powder (Metamucil) spironolactone 50 mg tablet 50 mg PO DAILY 10/01/24 10/03/24 Previous Rx's ?Medication ?Instructions ?Recorded apixaban 2.5 mg tablet 2.5 mg PO BID #90 tabs 01/27/23 Disabled Parking Permit #1 ea 08/03/23 candesartan 16 mg tablet See Rx Instructions .Route 11/08/23 .COMPLEX #90 tabs furosemide 20 mg tablet 20 mg PO DAILY #90 tabs 05/08/24 buspirone 5 mg tablet 5 mg PO 3XD #90 tabs 09/30/24 acyclovir 400 mg tablet 400 mg PO DAILY #90 tabs 11/05/24 tramadol 50 mg tablet See Rx Instructions .Route 11/21/24 .COMPLEX #90 tabs diphenoxylate-atropine 2.5 1 tab PO BID PRN diarrhea #60 tabs 12/03/24 mg-0.025 mg tablet (Lomotil) atorvastatin 40 mg tablet 40 mg PO BEDTIME #90 tabs 12/25/24 nitroglycerin 0.4 mg sublingual 0.4 mg sublingual Q5-15M for 12/27/24 tablet angina #25 tabs azithromycin 250 mg tablet 250 mg PO DAILY 4 days #4 tabs 12/30/24 Allergies Allergy/AdvReac Type Severity Reaction Status Date / Time Sulfa (Sulfonamide Allergy Unknown Verified 12/30/24 02:58 Antibiotics) Review of Systems Review of Systems ROS Unobtainable: All systems reviewed & are unremarkable except as noted in HPI and below Patient History Medical History Fatigue Angina at rest Elevated BUN Acute neck pain Weight loss Angina of effort History of ST elevation myocardial infarction (STEMI) 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 Chronic diarrhea Incomplete emptying of bladder Severe tricuspid regurgitation Transaminitis Medicare annual wellness visit, subsequent Difficulty swallowing pills Bilateral lower extremity edema Stroke Coronary artery disease due to calcified coronary lesion Physical deconditioning Lumbar region somatic dysfunction Bilateral thumb pain Body posture problem Chronic 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 Acute pain of right knee Anxiety as acute reaction to exceptional stress Obstruction of right ureteropelvic junction (UPJ) Lower extremity edema Feeling of incomplete bladder emptying Urinary hesitancy Nocturia Spondylolisthesis at L5-S1 level Spondylolisthesis at L4-L5 level Closed T10 fracture Chronic thoracic back pain Villous adenoma of colon Change in stool Constipation by outlet dysfunction Elevated fasting blood sugar Herpes (2009) Fecal incontinence (1997) Kidney disease (2007) Lumbar spine pain (2003) Cervical spine disease BCC (basal cell carcinoma of skin) (2003) Harrison's palsy (2007) Colon polyps (1997) GERD (gastroesophageal reflux disease) (1989) Hemorrhoids (1989) Urinary incontinence (2010) Chicken pox (~1940) Measles (1942) Mumps (1946) Rubella (194) Plantar warts (~1970) Psoriasis (2011) Atrial fibrillation (2007) Hypertension (~1979) Cataract (2001) Hearing loss (2012) Tinnitus (2004) Anemia (2007) Osteoarthritis (~1999) Surgical History Anesthesia Status post blepharoplasty of both eyes (2013) History of basal cell carcinoma excision (~2003) History of resection of rectum (1997) History of cataract removal with insertion of prosthetic lens (2010) History of hip replacement (03/2008) Status post dilation and curettage (1981) Status post tonsillectomy and adenoidectomy (1941) Family History Brother Age: 70 Crohns disease Child Age: 64 Mental health problem Hepatitis C Child Age: 61 Graves disease Grandmother Heart disease Stroke CT (myocardial infarction) Mother Heart disease Hypertension Osteoporosis Cancer Congestive heart failure Grandfather Heart disease CT (myocardial infarction) Grandmother Heart disease Sister Age: 84 HINDS (nonalcoholic steatohepatitis) Liver cancer Sister Age: 71 Obesity Carotid artery disease Stroke Father No problems noted. Grandfather No problems noted. Sister Lung cancer Sister Respiratory arrest Social History household members: none alcohol intake: current alcohol intake frequency: other Exam Narrative Exam Narrative: General: Patient appears to be in no acute distress, acting appropriately Head: normocephalic, atraumatic, HEENT: Pupils equal round reactive, eyes tracking well, neck supple, no JVD Heart: regular rate and rhythm, no murmurs, rubs, or gallops heard Lungs: clear to auscultation, no adventitious sounds Abdomen: soft , nontender, nondistended, positive bowel sounds Neurological: no focal neurological signs, moving all extremities well, alert and oriented x3, Psych: good judgment ,good insight, mood is normal. Initial Vital Signs Initial Vital Signs: Vital Signs Pulse Oximetry 84 L 12/30/24 02:54 Scores HEART Score Heart Score history: Slightly Suspicious Heart Score EKG: Normal Heart Score Age: > or = 65 years old Heart Score risk factors: 1-2 risk factors Heart Score troponin: < or = to normal limit Heart Score Total: 3 Course Orders Ordered: ED Orders 12/30/24 02:50 Complete Blood Count AUTO DIFF Stat Comprehensive Metabolic Panel Stat Lipase Stat Magnesium Stat NT-proBNP (BNP-Adult 18+) Stat PTT Partial Thromboplastin Jose Stat Prothrombin Time INR Stat Troponin & CK Cardiac Panel Stat 12/30/24 03:02 XR chest 1V Stat EKG-12 Lead Stat 12/30/24 04:54 Troponin I Stat Discontinued Medications Sodium Chloride (Normal Saline 0.9%) 500 mls @ 1,000 mls/hr IV BOLUS ONE Stop: 12/30/24 04:36 Last Infusion: 12/30/24 04:52 Dose: Infused Ceftriaxone Sodium 1,000 mg/ (Sodium Chloride) 100 mls @ 200 mls/hr IV NOW ONE Stop: 12/30/24 04:57 Last Titration: 12/30/24 05:48 Dose: 0 mls/hr Azithromycin 500 mg/ Dextrose 250 mls @ 250 mls/hr IV NOW ONE Stop: 12/30/24 04:58 Last Admin: 12/30/24 05:44 Dose: 250 mls/hr Morphine Sulfate (Morphine 4 Mg/Ml Inj) 2 mg IV NOW ONE Stop: 12/30/24 05:05 Reevaluation(s) Reevaluation #1: Upon re-evaluation, patient's pain has not returned and the patient continues to stay asymptomatic. Reevaluation #2: Upon re-evaluation, patient's pain continues to stay away. Time: 06:02 Vital Signs Vital signs: Vital Signs - 8 hr 12/30/24 02:54 12/30/24 02:55 12/30/24 02:55 Temperature Pulse Rate 62 Respiratory Rate Blood Pressure 170/81 H Pulse Oximetry 84 L 98 Oxygen Delivery Method 12/30/24 02:58 12/30/24 03:00 12/30/24 03:01 Temperature 97.6 F Pulse Rate 60 59 L Respiratory Rate 16 Blood Pressure 170/81 H 140/72 Pulse Oximetry 96 98 Oxygen Delivery Method Room Air 12/30/24 03:01 12/30/24 03:30 12/30/24 03:31 Temperature Pulse Rate 60 59 L Respiratory Rate 15 16 Blood Pressure 122/62 Pulse Oximetry 98 95 Oxygen Delivery Method Room Air 12/30/24 03:31 12/30/24 04:00 12/30/24 04:00 Temperature Pulse Rate 55 L 52 L Respiratory Rate 13 13 Blood Pressure 126/60 Pulse Oximetry 94 96 Oxygen Delivery Method 12/30/24 04:30 12/30/24 04:30 Temperature Pulse Rate 56 L Respiratory Rate 12 Blood Pressure 143/64 H Pulse Oximetry 96 Oxygen Delivery Method Room Air MDM - Chest Pain Lab Data 12/30/24 02:50 12/30/24 02:50 Labs: Lab Results 12/30/24 12/30/24 Range/Units 02:50 05:00 WBC 5.7 (4.5-11.0) X10^3/uL RBC 3.70 L (4.0-5.2) X10^6/uL Hgb 11.6 L (12.0-16.0) g/dL Hct 34.7 L (36-46) % MCV 94.0 (80-100) fL MCH 31.3 (26-34) PG MCHC 33.3 (30-36) % RDW 13.7 (11.6-14.8) % Plt Count 153 (150-400) X10^3/uL Neut % (Auto) 54.5 (50-75) % Lymph % (Auto) 32.0 (25-40) % [place] % (Auto) 8.9 (3-14) % Eos % (Auto) 3.8 (2-4) % Baso % (Auto) 0.8 (0-2) % Neut # (Auto) 3100 (3163-8472) /uL Lymph # (Auto) 1800 (5445-0104) /uL [place] # (Auto) 500 (0-900) /uL Eos # (Auto) 200 (0-450) /uL Baso # (Auto) 0 (0-100) /uL PT 11.3 (9.4-12.5) SECONDS INR 1.0 (0.9-1.3) APTT 31 (25.1-36.5) SECONDS Sodium 128 L (137-145) mmol/L Potassium 4.7 (3.4-5.1) mmol/L Chloride 96 L (98-107) mmol/L Carbon Dioxide 29 (22-32) mmol/L BUN 27 H (7-17) mg/dL Creatinine 1.18 H (0.52-1.04) mg/dL Estimated GFR 44 L (>60) mL/min BUN/Creatinine Ratio 22.9 H (6-22) Glucose 99 (70-99) mg/dL Calcium 10.3 H (8.4-10.2) mg/dL Magnesium 1.9 (1.6-2.3) mg/dL Total Bilirubin 0.6 (0.2-1.3) mg/dL AST 40 H (14-36) IU/L ALT 27 (<35) IU/L Alkaline Phosphatase 80 (38-126) U/L Total Creatine Kinase 153 H (30-135) U/L Troponin I 0.013 0.012 (0.01-0.034) ng/mL NT-Pro-B Natriuret Pep 800 H (<450) pg/mL Total Protein 7.2 (6.3-8.2) g/dL Albumin 4.3 (3.5-5.0) g/dL Globulin 2.9 (1.7-4.1) g/dL Albumin/Globulin Ratio 1.5 (1.0-2.8) Lipase 244 (23-300) U/L Imaging Data Chest x-ray: Radiologist's Impression: Lower lobe pulmonary infiltrates and bilateral pleural effusions ECG Data Interpretation: Sinus rhythm with normal axis, rate of 63 beats per minute, normal MT intervals, no STT wave changes. Previous EKG showed also a normal sinus rhythm, no changes. [facility] Narrative Medical decision making narrative: 89-year-old female who presented with right-sided chest pain that dissipated after some nitroglycerin tablets. Her pain has stayed away for the most part here in the ED. her chest x-ray did show some lower lobe pulmonary infiltrates and bilateral pleural effusions. Patient will be treated with a pneumonia. She was given azithromycin and Rocephin. She will finish the antibiotics as an outpatient. Patient advised to return if symptoms return. Two sets of troponins were negative. Discharge Plan Departure Patient Disposition: Home Clinical Impression: Pneumonia Qualifiers: Pneumonia type: due to unspecified organism Laterality: bilateral Lung location: lower lobe of lung Qualified Code(s): J18.9 - Pneumonia, unspecified organism Instructions: DI for Pneumonia -- Adult Activity Restrictions/Additional Instructions: Finish antibiotics as prescribed starting tomorrow. Come back to ER if chest pain is worsening. Prescriptions: New azithromycin 250 mg tablet 250 mg PO DAILY 4 Days Qty: 4 0RF Rx Instructions: start on day 2 of therapy No Action apixaban 2.5 mg tablet 2.5 mg PO BID Qty: 90 3RF (DME) Disabled Parking Permit See Rx Instructions .Route .MEDSUPPLY Qty: 1 0RF Rx Instructions: Valid for 5 years. furosemide 20 mg tablet 20 mg PO DAILY Qty: 90 2RF Rx Instructions: take an extra tablet PRN for edema buspirone 5 mg tablet 5 mg PO 3XD Qty: 90 5RF acyclovir 400 mg tablet 400 mg PO DAILY Qty: 90 0RF tramadol 50 mg tablet See Rx Instructions .ROUTE .COMPLEX Qty: 90 0RF Rx Instructions: Take 1/2-1 tablet by mouth 3 times daily as needed for pain diphenoxylate-atropine [Lomotil] 2.5-0.025 mg tablet 1 tab PO BID PRN (Reason: diarrhea) Qty: 60 5RF atorvastatin 40 mg tablet 40 mg PO BEDTIME Qty: 90 3RF nitroglycerin 0.4 mg tablet, sublingual 0.4 mg sublingual Q5-15M Qty: 25 1RF metoprolol succinate 25 mg tablet extended release 24 hr 25 mg PO DAILY amlodipine 5 mg tablet 5 mg PO DAILY spironolactone 25 mg tablet 12.5 mg PO DAILY candesartan 16 mg tablet See Rx Instructions .ROUTE .COMPLEX Qty: 90 3RF Dose Instruction: take 1 tablet by mouth once daily Rx Instructions: take 1 tablet by mouth once daily spironolactone 50 mg tablet 50 mg PO DAILY Adult 50 Plus Probiotic 4 billion cell capsule 4,000 mmu cells PO DAILY Rx Instructions: administer with a meal Metamucil 3.4 gram/5.4 gram powder 1 tbsp PO DAILY Rx Instructions: mix into at least 8 oz of water or juice before administering Co Q-10 300 mg capsule 300 mg PO DAILY Coromega 2,000-650-12 mg/2.5 gram emulsion in packet PO DAILY olopatadine 0.1 % drops 1 drp EYE-BOTH BID Patient Comments: instill 1 drop into both eyes twice a day Centrum Silver 0.4-300-250 mg-mcg-mcg tablet 1 tab PO DAILY melatonin 5 mg capsule 5 mg PO BEDTIME Probiotic 15 billion cell capsule, sprinkle 1 cap PO DAILY ipratropium bromide 42 mcg (0.06 %) spray,non-aerosol 2 spray intranasal ONCE Referrals: Rashawn Banuelos DO [Primary Care Provider, Family Practice] Stand Alone Forms: Patient Portal/API
--- NOTE | 2024-12-30 03:02 | DI.RAD.S_ITS ---
PROCEDURE: XR CHEST 1V INDICATIONS: Chest Pain TECHNIQUE: One view of the chest was acquired. COMPARISON: [facility], CR, XR CHEST 1V, 07/17/2024, 9:52. [facility], CR, XR CHEST 1V, 06/14/2023, 13:04. FINDINGS: Surgical changes and devices: Multiple EKG leads overlie the thorax. Lungs and pleura: Lungs are clear. No pleural effusions or pneumothorax. Mediastinum: Cardiomegaly is noted. Atheromatous plaques noted in the thoracic arch. Mildly elevated right diaphragm is unchanged. Bones and chest wall: No suspicious bony abnormalities. Soft tissues appear unremarkable. Multilevel degenerative disc disease noted. IMPRESSION: No acute cardiopulmonary abnormality is seen. Dictated by: Kecia Jack M.D. on 12/30/2024 at 7:53 Approved by: Kecia Jack M.D. on 12/30/2024 at 7:55
[2024-12-30 03:13] LABS: INR 1.0 (0.9-1.3); Prothrombin Time 11.3 SECONDS (9.4-12.5)
[2024-12-30 03:15] LABS: PTT Partial Thromboplastin Tim 31 SECONDS (25.1-36.5)
[2024-12-30 03:16] LABS: Alanine Aminotransferase 27 IU/L (<35); Albumin 4.3 g/dL (3.5-5.0); Albumin Globulin Ratio 1.5 (1.0-2.8); Alkaline Phosphatase 80 U/L (38-126); Blood Urea Nitrogen 27 mg/dL (7-17); Calcium 10.3 mg/dL (8.4-10.2); Carbon Dioxide 29 mmol/L (22-32); Chloride 96 mmol/L (98-107); Creatine Kinase 153 U/L (30-135); Estimated Glomerular Filt Rate 44 mL/min (>60); Globulin 2.9 g/dL (1.7-4.1); Glucose 99 mg/dL (70-99); HEMOLYSIS 24 (0-50); Lipase 244 U/L (23-300); Magnesium 1.9 mg/dL (1.6-2.3); Potassium 4.7 mmol/L (3.4-5.1); Sodium 128 mmol/L (137-145); Total Protein 7.2 g/dL (6.3-8.2)
[2024-12-30 03:22] LABS: Add Manual Diff / Slide Review NO; Hematocrit 34.7 % (36-46); Hemoglobin 11.6 g/dL (12.0-16.0); Lymphocytes Absolute Auto 1800 /uL (1100-4500); Mean Corpuscular HGB Conc 33.3 % (30-36); Mean Corpuscular Hemoglobin 31.3 PG (26-34); Mean Corpuscular Volume 94.0 fL (80-100); Platelet Count 153 X10^3/uL (150-400)
[2024-12-30 03:28] LABS: NT-proBNP (BNP-Adult 18+) 800 pg/mL (<450); Troponin I 0.013 ng/mL (0.01-0.034)
[2024-12-30] MEDS: SODIUM CHLORIDE 0.9% 500 ML 1000 ML IV (04:12)
[2024-12-30 05:33] LABS: Troponin I 0.012 ng/mL (0.01-0.034)
[2024-12-30] MEDS: AZITHROMYCIN 500 MG in DEXTROSE 5% IN WATER 250 ML 250 MG IV (05:44)
== END 2024-12-30 08:40 | disposition home or self-care (01) ==
PROVIDERS: Emergency Provider Family Medicine; Family Provider Family Medicine; PCP Family Medicine
DX: J18.9 Pneumonia, unspecified organism (principal); Z79.01 Long term (current) use of anticoagulants
CPT/HCPCS: 71045; 76770; 80053; 82550; 83690; 83735; 83880; 84484; 85025; 85610; 85730; 93005; 93010; 96361; 96365; 96366; 96367; 99284; 99285; J0696; J7040; J7050; J7060

== ENCOUNTER → 2024-12-30 06:07 | Outpatient (CLI) | payer MEDICARE, BC, SELFPAY ==
[2024-05-06 09:39] VITALS: BMI 24.2
--- NOTE | 2024-12-30 | DI.US.S_ITS ---
PROCEDURE: US RENAL COMPLETE INDICATIONS: FOLLOW-UP RIGHT HYDROURETER TECHNIQUE: Real-time scanning was performed of the kidneys and bladder, with image documentation. COMPARISON: [facility], , RENAL COMPLETE, 10/25/2018, 10:22. FINDINGS: Kidneys: Right kidney measures 9.7 cm long; left kidney measures 9.8 cm long. Right renal cortical thickness is 1.3 cm; left renal cortical thickness is 1.1 cm. Renal cortical echotexture is normal. No nephrolithiasis. Proximal ureter is prominent measuring 5.5 cm. This is relatively unchanged compared to prior exam. No suspicious solid mass lesions. Bladder: Pre-void bladder volume is 297 mL. Post-void residual is 136 mL. Pre-void images demonstrate no intraluminal masses or stones. On pre-void images, neither ureteral jets are noted with color Doppler interrogation. (Of note, ureteral jets may not be detectable in up to 25% of cases due to insufficient differences in specific gravity between ureteral and bladder urine). Miscellaneous: No free pelvic fluid. IMPRESSION: Prominent postvoid residual. Unchanged appearance of proximal right hydroureter. Dictated by: Connie Hensley M.D. on 12/30/2024 at 14:59 Approved by: Connie Hensley M.D. on 12/30/2024 at 15:01
== END ==
PROVIDERS: Family Provider Family Medicine; PCP Family Medicine; Referring Provider Urology; Visit Provider Urology
DX: R33.9 Retention of urine, unspecified (principal); R39.9 Unspecified symptoms and signs involving the genitourinary system; N13.4 Hydroureter
CPT/HCPCS: 76770